=== PATIENT | female | born 1940 | race Caucasian/White ===

== ENCOUNTER 2018-12-01 10:12 | Inpatient (IN) | payer OTHER ==
[2018-12-01 11:04] LABS: Absolute Lymphocytes (CBC) 0.7 K/uL (0.7-4.9); Absolute Neutrophil 8.6 K/uL (1.8-8.0); Basophils % 0.4 % (0-1.3); Eosinophils % 0.4 % (0-4.4); Monocytes % 9.2 % (3.3-12.3); RBC Red Blood Cell Count 4.01 M/uL (3.86-4.86)
[2018-12-01] MEDS ORDERED: IPRATROPIUM BROM 0.5MG/2.5ML ONE (11:04)
[2018-12-01] MEDS ORDERED: ALBUTEROL 2.5 MG/3 ML NEB SOL ONE (11:04)
--- NOTE | 2018-12-01 11:04 | RAD REPORT ---
EXAM DESCRIPTION: RAD - Chest Single View - 12/01/2018 10:52 am CLINICAL HISTORY: SOB Chest pain. COMPARISON: Chest Single View dated 10/03/2017; Chest Pa And Lat (2 Views) dated 10/19/2016; Chest P a And Lat (2 Views) dated 03/04/2016; CHEST PA AND LAT 2 VIEW dated 01/16/2016 FINDINGS: Portable technique limits examination quality. Mild interstitial pulmonary edema seen. The heart is mildly moderately enlarged. No displaced fractur es.Aortic atherosclerosis. IMPRESSION: Mild CHF versus volume overload.
[2018-12-01] MEDS ORDERED: predniSONE 20 MG TAB ONE (11:05)
[2018-12-01 11:11] LABS: Protime INR 1.11
[2018-12-01 11:25] LABS: Potassium 3.8 mmol/L (3.5-5.1); Sodium Level 140 mmol/L (136-145)
[2018-12-01 11:26] LABS: ALT/SGPT 14 U/L (12-78); AST/SGOT 9 U/L (15-37); Albumin 3.2 g/dL (3.4-5.0); Alkaline Phosphatase 65 U/L (45-117); BUN Blood Urea Nitrogen 10 mg/dL (7-18); Bicarbonate 30 mmol/L (21-32); Bilirubin Direct 0.5 mg/dL (0-0.2); Bilirubin Total 1.5 mg/dL (0.2-1.0); Glucose Level 172 mg/dL (74-106); Magnesium 2.2 mg/dL (1.8-2.4); NT PRO-BNP 1544 pg/mL (<450); Protein, Total 7.3 g/dL (6.4-8.2); Troponin (Emerg Dept Use Only) < 0.02 ng/mL (0.0-0.045)
[2018-12-01] MEDS ORDERED: FUROSEMIDE 40 MG/4 ML VIAL ONE (11:30)
--- NOTE | 2018-12-01 13:16 | EDPHYS ---
Physician Documentation [facility] Name: Michelle Beverly Age: 78 yrs Sex: Female : 1940 Arrival Date: 12/01/2018 Time: 10:13 Bed 14 Private MD: Avery Gil ED Physician Giorgio Jones HPI: 12/01 13:16 This 78 yrs old Female presents to ER via Wheelchair with complaints of gs Shortness Of Breath. 13:16 The patient has shortness of breath at rest. Onset: The symptoms/episode began/occurred gs gradually, 3 day(s) ago, and became worse and became persistent. Duration: The symptoms are continuous. The patient's shortness of breath is aggravated by coughing. Associated signs and symptoms: Pertinent negatives: fever. Severity of symptoms: At their worst the symptoms were severe in the emergency department the symptoms are unchanged. The patient has experienced similar episodes in the past, a few times. The patient has not recently seen a physician. 13:16 says pcp called in some abx 2-3 days ago. gs Historical: - Allergies: 10:25 Phenobarbital; ph - Home Meds: 12:15 Ambien 5 mg Oral tab 1 tab once daily [Active]; aspirin 81 mg Oral TbEC 1 tab once tw2 daily [Active]; 14:25 atorvastatin 40 mg Oral tab 1 tab once daily [Active]; Bystolic 5 mg Oral tab 1 tab tw2 once daily [Active]; citalopram 20 mg tab 1 tab once daily [Active]; hydrocodone-acetaminophen 10-325 mg Oral tab [Active]; Janumet Oral [Active]; Levemir 100 unit/mL subcutaneous soln [Active]; levothyroxine 125 mcg tab 1 tab once daily [Active]; lisinopril 10 mg Oral tab once daily [Active]; Spiriva with HandiHaler 18 mcg inhalation CpDv 1 cap once daily [Active]; Plavix 75 mg Oral tab 1 tab once daily [Active]; - PMHx: 10:25 Depression; Diabetes - IDDM; Hyperlipidemia; Hypertension; Hypothyroidism; Myocardial ph infarction; PE; - PSHx: 10:25 Cholecystectomy; LAMINECTOMY; Hysterectomy; ANKLE SURGERY; POLYP REMOVAL/ COLON ph RESECTION; Heart stents; Hemorroidectomy; Knee arthroscopy; cataract; - Immunization history:: Pneumococcal vaccine is up to date, Flu vaccine is up to date. - Social history:: Smoking status: Patient/guardian denies using tobacco. - Ebola Screening: : No symptoms or risks identified at this time. ROS: 13:16 All other systems are negative. gs Exam: 13:16 Head/Face: Normocephalic, atraumatic. Eyes: Pupils equal round and reactive to light, gs extra-ocular motions intact. Lids and lashes normal. Conjunctiva and sclera are non-icteric and not injected. Cornea within normal limits. Periorbital areas with no swelling, redness, or edema. ENT: Nares patent. No nasal discharge, no septal abnormalities noted. Tympanic membranes are normal and external auditory canals are clear. Oropharynx with no redness, swelling, or masses, exudates, or evidence of obstruction, uvula midline. Mucous membranes moist. Neck: Trachea midline, no thyromegaly or masses palpated, and no cervical lymphadenopathy. Supple, full range of motion without nuchal rigidity, or vertebral point tenderness. No Meningismus. Chest/axilla: Normal chest wall appearance and motion. Nontender with no deformity. No lesions are appreciated. 13:16 Abdomen/GI: Soft, non-tender, with normal bowel sounds. No distension or tympany. No guarding or rebound. No evidence of tenderness throughout. Back: No spinal tenderness. No costovertebral tenderness. Full range of motion. Skin: Warm, dry with normal turgor. Normal color with no rashes, no lesions, and no evidence of cellulitis. MS/ Extremity: Pulses equal, no cyanosis. Neurovascular intact. Full, normal range of motion. Neuro: Awake and alert, GCS 15, oriented to person, place, time, and situation. Cranial nerves II-XII grossly intact. Motor strength 5/5 in all extremities. Sensory grossly intact. Cerebellar exam normal. Normal gait. 13:16 Constitutional: The patient appears alert, awake. 13:16 Cardiovascular: Rate: normal, Rhythm: regular, Edema: is not appreciated. 13:16 ECG was reviewed by the Attending Physician. 13:16 Respiratory: moderate respiratory distress is noted, Respirations: tachypnea, Breath sounds: rales, that are mild, are located in both bases. Vital Signs: 10:23 BP 169 / 71; Pulse 76; Resp 24; Temp 98.3(TE); Pulse Ox 84% on R/A; Weight 131.54 kg; ph Height 5 ft. 7 in. (170.18 cm); Pain 0/10; 10:25 Pulse Ox 91% on 2 lpm NC; tw2 11:03 BP 154 / 52; Pulse 68; Resp 14; Pulse Ox 99% on Nebulizer Mask; tw2 12:13 BP 150 / 67; Pulse 70; Resp 22; Pulse Ox 95% on 2 lpm NC; tw2 13:00 BP 142 / 51; Pulse 69; Resp 17; Pulse Ox 96% on 2 lpm NC; tw2 13:45 BP 141 / 66; Pulse 68; Resp 17; Pulse Ox 96% on 2 lpm NC; tw2 14:26 BP 122 / 52; Pulse 59; Resp 17; Pulse Ox 95% on 2 lpm NC; tw2 10:23 Body Mass Index 45.42 (131.54 kg, 170.18 cm) ph 10:25 will continue to monitor, Dr. Jones notified of ra o2 tw2 MDM: 10:28 Patient medically screened. 13:16 Differential diagnosis: CHF exacerbation, Chronic Obstructive Pulmonary Disease gs Myocardial Infarction pneumonia. Data reviewed: vital signs, nurses notes. Counseling: I had a detailed discussion with the patient and/or guardian regarding: the historical points, exam findings, and any diagnostic results supporting the discharge/admit diagnosis, the need for further work-up and treatment in the hospital. 12/01 10:30 Order name: Basic Metabolic Panel; Complete Time: 11:45 12/01 10:30 Order name: CBC with Diff; Complete Time: 11:45 12/01 10:30 Order name: LFT's; Complete Time: 11:45 12/01 10:30 Order name: Magnesium; Complete Time: 11:45 12/01 10:30 Order name: NT PRO-BNP; Complete Time: 11:45 12/01 10:30 Order name: PT-INR; Complete Time: :45 12/01 10:30 Order name: Troponin (emerg Dept Use Only); Complete Time: 11:45 12/01 10:30 Order name: XRAY Chest (1 view); Complete Time: 11:18 12/01 10:30 Order name: Blood Culture* 12/01 14:17 Order name: Urine Dipstick--Ancillary (enter results) 12/01 15:01 Order name: Urine Dipstick-Ancillary [facility] 12/01 10:30 Order name: EKG; Complete Time: 10:31 12/01 10:30 Order name: Cardiac monitoring; Complete Time: 10:41 12/01 10:30 Order name: EKG - Nurse/Tech; Complete Time: 10:46 12/01 10:30 Order name: IV Saline Lock; Complete Time: 10:58 12/01 10:30 Order name: Labs collected and sent; Complete Time: 10:58 12/01 10:30 Order name: O2 Per Protocol; Complete Time: 10:42 12/01 10:30 Order name: O2 Sat Monitoring; Complete Time: 10:42 12/01 14:22 Order name: Diet Ada 2000 Larry; Complete Time: 14:23 tw2 EC:16 Rate is 71 beats/min. Rhythm is regular. LA interval is normal. QRS interval is gs prolonged. T waves are Normal. Clinical impression: Abnormal EKG without significant change and lbbb. Interpreted by me. Administered Medications: 11:00 Drug: predniSONE 40 mg Route: PO; tw2 11:19 Follow up: Response: No adverse reaction tw2 11:01 Drug: Albuterol 2.5 mg Route: Inhalation; tw2 11:01 Drug: AtroVENT Aerosol 0.5 mg Route: Inhalation; tw2 11:28 Drug: Lasix 40 mg Route: IVP; Site: right antecubital; tw2 14:23 Follow up: Response: No adverse reaction tw2 Disposition: 13:16 Critical Care:. gs Disposition: 12/01/18 13:14 Hospitalization ordered by Sukhwinder Vazquez for Observation. Preliminary diagnosis is Systolic (congestive) heart failure. - Bed requested for Telemetry/MedSurg (observation). - Status is Observation. tw2 - Condition is Stable. - Problem is an acute exacerbation. - Symptoms have improved. UTI on Admission? No Critical care time excluding procedures: 13:16 Critical care time: Bedside Care: 10 minutes, Consultation: 10 minutes, Family Intervention: 10 minutes. Total time: 30 minutes Signatures: Dispatcher [employer] [facility] Juliana Ramirez Lisbeth Fan RN RN Kerrie Ashton RN RN tw2 Giorgio Jones MD MD Corrections: (The following items were deleted from the chart) 14:47 13:14 Hospitalization Ordered by Sukhwinder Vazquez DO for Observation. Preliminary bd diagnosis is Systolic (congestive) heart failure. Bed requested for Telemetry/MedSurg (observation). Status is Observation. Condition is Stable. Problem is an acute exacerbation. Symptoms have improved. UTI on Admission? No. gs 15:09 14:47 12/01/2018 13:14 Hospitalization Ordered by Sukhwinder Vazquez DO for Observation. tw2 Preliminary diagnosis is Systolic (congestive) heart failure. Bed requested for Telemetry/MedSurg (observation). Status is Observation. Condition is Stable. Problem is an acute exacerbation. Symptoms have improved. UTI on Admission? No. bd
--- NOTE | 2018-12-01 13:16 | ER ---
Nurse's Notes [facility] Name: Michelle Beverly Age: 78 yrs Sex: Female : 1940 Arrival Date: 12/01/2018 Time: 10:13 Bed 14 Private MD: Avery Gil Diagnosis: Systolic (congestive) heart failure Presentation: 12/01 10:21 Presenting complaint: Patient states: SOB and persistent cough that is not productive ph since Tue, denies fever N/V/D, reports hx of COPD. Transition of care: patient was not received from another setting of care. Onset of symptoms was December 01, 2018. Risk Assessment: Do you want to hurt yourself or someone else? Patient reports no desire to harm self or others. Initial Sepsis Screen: Does the patient meet any 2 criteria? No. Patient's initial sepsis screen is negative. Does the patient have a suspected source of infection? No. Patient's initial sepsis screen is negative. Care prior to arrival: None. 10:21 Method Of Arrival: Wheelchair ph 10:21 Acuity: PAM 3 ph Triage Assessment: 11:03 General: Appears in no apparent distress. Respiratory: Onset: The symptoms/episode tw2 began/occurred couple of days , the patient has mild shortness of breath. Historical: - Allergies: 10:25 Phenobarbital; ph - Home Meds: 12:15 Ambien 5 mg Oral tab 1 tab once daily [Active]; aspirin 81 mg Oral TbEC 1 tab once tw2 daily [Active]; 14:25 atorvastatin 40 mg Oral tab 1 tab once daily [Active]; Bystolic 5 mg Oral tab 1 tab tw2 once daily [Active]; citalopram 20 mg tab 1 tab once daily [Active]; hydrocodone-acetaminophen 10-325 mg Oral tab [Active]; Janumet Oral [Active]; Levemir 100 unit/mL subcutaneous soln [Active]; levothyroxine 125 mcg tab 1 tab once daily [Active]; lisinopril 10 mg Oral tab once daily [Active]; Spiriva with HandiHaler 18 mcg inhalation CpDv 1 cap once daily [Active]; Plavix 75 mg Oral tab 1 tab once daily [Active]; - PMHx: 10:25 Depression; Diabetes - IDDM; Hyperlipidemia; Hypertension; Hypothyroidism; Myocardial ph infarction; PE; - PSHx: 10:25 Cholecystectomy; LAMINECTOMY; Hysterectomy; ANKLE SURGERY; POLYP REMOVAL/ COLON ph RESECTION; Heart stents; Hemorroidectomy; Knee arthroscopy; cataract; - Immunization history:: Pneumococcal vaccine is up to date, Flu vaccine is up to date. - Social history:: Smoking status: Patient/guardian denies using tobacco. - Ebola Screening: : No symptoms or risks identified at this time. Screenin:14 Abuse screen: Denies threats or abuse. Nutritional screening: No deficits noted. tw2 Tuberculosis screening: No symptoms or risk factors identified. Fall Risk Secondary diagnosis (15 points). Assessment: 11:02 General: Appears in no apparent distress. obese, Behavior is calm, cooperative, tw2 appropriate for age. Pain: Denies pain. Neuro: Level of Consciousness is awake, alert, obeys commands, Oriented to person, place, time, situation. Cardiovascular: Rhythm is sinus rhythm. Respiratory: Reports shortness of breath at rest on exertion cough that is non-productive, Airway is patent Respiratory effort is even, unlabored, Respiratory pattern is regular, symmetrical, Breath sounds are diminished bilaterally. GI: No signs and/or symptoms were reported involving the gastrointestinal system. Abdomen is flat, round non-distended, obese, Bowel sounds present X 4 quads. : No signs and/or symptoms were reported regarding the genitourinary system. EENT: No signs and/or symptoms were reported regarding the EENT system. Derm: No signs and/or symptoms reported regarding the dermatologic system. Musculoskeletal: Range of motion: intact in all extremities. 12:13 Reassessment: Patient appears in no apparent distress at this time. No changes from tw2 previously documented assessment. Patient and/or family updated on plan of care and expected duration. Pain level reassessed. Patient is alert, oriented x 3, equal unlabored respirations, skin warm/dry/pink. 13:00 Reassessment: Patient appears in no apparent distress at this time. No changes from tw2 previously documented assessment. Patient and/or family updated on plan of care and expected duration. Pain level reassessed. Patient is alert, oriented x 3, equal unlabored respirations, skin warm/dry/pink. 13:46 Reassessment: Patient appears in no apparent distress at this time. No changes from tw2 previously documented assessment. Patient and/or family updated on plan of care and expected duration. Pain level reassessed. Patient is alert, oriented x 3, equal unlabored respirations, skin warm/dry/pink. 13:54 Reassessment: pt request to be pushed over to her husbands room in the ER at this time, tw2 nad, provider notified. 14:28 Reassessment: Patient appears in no apparent distress at this time. No changes from tw2 previously documented assessment. Patient and/or family updated on plan of care and expected duration. Pain level reassessed. Patient is alert, oriented x 3, equal unlabored respirations, skin warm/dry/pink. Vital Signs: 10:23 BP 169 / 71; Pulse 76; Resp 24; Temp 98.3(TE); Pulse Ox 84% on R/A; Weight 131.54 kg; ph Height 5 ft. 7 in. (170.18 cm); Pain 0/10; 10:25 Pulse Ox 91% on 2 lpm NC; tw2 11:03 BP 154 / 52; Pulse 68; Resp 14; Pulse Ox 99% on Nebulizer Mask; tw2 12:13 BP 150 / 67; Pulse 70; Resp 22; Pulse Ox 95% on 2 lpm NC; tw2 13:00 BP 142 / 51; Pulse 69; Resp 17; Pulse Ox 96% on 2 lpm NC; tw2 13:45 BP 141 / 66; Pulse 68; Resp 17; Pulse Ox 96% on 2 lpm NC; tw2 14:26 BP 122 / 52; Pulse 59; Resp 17; Pulse Ox 95% on 2 lpm NC; tw2 10:23 Body Mass Index 45.42 (131.54 kg, 170.18 cm) ph 10:25 will continue to monitor, Dr. Jones notified of ra o2 tw2 ED Course: 10:13 Patient arrived in ED. as 10:14 Avery Gil MD is Private Physician. as 10:14 Kerrie Ashton RN is Primary Nurse. tw2 10:15 Arm band placed on. tw2 10:15 Call light in reach. Side rails up X 1. personnel monitor on. Pulse ox on. NIBP on. tw2 10:19 Giorgio Jones MD is Attending Physician. gs 10:23 Triage completed. ph 10:50 X-ray completed. Portable x-ray completed in exam room. Patient tolerated procedure ls3 well. 10:52 XRAY Chest (1 view) In Process Unspecified. EDMS 10:57 Blood Culture* Sent. ag 10:57 Basic Metabolic Panel Sent. ag 10:57 CBC with Diff Sent. ag 10:57 LFT's Sent. ag 10:57 Magnesium Sent. ag 10:57 NT PRO-BNP Sent. ag 10:57 PT-INR Sent. ag 10:57 Troponin (emerg Dept Use Only) Sent. ag 10:57 Inserted saline lock: 20 gauge in right antecubital area, using aseptic technique. ag Blood collected. 11:12 EKG done, by diesel truck technician. reviewed by Giorgio Jones MD. at1 13:14 Sukhwinder Vazquez DO is Hospitalizing Provider. 14:49 No provider procedures requiring assistance completed. Patient admitted, IV remains in tw2 place. Administered Medications: 11:00 Drug: predniSONE 40 mg Route: PO; tw2 11:19 Follow up: Response: No adverse reaction tw2 11:01 Drug: Albuterol 2.5 mg Route: Inhalation; tw2 11:01 Drug: AtroVENT Aerosol 0.5 mg Route: Inhalation; tw2 11:28 Drug: Lasix 40 mg Route: IVP; Site: right antecubital; tw2 14:23 Follow up: Response: No adverse reaction tw2 Outcome: 13:14 Decision to Hospitalize by Provider. gs 14:52 Admitted to Med/surg accompanied by tech, room 206, with chart, Report called to tw2 WILLIAM Hightower 14:52 Condition: stable 14:52 Instructed on the need for admit. 15:09 Patient left the ED. tw2 Signatures: Dispatcher [employer] EDMS Camille Alvares Amanda, mid level practitioner EKG Tat1 Janey Jones Patricia, WILLIAM RN Kerrie Ashton RN RN tw2 Giorgio Jones MD MD Serafin Boggs ls3
--- NOTE | 2018-12-01 13:42 | P.HP ---
Certification for Inpatient Patient admitted to: Observation With expected LOS: <2 Midnights Patient will require the following post-hospital care: Other (Home oxygen) Practitioner: I am a practitioner with admitting privileges, knowledge of patient current condition, hospital course, and medical plan of care. Services: Services provided to patient in accordance with Admission requirements found in Title 42 Section 412.3 of the Code of Federal Regulations Patient History Date of Service: 12/01/18 Primary Care Provider: Dr. Gil( I am covering for him) Reason for admission: Shortness of breath, lower extremity edema History of Present Illness: 78-year-old female presented to the emergency room with increasing shortness of breath and edema to the lower extremities. Shortness of breath has occurred over the past month. It got worse today. She also reports edema to the lower extremities and a mild cough. No significant chest pain or palpitations noted. No fever, chills, or nausea. Patient with history of CHF, COPD, diabetes, hypertension, hypothyroidism. She does not use Lasix at home. She is not on a fluid restriction. In the ER patient evaluated. O2 saturations were 84% on room air. Patient was given IV Lasix with improvement. White count 10.4, hemoglobin 13. Sodium 140, potassium 3.8. GFR 71. BNP elevated at 1544. Troponin less than 0.02. Chest x -ray showed CHF pattern. Patient was admitted for observation. When I saw the patient the ER, she appeared improved. Allergies phenobarbital Allergy (Intermediate, Verified 10/03/17 17:33) Itching Home medications list reviewed: Yes Home Medications: Pantoprazole Sodium [Protonix] 40 mg PO DAILY 03/14/13 Tiotropium Farley [Spiriva] 1 spray IH DAILY 03/14/13 Atorvastatin Calcium [Lipitor] 1 tab PO DAILY 11/26/13 Levothyroxine Sodium [Unithroid] 125 mcg PO DAILY 12/02/14 Lisinopril [Prinivil*] 10 mg PO DAILY 12/02/14 Aspirin Chewable [Aspirin Chewable*] 81 mg PO DAILY 10/03/17 Citalopram [Celexa*] 20 mg PO DAILY 10/03/17 Clopidogrel Bisulfate [Plavix*] 1 tab PO DAILY 10/03/17 Hydrocodone Bit/Acetaminophen [Hydrocodon-Acetaminophn 10-325] 1 each PO BID Insulin Detemir [Levemir*] 60 unit SQ DAILY 10/03/17 Nebivolol HCl [Bystolic*] 1 tab PO DAILY 10/03/17 Sitagliptin Phos/Metformin HCl [Janumet 50-500 mg Tablet] 1 tab PO DAILY Zolpidem Tartrate 1 tab PO BEDTIME 10/03/17 - Past Medical/Surgical History Diabetic: Yes -: Diabetes mellitus type 2, insulin dependent -: HTN -: CHF -: COPD -: Hypothyroidism -: History of pulmonary -: Hyperlipidemia -: CAD with prior stents -: GOUT -: Depression -: Chronic back and knee pain -: HEART STENTS X 3 -: JERRI -: COLON SX- POLYP REMOVED -: LEFT ANKLE SX -: HYSTER -: APPY -: DISK REMOVAL -: HEMORROIDECTOMY Psychosocial/ Personal History: Patient is - Family History Mother -: Diabetes Notes: with OK Father -: Cancer Notes: Prostatic CA - Social History Smoking Status: Former smoker Alcohol use: No CD- Drugs: No Caffeine use: Yes Place of Residence: Home Review of Systems General: As per HPI Eyes: Unremarkable ENT: Unremarkable Respiratory: Shortness of Breath, As per HPI Cardiovascular: Edema, As per HPI Gastrointestinal: Unremarkable Genitourinary: Unremarkable Musculoskeletal: Pedal edema, As per HPI Integumentary: Unremarkable Neurological: Unremarkable Lymphatics: Unremarkable Physical Examination - Physical Exam General: Alert, In no apparent distress, Oriented x3, Cooperative HEENT: Atraumatic, Normocephalic, Mucous membr. moist/pink Neck: Supple, No Thyromegaly Respiratory: Diminished (To the bases bilateral) Cardiovascular: Normal pulses, Regular rate/rhythm Gastrointestinal: Normal bowel sounds, Soft and benign, Non-distended, No tenderness, No masses, No rebound, No guarding Musculoskeletal: No erythema, No tenderness, No warmth Integumentary: No erythema, No warmth, No cyanosis, Tenderness/swelling (Less than 1+ pitting edema to the lower extremities below the knees) Neurological: Normal speech, Normal strength at 5/5 x4 extr, Normal tone, Normal affect Lymphatics: No axilla or inguinal lymphadenopathy - Studies Laboratory Data (last 24 hrs) 12/01/18 10:50: PT 13.1 H, INR 1.11 12/01/18 10:50: WBC 10.3, Hgb 13.0, Hct 38.0, Plt Count 259 12/01/18 10:50: Sodium 140, Potassium 3.8, BUN 10, Creatinine 0.78, Glucose 172 H, Magnesium 2.2, Total Bilirubin 1.5 H, AST 9 L, ALT 14, Alkaline Phosphatase 65 Assessment and Plan - Plan Impression: Shortness of breath with lower extremity edema secondary to acute on chronic CHF likely systolic in nature Chronic COPD DM Type 2, insulin dependent Hyperlipidemia Hypothyroidism Obesity Chronic pain Depression with anxiety Plan: Shortness of breath with lower extremity edema secondary to acute on chronic CHF likely systolic in nature: Patient will be admitted further evaluate. Patient will continue with IV Lasix. Will place on a 1500 cc per day fluid restriction. Will check echocardiogram to evaluate for systolic verses diastolic dysfunction. Will consult cardiology to further assess. Will recheck chest x-ray tomorrow. Will wean off oxygen. Patient may require home oxygen at discharge. Anticipate discharge within the next 24 hr. Patient will likely require diuretic therapy at discharge. Chronic COPD: Continue with COPD medication. DM Type 2, insulin dependent: Will provide basal insulin and insulin sliding scale. Will check A1c. Hyperlipidemia: Will continue with her medication Hypothyroidism: Will continue with her medication Obesity: Will calculate BMI. Will address lifestyle modification education. Chronic pain: Patient is seen by pain management. Will continue with her pain medication. Depression with anxiety: Will continue with her medication. Discharge Plan: Home Plan to discharge in: 24 Hours - Advance Directives Does patient have a Living Will: No Does patient have a Durable POA for Healthcare: No - Code Status/Comfort Care Code Status Assessed: Yes (Patient is full code) Time Spent Managing Pts Care (In Minutes): 55
--- NOTE | 2018-12-01 14:14 | EKG ---
Test Date: 2018-12-01 Test Time: 10:47:20 Chief Of Service: ELSI MEASUREMENT RESULTS: Intervals: Rate: 71 TX: 184 QRSD: 128 QT: 436 QTc: 473 [place]: P: 14 TX: 184 QRS: -54 T: 87 INTERPRETIVE STATEMENTS: Sinus rhythm with occasional premature ventricular complexes Left bundle branch block Abnormal ECG Compared to ECG 10/03/2017 07:50:18 First degree AV block no longer present Electronically Signed On 12-01-18 14:13:23 VISITOR SERVICES INFORMATION ASSISTANT by Rohan Rajan
[2018-12-01 15:00] LABS: Urine Blood NEGATIVE (NEG); Urine Glucose NEGATIVE (NEG); Urine Protein NEGATIVE (NEG)
[2018-12-01] MEDS ORDERED: ONDANSETRON 4 MG/2 ML VIAL IV PRN (15:26)
[2018-12-01] MEDS ORDERED: ACETAMINOPHEN 500 MG TAB PO PRN (15:26)
[2018-12-01] MEDS ORDERED: ALBUTEROL 2.5 MG/3 ML NEB SOL NEB PRN (15:26)
[2018-12-01] MEDS ORDERED: GLUCAGON 1 MG/VIAL IM PRN (15:26)
[2018-12-01] MEDS ORDERED: D50W 25 GM/50 ML SYRINGE IV PRN (15:26)
[2018-12-01 15:50] VITALS: BMI 45.4
[2018-12-01] MEDS: INSULIN -REGULAR HUMAN 50 UNIT/0.5 ML ML SQ SCH ×2 (16:30→21:12)
[2018-12-01] MEDS: ENOXAPARIN 40 MG/0.4 ML SQ SCH (17:19)
[2018-12-01] MEDS: FUROSEMIDE 20 MG/ 2ML VIAL IV SCH (17:19)
[2018-12-01 17:45] LABS: CKMB Creatine Kinase MB < 1.0 ng/mL (0.3-3.6); Creatine Phosphokinase 59 U/L (26-192); Troponin I < 0.02 ng/mL (0.0-0.045)
[2018-12-01 17:48] LABS: Thyroid Stimulating Hormone 0.073 uIU/mL (0.360-3.740)
[2018-12-01] MEDS ORDERED: INFLUENZA VACCINE (for 3y+) 0.5 ML DOSE IMVAC ONE (18:00)
[2018-12-01 19:01] LABS: Urine Appearance CLEAR; Urine Bilirubin NEGATIVE (NEG); Urine Blood NEGATIVE (NEG); Urine Color YELLOW; Urine Glucose NEGATIVE (NEG); Urine Protein NEGATIVE (NEG); Urine Urobilinogen 0.2 mg/dL (0.2-1.0)
[2018-12-01 19:11] LABS: Urine Microscopic Reflex NO UMIC
[2018-12-01] MEDS: IPRATROPIUM BROM 0.5MG/2.5ML NEB PRN (20:15)
[2018-12-01] MEDS: ARFORMOTEROL TARTRATE 15 MCG/2 ML VIAL.NEB NEB SCH (20:15)
[2018-12-01] MEDS: ATORVASTATIN 40 MG TAB PO SCH (21:11)
[2018-12-01] MEDS: HYDROCODONE/APAP 7.5/325 MG TAB PO PRN (21:11)
[2018-12-01] MEDS: INSULIN GLARGINE 100 UNITS/ML SQ SCH (21:12)
--- NOTE | 2018-12-01 21:28 | CON ---
History Of Present Illness: Mrs. Beverly is 78. She came to the hospital and told the ER physician she has been more short of breath than usual and having more shortness of breath when she lies flat. Isaias santiago also notes that she is short of breath with exertion and has gained some weight. A chest x-ray ind icates that that there is mild volume overload. Interstitial pulmonary edema is present. The patien adonay has a history of heart disease. She has heart failure with normal ejection fraction. She has mary ellen nary heart disease with stents in the right coronary. She has had a catheterization showing patent s tents; and more recently, she has had a nuclear stress test showing no ischemia. Medications: Her home medications have been tiotropium, Protonix, atorvastatin, lisinopril, levothyr oxine, insulin, sitagliptin, metformin, hydrocodone, Plavix, citalopram, nebivolol, and zolpidem. Isaias santiago does not have any Lasix to use even on a p.r.n. basis apparently. Allergies: SHE IS ALLERGIC TO PHENOBARBITAL. NO OTHER ALLERGIES. Social History: Uses no alcohol, tobacco, or illegal drugs. Physical Examination: Vital Signs: Height 5 feet 7 inches, weight 290 pounds, body mass index 45. HEENT: Normal. Lungs: Crackles more on the left than the right, basilar. Extremities: Trace edema. Distal pulses palpable. Impression And Recommendations: I believe Mrs. Beverly is volume overloaded. She should probably be on Lasix everyday, but we will give her a few doses intravenously now; and probably, she will be in goo d enough shape to be discharged by tomorrow. An echocardiogram has been ordered. I do not really lamas spect it is that necessary for us to do that. Her laboratory examination indicates normal hemoglobin , hematocrit, BUN, creatinine. Blood sugar is 172. Troponins are normal. N-terminal ProBNP is 1544 . So, my impression is she has mild pulmonary edema from heart failure with normal ejection fraction. We should add diuretics. SH/MODL Voice ID: [id number] Report ID: [id number]
[2018-12-02] MEDS: guaiFENesin 100 MG/5 ML UCUP PO PRN ×3 (01:38→17:50)
[2018-12-02 01:41] LABS: CKMB Creatine Kinase MB 1.1 ng/mL (0.3-3.6); Creatine Phosphokinase 68 U/L (26-192); Troponin I < 0.02 ng/mL (0.0-0.045)
[2018-12-02] MEDS: HYDROCODONE/APAP 7.5/325 MG TAB PO PRN ×3 (05:29→17:50)
[2018-12-02 05:34] LABS: Absolute Lymphocytes (CBC) 1.3 K/uL (0.7-4.9); Absolute Monocytes 1.3 K/uL (0.1-1.3); Basophils % 0.4 % (0-1.3); Eosinophils % 0.3 % (0-4.4); Hematocrit 37.3 % (36.0-45.0); Lymphocytes % 13.7 % (15.3-44.8); Monocytes % 13.6 % (3.3-12.3)
[2018-12-02 05:44] LABS: Magnesium 2.1 mg/dL (1.8-2.4); Potassium 3.4 mmol/L (3.5-5.1)
[2018-12-02] MEDS ORDERED: LEVOTHYROXINE SOD 0.125 MG TAB PO SCH (06:00)
[2018-12-02] MEDS: ARFORMOTEROL TARTRATE 15 MCG/2 ML VIAL.NEB NEB SCH ×2 (07:28→19:15)
[2018-12-02] MEDS: INSULIN -REGULAR HUMAN 50 UNIT/0.5 ML ML SQ SCH ×4 (07:30→21:00)
--- NOTE | 2018-12-02 07:55 | RAD REPORT ---
EXAM DESCRIPTION: CT - Chest For Pe Angio - 12/01/2018 11:17 pm CLINICAL HISTORY: Chest pain, shortness of breath A preliminary report was provided at the time of the study and reviewed prior to final report. COMPARISON: Chest films same date, PE study August 2014 TECHNIQUE: Dynamically enhanced 3 mm thick images of the chest were obtained during administration o f approximately 150mL Isovue 370 IV contrast. Coronal and oblique MIP reconstruction images were gene rated and reviewed. Exam utilizes a protocol to evaluate the pulmonary arterial tree. All CT scans are performed using dose optimization technique as appropriate and may include automated exposure control or mA/KV adjustment according to patient size. FINDINGS: Exam has motion degradation. Far peripheral branch assessment is limited though no emboli suspected. No central pulmonary embolic disease. The aorta as imaged shows no acute or suspicious finding. No pericardial thickening or effusion. A new 3.6 x 1.5 centimeter soft tissue mass (image 35/99) has developed in the medial left upper lobe between the vasculature and mediastinal pleura. No calcification. There are patchy interstitial and alveolar opacities present in the right upper lobe. No pleural effusion or pleural thickening. No mediastinal or hilar suspicious masses. No chest wall masses or abnormal axillary lymphadenopathy. IMPRESSION: Motion degraded study not suspected to contain any pulmonary embolic disease. Patchy right upper lobe pneumonia changes are present. New 3.6 x 1.5 cm soft tissue mass perihilar left upper lobe. This may be atelectasis, pneumonia or ev en possibly a developing malignancy. Short arm three-month contrast-enhanced CT follow-up is recommen ded. PET-CT may not be helpful at this time as both pneumonia and malignancy would be PET positive.
--- NOTE | 2018-12-02 08:30 | RAD REPORT ---
EXAM DESCRIPTION: RAD - Chest Pa And Lat (2 Views) - 12/02/2018 6:06 am CLINICAL HISTORY: CHF COMPARISON: December 01 TECHNIQUE: PA and lateral views of the chest were obtained. FINDINGS: The lungs are fibrotic as a baseline. Patchy opacification in the lateral right midlung fi eld is present probably not different from the prior study. Heart size remains upper normal to slig htly enlarged. Vasculature is prominent but stable. No pneumothorax or measurable pleural effusion. N o acute bony finding noted. No aortic abnormality. IMPRESSION: Mild failure findings remain. Chest is not clearly different from December 01.
[2018-12-02] MEDS: ENOXAPARIN 40 MG/0.4 ML SQ SCH (08:31)
[2018-12-02] MEDS: NEBIVOLOL HCL 5 MG TAB PO SCH (08:32)
[2018-12-02] MEDS: ASPIRIN EC 81 MG TAB PO SCH (08:32)
[2018-12-02] MEDS: CITALOPRAM 10 MG TABLET PO SCH (08:32)
[2018-12-02] MEDS: CLOPIDOGREL 75 MG TABLET PO SCH (08:32)
[2018-12-02] MEDS: PANTOPRAZOLE 40MG TABLET PO SCH (08:33)
[2018-12-02] MEDS: FUROSEMIDE 20 MG/ 2ML VIAL IV SCH (08:43)
[2018-12-02] MEDS ORDERED: TIOTROPIUM 5 SPRAYS/INHALER IH SCH (09:00)
[2018-12-02] MEDS ORDERED: LISINOPRIL 10 MG TAB PO SCH (09:00)
--- NOTE | 2018-12-02 09:41 | PN ---
Ms. Beverly complains of dyspnea and a cough still. I think we should probably discontinue her lisinopr il and increase the dose of her Lasix. She does not have crackles, but I suspect that she still has some heart failure. Her blood pressure is elevated. We will try to get that down without using an A CE inhibitor. I think she has cough induced by the MIGNON inhibitor. With more diuresis, her blood pre ssure most likely will come down as well. DIANE/ELIDIA Voice ID: [id number] Report ID: [id number]
[2018-12-02] MEDS: BENZONATATE 100 MG CAP PO PRN (12:13)
--- NOTE | 2018-12-02 13:37 | P.PN ---
Subjective Date of Service: 12/02/18 Primary Care Provider: Dr. Gil( I am covering for him) Chief Complaint: Shortness of breath, lower extremity edema Subjective: Other (Patient with cough today. Oxygen saturation still low on room air.) Physical Examination - Vital Signs Temperature: 97.7 F Blood Pressure: 168/71 Pulse: 66 Respirations: 20 Pulse Ox (%): 94 - Physical Exam General: Alert, In no apparent distress, Oriented x3, Cooperative HEENT: Atraumatic Neck: Supple Respiratory: Crackles/rales (Bilateral) Cardiovascular: Normal pulses, Regular rate/rhythm Gastrointestinal: Normal bowel sounds, Soft and benign, Non-distended, No tenderness, No masses, No rebound, No guarding Musculoskeletal: No erythema, No tenderness, No warmth Integumentary: No tenderness/swelling, No erythema, No warmth, No cyanosis Neurological: Normal speech, Normal strength at 5/5 x4 extr, Normal tone, Normal affect - Studies Medications List Reviewed: Yes Assessment & Plan Discharge Plan: Home Plan to discharge in: 24 Hours Physician Review Additional Text: Impression: Shortness of breath with lower extremity edema secondary to acute on chronic diastolic CHF with possible right lower lobe pneumonia versus atelectasis with CT showing 3.6 x 1.5 cm soft tissue mass in the perihilar left upper lobe DM Type 2, insulin dependent Hyperlipidemia Hypothyroidism Obesity, BMI 44 Chronic pain Depression with anxiety Plan: Shortness of breath with lower extremity edema secondary to acute on chronic diastolic CHF with possible right lower lobe pneumonia versus atelectasis with CT showing 3.6 x 1.5 cm soft tissue mass in the perihilar left upper lobe: Patient with noted cough today. CT scan reviewed. Will start IV Levaquin. Will check pro calcitonin. Will recheck chest x-ray in the morning. Will consult pulmonology to further evaluate for possible pneumonia versus atelectasis and soft tissue mass. Patient may require workup. Cardiology has evaluated patient. Cardiology increased IV Lasix. Continue with 1500 cc per day fluid restriction. Continue to wean off oxygen. Anticipate discharge in the next 24-48 hrs. Preliminary workup for home oxygen has been arranged. I will turn the service over to Dr. Whiteside tomorrow. I will go over the plan of care with her. Chronic COPD: Continue with COPD medication. Continue as above. Will start low-dose prednisone. Await pulmonary recommendation Victor Hugo DM Type 2, insulin dependent: Will continue with basal insulin and insulin sliding scale. Will check A1c. Hyperlipidemia: Will continue with her medication Hypothyroidism: Tsh slightly elevated. Will decrease dose. This will need to be recheck in 4-6 weeks to monitor and address. Obesity, BMI 44: Continue to address lifestyle modification education. Chronic pain: Patient is seen by pain management. Will continue with her pain medication. Depression with anxiety: Will continue with her medication. Time Spent Managing Pts Care (In Minutes): 55
[2018-12-02] MEDS: HYDRALAZINE HCL 25 MG TABLET PO SCH ×2 (13:39→21:39)
[2018-12-02] MEDS: Levofloxacin500mg IV 500 MG/100 ML BAG IV SCH (13:39)
[2018-12-02] MEDS: IPRATROPIUM BROM 0.5MG/2.5ML NEB PRN ×2 (14:23→19:15)
[2018-12-02] MEDS ORDERED: POTASSIUM CL SA 10 MEQ TAB PO ONE (16:38)
[2018-12-02] MEDS: FUROSEMIDE 40 MG/4 ML VIAL IV SCH (17:12)
[2018-12-02] MEDS: INSULIN GLARGINE 100 UNITS/ML SQ SCH (21:39)
[2018-12-02] MEDS: predniSONE 10 MG TAB PO SCH (21:39)
[2018-12-02] MEDS: ATORVASTATIN 40 MG TAB PO SCH (21:39)
[2018-12-03] MEDS: LEVOTHYROXINE SOD 0.1 MG TAB PO SCH (06:02)
[2018-12-03] MEDS: guaiFENesin 100 MG/5 ML UCUP PO PRN ×2 (06:02→22:43)
[2018-12-03] MEDS: HYDROCODONE/APAP 7.5/325 MG TAB PO PRN ×3 (06:02→21:52)
[2018-12-03 06:46] LABS: Absolute Lymphocytes (CBC) 1.1 K/uL (0.7-4.9); Absolute Monocytes 0.5 K/uL (0.1-1.3); Basophils % 0.1 % (0-1.3); Eosinophils % 0.1 % (0-4.4); Hematocrit 37.2 % (36.0-45.0); Lymphocytes % 14.5 % (15.3-44.8); MPV 9.1 fL (7.6-11.3); Monocytes % 6.5 % (3.3-12.3); RBC Red Blood Cell Count 3.92 M/uL (3.86-4.86)
[2018-12-03 07:06] LABS: Magnesium 2.4 mg/dL (1.8-2.4); Potassium 4.3 mmol/L (3.5-5.1)
[2018-12-03] MEDS: INSULIN -REGULAR HUMAN 50 UNIT/0.5 ML ML SQ SCH ×4 (07:30→21:48)
[2018-12-03] MEDS: ARFORMOTEROL TARTRATE 15 MCG/2 ML VIAL.NEB NEB SCH ×2 (07:32→20:15)
[2018-12-03] MEDS: PANTOPRAZOLE 40MG TABLET PO SCH (09:44)
[2018-12-03] MEDS: HYDRALAZINE HCL 25 MG TABLET PO SCH ×3 (09:44→21:46)
[2018-12-03] MEDS: CITALOPRAM 10 MG TABLET PO SCH (09:45)
[2018-12-03] MEDS: LOSARTAN POTASSIUM 50 MG TABLET PO SCH (09:45)
[2018-12-03] MEDS: ASPIRIN EC 81 MG TAB PO SCH (09:45)
[2018-12-03] MEDS: NEBIVOLOL HCL 5 MG TAB PO SCH (09:45)
[2018-12-03] MEDS: FUROSEMIDE 40 MG/4 ML VIAL IV SCH ×2 (09:46→16:43)
[2018-12-03] MEDS: predniSONE 10 MG TAB PO SCH ×2 (09:46→21:46)
[2018-12-03] MEDS: ENOXAPARIN 40 MG/0.4 ML SQ SCH (09:46)
[2018-12-03] MEDS: CLOPIDOGREL 75 MG TABLET PO SCH (09:46)
--- NOTE | 2018-12-03 11:23 | RAD REPORT ---
EXAM DESCRIPTION: RAD - Chest Pa And Lat (2 Views) - 12/03/2018 6:33 am CLINICAL HISTORY: Follow up pneumonia, atelectasis,CHF/COPD Chest pain. COMPARISON: Chest Pa And Lat (2 Views) dated 12/02/2018; Chest Single View dated 12/01/2018; Chest Sin gle View dated 10/03/2017; Chest Pa And Lat (2 Views) dated 10/19/2016 FINDINGS: Emphysematous changes are present throughout the lungs. Mild interstitial prominence is pr esent, unchanged. Heart is moderately enlarged in size. No displaced fractures. Aortic atherosclerosi s. IMPRESSION: Mild CHF versus volume overload, without significant change since comparative study
--- NOTE | 2018-12-03 13:37 | P.PN ---
Subjective Date of Service: 12/03/18 Primary Care Provider: Dr. Gil( I am covering for him) Chief Complaint: Shortness of breath, lower extremity edema Patient seen and examined at bedside with RN. Chart reviewed. Case discussed with this cardiology. Pulmonology recommendations await at this time. Continues to use oxygen at this time. No complaints to offer overnight states that shortness of breath has gotten progressively better. Review of Systems 10-point ROS is otherwise unremarkable Physical Examination - Vital Signs Temperature: 98.5 F Blood Pressure: 155/64 Pulse: 59 Respirations: 20 Pulse Ox (%): 94 - Physical Exam General: Alert, Oriented x3, Mild distress HEENT: Atraumatic, PERRLA, EOMI Neck: Supple, JVD not distended Respiratory: Normal air movement, Crackles/rales, Expiratory wheezes, Inspiratory wheezes Cardiovascular: Regular rate/rhythm, Normal S1 S2 Gastrointestinal: Normal bowel sounds, Soft and benign, Non-distended, No tenderness Musculoskeletal: No tenderness Integumentary: No rashes Neurological: Normal speech, Normal tone, Normal affect Lymphatics: No axilla or inguinal lymphadenopathy - Studies Medications List Reviewed: Yes Assessment And Plan - Plan Plan: Acute on chronic diastolic CHF: -cardiology consulted. Apprecated Reccs at this time -IV Lasix b.i.d. at this time -fluid restriction to 1500 cc per day -currently using oxygen. Will try to wean off. -echocardiogram reviewed at this time Abnormal CT scan of the chest: -Possible right lower lobe pneumonia versus atelectasis versus malignancy -pro calcitonin negative at this time, white count is within normal limits -most likely atelectasis versus malignancy -however started on IV Levaquin at this time. -pulmonology is consulted. Awaiting recommendations at this time. -repeat CT in 3 months recommended by radiology Chronic COPD: -Continue with COPD medication. DM Type 2, insulin dependent: -Will continue with basal insulin and insulin sliding scale. Hyperlipidemia: -Will continue with her medication Hypothyroidism: -stable at this time. Initially Tsh slightly elevated. Dose adjusted. This will need to be recheck in 4-6 weeks to monitor and address. Obesity, BMI 44: -Continue to address lifestyle modification education. Chronic pain: -Patient is seen by pain management. -Will continue with her pain medication. Depression with anxiety: -Will continue with her medication. Disposition: Awaiting clinical improvement at this time. Awaiting pulmonology recommendations well. Will continue with IV antibiotics along with IV Lasix. Discharge Plan: Home Plan to discharge in: 48 Hours - Code Status/Comfort Care Code Status Assessed: Yes Critical Care: No
[2018-12-03] MEDS: Levofloxacin500mg IV 500 MG/100 ML BAG IV SCH (14:20)
--- NOTE | 2018-12-03 18:00 | PN ---
Mrs. Beverly feels better. She has had a significant diuresis. She gets hypoxic when she sits down. I suspect she has a lot of atelectasis from her body habitus, mostly in inactivity, especially here in the hospital. She should probably do some kind of cardiac or pulmonary rehab as an outpatient. I t hink her previous outpatient dose of being on no diuretic should probably be changed so that she is o n probably 80 mg of Lasix a day. DIANE/ELIDIA Voice ID: [id number] Report ID: [id number]
[2018-12-03] MEDS: IPRATROPIUM BROM 0.5MG/2.5ML NEB PRN (20:15)
[2018-12-03] MEDS: BENZONATATE 100 MG CAP PO PRN (21:46)
[2018-12-03] MEDS: ATORVASTATIN 40 MG TAB PO SCH (21:46)
[2018-12-03] MEDS: INSULIN GLARGINE 100 UNITS/ML SQ SCH (21:47)
[2018-12-04 06:02] LABS: Absolute Lymphocytes (CBC) 0.8 K/uL (0.7-4.9); Absolute Monocytes 0.6 K/uL (0.1-1.3); Absolute Neutrophil 6.1 K/uL (1.8-8.0); Basophils % 0.2 % (0-1.3); Eosinophils % 0.1 % (0-4.4); Hematocrit 34.5 % (36.0-45.0); MPV 9.1 fL (7.6-11.3); Monocytes % 8.3 % (3.3-12.3); RBC Red Blood Cell Count 3.65 M/uL (3.86-4.86)
[2018-12-04] MEDS: LEVOTHYROXINE SOD 0.1 MG TAB PO SCH (06:19)
[2018-12-04 06:21] LABS: Magnesium 2.2 mg/dL (1.8-2.4); Potassium 3.9 mmol/L (3.5-5.1)
[2018-12-04] MEDS: HYDROCODONE/APAP 7.5/325 MG TAB PO PRN ×3 (06:21→20:41)
[2018-12-04] MEDS: INSULIN -REGULAR HUMAN 50 UNIT/0.5 ML ML SQ SCH ×4 (07:30→20:43)
--- NOTE | 2018-12-04 08:12 | P.CNS ---
Date of Consult: 12/04/18 Primary Care Provider: Dr. Gil( I am covering for him) Chief Complaint: Pneumonia History of Present Illness: Patient is 78 years of age been complaining of shortness of breath cough since last Tuesday patient was prescribed a round of antibiotics with no relief came here to the emergency room still has some coughing the former smoker quit in 1981 no prior history of COPD she has had bilateral pulmonary emboli and coronary artery disease as feeling slightly better room-air saturation is satisfactory Allergies phenobarbital Allergy (Intermediate, Verified 12/01/18 15:42) Itching Home Medications: Pantoprazole Sodium [Protonix] 40 mg PO DAILY 03/14/13 Tiotropium [place] [Spiriva] 1 spray IH DAILY 03/14/13 Atorvastatin Calcium [Lipitor] 1 tab PO DAILY 11/26/13 Levothyroxine Sodium [Unithroid] 125 mcg PO DAILY 12/02/14 Lisinopril [Prinivil*] 10 mg PO DAILY 12/02/14 Citalopram [Celexa*] 20 mg PO DAILY 10/03/17 Clopidogrel Bisulfate [Plavix*] 1 tab PO DAILY 10/03/17 Hydrocodone Bit/Acetaminophen [Hydrocodon-Acetaminophn 10-325] 1 each PO BID Insulin Detemir [Levemir*] 60 unit SQ DAILY 10/03/17 Nebivolol HCl [Bystolic*] 1 tab PO DAILY 10/03/17 Sitagliptin Phos/Metformin HCl [Janumet 50-500 mg Tablet] 1 tab PO DAILY Zolpidem Tartrate 1 tab PO BEDTIME 10/03/17 - Past Medical/Surgical History Diabetic: Yes -: Diabetes mellitus type 2, insulin dependent -: HTN -: CHF -: COPD -: Hypothyroidism -: History of pulmonary ebolism -: Hyperlipidemia -: CAD with prior stents -: GOUT -: Depression -: Chronic back and knee pain -: HEART STENTS X 3 -: CHOLECYSTECTOMY -: COLON SX- POLYP REMOVED -: LEFT ANKLE SX -: HYSTERECTOMY -: APPY -: DISK REMOVAL -: HEMORROIDECTOMY Psychosocial/ Personal History: Patient is - Family History Mother Medical History: Diabetes Notes: with [place] Father Medical History: Cancer Notes: Prostatic CA - Social History Smoking Status: Former smoker Alcohol use: No CD- Drugs: No Caffeine use: Yes Place of Residence: Home Review of Systems 10-point ROS is otherwise unremarkable Respiratory: Cough, Shortness of Breath Physical Examination Temp Pulse Resp BP Pulse Ox 97.7 F 63 20 167/68 H 91 12/04/18 04:00 12/04/18 04:00 12/04/18 04:00 12/04/18 04:00 12/04/18 04:00 General: Alert, In no apparent distress, Oriented x3 HEENT: Atraumatic, Other Respiratory: Clear to auscultation bilaterally Cardiovascular: No edema, Regular rate/rhythm Gastrointestinal: Normal bowel sounds, Soft and benign - Problems (1) Pneumonia Current Visit: Yes Status: Acute Plan: Patient is 78 years of age admitted with pneumonia she has left upper lobe perihilar infiltrate chemistries reviewed white count is normal patient can be discharged home on levofloxacin 500 mg daily for 7 days follow up with me in 2 weeks and follow up with x-rays and CT scan former school smoker quit in 1981 cultures are so far negative Qualifiers: Pneumonia type: due to unspecified organism Laterality: left
[2018-12-04] MEDS: ARFORMOTEROL TARTRATE 15 MCG/2 ML VIAL.NEB NEB SCH ×2 (08:40→20:14)
[2018-12-04] MEDS: ASPIRIN EC 81 MG TAB PO SCH (09:50)
[2018-12-04] MEDS: HYDRALAZINE HCL 25 MG TABLET PO SCH ×3 (09:50→20:42)
[2018-12-04] MEDS: NEBIVOLOL HCL 5 MG TAB PO SCH (09:50)
[2018-12-04] MEDS: PANTOPRAZOLE 40MG TABLET PO SCH (09:50)
[2018-12-04] MEDS: CITALOPRAM 10 MG TABLET PO SCH (09:50)
[2018-12-04] MEDS: LOSARTAN POTASSIUM 50 MG TABLET PO SCH (09:50)
[2018-12-04] MEDS: FUROSEMIDE 40 MG/4 ML VIAL IV SCH ×2 (09:51→17:30)
[2018-12-04] MEDS: predniSONE 10 MG TAB PO SCH ×2 (09:51→20:42)
[2018-12-04] MEDS: CLOPIDOGREL 75 MG TABLET PO SCH (09:51)
[2018-12-04] MEDS: ENOXAPARIN 40 MG/0.4 ML SQ SCH (09:51)
[2018-12-04] MEDS: levoFLOXacin 500 MG TAB PO SCH (09:51)
--- NOTE | 2018-12-04 12:02 | ECHO ---
HEIGHT: 5 ft 7 in WEIGHT: 282 lb 14.4 oz DATE OF STUDY: 12/04/[address]: 2-DIMENSIONAL: YES M.MODE: YES DOPPLER: YES COLOR FLOW: YES TDS: NO PORTABLE: NO DEFINITY: NO BUBBLE STUDY: NO DIAGNOSIS: EVALUATE FOR CONGESTIVE HEART FAILURE CARDIAC HISTORY: CATHERIZATION: YES SURGERY: NO PROSTHETIC VALVE: NO PACEMAKER: NO MEASUREMENTS (cm) DIASTOLIC (NORMALS) SYSTOLIC (NORMALS) IVSd 1.3 (0.6-1.2) LA Diam 4.7 (1.9-4.0) LVEF 54% LVIDd 5.5 (3.5-5.7) LVIDs 3.9 (2.0-3.5) %FS 28% LVPWd 1.3 (0.6-1.2) Ao Diam 3.1 (2.0-3.7) 2 DIMENSIONAL ASSESSMENT: RIGHT ATRIUM: NORMAL LEFT ATRIUM: DILATED RIGHT VENTRICLE: NORMAL LEFT VENTRICLE: LEFT VENTRICULAR HYPERTROPHY TRICUSPID VALVE: NORMAL MITRAL VALVE: NORMAL PULMONIC VALVE: NORMAL AORTIC VALVE: NORMAL PERICARDIAL EFFUSION: NONE AORTIC ROOT: NORMAL LEFT VENTRICULAR WALL MOTION: NORMAL. DOPPLER/COLOR FLOW: MILD MITRAL REGURGITATION AND TRICUSPID REGURGITATION. ESTIMATED RIGHT VENTRICULAR SYSTOLIC PRESSURE 42 mmHg ( MILD PULMONARY HYPERTENSION). COMMENTS: NORMAL LEFT VENTRICULAR EJECTION FRACTION. LEFT VENTRICULAR HYPERTROPHY. MILD MITRAL REGURGITATION AND TRICUSPID REGURGITATION. TECHNOLOGIST: BENEDICT AZEVEDO RDCS
[2018-12-04] MEDS: INSULIN GLARGINE 100 UNITS/ML SQ SCH (20:42)
[2018-12-04] MEDS: ATORVASTATIN 40 MG TAB PO SCH (20:42)
[2018-12-05] MEDS: LEVOTHYROXINE SOD 0.1 MG TAB PO SCH (06:17)
[2018-12-05] MEDS: guaiFENesin 100 MG/5 ML UCUP PO PRN (06:17)
[2018-12-05] MEDS: HYDROCODONE/APAP 7.5/325 MG TAB PO PRN (06:17)
[2018-12-05] MEDS: ARFORMOTEROL TARTRATE 15 MCG/2 ML VIAL.NEB NEB SCH (07:38)
--- NOTE | 2018-12-05 08:08 | P.PN ---
Subjective Date of Service: 12/05/18 Primary Care Provider: Dr. Gil( I am covering for him) Chief Complaint: Pneumonia Subjective: Improving (Still complaining of a cough no new change) Review of Systems General: Weakness ENT: Nose Discharge Respiratory: Shortness of Breath Physical Examination - Vital Signs Temperature: 98.0 F Blood Pressure: 179/77 Pulse: 64 Respirations: 18 Pulse Ox (%): 96 - Physical Exam General: Alert, Oriented x3 Neck: Supple Respiratory: Clear to auscultation bilaterally Cardiovascular: No edema - Studies Medications List Reviewed: Yes Assessment & Plan - Problems (Diagnosis) (1) Pneumonia Onset Date: 12/04/18 Current Visit: Yes Status: Acute Plan: Patient appears to have a pneumonia on the CT scan official report is pending cultures negative vital signs all stable blood pressure elevated patient can be discharged home resume her home medications continue with levofloxacin and had 40 mg of Lasix probably has some diastolic dysfunction patient does not qualify for home O2 Qualifiers: Pneumonia type: due to unspecified organism Laterality: left Physician Review Additional Text: Impression: Shortness of breath with lower extremity edema secondary to acute on chronic diastolic CHF with possible right lower lobe pneumonia versus atelectasis with CT showing 3.6 x 1.5 cm soft tissue mass in the perihilar left upper lobe DM Type 2, insulin dependent Hyperlipidemia Hypothyroidism Obesity, BMI 44 Chronic pain Depression with anxiety Plan: Shortness of breath with lower extremity edema secondary to acute on chronic diastolic CHF with possible right lower lobe pneumonia versus atelectasis with CT showing 3.6 x 1.5 cm soft tissue mass in the perihilar left upper lobe: Patient with noted cough today. CT scan reviewed. Will start IV Levaquin. Will check pro calcitonin. Will recheck chest x-ray in the morning. Will consult pulmonology to further evaluate for possible pneumonia versus atelectasis and soft tissue mass. Patient may require workup. Cardiology has evaluated patient. Cardiology increased IV Lasix. Continue with 1500 cc per day fluid restriction. Continue to wean off oxygen. Anticipate discharge in the next 24-48 hrs. Preliminary workup for home oxygen has been arranged. I will turn the service over to Dr. Whiteside tomorrow. I will go over the plan of care with her. Chronic COPD: Continue with COPD medication. Continue as above. Will start low-dose prednisone. Await pulmonary recommendation Victor Hugo DM Type 2, insulin dependent: Will continue with basal insulin and insulin sliding scale. Will check A1c. Hyperlipidemia: Will continue with her medication Hypothyroidism: Tsh slightly elevated. Will decrease dose. This will need to be recheck in 4-6 weeks to monitor and address. Obesity, BMI 44: Continue to address lifestyle modification education. Chronic pain: Patient is seen by pain management. Will continue with her pain medication. Depression with anxiety: Will continue with her medication.
[2018-12-05] MEDS ORDERED: LORATADINE 10 MG TAB PO PRN (09:00)
--- NOTE | 2018-12-05 09:07 | RAD REPORT ---
EXAM DESCRIPTION: CT - Thorax W/ Con CLINICAL HISTORY: Chest pain f/u COMPARISON: Chest For Pe Angio dated 12/01/2018; Chest Pa And Lat (2 Views) dated 12/03/2018; CTANGIO CHEST FOR PE dated 09/02/2014; CTANGIO CHEST FOR PE dated 11/26/2013 FINDINGS: Mild COPD is present. Subtle tree-in-bud opacity is present in the posterior right upper l obe, likely representing aspiration. No pleural thickening or pleural effusion. No pneumothorax. Soft tissue density is seen along the left hilum anteriorly and superiorly, unchanged since recent co mparative study, however, new since more remote examinations. Mild soft tissue in the right hilum reg ion is likely mild lymphadenopathy. No concerning bony finding. No gross upper abdominal finding. All CT scans are performed using dose optimization technique as appropriate and may include automated exposure control or mA/KV adjustment according to patient size. IMPRESSION: COPD with a small area of aspiration likely present right upper lobe posteriorly. Soft tissue density again noted in the medial aspect anteriorly of the left hilar structures, unchang ed. Diagnostic possibilities and follow-up recommendations remain unchanged from the recent 9 study.
[2018-12-05] MEDS: LOSARTAN POTASSIUM 50 MG TABLET PO SCH (09:09)
[2018-12-05] MEDS: NEBIVOLOL HCL 5 MG TAB PO SCH (09:10)
[2018-12-05] MEDS: ASPIRIN EC 81 MG TAB PO SCH (09:10)
[2018-12-05] MEDS: levoFLOXacin 500 MG TAB PO SCH (09:11)
[2018-12-05] MEDS: CITALOPRAM 10 MG TABLET PO SCH (09:11)
[2018-12-05] MEDS: HYDRALAZINE HCL 25 MG TABLET PO SCH ×2 (09:11→13:23)
[2018-12-05] MEDS: INSULIN -REGULAR HUMAN 50 UNIT/0.5 ML ML SQ SCH ×2 (09:11→11:30)
[2018-12-05] MEDS: PANTOPRAZOLE 40MG TABLET PO SCH (09:11)
[2018-12-05] MEDS: CLOPIDOGREL 75 MG TABLET PO SCH (09:11)
[2018-12-05] MEDS: FUROSEMIDE 40 MG/4 ML VIAL IV SCH (09:12)
[2018-12-05] MEDS: ENOXAPARIN 40 MG/0.4 ML SQ SCH (09:13)
[2018-12-05 12:14] VITALS: O2SAT 92
--- NOTE | 2018-12-05 12:59 | PN ---
Date of Progress Note: 12/04/2018 The patient seems somewhat better, although she still has significant exertional dyspnea. She had di uresed considerably. She has 3 problems, the left upper lobe pneumonia evident on CT scan, the right questionable mass evident on CT scan which needs to be worked up further, and CHF. She does qualify for home O2. We will discuss case further with Pulmonology and Cardiology for making a disposition. HR/MODL Voice ID: [id number] Report ID: [id number]
--- NOTE | 2018-12-05 13:05 | PN ---
Date of Progress Note: 12/05/2018 The patient seems much better today. Her oxygen requirements have been met without O2. She can be d ischarged on Levaquin for the pneumonia, 750 with Lasix 40 to 80 for the CHF, and I will add a slidin g scale for her insulin, as she has had some problem regulating that with the Levemir, to be followed up in 1 week with me and 2 weeks with Cardiology. At that time, determination of the PET scan will be made in regard to the possible lesion on the left. HR/MODL Voice ID: [id number] Report ID: [id number]
--- NOTE | 2018-12-05 13:23 | PN ---
Date of Progress Note: 12/05/2018 Ms. Beverly is being seen today, 12/05/2018. She was admitted on 12/04/2018. Dr. Rajan saw her for co ngestive heart failure that seems to be mostly diastolic. She is improving as far as breathing is co ncerned. She has no rales on physical examination. She still gets slightly hypoxic when she moves a round. Her echocardiogram yesterday showed a normal ejection fraction, mild pulmonary hypertension w ith left ventricular hypertrophy consistent with diastolic dysfunction. I think she can do well as a n outpatient with physical therapy and possibly pulmonary rehab. She may have some atelectasis. She can go home whenever it is okay with Dr. Gil. We will be happy to see her as an outpatient. Ms Lala Beverly has a history of coronary artery disease status post stent in the past. I will check in my of fice to see what her last stress test was. If it has been more than 2 years, I will make arrangement s for another 1 in the near future. AMIRA/ELIDIA Voice ID: [id number] Report ID: [id number]
[2018-12-05 14:35] VITALS: BP 150/65; TEMP 98.2
== END 2018-12-05 14:33 | disposition home or self-care (01) | DRG 291 ==
LOC: ER 10:12 → ERHOLD 13:22 → 2ND 14:53 → 3RD-ICU 12-03 10:44 → 2ND 12-03 10:48 → OBSVTOIN 12-04 18:30
PROVIDERS: ADMIT Family Medicine; ATTEND Family Medicine
DX: I11.0 Hypertensive heart disease with heart failure (principal); J18.9 Pneumonia, unspecified organism; Z68.41 Body mass index [BMI] 40.0-44.9, adult; I50.33 Acute on chronic diastolic (congestive) heart failure; J44.9 Chronic obstructive pulmonary disease, unspecified; Z87.891 Personal history of nicotine dependence; E11.9 Type 2 diabetes mellitus without complications; Z79.4 Long term (current) use of insulin; E78.5 Hyperlipidemia, unspecified; E03.9 Hypothyroidism, unspecified; G89.29 Other chronic pain; F32.9 Major depressive disorder, single episode, unspecified; F41.9 Anxiety disorder, unspecified; I25.10 Atherosclerotic heart disease of native coronary artery without angina pectoris; Z95.5 Presence of coronary angioplasty implant and graft; E66.9 Obesity, unspecified; Z86.711 Personal history of pulmonary embolism; R09.02 Hypoxemia; R91.8 Other nonspecific abnormal finding of lung field
CPT/HCPCS: 36415; 71045; 71046; 71260; 71275; 80048; 80076; 81003; 82550; 82553; 82962; 83735; 83880; 84145; 84439; 84443; 84484; 85025; 85379; 85610; 87040; 93005; 93306; 94640; 96374; 99285; G0378; J1650; J1940; J7512; J7605; Q9967

== ENCOUNTER 2018-12-10 12:44 | Emergency (ER) | payer OTHER ==
[2018-12-10] MEDS ORDERED: MORPHINE 4 MG/ML SYR ONE (14:18)
[2018-12-10] MEDS ORDERED: KETOROLAC 30 MG/ML INJ ONE (14:19)
[2018-12-10] MEDS ORDERED: ONDANSETRON 4 MG (ODT) TAB ONE (14:19)
--- NOTE | 2018-12-10 14:42 | EDPHYS ---
Physician Documentation [facility] Name: Michelle Beverly Age: 78 yrs Sex: Female : 1940 Arrival Date: 12/10/2018 Time: 12:46 Bed 13 Private MD: Avery Gil ED Physician Fredy Vincent HPI: 12/10 14:20 This 78 yrs old Female presents to ER via Ambulatory with complaints of Left pm1 Hip Pain. 14:20 The patient or guardian reports pain. that occurred at home, sustained from unknown pm1 reason, possible bursitis as in the past 2 years ago. The complaints affect the left hip. 14:20 Onset: The symptoms/episode began/occurred 4 day(s) ago. Modifying factors: The pm1 symptoms are alleviated by nothing, the symptoms are aggravated by any movement. Associated signs and symptoms: Pertinent negatives: abdominal pain, chest pain, dysuria, fever, headache, nausea, shortness of breath, vomiting. Severity of symptoms: in the emergency department the symptoms are unchanged. The patient has experienced a previous episode, approximately 2 years ago. The patient has not recently seen a physician. Patient presents with left hip pain for 4 days. Patient states that her right shoulder started hurting due to pulling herself with right arm, since it is hard for her to get up with left hip pain. Patient denies fall injury or trauma. Historical: - Allergies: 13:02 Phenobarbital; aj - Home Meds: 13:02 Ambien 5 mg Oral tab 1 tab once daily [Active]; aspirin 81 mg Oral TbEC 1 tab once aj daily [Active]; atorvastatin 40 mg Oral tab 1 tab once daily [Active]; citalopram 20 mg tab 1 tab once daily [Active]; Bystolic 5 mg Oral tab 1 tab once daily [Active]; hydrocodone-acetaminophen 10-325 mg Oral tab [Active]; Janumet Oral [Active]; Levemir 100 unit/mL subcutaneous soln [Active]; levothyroxine 125 mcg tab 1 tab once daily [Active]; lisinopril 10 mg Oral tab once daily [Active]; Plavix 75 mg Oral tab 1 tab once daily [Active]; Spiriva with HandiHaler 18 mcg inhalation CpDv 1 cap once daily [Active]; - PMHx: 13:02 Depression; Diabetes - IDDM; Hyperlipidemia; Hypertension; Hypothyroidism; Myocardial aj infarction; PE; - PSHx: 13:02 Cholecystectomy; LAMINECTOMY; Hysterectomy; ANKLE SURGERY; POLYP REMOVAL/ COLON aj RESECTION; Heart stents; Hemorroidectomy; Knee arthroscopy; cataract; - Immunization history:: Adult Immunizations up to date. - Social history:: Smoking status: Patient/guardian denies using tobacco. - Ebola Screening: : Patient negative for fever greater than or equal to 101.5 degrees Fahrenheit, and additional compatible Ebola Virus Disease symptoms Patient denies exposure to infectious person Patient denies travel to an Ebola-affected area in the 21 days before illness onset No symptoms or risks identified at this time. ROS: 14:20 Constitutional: Negative for fever, chills, and weight loss, Eyes: Negative for injury, pm1 pain, redness, and discharge, ENT: Negative for injury, pain, and discharge, Neck: Negative for injury, pain, and swelling, Cardiovascular: Negative for chest pain, palpitations, and edema, Respiratory: Negative for shortness of breath, cough, wheezing, and pleuritic chest pain, Abdomen/GI: Negative for abdominal pain, nausea, vomiting, diarrhea, and constipation, Back: Negative for injury and pain, : Negative for injury, bleeding, discharge, and swelling. 14:20 Skin: Negative for injury, rash, and discoloration, Neuro: Negative for headache, weakness, numbness, tingling, and seizure. 14:20 MS/extremity: Positive for pain, of the left hip and right shoulder, Negative for decreased range of motion, deformity. Exam: 14:20 Constitutional: This is a well developed, well nourished patient who is awake, alert, pm1 and in no acute distress. Head/Face: Normocephalic, atraumatic. Eyes: Pupils equal round and reactive to light, extra-ocular motions intact. Lids and lashes normal. Conjunctiva and sclera are non-icteric and not injected. Cornea within normal limits. Periorbital areas with no swelling, redness, or edema. ENT: Nares patent. No nasal discharge, no septal abnormalities noted. Tympanic membranes are normal and external auditory canals are clear. Oropharynx with no redness, swelling, or masses, exudates, or evidence of obstruction, uvula midline. Mucous membranes moist. Neck: Trachea midline, no thyromegaly or masses palpated, and no cervical lymphadenopathy. Supple, full range of motion without nuchal rigidity, or vertebral point tenderness. No Meningismus. Chest/axilla: Normal chest wall appearance and motion. Nontender with no deformity. No lesions are appreciated. Cardiovascular: Regular rate and rhythm with a normal S1 and S2. No gallops, murmurs, or rubs. Normal PMI, no JVD. No pulse deficits. Respiratory: Lungs have equal breath sounds bilaterally, clear to auscultation and percussion. No rales, rhonchi or wheezes noted. No increased work of breathing, no retractions or nasal flaring. Abdomen/GI: Soft, non-tender, with normal bowel sounds. No distension or tympany. No guarding or rebound. No evidence of tenderness throughout. Back: No spinal tenderness. No costovertebral tenderness. Full range of motion. Skin: Warm, dry with normal turgor. Normal color with no rashes, no lesions, and no evidence of cellulitis. 14:20 Musculoskeletal/extremity: Extremities: grossly normal except: noted in the left hip: tenderness, There is no evidence of decreased ROM, deformity, noted in the right shoulder: no evidence of decreased ROM, deformity, swelling, tenderness, Circulation is intact in all extremities. 14:20 Neuro: Orientation: is normal, Motor: is normal, moves all fours, Sensation: is normal, no obvious gross deficits. Vital Signs: 13:02 BP 142 / 58; Pulse 84; Resp 24; Temp 97.8; Pulse Ox 95% on R/A; Weight 131.54 kg; aj Height 5 ft. 8 in. (172.72 cm); 14:18 BP 124 / 75; Pulse 72; Resp 16; Temp 97.9; Pulse Ox 99% on R/A; Pain 9/10; ch 14:46 BP 158 / 86; Pulse 76; Resp 14; Temp 97.8; Pulse Ox 96% on R/A; Pain 7/10; ch 13:02 Body Mass Index 44.09 (131.54 kg, 172.72 cm) aj MDM: 13:54 Patient medically screened. pm1 14:40 Data reviewed: vital signs. Data interpreted: Pulse oximetry: on room air is 99 %. pm1 Interpretation: normal. Counseling: I had a detailed discussion with the patient and/or guardian regarding: the historical points, exam findings, and any diagnostic results supporting the discharge/admit diagnosis, the need for outpatient follow up, to return to the emergency department if symptoms worsen or persist or if there are any questions or concerns that arise at home. Administered Medications: 14:17 Drug: morphine 4 mg Route: IM; Site: left vastus lateralis; ch 14:40 Follow up: Response: No adverse reaction; Pain is decreased ch 14:17 Drug: Zofran 4 mg Route: PO; ch 14:40 Follow up: Response: No adverse reaction; Pain is decreased ch 14:18 Drug: TORadol 30 mg Route: IM; Site: left ventrogluteal; ch 14:40 Follow up: Response: No adverse reaction; Pain is decreased Disposition: 12/10/18 14:41 Discharged to Home. Impression: Pain in right shoulder, Pain in left hip. - Condition is Stable. - Discharge Instructions: Joint Pain, Musculoskeletal Pain, Shoulder Pain, Hip Pain. - Prescriptions for Mobic 7.5 mg Oral Tablet - take 1 tablet by ORAL route once daily take with food; 20 tablet. - Medication Reconciliation Form, Thank You Letter, Antibiotic Education, Prescription Opioid Use form. - Follow up: Emergency Department; When: As needed; Reason: Worsening of condition. Follow up: Private Physician; When: 2 - 3 days; Reason: Recheck today's complaints, Continuance of care, Re-evaluation by your physician. - Problem is new. - Symptoms have improved. Addendum: 12/12/2018 03:35 Co-signature as Attending Physician, Fredy Vincent MD I agree with the assessment and t w4 plan of care. Signatures: Phoebe Mariscal RN RN ch Myers, Amanda, RN RN aj Calderon, Audri, RN RN aa5 Eric Whitman, DIRECTOR REHABILITATION PROGRAM DIRECTOR REHABILITATION PROGRAM pm1 Fredy Vincent MD MD tw4 Corrections: (The following items were deleted from the chart) 12/10 14:51 14:41 12/10/2018 14:41 Discharged to Home. Impression: Pain in right shoulder; Pain in aa5 left hip. Condition is Stable. Forms are Medication Reconciliation Form, Thank You Letter, Antibiotic Education, Prescription Opioid Use. Follow up: Emergency Department; When: As needed; Reason: Worsening of condition. Follow up: Private Physician; When: 2 - 3 days; Reason: Recheck today's complaints, Continuance of care, Re-evaluation by your physician. Problem is new. Symptoms have improved. pm1
--- NOTE | 2018-12-10 14:42 | ER ---
Nurse's Notes [facility] Name: Michelle Beverly Age: 78 yrs Sex: Female : 1940 Arrival Date: 12/10/2018 Time: 12:46 Bed 13 Private MD: Avery Gil Diagnosis: Pain in right shoulder;Pain in left hip Presentation: 12/10 13:00 Presenting complaint: Patient states: Reports left hip and right shoulder pain for 4 aj days. Patient reports this pain is different from her chronic pain. Transition of care: patient was not received from another setting of care. Onset of symptoms was December 06, 2018. Risk Assessment: Do you want to hurt yourself or someone else? Patient reports no desire to harm self or others. Initial Sepsis Screen: Does the patient meet any 2 criteria? No. Patient's initial sepsis screen is negative. Does the patient have a suspected source of infection? No. Patient's initial sepsis screen is negative. Care prior to arrival: None. 13:00 Method Of Arrival: Ambulatory aj 13:00 Acuity: PAM 4 aj Triage Assessment: 13:02 General: Appears in no apparent distress. comfortable, Behavior is calm, cooperative, aj appropriate for age. Pain: Complains of pain in left hip and anterior aspect of right shoulder. Neuro: Level of Consciousness is awake, alert, obeys commands, Oriented to person, place, time, situation, Appropriate for age. Respiratory: Airway is patent Respiratory effort is even, unlabored, Respiratory pattern is regular, symmetrical. Derm: Skin is intact, is healthy with good turgor, Skin is pink, warm \T\ dry. normal. Musculoskeletal: Reports pain in left hip and anterior aspect of right shoulder. Historical: - Allergies: 13:02 Phenobarbital; aj - Home Meds: 13:02 Ambien 5 mg Oral tab 1 tab once daily [Active]; aspirin 81 mg Oral TbEC 1 tab once aj daily [Active]; atorvastatin 40 mg Oral tab 1 tab once daily [Active]; citalopram 20 mg tab 1 tab once daily [Active]; Bystolic 5 mg Oral tab 1 tab once daily [Active]; hydrocodone-acetaminophen 10-325 mg Oral tab [Active]; Janumet Oral [Active]; Levemir 100 unit/mL subcutaneous soln [Active]; levothyroxine 125 mcg tab 1 tab once daily [Active]; lisinopril 10 mg Oral tab once daily [Active]; Plavix 75 mg Oral tab 1 tab once daily [Active]; Spiriva with HandiHaler 18 mcg inhalation CpDv 1 cap once daily [Active]; - PMHx: 13:02 Depression; Diabetes - IDDM; Hyperlipidemia; Hypertension; Hypothyroidism; Myocardial aj infarction; PE; - PSHx: 13:02 Cholecystectomy; LAMINECTOMY; Hysterectomy; ANKLE SURGERY; POLYP REMOVAL/ COLON aj RESECTION; Heart stents; Hemorroidectomy; Knee arthroscopy; cataract; - Immunization history:: Adult Immunizations up to date. - Social history:: Smoking status: Patient/guardian denies using tobacco. - Ebola Screening: : Patient negative for fever greater than or equal to 101.5 degrees Fahrenheit, and additional compatible Ebola Virus Disease symptoms Patient denies exposure to infectious person Patient denies travel to an Ebola-affected area in the 21 days before illness onset No symptoms or risks identified at this time. Screenin:18 Abuse screen: Denies threats or abuse. Denies injuries from another. Nutritional ch screening: No deficits noted. Tuberculosis screening: No symptoms or risk factors identified. Fall Risk None identified. Assessment: 14:18 General: Appears in no apparent distress. uncomfortable, Behavior is appropriate for ch age, anxious, crying, pt states her and she is just under a lot of stress. . Pain: Complains of pain in pelvis and left hip Pain currently is 9 out of 10 on a pain scale. Pain began gradually. Neuro: No deficits noted. Respiratory: No deficits noted. GI: No deficits noted. Derm: Skin is intact, Skin is dry, Skin is pink, warm \T\ dry. Musculoskeletal: Capillary refill < 3 seconds, in bilateral fingers. toes. pt c/o pain to L hip, states it is getting worse. states she can lay it flat down but when she takes her leg to straight it is very painful. 14:46 Reassessment: Patient appears in no apparent distress at this time. Patient and/or ch family updated on plan of care and expected duration. Pain level reassessed. Patient is alert, oriented x 3, equal unlabored respirations, skin warm/dry/pink. Patient states feeling better. Patient states symptoms have improved. pt states her pain is a little better, and she wants to go home. pt to be discharged. . Vital Signs: 13:02 BP 142 / 58; Pulse 84; Resp 24; Temp 97.8; Pulse Ox 95% on R/A; Weight 131.54 kg; aj Height 5 ft. 8 in. (172.72 cm); 14:18 BP 124 / 75; Pulse 72; Resp 16; Temp 97.9; Pulse Ox 99% on R/A; Pain 9/10; ch 14:46 BP 158 / 86; Pulse 76; Resp 14; Temp 97.8; Pulse Ox 96% on R/A; Pain 7/10; ch 13:02 Body Mass Index 44.09 (131.54 kg, 172.72 cm) aj ED Course: 12:46 Patient arrived in ED. mr 12:46 Avery Gil MD is Private Physician. mr 13:01 Triage completed. aj 13:02 Arm band placed on left wrist. Patient placed in an exam room. aj 13:46 Eric Whitman NP is PHCP. pm1 13:47 Fredy Vincent MD is Attending Physician. pm1 13:56 Phoebe Mariscal RN is Primary Nurse. ch 14:18 No apparent distress. Resting quietly. ch 14:18 Patient has correct armband on for positive identification. Placed in gown. Bed in low ch position. Call light in reach. Side rails up X2. Pulse ox on. NIBP on. 14:18 Door closed. Noise minimized. Warm blanket given. Verbal reassurance given. ch 14:18 No provider procedures requiring assistance completed. Patient did not have IV access ch during this emergency room visit. Administered Medications: 14:17 Drug: morphine 4 mg Route: IM; Site: left vastus lateralis; ch 14:40 Follow up: Response: No adverse reaction; Pain is decreased ch 14:17 Drug: Zofran 4 mg Route: PO; ch 14:40 Follow up: Response: No adverse reaction; Pain is decreased ch 14:18 Drug: TORadol 30 mg Route: IM; Site: left ventrogluteal; ch 14:40 Follow up: Response: No adverse reaction; Pain is decreased ch Outcome: 14:41 Discharge ordered by MD. pm1 14:46 Discharged to home ambulatory, with family. ch 14:46 Condition: improved 14:46 Discharge instructions given to patient, family, Instructed on discharge instructions, follow up and referral plans. medication usage, Demonstrated understanding of instructions, follow-up care, medications, Prescriptions given X 1. 14:51 Patient left the ED. aa5 Signatures: Phoebe Mariscal RN RN ch Myers, Amanda, RN RN aj Rivera, Mary mr Russo, WILLIAM Gonsales RN aa5 Eric Whitman, SET UP AND CHARGER SET UP AND CHARGER pm1
[2018-12-11 02:11] VITALS: BP 124/75; TEMP 97.9; O2SAT 99
== END 2018-12-10 14:51 | disposition home or self-care (01) ==
LOC: ER 12:44
DX: M25.511 Pain in right shoulder (principal); I10 Essential (primary) hypertension; E78.5 Hyperlipidemia, unspecified; E11.9 Type 2 diabetes mellitus without complications; F32.9 Major depressive disorder, single episode, unspecified; E03.9 Hypothyroidism, unspecified; Z79.01 Long term (current) use of anticoagulants; Z79.82 Long term (current) use of aspirin; Z79.4 Long term (current) use of insulin; Z88.5 Allergy status to narcotic agent

== ENCOUNTER 2019-09-23 18:08 | Inpatient (IN) | payer OTHER ==
[2019-09-23] MEDS ORDERED: IBUPROFEN 400 MG TAB ONE (18:46)
[2019-09-23] MEDS ORDERED: IPRATROPIUM BROM 0.5MG/2.5ML ONE (19:17)
[2019-09-23] MEDS ORDERED: ALBUTEROL 2.5 MG/3 ML NEB SOL ONE (19:17)
[2019-09-23 20:00] LABS: Basophils % 0.4 % (0-1.3); Hematocrit 39.2 % (36.0-45.0); Lymphocytes % 6.9 % (15.3-44.8); MPV 8.8 fL (7.6-11.3); RBC Red Blood Cell Count 4.22 M/uL (3.86-4.86)
[2019-09-23 20:04] LABS: Protime INR 0.98
[2019-09-23 20:07] LABS: ALT/SGPT 17 U/L (12-78); AST/SGOT 14 U/L (15-37); Albumin 3.3 g/dL (3.4-5.0); Alkaline Phosphatase 87 U/L (45-117); BUN Blood Urea Nitrogen 23 mg/dL (7-18); Bicarbonate 28 mmol/L (21-32); Bilirubin Direct 0.2 mg/dL (0-0.2); Bilirubin Total 0.6 mg/dL (0.2-1.0); Glucose Level 110 mg/dL (74-106); NT PRO-BNP 908 pg/mL (<450); Potassium 3.8 mmol/L (3.5-5.1); Protein, Total 7.1 g/dL (6.4-8.2); Sodium Level 138 mmol/L (136-145); Troponin (Emerg Dept Use Only) < 0.02 ng/mL (0.0-0.045)
[2019-09-23] MEDS ORDERED: HYDROCODONE/CHLORPHEN 5 ML/OSYR ONE (20:15)
--- NOTE | 2019-09-23 20:16 | RAD REPORT ---
EXAM DESCRIPTION: RAD - Chest Pa And Lat (2 Views) - 09/23/2019 8:08 pm CLINICAL HISTORY: Cough;Fever Chest pain. COMPARISON: Chest Pa And Lat (2 Views) dated 12/03/2018; Chest Pa And Lat (2 Views) dated 12/02/2018; Chest Single View dated 12/01/2018; Chest Single View dated 10/03/2017; Thorax W/ Con dated 12/05/2018 FINDINGS: Moderate airspace opacity seen in the right upper lobe peripherally likely representing pn eumonia. Lungs are diffusely emphysematous. The heart is moderately enlarged in size. No displaced fr actures. Aortic atherosclerosis. IMPRESSION: Moderate right upper lobe pneumonia.
[2019-09-23] MEDS ORDERED: Levofloxacin 750mg IV 750 MG/150 ML BAG IV ONE (20:20)
--- NOTE | 2019-09-23 20:24 | ER ---
Nurse's Notes [facility] Name: Michelle Beverly Age: 78 yrs Sex: Female : 1940 Arrival Date: 09/23/2019 Time: 18:11 Bed 27 Private MD: Avery Gil Diagnosis: Pneumonia due to other specified bacteria-right upper lobe Presentation: 09/23 18:17 Presenting complaint: Patient states: cough since Tuesday, now pain with breathing la1 and cough. Feeling malaise, chills. Transition of care: patient was not received from another setting of care. Onset of symptoms was September 23, 2019. Risk Assessment: Do you want to hurt yourself or someone else? Patient reports no desire to harm self or others. Initial Sepsis Screen: Does the patient meet any 2 criteria? No. Patient's initial sepsis screen is negative. Does the patient have a suspected source of infection? Yes: Productive cough/pneumonia. Care prior to arrival: None. 18:17 Method Of Arrival: Wheelchair la1 18:17 Acuity: PAM 3 la1 Historical: - Allergies: 18:17 Phenobarbital; la1 - Home Meds: 20:31 Ambien 5 mg Oral tab 1 tab once daily [Active]; aspirin 81 mg Oral TbEC 1 tab once mg2 daily [Active]; atorvastatin 40 mg Oral tab 1 tab once daily [Active]; Bystolic 5 mg Oral tab 1 tab once daily [Active]; citalopram 20 mg tab 1 tab once daily [Active]; hydrocodone-acetaminophen 10-325 mg Oral tab [Active]; Janumet Oral [Active]; Levemir 100 unit/mL subcutaneous soln [Active]; levothyroxine 125 mcg tab 1 tab once daily [Active]; lisinopril 10 mg Oral tab once daily [Active]; Plavix 75 mg Oral tab 1 tab once daily [Active]; Spiriva with HandiHaler 18 mcg inhalation CpDv 1 cap once daily [Active]; - PMHx: 18:17 Depression; Diabetes - IDDM; Hyperlipidemia; Hypertension; Hypothyroidism; Myocardial la1 infarction; PE; - Immunization history:: Adult Immunizations up to date. - Social history:: Smoking status: Patient/guardian denies using tobacco, Smoking status: Patient/guardian denies using tobacco, the patient reports quitting approximately 20 years ago. - Ebola Screening: : No symptoms or risks identified at this time. Screenin:20 Abuse screen: Denies threats or abuse. Nutritional screening: No deficits noted. tr5 Tuberculosis screening: No symptoms or risk factors identified. Fall Risk None identified. Assessment: 19:20 General: Appears uncomfortable, Behavior is calm, cooperative, appropriate for age. tr5 Pain: Complains of pain in chest. Neuro: Level of Consciousness is awake, alert, obeys commands, Oriented to person, place, time, Lamination Inspector are equal bilaterally Moves all extremities. Cardiovascular: Heart tones present Capillary refill < 3 seconds. Respiratory: Airway is patent Respiratory effort is even, unlabored, Respiratory pattern is regular, symmetrical. Respiratory: Reports cough that is. GI: No signs and/or symptoms were reported involving the gastrointestinal system. : No signs and/or symptoms were reported regarding the genitourinary system. EENT: No signs and/or symptoms were reported regarding the EENT system. Derm: No signs and/or symptoms reported regarding the dermatologic system. Musculoskeletal: Reports weakness in Generalized. Vital Signs: 18:17 BP 112 / 62; Pulse 85; Resp 22; Temp 100.4; Pulse Ox 90% on R/A; Weight 129.27 kg; la1 Height 5 ft. 8 in. (172.72 cm); 19:30 BP 141 / 50; Pulse 77; Resp 19; Pulse Ox 86% on R/A; tr5 19:45 BP 142 / 61; Pulse 87; Resp 18; Pulse Ox 95% on 2 lpm NC; tr5 19:45 BP 142 / 54; Pulse 88; Resp 19; Pulse Ox 96% on 2 lpm NC; tr5 21:00 BP 130 / 75; Pulse 74; Resp 16; Temp 99.2(O); Pulse Ox 95% on R/A; tr5 18:17 Body Mass Index 43.33 (129.27 kg, 172.72 cm) la1 ED Course: 18:11 Patient arrived in ED. ag5 18:12 Avery Gil MD is Private Physician. ag5 18:17 Arm band placed on left wrist. la1 18:18 Triage completed. la1 18:26 [facility]. cp 18:26 Sin Gonzalez MD is Attending Physician. cp 18:26 Pancho Gordon, RN is Primary Nurse. mg2 19:05 Flu Sent. tr5 19:20 Bed in low position. Call light in reach. Side rails up X 1. tr5 19:30 Inserted saline lock: 20 gauge in right forearm, using aseptic technique. mg2 19:33 Flu Sent. tr5 20:08 XRAY Chest Pa And Lat (2 Views) In Process Unspecified. EDMS 20:21 Angelica Sánchez MD is Hospitalizing Provider. cp 20:30 No provider procedures requiring assistance completed. mg2 22:20 Patient admitted, IV remains in place. mg2 Administered Medications: 19:05 Drug: Motrin 800 mg Route: PO; tr5 20:00 Follow up: Response: Marked relief of symptoms tr5 19:43 Drug: Albuterol - atroVENT (3:1) (2.5 mg - 0.5 mg) 3 ml Route: Nebulizer; tr5 21:20 Follow up: Response: Marked relief of symptoms tr5 20:16 Drug: Tussionex Pennkinetic ER 5 ml Route: PO; mg2 21:00 Follow up: Response: Marked relief of symptoms tr5 20:25 Drug: LevaQUIN 750 mg Volume: 150 ml; Route: IVPB; Infused Over: 90 mins; Site: right tr5 antecubital; 21:45 Follow up: IV Status: Completed infusion; IV Intake: 150ml tr5 Intake: 21:45 IV: 150ml; Total: 150ml. tr5 Outcome: 20:22 Decision to Hospitalize by Provider. cp 22:07 Admitted to Tele accompanied by tech, via wheelchair, room 407, with oxygen, with chart.mg2 22:07 Condition: stable 22:07 Instructed on the need for admit, Demonstrated understanding of instructions. mg2 22:25 Patient left the ED. mg2 Signatures: Dispatcher [employer] EDMS Carlos Taylor RN RN la1 Nathan Cavazos PA PA cp Pancho Gordon, RN RN mg2 Serenity Newton ag5 Nicola Valencia RN RN tr5
--- NOTE | 2019-09-23 20:24 | EDPHYS ---
Physician Documentation [facility] Name: Michelle Beverly Age: 78 yrs Sex: Female : 1940 Arrival Date: 09/23/2019 Time: 18:11 Bed 27 Private MD: Avery Gil ED Physician Sin Gonzalez HPI: 09/23 18:45 This 78 yrs old Female presents to ER via Wheelchair with complaints of Cough.cp 18:45 The patient or guardian reports cough, with productive sputum. Onset: The cp symptoms/episode began/occurred 4 day(s) ago. Severity of symptoms: in the emergency department the symptoms are unchanged, despite home interventions. Associated signs and symptoms: Pertinent positives: chest pain, with cough, right lateral chest, sore throat, Pertinent negatives: diarrhea, vomiting. Historical: - Allergies: 18:17 Phenobarbital; la1 - Home Meds: 20:31 Ambien 5 mg Oral tab 1 tab once daily [Active]; aspirin 81 mg Oral TbEC 1 tab once mg2 daily [Active]; atorvastatin 40 mg Oral tab 1 tab once daily [Active]; Bystolic 5 mg Oral tab 1 tab once daily [Active]; citalopram 20 mg tab 1 tab once daily [Active]; hydrocodone-acetaminophen 10-325 mg Oral tab [Active]; Janumet Oral [Active]; Levemir 100 unit/mL subcutaneous soln [Active]; levothyroxine 125 mcg tab 1 tab once daily [Active]; lisinopril 10 mg Oral tab once daily [Active]; Plavix 75 mg Oral tab 1 tab once daily [Active]; Spiriva with HandiHaler 18 mcg inhalation CpDv 1 cap once daily [Active]; - PMHx: 18:17 Depression; Diabetes - IDDM; Hyperlipidemia; Hypertension; Hypothyroidism; Myocardial la1 infarction; PE; - Immunization history:: Adult Immunizations up to date. - Social history:: Smoking status: Patient/guardian denies using tobacco, Smoking status: Patient/guardian denies using tobacco, the patient reports quitting approximately 20 years ago. - Ebola Screening: : No symptoms or risks identified at this time. ROS: 18:50 Constitutional: Positive for fever, Negative for body aches, poor PO intake. cp 18:50 Eyes: Negative for injury, pain, redness, and discharge. cp 18:50 ENT: Positive for sore throat, Negative for drainage from ear(s), ear pain, sinus congestion, sinus pain, difficulty swallowing, difficulty handling secretions. 18:50 Neck: Negative for pain with movement, pain at rest, stiffness. 18:50 Cardiovascular: Positive for chest pain, with cough, of the right lateral chest, Negative for edema, palpitations. 18:50 Respiratory: Positive for cough, wheezing. 18:50 Abdomen/GI: Negative for abdominal pain, vomiting, diarrhea, constipation. 18:50 : Negative for urinary symptoms. 18:50 Skin: Negative for rash. 18:50 Neuro: Negative for altered mental status, headache, weakness. 18:50 All other systems are negative. Exam: 18:55 Constitutional: The patient appears in no acute distress, alert, awake, cp non-diaphoretic, non-toxic, well developed, well nourished, obese. 18:55 Head/Face: Normocephalic, atraumatic. cp 18:55 Eyes: Periorbital structures: appear normal, Conjunctiva: normal, no exudate, no injection, Sclera: no appreciated abnormality, Lids and lashes: appear normal, bilaterally. 18:55 ENT: External ear(s): are unremarkable, Ear canal(s): are normal, clear, TM's: bulging, is not appreciated, bilaterally, dullness, bilaterally, erythema, is not appreciated, bilaterally, Nose: is normal, Mouth: Lips: moist, Oral mucosa: moist, Posterior pharynx: Airway: no evidence of obstruction, patent, Tonsils: are normal in appearance, swelling, is not appreciated, erythema, is not appreciated, exudate, is not appreciated. 18:55 Neck: ROM/movement: is normal, is supple, without pain, no range of motions limitations, no meningismus, no nuchal rigidity. 18:55 Chest/axilla: Inspection: normal, Palpation: is normal, no crepitus, no tenderness. 18:55 Cardiovascular: Rate: normal, Rhythm: regular, Edema: is not appreciated, JVD: is not appreciated. 18:55 Respiratory: the patient does not display signs of respiratory distress, Respirations: normal, no use of accessory muscles, no retractions, no splinting, no tachypnea, Breath sounds: rhonchi, that are mild, are heard in the right posterior middle lobe, stridor, is not appreciated, wheezing: that is mild, is heard diffusely. 18:55 Abdomen/GI: Inspection: abdomen appears normal, Bowel sounds: active, all quadrants, Palpation: abdomen is soft and non-tender, in all quadrants, voluntary guarding, is not appreciated. 19:30 ECG was reviewed by the Attending Physician. cp Vital Signs: 18:17 BP 112 / 62; Pulse 85; Resp 22; Temp 100.4; Pulse Ox 90% on R/A; Weight 129.27 kg; la1 Height 5 ft. 8 in. (172.72 cm); 19:30 BP 141 / 50; Pulse 77; Resp 19; Pulse Ox 86% on R/A; tr5 19:45 BP 142 / 61; Pulse 87; Resp 18; Pulse Ox 95% on 2 lpm NC; tr5 19:45 BP 142 / 54; Pulse 88; Resp 19; Pulse Ox 96% on 2 lpm NC; tr5 21:00 BP 130 / 75; Pulse 74; Resp 16; Temp 99.2(O); Pulse Ox 95% on R/A; tr5 18:17 Body Mass Index 43.33 (129.27 kg, 172.72 cm) la1 MDM: 18:26 Patient medically screened. cp 19:45 Differential Diagnosis: Bronchitis Influenza Upper Respiratory Infection Viral Syndrome cp Pneumonia. 20:16 Physician consultation: Angelica áSnchez MD was called at 20:20, was contacted at 20:21, cp regarding admission, to the telemetry unit. patient's condition. 20:20 Data reviewed: vital signs, nurses notes, lab test result(s), EKG, radiologic studies, cp plain films, and as a result, I will admit patient. 20:20 Test interpretation: by ED physician or midlevel provider: ECG, plain radiologic cp studies, chest xray shows right lung pneumonia. Counseling: I had a detailed discussion with the patient and/or guardian regarding: the historical points, exam findings, and any diagnostic results supporting the discharge/admit diagnosis, lab results, radiology results, the need for further work-up and treatment in the hospital. Response to treatment: the patient's symptoms have mildly improved after treatment. 09/23 18:43 Order name: Flu; Complete Time: 20:10 mg2 09/23 19:13 Order name: Basic Metabolic Panel; Complete Time: 20:10 cp 09/23 20:10 Interpretation: Normal except: GLUC 110; BUN 23; GFR 50; CA 8.4. cp 09/23 19:13 Order name: CBC with Diff; Complete Time: 00:44 cp 09/23 20:10 Interpretation: Normal except: WBC 15.2; GRACE% 85.9; LYM% 6.9; NEUT A 13.0. cp 09/23 19:13 Order name: LFT's; Complete Time: 20:10 cp 09/23 19:13 Order name: Magnesium; Complete Time: 20:10 cp 09/23 19:13 Order name: NT PRO-BNP; Complete Time: 20:10 cp 09/23 19:13 Order name: PT-INR; Complete Time: 20:10 cp 09/23 19:13 Order name: Troponin (emerg Dept Use Only); Complete Time: 20:10 cp 09/23 19:13 Order name: Procalcitonin; Complete Time: 00:44 cp 09/23 19:13 Order name: Lactate; Complete Time: 20:10 cp 09/23 19:13 Order name: Blood Culture Adult (2) 09/23 21:33 Order name: Manual Differential EDND 09/23 21:38 Order name: CBC with Automated Diff EDND 09/23 21:38 Order name: CBC with Automated Diff; Complete Time: 00:44 EDND 09/23 19:13 Order name: EKG; Complete Time: 19:14 cp 09/23 19:13 Order name: Cardiac monitoring; Complete Time: 19:33 cp 09/23 19:13 Order name: EKG - Nurse/Tech; Complete Time: 19:34 cp 09/23 19:13 Order name: XRAY Chest Pa And Lat (2 Views); Complete Time: 00:44 cp 09/23 21:38 Order name: CONS Physician Consult EDND 09/23 21:38 Order name: Heart Healthy EDND 09/23 21:38 Order name: Comprehensive Metabolic Panel EDND 09/23 21:38 Order name: Comprehensive Metabolic Panel; Complete Time: 00:44 EDMS 09/23 21:38 Order name: Lipid Profile EDND 09/23 21:38 Order name: Lipid Profile; Complete Time: 00:44 EDND 09/23 21:38 Order name: Magnesium EDND 09/23 21:38 Order name: Magnesium; Complete Time: 00:44 EDND 09/23 19:13 Order name: IV Saline Lock; Complete Time: 19:33 cp 09/23 19:13 Order name: Labs collected and sent; Complete Time: 19:33 cp 09/23 19:13 Order name: O2 Per Protocol; Complete Time: 19:33 cp 09/23 19:13 Order name: O2 Sat Monitoring; Complete Time: 19:33 cp EC:30 Rate is 76 beats/min. MS interval is prolonged at 208 msec. QRS interval is prolonged cp at 120 msec. QT interval is normal. Interpreted by me. Reviewed by me. Administered Medications: 19:05 Drug: Motrin 800 mg Route: PO; tr5 20:00 Follow up: Response: Marked relief of symptoms tr5 19:43 Drug: Albuterol - atroVENT (3:1) (2.5 mg - 0.5 mg) 3 ml Route: Nebulizer; tr5 21:20 Follow up: Response: Marked relief of symptoms tr5 20:16 Drug: Tussionex Pennkinetic ER 5 ml Route: PO; mg2 21:00 Follow up: Response: Marked relief of symptoms tr5 20:25 Drug: LevaQUIN 750 mg Volume: 150 ml; Route: IVPB; Infused Over: 90 mins; Site: right tr5 antecubital; 21:45 Follow up: IV Status: Completed infusion; IV Intake: 150ml tr5 Disposition: 09/23/19 20:22 Hospitalization ordered by Angelica Sánchez for Inpatient Admission. Preliminary diagnosis is Pneumonia due to other specified bacteria - right upper lobe. - Bed requested for Telemetry/MedSurg (Inpatient). - Status is Inpatient Admission. mg2 - Condition is Stable. - Problem is new. - Symptoms have improved. UTI on Admission? No Addendum: 09/26/2019 00:44 Co-signature as Attending Physician, Sin Gonzalez MD. r n Signatures: Dispatcher [employer] [facility] Sin Gonzalez MD MD rn Attema, Lee RN RN la1 Nathan Cavazos PA PA cp Garcia, Cindy, RN RN cg Pancho Gordon RN RN mg2 Nicola Valencia RN RN tr5 Corrections: (The following items were deleted from the chart) 09/23 20:10 20:10 Normal except: GLUC 110; BUN 23; GFR 50. cp cp 21:54 20:22 Hospitalization Ordered by Angelica Sánchez MD for Inpatient Admission. Preliminary cg diagnosis is Pneumonia due to other specified bacteria - right upper lobe. Bed requested for Telemetry/MedSurg (Inpatient). Status is Inpatient Admission. Condition is Stable. Problem is new. Symptoms have improved. UTI on Admission? No. cp 22:25 21:54 09/23/2019 20:22 Hospitalization Ordered by Angelica Sánchez MD for Inpatient mg2 Admission. Preliminary diagnosis is Pneumonia due to other specified bacteria - right upper lobe. Bed requested for Telemetry/MedSurg (Inpatient). Status is Inpatient Admission. Condition is Stable. Problem is new. Symptoms have improved. UTI on Admission? No. cg
[2019-09-23] MEDS ORDERED: ACETAMINOPHEN 500 MG TAB PO PRN (21:31)
[2019-09-23] MEDS ORDERED: ONDANSETRON 4 MG/2 ML VIAL IV PRN (21:31)
[2019-09-23 21:35] LABS: Platelet Estimate ADEQ
[2019-09-23 21:36] LABS: Blood Morphology Comment NOT SEEN (NOT SEEN)
[2019-09-23] MEDS: Levofloxacin 750mg IV 750 MG/150 ML BAG IV SCH (22:00)
[2019-09-23] MEDS: NA CHLORIDE 0.9% 1,000 ML IV SCH (22:39)
[2019-09-23 22:42] VITALS: BMI 43.3
[2019-09-23 23:01] LABS: Urine Appearance CLOUDY; Urine Blood NEGATIVE (NEG); Urine Color YELLOW; Urine Glucose NEGATIVE (NEG); Urine Protein NEGATIVE (NEG); Urine Specific Gravity 1.025 (1.005-1.030)
[2019-09-23 23:33] LABS: Urine Bilirubin NEGATIVE (NEG); Urine Microscopic Reflex ORDER UMIC
[2019-09-23 23:59] LABS: Urine Bacteria >50 /HPF (<20); Urine Culture Reflex Order REFLEXED; Urine RBC NONE SEEN /HPF (NONE SEEN)
[2019-09-24] MEDS ORDERED: GUAIFENESIN/CODEINE 5ML UCUP PO PRN
[2019-09-24] MEDS: IPRATROPIUM BROM 0.5MG/2.5ML NEB SCH ×4 (02:00→20:05)
[2019-09-24] MEDS: ALBUTEROL 2.5 MG/3 ML NEB SOL NEB SCH ×4 (02:00→20:05)
[2019-09-24] MEDS ORDERED: HYDROCODONE/CHLORPHEN 5 ML/OSYR PO ONE (03:11)
--- NOTE | 2019-09-24 05:20 | EKG ---
Test Date: 2019-09-23 Test Time: 20:21:50 Pharmacology Associate: MG MEASUREMENT RESULTS: Intervals: Rate: 76 WA: 208 QRSD: 120 QT: 434 QTc: 488 [place]: P: 68 WA: 208 QRS: -60 T: 59 INTERPRETIVE STATEMENTS: Sinus rhythm with occasional premature ventricular complexes Left anterior fascicular block Left bundle branch block Abnormal ECG Compared to ECG 12/01/2018 10:47:20 no significant change from previous ECG Electronically Signed On 09-24-19 05:20:21 INCOME TAX CONSULTANT by Rohan Rajan
[2019-09-24 05:52] LABS: Absolute Lymphocytes (CBC) 1.8 K/uL (0.7-4.9); Basophils % 0.2 % (0-1.3); Hematocrit 31.4 % (36.0-45.0); Lymphocytes % 8.7 % (15.3-44.8); MPV 8.8 fL (7.6-11.3); RBC Red Blood Cell Count 3.38 M/uL (3.86-4.86)
[2019-09-24 06:05] LABS: Albumin 2.7 g/dL (3.4-5.0); Bilirubin Total 0.9 mg/dL (0.2-1.0); Magnesium 1.8 mg/dL (1.8-2.4); Potassium 4.1 mmol/L (3.5-5.1)
[2019-09-24 07:02] LABS: Blood Morphology Comment NOT SEEN (NOT SEEN); Platelet Estimate ADEQ
[2019-09-24] MEDS ORDERED: MORPHINE 4 MG/ML SYR IV ONE (07:25)
[2019-09-24] MEDS: ENOXAPARIN 40 MG/0.4 ML SQ SCH (08:26)
[2019-09-24] MEDS ORDERED: MAGNESIUM SULFATE 1 gm IVPB 1 GM/100 ML BAG IV ONE (09:00)
[2019-09-24] MEDS ORDERED: FUROSEMIDE 20 MG TABLET PO SCH (09:00)
[2019-09-24] MEDS ORDERED: HOME MED 1 EA UNK (Budesonide/Formoterol Fumarate [Symbicort 160-4.5 Mcg Inhaler] 2 PUFF) IN SCH (09:00)
[2019-09-24] MEDS ORDERED: METHYLPREDNISOLONE 125 MG INJ IV ONE (09:32)
--- NOTE | 2019-09-24 09:37 | P.HP ---
Certification for Inpatient Patient admitted to: Inpatient With expected LOS: >2 Midnights Patient will require the following post-hospital care: None Practitioner: I am a practitioner with admitting privileges, knowledge of patient current condition, hospital course, and medical plan of care. Services: Services provided to patient in accordance with Admission requirements found in Title 42 Section 412.3 of the Code of Federal Regulations Patient History Date of Service: 09/23/19 Reason for admission: shortness of breath History of Present Illness: Patient is a 78-year-old female who came to the hospital with difficulty breathing. She has been coughing persistently for the last few days. It has been getting progressively worse. She came into the hospital for further evaluation. In the emergency room a chest x-ray revealed right upper lobe pneumonia. She was started on IV antibiotics. She was given neb treatments along with IV steroids. She has been coughing and has been given some cough medication as well. At this time with all her medical issues we will admit her to the hospital for further evaluation. If her symptoms do not improve will get CT to further evaluate. She has numerous medical issues and will see if we can get pulmonary consultation as well. Allergies phenobarbital Allergy (Intermediate, Verified 09/23/19 22:42) Itching Home Medications: Aspirin 1 tab PO DAILY 09/23/19 Atorvastatin Calcium 1 tab PO BEDTIME 09/23/19 Budesonide/Formoterol Fumarate [Symbicort 160-4.5 Mcg Inhaler] 2 puff IN DAILY 09/23/19 Citalopram [Celexa*] 20 mg PO DAILY 09/23/19 Clopidogrel Bisulfate [Plavix*] 1 tab PO DAILY 09/23/19 Furosemide [Lasix] 1 tab PO DAILY 09/23/19 Hydrocodone Bit/Acetaminophen [[place] 10-325 Tablet] 1 tab PO TID PRN 09/23/19 Levothyroxine Sodium 1 tab PO 0630 09/23/19 Lisinopril 10 mg PO DAILY 09/23/19 Nebivolol HCl [Bystolic*] 1 tab PO DAILY 09/23/19 Pantoprazole [Protonix Tab*] 1 tab PO 0630 09/23/19 Sitagliptin Phos/Metformin HCl [Janumet 50-500 mg Tablet] 1 tab PO DAILY Umeclidinium [place] [Incruse Ellipta] 1 puff IN DAILY 09/23/19 - Past Medical/Surgical History Has patient received pneumonia vaccine in the past: Yes Diabetic: Yes -: Diabetes mellitus type 2, insulin dependent -: HTN -: CHF -: COPD -: Hypothyroidism -: History of pulmonary ebolism -: Hyperlipidemia -: CAD with prior stents -: GOUT -: Depression -: Chronic back and knee pain -: HEART STENTS X 3 -: CHOLECYSTECTOMY -: COLON SX- POLYP REMOVED -: LEFT ANKLE SX -: HYSTERECTOMY -: APPY -: DISK REMOVAL -: HEMORROIDECTOMY Psychosocial/ Personal History: Patient is - Family History Mother Medical History: Diabetes Notes: with IN Father Medical History: Cancer Notes: Prostatic CA - Social History Smoking Status: Never smoker Alcohol use: No CD- Drugs: No Caffeine use: Yes Place of Residence: Home Review of Systems 10-point ROS is otherwise unremarkable Physical Examination - Vital Signs Temperature: 97.4 F Blood Pressure: 150/63 Pulse: 63 Respirations: 17 Pulse Ox (%): 95 - Physical Exam General: Alert, In no apparent distress, Oriented x3 HEENT: Atraumatic, PERRLA, Mucous membr. moist/pink, EOMI, Sclerae nonicteric Neck: Supple, 2+ carotid pulse no bruit, No LAD, Without JVD or thyroid abnormality Respiratory: Diminished, Inspiratory wheezes Cardiovascular: Regular rate/rhythm, Normal S1 S2, No murmurs Gastrointestinal: Normal bowel sounds, Soft and benign, Non-distended, No tenderness Musculoskeletal: No clubbing, No swelling, Tenderness ( Around the right latissimus dorsi) Integumentary: No rashes Neurological: Normal gait, Normal speech, Normal strength at 5/5 x4 extr, Normal tone, Sensation intact, Cranial nerves 3-12 intact, Normal affect Lymphatics: No axilla or inguinal lymphadenopathy - Studies Laboratory Data (last 24 hrs) 09/23/19 19:30: PT 11.6, INR 0.98 09/23/19 19:30: WBC 15.2 H, Hgb 13.1, Hct 39.2, Plt Count 226 09/23/19 19:30: Sodium 138, Potassium 3.8, BUN 23 H, Creatinine 1.06, Glucose 110 H, Magnesium 2.0, Total Bilirubin 0.6, AST 14 L, ALT 17, Alkaline Phosphatase 87 Microbiology Data (last 24 hrs): 11/03/19 19:05 Nasopharnyx Influenza Type A Antigen Screen - Final 09/23/19 19:05 Nasopharnyx Influenza Type B Antigen Screen - Final Assessment & Plan - Problems (Diagnosis) (1) Right upper lobe pneumonia Current Visit: Yes Status: Acute (2) COPD exacerbation Current Visit: Yes Status: Acute (3) Pleurisy Current Visit: Yes Status: Acute (4) History of pulmonary embolism Current Visit: Yes Status: Acute (5) History of coronary artery disease Current Visit: Yes Status: Acute (6) History of hypertension Current Visit: Yes Status: Acute - Plan Plan: 1. Continue with IV antibiotics 2. Awaiting sputum and blood culture; procalcitonin level 3. Repeat chest x-ray in AM 4. Will order CT scan of the chest if pneumonia is not improving 5. may need echo to assess cardiac functioning 6. Continue with nebs as needed 7. O2 per protocol 8. Continue with gentle hydration 9. Repeat labs including CBC and renal function in a.m. 10. Outpt follow-up with Pulmonary; we did consult Pulmonary but she did not want to be evaluated by Pulmonary at this time 11. GI and DVT prophylaxis - Advance Directives Does patient have a Living Will: Yes Does patient have a Durable POA for Healthcare: Yes - Code Status/Comfort Care Code Status Assessed: Yes Code Status: Full Code Critical Care: No Time Spent Managing PTS Care (In Minutes): 45
[2019-09-24] MEDS: CITALOPRAM 10 MG TABLET PO SCH (10:13)
[2019-09-24] MEDS: CLOPIDOGREL 75 MG TABLET PO SCH (10:13)
[2019-09-24] MEDS: BENZONATATE 100 MG CAP PO PRN ×2 (10:14→23:31)
[2019-09-24] MEDS: ASPIRIN 81 MG CHEWABLE TABLET PO SCH (10:14)
[2019-09-24] MEDS: HYDROCODONE/APAP 10/325 TAB PO PRN ×3 (10:18→23:31)
--- NOTE | 2019-09-24 10:19 | RAD REPORT ---
EXAM DESCRIPTION: CT - Chest Abdomen Pelvis W Cont - 09/24/2019 9:54 am CLINICAL HISTORY: Chest and abdomen pain. pneumonia/pleurisy COMPARISON: CT CHEST ABD PELVIS W CONTRAST dated 03/08/2014; CT CHEST ABD PELVIS W CONTRAST dated 02/19; Thorax W/ Con dated 12/05/2018; Chest Pa And Lat (2 Views) dated 09/23/2019 TECHNIQUE: Approximately 100 mL nonionic IV contrast was administered to the patient. All CT scans are performed using dose optimization technique as appropriate and may include automated exposure control or mA/KV adjustment according to patient size. FINDINGS: Diffuse COPD is present with barium airspace consolidation in the lung the lateral aspect of right upper lobe most compatible with pneumonia.Mild linear subsegmental atelectasis is present in the left lung base.No pleural or pericardial effusion.21 mm soft tissue in the right hilar region co mpatible with small right hilar lymph node. Mild fatty liver. No focal liver lesion or biliary dilatation. The spleen, pancreas, left adrenal gla nd normal. Small nodule is seen in the right adrenal gland measuring 10 mm. Cholecystectomy. No bowel obstruction, free air, free fluid or abscess. Sigmoid diverticulosis coli is present without diverticulitis. Appendectomy. Small focal ventral hernia is seen containing a portion of the small i ntestine. No pathologic lymphadenopathy in the abdomen or pelvis. No lytic or blastic bone lesion seen. IMPRESSION: Right upper lobe lateral airspace pneumonia. Mild fatty liver. Sigmoid diverticulosis without diverticulitis.
[2019-09-24] MEDS: NA CHLORIDE 0.9% 1,000 ML IV SCH ×3 (11:20→23:32)
[2019-09-24] MEDS ORDERED: D50W 25 GM/50 ML SYRINGE/VIAL IV PRN (12:36)
[2019-09-24] MEDS ORDERED: GLUCAGON 1 MG/VIAL IM PRN (12:36)
[2019-09-24] MEDS: METHYLPREDNISOLONE 125 MG INJ IV SCH ×3 (12:45→23:32)
--- NOTE | 2019-09-24 15:49 | ECHO ---
HEIGHT: 5 ft 8 in WEIGHT: 285 lb 0 oz DATE OF STUDY: 09/24/[address]: Angelica Sánchez MD 2-DIMENSIONAL: YES M.MODE: YES DOPPLER: YES COLOR FLOW: YES TDS: NO PORTABLE: NO DEFINITY: NO BUBBLE STUDY: NO DIAGNOSIS: CONGESTIVE HEART FAILURE CARDIAC HISTORY: CATHERIZATION: NO SURGERY: NO PROSTHETIC VALVE: NO PACEMAKER: NO MEASUREMENTS (cm) DIASTOLIC (NORMALS) SYSTOLIC (NORMALS) IVSd 0.9 (0.6-1.2) LA Diam 3.9 (1.9-4.0) LVEF 68% LVIDd 5.0 (3.5-5.7) LVIDs 3.1 (2.0-3.5) %FS 38% LVPWd 1.1 (0.6-1.2) Ao Diam 2.7 (2.0-3.7) 2 DIMENSIONAL ASSESSMENT: RIGHT ATRIUM: NORMAL LEFT ATRIUM: NORMAL RIGHT VENTRICLE: NORMAL LEFT VENTRICLE: NORMAL TRICUSPID VALVE: NORMAL MITRAL VALVE: NORMAL PULMONIC VALVE: NORMAL AORTIC VALVE: NORMAL PERICARDIAL EFFUSION: NONE AORTIC ROOT: NORMAL LEFT VENTRICULAR WALL MOTION: NORMAL. DOPPLER/COLOR FLOW: MILD MITRAL AND TRICUSPID REGURGITATION. ESTIMATED RIGHT VENTRICULAR SYSTOLIC PRESSURE 40mmHg (MILD PULMONARY HYPERTENSION). COMMENTS: NORMAL 2D ECHO. MILD MITRAL AND TRICUSPID REGURGITATION. MILD PULMONARY HYPERTENSION. TECHNOLOGIST: TONNY ALFRED
[2019-09-24] MEDS: INSULIN -REGULAR HUMAN 50 UNIT/0.5 ML ML SQ SCH ×2 (17:10→21:08)
--- NOTE | 2019-09-24 18:24 | PN ---
Date of Progress Note: 09/24/2019 The patient states the cough is still nonproductive. Her pain may have subsided somewhat in the righ t mid portion of her ribs and this is what brought her to the ER. Patient's last episode of pneumoni a was many years ago. She has not required oxygen at home other than followup and she has been using a nebulizer. She still feels short of breath with O2 saturation is quite suff icient. We will follow up the chest x-ray in the morning and continue with the present regimen with the addition of Bactrim DS. CT describes it as a moderate right upper quadrant pneumonitis. Zackery santamaria bacteriological evaluation. Sputum has been sent out. HR/MODL Voice ID: [id number] Report ID: [id number]
[2019-09-24] MEDS: SMZ./TMP. 800/160 MG TABLET PO SCH (21:07)
[2019-09-24] MEDS: ATORVASTATIN 40 MG TAB PO SCH (21:07)
[2019-09-24] MEDS: Levofloxacin 750mg IV 750 MG/150 ML BAG IV SCH (21:11)
[2019-09-25] MEDS: TEMAZEPAM 15 MG CAP PO PRN ×2 (00:04→22:28)
[2019-09-25] MEDS: ALBUTEROL 2.5 MG/3 ML NEB SOL NEB SCH ×4 (01:30→20:00)
[2019-09-25] MEDS: IPRATROPIUM BROM 0.5MG/2.5ML NEB SCH ×4 (01:30→20:00)
[2019-09-25] MEDS: LEVOTHYROXINE SOD 0.125 MG TAB PO SCH (05:36)
[2019-09-25] MEDS: PANTOPRAZOLE 40MG TABLET PO SCH (05:36)
[2019-09-25] MEDS: METHYLPREDNISOLONE 125 MG INJ IV SCH (05:36)
[2019-09-25 05:56] LABS: Magnesium 2.9 mg/dL (1.8-2.4); Potassium 4.3 mmol/L (3.5-5.1)
[2019-09-25] MEDS: CITALOPRAM 10 MG TABLET PO SCH (08:05)
[2019-09-25] MEDS: BENZONATATE 100 MG CAP PO PRN ×2 (08:05→20:27)
[2019-09-25] MEDS: INSULIN -REGULAR HUMAN 50 UNIT/0.5 ML ML SQ SCH ×4 (08:06→22:48)
[2019-09-25] MEDS: CLOPIDOGREL 75 MG TABLET PO SCH (08:06)
[2019-09-25] MEDS: ASPIRIN 81 MG CHEWABLE TABLET PO SCH (08:06)
[2019-09-25] MEDS: SMZ./TMP. 800/160 MG TABLET PO SCH ×2 (08:06→20:23)
[2019-09-25] MEDS: HYDROCODONE/APAP 10/325 TAB PO PRN ×3 (08:06→20:57)
[2019-09-25] MEDS: ENOXAPARIN 40 MG/0.4 ML SQ SCH (08:06)
[2019-09-25] MEDS: DULERA 100/5 (MOMETASONE/FORMOTEROL) INHALER IH SCH (08:07)
--- NOTE | 2019-09-25 08:20 | RAD REPORT ---
EXAM DESCRIPTION: Alvino Claudio And Chuck (2 Views)09/25/2019 7:18 am CLINICAL HISTORY: Cough COMPARISON: September 23 FINDINGS: Minimal improvement in the right lung opacities No other change IMPRESSION: Minimal improvement in the right lung pneumonia
[2019-09-25] MEDS ORDERED: METHYLPREDNISOLONE 125 MG INJ IV SCH (10:00)
[2019-09-25 10:05] LABS: Absolute Lymphocytes (CBC) 0.7 K/uL (0.7-4.9); Basophils % 0.2 % (0-1.3); Hematocrit 32.9 % (36.0-45.0); Lymphocytes % 4.4 % (15.3-44.8); MPV 9.1 fL (7.6-11.3); RBC Red Blood Cell Count 3.51 M/uL (3.86-4.86)
[2019-09-25 10:33] LABS: Potassium 4.1 mmol/L (3.5-5.1)
[2019-09-25] MEDS: NEBIVOLOL HCL 5 MG TAB PO SCH (12:41)
--- NOTE | 2019-09-25 15:16 | PN ---
Date of Progress Note: 09/25/2019 Patient says she does feel somewhat better today. Cough is still nonproductive. Some exertional dys pnea, although she has been up more. The chest x-ray showed minimal improvement. We will start decr easing her steroid dose and hopefully her sugars will improve at that time as well. Patient has not required insulin and/or oxygen at home in the past. We will see in the consideration. At the time o f discharge, we will anticipate in the next few days. HR/MODL Voice ID: [id number] Report ID: [id number]
[2019-09-25] MEDS ORDERED: INSULIN -REGULAR HUMAN 50 UNIT/0.5 ML ML SQ ONE (16:00)
[2019-09-25] MEDS ORDERED: predniSONE 20 MG TAB PO ONE (19:00)
[2019-09-25] MEDS: ATORVASTATIN 40 MG TAB PO SCH (20:23)
[2019-09-26] MEDS: ALBUTEROL 2.5 MG/3 ML NEB SOL NEB SCH ×4 (02:00→20:30)
[2019-09-26] MEDS: IPRATROPIUM BROM 0.5MG/2.5ML NEB SCH ×4 (02:00→20:30)
[2019-09-26] MEDS: LEVOTHYROXINE SOD 0.125 MG TAB PO SCH (05:31)
[2019-09-26] MEDS: PANTOPRAZOLE 40MG TABLET PO SCH (05:31)
[2019-09-26] MEDS: HYDROCODONE/APAP 10/325 TAB PO PRN ×3 (05:38→21:20)
[2019-09-26] MEDS: BENZONATATE 100 MG CAP PO PRN ×3 (05:42→21:20)
[2019-09-26 05:55] LABS: Absolute Lymphocytes (CBC) 0.7 K/uL (0.7-4.9); Hematocrit 31.2 % (36.0-45.0); Lymphocytes % 4.1 % (15.3-44.8); MPV 9.2 fL (7.6-11.3); RBC Red Blood Cell Count 3.33 M/uL (3.86-4.86)
[2019-09-26 06:13] LABS: Albumin 2.8 g/dL (3.4-5.0); Bilirubin Total 0.4 mg/dL (0.2-1.0); Phosphorus 2.6 mg/dL (2.5-4.9); Potassium 4.3 mmol/L (3.5-5.1); Protein, Total 6.5 g/dL (6.4-8.2)
[2019-09-26] MEDS: CLOPIDOGREL 75 MG TABLET PO SCH (08:00)
[2019-09-26] MEDS: SMZ./TMP. 800/160 MG TABLET PO SCH ×2 (08:00→21:20)
[2019-09-26] MEDS: NEBIVOLOL HCL 5 MG TAB PO SCH (08:00)
[2019-09-26] MEDS: CITALOPRAM 10 MG TABLET PO SCH (08:00)
[2019-09-26] MEDS: DULERA 100/5 (MOMETASONE/FORMOTEROL) INHALER IH SCH (08:01)
[2019-09-26] MEDS: ASPIRIN 81 MG CHEWABLE TABLET PO SCH (08:01)
[2019-09-26] MEDS: ENOXAPARIN 40 MG/0.4 ML SQ SCH (08:02)
[2019-09-26] MEDS: INSULIN -REGULAR HUMAN 50 UNIT/0.5 ML ML SQ SCH ×4 (08:05→21:00)
[2019-09-26] MEDS ORDERED: predniSONE 20 MG TAB PO SCH (09:00)
[2019-09-26] MEDS ORDERED: levoFLOXacin 500 MG TAB PO SCH ×2 (09:00→21:00)
[2019-09-26] MEDS: AZITHROMYCIN IV 500 MG in NA CHLORIDE 0.9% 250 ML IVPB SCH (14:30)
[2019-09-26] MEDS: LISINOPRIL 20 MG TAB PO SCH (15:02)
[2019-09-26] MEDS ORDERED: levoFLOXacin 750 MG TAB PO SCH (21:00)
[2019-09-26] MEDS: TEMAZEPAM 15 MG CAP PO PRN (21:20)
[2019-09-26] MEDS: ATORVASTATIN 40 MG TAB PO SCH (21:20)
[2019-09-27] MEDS: IPRATROPIUM BROM 0.5MG/2.5ML NEB SCH ×4 (02:15→20:00)
[2019-09-27] MEDS: ALBUTEROL 2.5 MG/3 ML NEB SOL NEB SCH ×4 (02:15→20:00)
[2019-09-27] MEDS: PANTOPRAZOLE 40MG TABLET PO SCH (05:48)
[2019-09-27] MEDS: LEVOTHYROXINE SOD 0.125 MG TAB PO SCH (05:48)
[2019-09-27] MEDS: SMZ./TMP. 800/160 MG TABLET PO SCH ×2 (07:39→20:31)
[2019-09-27] MEDS: LISINOPRIL 20 MG TAB PO SCH (07:40)
[2019-09-27] MEDS: NEBIVOLOL HCL 5 MG TAB PO SCH (07:40)
[2019-09-27] MEDS: CLOPIDOGREL 75 MG TABLET PO SCH (07:40)
[2019-09-27] MEDS: BENZONATATE 100 MG CAP PO PRN ×3 (07:40→23:58)
[2019-09-27] MEDS: HYDROCODONE/APAP 10/325 TAB PO PRN ×3 (07:41→23:58)
[2019-09-27] MEDS: DULERA 100/5 (MOMETASONE/FORMOTEROL) INHALER IH SCH (07:41)
[2019-09-27] MEDS: ASPIRIN 81 MG CHEWABLE TABLET PO SCH (07:41)
[2019-09-27] MEDS: CITALOPRAM 10 MG TABLET PO SCH (07:41)
[2019-09-27] MEDS: ENOXAPARIN 40 MG/0.4 ML SQ SCH (07:42)
[2019-09-27] MEDS: INSULIN -REGULAR HUMAN 50 UNIT/0.5 ML ML SQ SCH ×4 (08:00→20:31)
[2019-09-27] MEDS: AZITHROMYCIN IV 500 MG in NA CHLORIDE 0.9% 250 ML IVPB SCH (08:30)
--- NOTE | 2019-09-27 08:53 | RAD REPORT ---
EXAM DESCRIPTION: RAD - Chest Pa And Lat (2 Views) - 09/27/2019 8:42 am CLINICAL HISTORY: pneumonia Chest pain. COMPARISON: Chest Pa And Lat (2 Views) dated 09/25/2019; Chest Pa And Lat (2 Views) dated 09/23/2019; Chest Pa And Lat (2 Views) dated 12/03/2018; Chest Pa And Lat (2 Views) dated 12/02/2018 FINDINGS: Mild improvement is seen in the lateral right upper lobe pneumonia since the prior study. The heart is moderately enlarged with aortic atherosclerosis. No displaced fractures. IMPRESSION: Mild improvement in the lateral right upper lobe pneumonia.
[2019-09-27] MEDS: predniSONE 20 MG TAB PO SCH (16:12)
[2019-09-27] MEDS: TEMAZEPAM 15 MG CAP PO PRN (20:31)
[2019-09-27] MEDS: ATORVASTATIN 40 MG TAB PO SCH (20:31)
--- NOTE | 2019-09-27 21:03 | PN ---
Date of Progress Note: 09/27/2019 Patient states her cough is somewhat lucid today; however, exertional dyspnea is still significant wi th O2 saturations in the mid 80s. Therefore, oxygen will be ordered for home usage. Her blood sugar s have dropped now to her baseline. However, I think we will try low-dose prednisone as it seem to m silas some difference in her symptomatology. Continue with Zithromax IV and probably discharge in the a.m. HR/MODL Voice ID: [id number] Report ID: [id number]
[2019-09-28] MEDS: IPRATROPIUM BROM 0.5MG/2.5ML NEB SCH ×3 (02:00→14:16)
[2019-09-28] MEDS: ALBUTEROL 2.5 MG/3 ML NEB SOL NEB SCH ×3 (02:00→14:16)
[2019-09-28] MEDS: LEVOTHYROXINE SOD 0.125 MG TAB PO SCH (06:38)
[2019-09-28] MEDS: PANTOPRAZOLE 40MG TABLET PO SCH (06:38)
[2019-09-28] MEDS: INSULIN -REGULAR HUMAN 50 UNIT/0.5 ML ML SQ SCH ×2 (07:30→11:30)
[2019-09-28] MEDS: CLOPIDOGREL 75 MG TABLET PO SCH (08:22)
[2019-09-28] MEDS: CITALOPRAM 10 MG TABLET PO SCH (08:22)
[2019-09-28] MEDS: SMZ./TMP. 800/160 MG TABLET PO SCH (08:22)
[2019-09-28] MEDS: NEBIVOLOL HCL 5 MG TAB PO SCH (08:22)
[2019-09-28] MEDS: ENOXAPARIN 40 MG/0.4 ML SQ SCH (08:22)
[2019-09-28] MEDS: predniSONE 20 MG TAB PO SCH (08:23)
[2019-09-28] MEDS: TEMAZEPAM 15 MG CAP PO PRN (08:23)
[2019-09-28] MEDS: ASPIRIN 81 MG CHEWABLE TABLET PO SCH (08:23)
[2019-09-28] MEDS: LISINOPRIL 20 MG TAB PO SCH (08:23)
[2019-09-28] MEDS: HYDROCODONE/APAP 10/325 TAB PO PRN (08:23)
[2019-09-28] MEDS: AZITHROMYCIN IV 500 MG in NA CHLORIDE 0.9% 250 ML IVPB SCH (09:05)
[2019-09-28] MEDS: DULERA 100/5 (MOMETASONE/FORMOTEROL) INHALER IH SCH (09:05)
[2019-09-28 09:19] VITALS: BP 196/82; TEMP 97.2
[2019-09-28 09:24] VITALS: O2SAT 97
== END 2019-09-28 15:34 | disposition home or self-care (01) | DRG 190 ==
LOC: ER 18:08 → ERHOLD 21:47 → 4TH 22:09
PROVIDERS: ADMIT Family Medicine; ATTEND Hospitalist
DX: J44.0 Chronic obstructive pulmonary disease with (acute) lower respiratory infection (principal); J18.9 Pneumonia, unspecified organism; J44.1 Chronic obstructive pulmonary disease with (acute) exacerbation; E03.9 Hypothyroidism, unspecified; I25.10 Atherosclerotic heart disease of native coronary artery without angina pectoris; Z95.5 Presence of coronary angioplasty implant and graft; I11.0 Hypertensive heart disease with heart failure; I50.9 Heart failure, unspecified; E11.9 Type 2 diabetes mellitus without complications; Z86.711 Personal history of pulmonary embolism; M10.9 Gout, unspecified
CPT/HCPCS: 36415; 71046; 71260; 74177; 80048; 80053; 80061; 80076; 81003; 81015; 82947; 83605; 83735; 83880; 84100; 84145; 84484; 85025; 85610; 87040; 87070; 87086; 87088; 87205; 87804; 93005; 93306; 94640; 94760; 96365; 97112; 97116; 97161; 99285; J0456; J1650; J2405; J2930; J3475; J7030; J7512; J7606; Q9967

== ENCOUNTER 2021-06-22 14:45 | Emergency (ER) | payer OTHER ==
--- OUTSIDE RECORDS SUMMARY | 2021-06-22 14:48 | XMS REPORT | Continuity of Care Document ---
:1940 Author Organization [facility] t Address [address] [id number] Care Team Providers Name Role Phone Unavailable Unavailable Unavailable Problems This patient has no known problems. Allergies, Adverse Reactions, Alerts This patient has no known allergies or adverse reactions. Medications This patient has no known medications. Procedures This patient has no known procedures. Encounters Start End Encounter Admission Attending Care Care Encounter Source Date/Time Date/Time Type Type Clinicians Facility Department ID 2020-10-14 2020-10-14 Outpatient [facility] [id number] [facility] 2020-10-06 2020-10-06 Outpatient [facility] [id number] [facility] 2020-09-23 2020-09-23 Outpatient [facility] [id number] [facility] 2020-08-29 2020-08-29 Outpatient [facility] [id number] [facility] 2020-08-26 2020-08-26 Outpatient [facility] [id number] [facility] Results This patient has no known results.
--- NOTE | 2021-06-22 15:56 | RAD REPORT ---
EXAM DESCRIPTION: CT - CTHCSPWOC - 06/22/2021 3:48 pm CLINICAL HISTORY: Trauma, head and neck injury. PAIN COMPARISON: No comparisons TECHNIQUE: Axial 5 mm thick images of the head were obtained. Axial 2 mm thick images of the cervical spine were obtained with sagittal and coronal reconstruction images generated and reviewed. All CT scans are performed using dose optimization technique as appropriate and may include automated exposure control or mA/KV adjustment according to patient size. FINDINGS: CT HEAD WITHOUT CONTRAST: No acute hemorrhage, hydrocephalus or extra-axial collection is identified.Moderate generalized brain atrophy is present with moderate periventricular and deep white matter chronic microvascular ischemi c changes.No areas of brain edema or midline shift. The paranasal sinuses and mastoids are clear.The calvarium is intact. Small frontal scalp hematoma. CT CERVICAL SPINE WITHOUT CONTRAST: No fracture or subluxation.2 mm degenerative anterolisthesis of C4 on 5 is present. Moderate lower ce rvical degenerative changes.No prevertebral soft tissues swelling is identified. Right carotid athero sclerosis. IMPRESSION: No acute intracranial or cervical spine findings. Moderate lower cervical degenerative changes.
[2021-06-22] MEDS ORDERED: HYDROCODONE/APAP 5/325 MG TAB ONE (17:39)
--- NOTE | 2021-06-22 18:24 | RAD REPORT ---
EXAM DESCRIPTION: RAD - Wrist Left 3 View - 06/22/2021 6:05 pm CLINICAL HISTORY: Swelling;Deformity Pain COMPARISON: No comparisons FINDINGS: Diffuse osteopenia is seen. Mildly impacted fractures of the distal radius and ulna are p resent with moderate surrounding soft tissue swelling.
--- NOTE | 2021-06-22 18:24 | RAD REPORT ---
EXAM DESCRIPTION: RAD - Foot Left 3 View - 06/22/2021 6:05 pm CLINICAL HISTORY: PAIN COMPARISON: FOOT W OBLIQUES dated 11/03/2008 FINDINGS: Mildly impacted fractures involving the second, third and fourth metatarsal necks. The bon es are quite demineralized.
--- NOTE | 2021-06-22 18:25 | RAD REPORT ---
EXAM DESCRIPTION: RAD - Hip Left 2 View - 06/22/2021 6:05 pm CLINICAL HISTORY: PAIN COMPARISON: Hip Left 2 View dated 07/22/2017 FINDINGS: Diffuse demineralization of the bones is present. 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 No fracture or dislocation is present.
[2021-06-22] MEDS ORDERED: ONDANSETRON 4 MG (ODT) TAB ONE (20:38)
[2021-06-22] MEDS ORDERED: MORPHINE 4 MG/ML SYR ONE (20:38)
--- NOTE | 2021-06-22 21:28 | EDPHYS ---
Physician Documentation [facility] Name: Michelle Beverly Age: 80 yrs Sex: Female : 1940 Arrival Date: 06/22/2021 Time: 15:22 Bed 12 Private MD: ED Physician Nathan Franco HPI: 06/22 19:42 This 80 yrs old Female presents to ER via EMS with complaints of Fall Injury. pm1 19:42 Details of fall: The patient fell from an upright position, while walking, and struck a pm1 concrete surface. Onset: The symptoms/episode began/occurred today. Associated injuries: The patient sustained injury to the head, contusion, left wrist, painful injury, left foot, painful injury. Severity of symptoms: in the emergency department the symptoms are unchanged. The patient has not experienced similar symptoms in the past. The patient has not recently seen a physician. Patient was waling up a ramp and she tripped and landed on her left outstretched arm and hit her forehead on the ground. No LOC or neck pain present. Historical: - Allergies: 17:08 Phenobarbital; iw - Immunization history:: Adult Immunizations up to date. - Social history:: Smoking status: Patient denies any tobacco usage or history of. ROS: 19:42 Constitutional: Negative for fever, chills, and weight loss, Cardiovascular: Negative pm1 for chest pain, palpitations, and edema, Respiratory: Negative for shortness of breath, cough, wheezing, and pleuritic chest pain. 19:42 Skin: Negative for injury, rash, and discoloration. 19:42 MS/extremity: Positive for pain, swelling, tenderness, of the dorsum of left foot and left wrist. 19:42 Neuro: Positive for headache, Negative for loss of consciousness. 19:42 All other systems are negative. pm1 Exam: 19:42 Constitutional: This is a well developed, well nourished patient who is awake, alert, pm1 and in no acute distress. 19:42 Back: No spinal tenderness. No costovertebral tenderness. Full range of motion. Skin: Warm, dry with normal turgor. Normal color with no rashes, no lesions, and no evidence of cellulitis. 19:42 Head/face: Noted is no obvious of injury or deformity except contusion, that is superficial, of the forehead. 19:42 Eyes: Exam is negative for acute changes, Extraocular movements: no acute changes, Conjunctiva: no acute changes, no injection, Lids and lashes: appear normal, no evidence of trauma. 19:42 ENT: Exam is negative for acute changes, Mouth: no acute changes, Lips: normal, Oral mucosa: normal, pink and intact, moist. 19:42 Neck: Exam negative for acute changes, C-spine: vertebral tenderness, is not appreciated, ROM/movement: is normal. 19:42 Cardiovascular: Exam negative for acute changes, Rate: normal, Rhythm: regular, Pulses: no pulse deficits are appreciated. 19:42 Respiratory: Exam negative for acute changes, respiratory distress, shortness of breath. 19:42 Abdomen/GI: Exam negative for acute changes, Inspection: abdomen appears normal, Palpation: abdomen is soft and non-tender, in all quadrants. 19:42 Musculoskeletal/extremity: Exam is negative for acute changes, Extremities: grossly normal except: noted in the dorsum of left foot: tenderness, noted in the left wrist: swelling, tenderness. 19:42 Neuro: Exam negative for acute changes, Orientation: is normal, Mentation: is normal, Motor: is normal, moves all fours. Vital Signs: 20:28 BP 127 / 52; Pulse 66; Resp 18; Temp 98.7(O); Pulse Ox 91% on R/A; Weight 126.55 kg; ld1 Height 5 ft. 8 in. (172.72 cm); Pain 8/10; 21:13 BP 122 / 63; Pulse 66; Resp 15; Pulse Ox 91% on R/A; ld1 20:28 Body Mass Index 42.42 (126.55 kg, 172.72 cm) ld1 MDM: 19:42 Patient medically screened. pm1 21:20 Data reviewed: vital signs. Counseling: I had a detailed discussion with the patient pm1 and/or guardian regarding: the historical points, exam findings, and any diagnostic results supporting the discharge/admit diagnosis, radiology results, the need for outpatient follow up, a orthopedic surgeon, a processor inspector, to return to the emergency department if symptoms worsen or persist or if there are any questions or concerns that arise at home. 21:54 ED course: Patient placed in walking boot versus splint so that patient will be able to pm1 get around at home. Patient has left wrist fracture so walker and crutches would not be an option and would actually create a fall risk. 06/22 15:23 Order name: CT Head C Spine; Complete Time: 16:13 iw 06/22 17:08 Order name: Wrist Left (3 View) XRAY; Complete Time: 19:42 iw 06/22 17:08 Order name: Foot Left 3 View XRAY; Complete Time: 19:42 iw 06/22 17:08 Order name: Hip Left 2 View XRAY; Complete Time: 19:42 iw 06/22 19:48 Order name: Sugar Tong Forearm Splint; Complete Time: 20:54 pm1 06/22 19:58 Order name: Splint Leg: Short Leg; Complete Time: 20:54 pm1 06/22 21:05 Order name: Walking boot; Complete Time: 21:12 pm1 Administered Medications: 17:23 Drug: HYDROcodone-acetaminophen 5 mg-325 mg 1 tabs Route: PO; iw 20:25 Drug: morphine 4 mg Route: IM; Site: right deltoid; ld1 20:25 Drug: Zofran (Ondansetron) 4 mg Route: PO; ld1 Disposition: 06/23 07:32 Co-signature as Attending Physician, Nathan Franco MD I agree with the assessment and lorena plan of care. Disposition Summary: 06/22/21 21:27 Discharge Ordered Location: Home pm1 Problem: new pm1 Symptoms: have improved pm1 Condition: Stable pm1 Diagnosis - Closed mildly impacted distal left radius and left ulna fracture pm1 - Closed mildly impacted fractures of second, third and fourth left metatarsal necks pm1 - Unspecified superficial injury of other part of head, initial encounter - forehead pm1 contusion - Fall on same level from slipping, tripping and stumbling without subsequent pm1 striking against object, initial encounter Followup: pm1 - With: Emergency Department - When: As needed - Reason: Worsening of condition Followup: pm1 - With: Private Physician - When: 2 - 3 days - Reason: Recheck today's complaints, Continuance of care, Re-evaluation by your physician Discharge Instructions: - Discharge Summary Sheet pm1 - Cast or Splint Care, Adult pm1 - Fall Prevention in the Home, Adult pm1 - How to Use a Sling pm1 - Walking Boot, Adult pm1 Forms: - Medication Reconciliation Form pm1 - Thank You Letter pm1 - Antibiotic Education pm1 - Prescription Opioid Use pm1 Prescriptions: - ketorolac 10 mg Oral tablet - take 1 tablet by ORAL route every 8 hours As needed not to exceed 40 mg in pm1 24hrs; 12 tablet; Refills: 0, Product Selection Permitted Signatures: Dispatcher [employer] EDAK Nathan Franco MD MD cha Williams, Irene, RN RN iw Eric Whitman NP [employer] pm1 Janell Guajardo RN RN ld1 Corrections: (The following items were deleted from the chart) 06/22 21:54 21:54 PMHx: Diabetes - IDDM; ld1 ld1 21:54 21:54 PMHx: Hypertension; ld1 ld1 21:54 21:54 PMHx: Myocardial infarction; ld1 ld1 21:54 21:54 PMHx: PE; ld1 ld1 21:54 21:54 PMHx: Depression; ld1 ld1 21:54 21:54 PMHx: Hypothyroidism; ld1 ld1 21:54 21:54 PMHx: Hyperlipidemia; ld1 ld1
--- NOTE | 2021-06-22 21:28 | ER ---
Nurse's Notes [facility] Name: Michelle Beverly Age: 80 yrs Sex: Female : 1940 Arrival Date: 06/22/2021 Time: 15:22 Bed 12 Private MD: Diagnosis: Closed mildly impacted distal left radius and left ulna fracture;Closed mildly impacted fractures of second, third and fourth left metatarsal necks;Unspecified superficial injury of other part of head, initial encounter-forehead contusion;Fall on same level from slipping, tripping and stumbling without subsequent striking against object, initial encounter Presentation: 06/22 15:59 Chief complaint: Patient states: tripped anf fell going up a ramp, hit head, no LOC, iw also c/o wrist and ankle pain. Coronavirus screen: At this time, the client does not indicate any symptoms associated with coronavirus-19. Risk Assessment: Do you want to hurt yourself or someone else? Patient reports no desire to harm self or others. 15:59 Method Of Arrival: EMS: [facility] iw 15:59 Acuity: PAM 4 iw 17:14 Initial Sepsis Screen: Does the patient have a suspected source of infection? No. iw Patient's initial sepsis screen is negative. Onset of symptoms was June 22, 2021. 17:14 Acuity: PAM 3 iw 21:54 Ebola Screen: No symptoms or risks identified at this time. Initial Sepsis Screen: Does ld1 the patient meet any 2 criteria? No. Patient's initial sepsis screen is negative. Historical: - Allergies: 17:08 Phenobarbital; iw - Immunization history:: Adult Immunizations up to date. - Social history:: Smoking status: Patient denies any tobacco usage or history of. Screenin:28 Abuse screen: Denies threats or abuse. Denies injuries from another. Nutritional ld1 screening: No deficits noted. Tuberculosis screening: No symptoms or risk factors identified. Fall Risk Fall in past 12 months (25 points). Assessment: 20:25 General: Appears in no apparent distress. uncomfortable, Behavior is calm, cooperative, ld1 appropriate for age. Pain: Complains of pain in left arm and left leg Pain does not radiate. Pain currently is 8 out of 10 on a pain scale. Quality of pain is described as throbbing, Pain began suddenly, Is continuous. Neuro: Level of Consciousness is awake, alert, obeys commands, Oriented to person, place, time, situation. Cardiovascular: Capillary refill < 3 seconds Patient's skin is warm and dry. Rhythm is regular. Respiratory: Airway is patent Respiratory effort is even, unlabored, Respiratory pattern is regular, symmetrical. GI: Abdomen is round non-distended. : No signs and/or symptoms were reported regarding the genitourinary system. EENT: No signs and/or symptoms were reported regarding the EENT system. Derm: No signs and/or symptoms reported regarding the dermatologic system. Musculoskeletal: No signs and/or symptoms reported regarding the musculoskeletal system. 21:13 Reassessment: Patient appears in no apparent distress at this time. Patient is alert, ld1 oriented x 3, equal unlabored respirations, skin warm/dry/pink. Vital Signs: 20:28 BP 127 / 52; Pulse 66; Resp 18; Temp 98.7(O); Pulse Ox 91% on R/A; Weight 126.55 kg; ld1 Height 5 ft. 8 in. (172.72 cm); Pain 8/10; 21:13 BP 122 / 63; Pulse 66; Resp 15; Pulse Ox 91% on R/A; ld1 20:28 Body Mass Index 42.42 (126.55 kg, 172.72 cm) ld1 ED Course: 15:22 Patient arrived in ED. iw 15:47 CT Head C Spine In Process Unspecified. EDMS 15:59 Triage completed. iw 18:05 Wrist Left (3 View) XRAY In Process Unspecified. EDMS 18:05 Foot Left 3 View XRAY In Process Unspecified. EDMS 18:05 Hip Left 2 View XRAY In Process Unspecified. EDMS 19:40 Janell Guajardo, WILLIAM is Primary Nurse. ld1 19:42 Eric Whitman NP is PHCP. pm1 19:42 Nathan Franco MD is Attending Physician. pm1 20:28 Patient has correct armband on for positive identification. Bed in low position. Call ld1 light in reach. Side rails up X2. Pulse ox on. NIBP on. Door closed. Noise minimized. Warm blanket given. 20:28 No provider procedures requiring assistance completed. ld1 21:40 Orthoglass splint: Sugar tong splint applied on left arm. Sling applied to left arm. oe 21:41 Ortho shoe applied to left foot. oe 21:54 Arm band placed on right wrist. ld1 21:54 Patient did not have IV access during this emergency room visit. ld1 Administered Medications: 17:23 Drug: HYDROcodone-acetaminophen 5 mg-325 mg 1 tabs Route: PO; iw 20:25 Drug: morphine 4 mg Route: IM; Site: right deltoid; ld1 20:25 Drug: Zofran (Ondansetron) 4 mg Route: PO; ld1 Outcome: 21:27 Discharge ordered by MD. pm1 21:53 Discharged to home via wheelchair, with family. ld1 21:53 Condition: stable 21:53 Discharge instructions given to patient, family, Instructed on discharge instructions, follow up and referral plans. medication usage, Demonstrated understanding of instructions, follow-up care, medications, Prescriptions given X 1. 21:55 Patient left the ED. ld1 Signatures: Dispatcher [employer] EDMS Leanne Geronimo RN RN iw Eric Whitman, SONYA PATROLLER pm1 Gab Zarate oe Janell Guajardo RN RN ld1 Corrections: (The following items were deleted from the chart) 2154 21:54 PMHx: Diabetes - IDDM; ld1 ld1 21:54 PMHx: Hypertension; ld1 ld1 21:54 PMHx: Myocardial infarction; ld1 ld1 21:54 PMHx: PE; ld1 ld1 21:54 PMHx: Depression; ld1 ld1 21:54 PMHx: Hypothyroidism; ld1 ld1 : 21:54 PMHx: Hyperlipidemia; ld1 ld1
[2021-06-22] MEDS ORDERED: KETOROLAC 30 MG/ML INJ ONE (22:06)
[2021-06-22 22:19] VITALS: TEMP 98.7; O2SAT 91
[2021-06-22 22:22] VITALS: BP 122/63
== END 2021-06-22 21:55 | disposition home or self-care (01) ==
LOC: ER 14:45
PROC: 2W3DX1Z Immobilization of Left Lower Arm using Splint (ICD-10-PCS; principal; 2021-06-22)
DX: S52.92XA Unspecified fracture of left forearm, initial encounter for closed fracture (principal); S52.202A Unspecified fracture of shaft of left ulna, initial encounter for closed fracture; S92.322A Displaced fracture of second metatarsal bone, left foot, initial encounter for closed fracture; S92.332A Displaced fracture of third metatarsal bone, left foot, initial encounter for closed fracture; S92.342A Displaced fracture of fourth metatarsal bone, left foot, initial encounter for closed fracture; W19.XXXA Unspecified fall, initial encounter; Y93.01 Activity, walking, marching and hiking; Z88.5 Allergy status to narcotic agent
CPT/HCPCS: 70450; 72125

== ENCOUNTER 2021-11-04 12:01 | Observation (INO) | payer OTHER ==
--- OUTSIDE RECORDS SUMMARY | 2021-11-04 12:04 | XMS REPORT | Continuity of Care Document ---
:[address] [facility] t Address [address] [place] [address] Care Team Providers Name Role Phone Louise Primary Care Physician MANSI Attending Clinician Unavailable MANSI Attending Clinician Unavailable Mansi MENDIETA Attending Clinician Payers Payer Name Policy Type Policy Number Effective Date Expiration Date S ource Problems Condition Condition Condition Status Onset Resolution Last Treating Co mments Source Name Details Category Date Date Treatment Clinician Date No known No known Disease Unive rs active active ity of problems problems [facility] Allergies, Adverse Reactions, Alerts Allergy Allergy Status Severity Reaction(s) Onset Inactive Treating Comm ents Source Name Type Date Date Clinician NO KNOWN Drug Active Univers ALLERGIE Class ity of S [facility] Social History Social Habit Start Date Stop Date Quantity Comments Source Exposure to Not sure [facility] SARS-CoV-2 (event) Medica l Branch Tobacco use and 2021-09-10 2021-09-10 Never used [facility] exposure 00:00:00 00:00:00 [facility] Sex Ass[birth year] [facility] 00:00:00 00:00:00 [facility] Smoking Status Start Date Stop Date Source Former smoker 2021-09-10 00:00:00 2021-09-10 00:00:00 [facility] Medications Ordered Filled Start Stop Current Ordering Indication Dosage Frequency Signature Comments Components Source Medication Medication Date Date Medication? Clinician (SIG) Name Name nebivoloL 2020-11 Yes 5mg Take 5 mg Uni vers (BYSTOLIC) 0-21 by mouth ity o f 5 mg [place] 15:16[place] [facility] umeclidiniu 2020-11 Yes Inhale Univ ers m (INCRUSE 0-21 daily. ity of ELLIPTA) 15:11: [place] 62.5 17 Medical mcg/actuati Branch on DsDv albuterol-i 2020-11 Yes 1{puff} Inhale 1 Univers pratropium 0-21 Puff 4 ity of (COMBIVENT 15:11: (four) [place] RESPIMAT) 17 times Medical 20-100 daily. Branch mcg/actuati on inhaler albuterol 2020-11 Yes [id number] 2{puff} Inhale 2 Univers 90 0-21 Puffs ity of mcg/actuati 00:00: every 6 Demetrius as on inhaler 00 (six) Medical hours as Branch needed for Wheezing or Shortness of Breath. citalopram 2020-11 Yes Univers 20 mg 0-12 ity of tablet 00:00: [place] [facility] ketorolac 2020-11 Yes Univers 10 mg 0-10 ity of tablet 00:00: [place] [facility] orphenadrin 2020-11 Yes Univer s e 100 mg SR 0-10 ity of tablet 00:00: [place] [facility] Diclofenac 2020-11 Yes Univers Sodium 1 % 0-07 ity of gel 00:00: [place] [facility] HYDROcodone 2020-11 Yes Univer s -acetaminop 0-06 ity of hen 7.5-325 00:00: [place] mg per 00 Medical tablet Branch atorvastati 2020-11 Yes Univer s n 40 mg 0-04 ity of tablet 00:00: [place] [facility] lisinopriL 2020-11 Yes Univers 10 mg 0-04 ity of tablet 00:00: [place] [facility] levothyroxi Yes Univer s ne 125 mcg 9-23 ity of tablet 00:00: [place] [facility] LEVEMIR Yes Univers U-100 9-14 ity of INSULIN 100 00:00: [place] unit/mL 00 Medical solution Branch gabapentin Yes Univers 100 mg 9-07 ity of capsule 00:00: [place] 00 [facility] Branch NOVOLIN R 2020-0 Yes Univers REGULAR 8-17 ity of U-100 00:00: [place] INSULN 100 00 Medical unit/mL Branch solution pantoprazol Yes Univer s e 40 mg EC 8-09 ity of tablet 00:00: [place] 00 [facility] Branch clopidogreL 2020-0 Yes Univer s 75 mg 8-05 ity of tablet 00:00: [place] 00 Medical [facility] furosemide 2020-0 Yes Univers 40 mg 8-05 ity of tablet 00:00: [place] 00 [facility] Branch SYMBICORT Yes Univers 160-4.5 7-30 ity of mcg/actuati 00:00: [place] on inhaler [facility] Vital Signs Vital Name Observation Time Observation Value Comments Source Systolic blood 2021-09-10 20:14:00 120 mm[Hg] Univer sity of pressure [facility] Diastolic blood 2021-09-10 20:14:00 71 mm[Hg] Unive rsity of pressure [facility] Heart rate 2021-09-10 20:14:00 74 /min [facility] Respiratory rate 2021-09-10 20:14:00 22 /min [facility] Body height 2021-09-10 20:14:00 171.5 cm [facility] Body weight 2021-09-10 20:14:00 115.985 kg [facility] BMI 2021-09-10 20:14:00 39.46 kg/m2 [facility] Oxygen saturation in 2021-09-10 20:14:00 92 /min [facility] Arterial blood by [facility] Pulse oximetry Branch Procedures This patient has no known procedures. Encounters Start End Encounter Admission Attending Care Care Encounter Source Date/Time Date/Time Type Type Clinicians Facility Department ID 2021-12-11 2021-12-11 Outpatient R AILEEN NAZARIO [facility] [id number] Univers 13:30:00 13:30:00 AILEEN NAZARIO [id number] i [facility] 2021-09-24 2021-09-24 ambulatory [facility] [id number] [facility] 2021-09-10 2021-09-10 Office Mansi [facility] [id number] Univers 14:46:05 15:27:44 Visit Aileen Her [id number] i ty [facility] [id number] Santo Ballio [id number] [address] 2021-09-10 2021-09-10 Outpatient R AILEEN NAZARIO [facility] [id number] Univers 15:00:00 15:00:00 AILEEN NAZARIO i ty of [facility] 2021-08-26 2021-08-26 Outpatient [facility] [id number] [facility] 2021-07-14 2021-07-14 Outpatient [facility] [id number] [facility] 2021-06-29 2021-06-29 Outpatient [facility] [id number] [facility] 2020-10-14 2020-10-14 Outpatient [facility] [id number] [facility] 2020-10-06 2020-10-06 Outpatient [facility] [id number] [facility] 2020-09-23 2020-09-23 Outpatient [facility] [id number] [facility] 2020-08-29 2020-08-29 Outpatient [facility] [id number] [facility] 2020-08-26 2020-08-26 Outpatient [facility] [id number] [facility] Results This patient has no known results.
--- NOTE | 2021-11-04 13:09 | RAD REPORT ---
EXAM DESCRIPTION: [place] Single View11/04/2021 1:01 pm CLINICAL HISTORY: sob COMPARISON: January 2021 FINDINGS: Lungs are hyperaerated. The lungs appear clear of acute infiltrate. The heart is mildly to moderately enlarged Upper lobe vessels are prominent indicative of pulmonary venous hypertension
[2021-11-04 13:11] LABS: Absolute Lymphocytes (CBC) 1.3 K/uL (0.7-4.9); Basophils % 0.7 % (0-1.3); Hematocrit 34.6 % (36.0-45.0); Lymphocytes % 15.5 % (15.3-44.8); RBC Red Blood Cell Count 3.69 M/uL (3.86-4.86)
[2021-11-04] MEDS ORDERED: LEVALBUTEROL 1.25 MG/3 ML NEB ONE (13:12)
[2021-11-04] MEDS ORDERED: FUROSEMIDE 40 MG/4 ML VIAL ONE (13:12)
[2021-11-04 13:14] LABS: Protime INR 1.03
[2021-11-04 13:28] LABS: ALT/SGPT 18 U/L (12-78); AST/SGOT 13 U/L (15-37); Alkaline Phosphatase 84 U/L (45-117); BUN Blood Urea Nitrogen 11 mg/dL (7-18); Bicarbonate 29 mmol/L (21-32); Bilirubin Direct 0.2 mg/dL (0-0.2); Bilirubin Total 0.6 mg/dL (0.2-1.0); Glucose Level 128 mg/dL (74-106); Magnesium 2.3 mg/dL (1.8-2.4); NT PRO-BNP 1707 pg/mL (<450); Potassium 4.1 mmol/L (3.5-5.1); Protein, Total 7.3 g/dL (6.4-8.2); Sodium Level 140 mmol/L (136-145); Troponin (Emerg Dept Use Only) < 0.02 ng/mL (0.0-0.045)
[2021-11-04 14:41] LABS: SARS-COV-2 RT PCR NEGATIVE (NEGATIVE)
--- NOTE | 2021-11-04 15:04 | EDPHYS ---
Physician Documentation [facility] Name: Michelle Beverly Age: 81 yrs Sex: Female : 1940 Arrival Date: 11/04/2021 Time: 12:03 Bed 20 Private MD: Avery Gil ED Physician Sin Gonzalez HPI: 11/04 12:32 This 81 yrs old Female presents to ER via Wheelchair with complaints of Shortness Of jmm Breath. 12:32 The patient has shortness of breath at rest. Onset: The symptoms/episode began/occurred jmm gradually, 4 day(s) ago. Duration: The symptoms are continuous, and are steadily getting worse. The patient's shortness of breath is aggravated by nothing, is alleviated by nothing. Associated signs and symptoms: Pertinent positives: fever. The patient has not experienced similar symptoms in the past. Historical: - Allergies: 12:31 Phenobarbital; ll1 - PMHx: 12:31 Hypertensive disorder; Diabetes mellitus; Hypothyroidism; ll1 - PSHx: 12:31 bowel resection; 3 cardiac stents; Cholecystectomy; laminectomy; cataract repair; ll1 - Immunization history:: Client reports receiving the 2nd dose of the Covid vaccine. - Social history:: Smoking status: Patient/guardian denies using tobacco, the patient reports quitting approximately 35 years ago. ROS: 12:32 Cardiovascular: Negative for chest pain, palpitations, and edema. jmm 12:32 Constitutional: Positive for body aches. 12:32 Respiratory: Positive for shortness of breath. 12:32 All other systems are negative. Exam: 12:32 Constitutional: This is a well developed, well nourished patient who is awake, alert, jmm and in no acute distress. Head/Face: atraumatic. Eyes: EOMI, no conjunctival erythema appreciated ENT: Moist Mucus Membranes Neck: Trachea midline, Supple Chest/axilla: Normal chest wall appearance and motion. 12:32 Abdomen/GI: Non distended, soft Back: Normal ROM Skin: General appearance color normal MS/ Extremity: Moves all extremities, no obvious deformities appreciated, no edema noted to the lower extremities Neuro: Awake and alert, normal gait Psych: Behavior is normal, Mood is normal, Patient is cooperative and pleasant 12:32 Cardiovascular: Rate: normal, Rhythm: regular, Pulses: no pulse deficits are appreciated. 12:32 Respiratory: the patient does not display signs of respiratory distress, Respirations: normal, Breath sounds: rales, that are mild, are scattered. Vital Signs: 12:28 BP 199 / 64; Pulse 64; Resp 20; Temp 98.2; Pulse Ox 89% on 2 lpm NC; Weight 120.66 kg; ll1 Height 5 ft. 7 in. (170.18 cm); Pain 5/10; 13:02 BP 186 / 64; Pulse 62; Resp 19; Pulse Ox 95% ; bp 14:00 BP 167 / 51; Pulse 56; Resp 14; Pulse Ox 100% ; bp 15:00 BP 175 / 48; Pulse 66; Resp 22; Pulse Ox 96% ; bp 16:00 BP 165 / 55; Pulse 60; Resp 21; Pulse Ox 95% ; bp 17:00 BP 182 / 59; Pulse 59; Resp 21; Pulse Ox 98% ; bp 18:00 BP 179 / 66; Pulse 59; Resp 20; Pulse Ox 98% ; bp 12:28 Body Mass Index 41.66 (120.66 kg, 170.18 cm) ll1 MDM: 12:44 Patient medically screened. [facility] 15:02 Data reviewed: vital signs, nurses notes. Counseling: I had a detailed discussion with [facility] the patient and/or guardian regarding: the historical points, exam findings, and any diagnostic results supporting the discharge/admit diagnosis, lab results, radiology results, the need for further work-up and treatment in the hospital. ED course: The patient with Dr. Larry guido who accepted the patient to his service. 11/04 12:32 Order name: Basic Metabolic Panel; Complete Time: 14:39 [facility] 11/04 12:32 Order name: CBC with Diff; Complete Time: 14:39 [facility] 11/04 12:32 Order name: LFT's; Complete Time: 14:39 [facility] 11/04 12:32 Order name: Magnesium; Complete Time: 14:39 [facility] 11/04 12:32 Order name: NT PRO-BNP; Complete Time: 14:39 [facility] 11/04 12:32 Order name: PT-INR; Complete Time: 14:39 [facility] 11/04 12:32 Order name: Troponin (emerg Dept Use Only); Complete Time: 14:39 [facility] 11/04 12:32 Order name: Lactate; Complete Time: 14:39 [facility] 11/04 12:32 Order name: Procalcitonin [facility] 11/04 12:32 Order name: Blood Culture Adult (2) [facility] 11/04 13:55 Order name: COVID-19/FLU A+B; Complete Time: 14:50 [facility] 11/04 15:13 Order name: Urine Dipstick-Ancillary; Complete Time: 15:16 [facility] 11/04 12:32 Order name: XRAY Chest (1 view); Complete Time: 13:11 [facility] 11/04 12:32 Order name: EKG; Complete Time: 12:33 [facility] 11/04 12:32 Order name: Cardiac monitoring; Complete Time: 12:57 [facility] 11/04 12:32 Order name: EKG - Nurse/Tech; Complete Time: 12:57 [facility] 11/04 12:32 Order name: IV Saline Lock; Complete Time: 12:57 [facility] 11/04 12:32 Order name: Labs collected and sent; Complete Time: 12:57 [facility] 11/04 12:32 Order name: O2 Per Protocol; Complete Time: 12:57 [facility] 11/04 12:32 Order name: O2 Sat Monitoring; Complete Time: 12:57 [facility] 11/04 12:33 Order name: Urine Dipstick-Ancillary (obtain specimen); Complete Time: 15:10 [facility] Administered Medications: 13:10 Drug: Lasix (furosemide) 40 mg Route: IVP; Site: right forearm; bp 15:09 Follow up: Response: No adverse reaction bp 13:10 Drug: Xopenex (levalbuterol) (3) 1.25 mg Route: Inhalation; bp Disposition Summary: 11/04/21 15:03 Hospitalization Ordered Hospitalization Status: Observation [facility] Provider: Jayme Juarez Location: Telemetry/MedSurg (observation) [facility] Condition: Stable [facility] Problem: new [facility] Symptoms: are unchanged [facility] Bed/Room Type: Standard [facility] Room Assignment: 225(11/04/21 16:50) dw Diagnosis - Combined systolic (congestive) and diastolic (congestive) heart failure [facility] Forms: - Medication Reconciliation Form [facility] - SBAR form [facility] Addendum: 11/07/2021 07:18 Co-signature as Attending Physician, Sin Gonzalez MD I agree with the assessment and r n plan of care. Attestation: The patient's history, exam findings, diagnostics, and a summary of any interventions or procedures was reviewed in detail with Rinku CRISOSTOMO. Signatures: Dispatcher [employer] EDMS Sarah Norton, RN RN Rinku Cabello PA PA jmm Nieto, Roman, MD MD rn Peltier, Alex RN Toney Palmer RN RN ll1 Corrections: (The following items were deleted from the chart) 11/04 13:55 12:33 SARS-COV-2 RT PCR+MOL.LAB.BRZ ordered. EDMS EDMS 13:56 12:33 Influenza Screen (A \T\ B)+BA.LAB.BRZ ordered. EDMS EDMS 16:50 15:03 stephan mcmillan
--- NOTE | 2021-11-04 15:04 | ER ---
Nurse's Notes [facility] Name: Michelle Beverly Age: 81 yrs Sex: Female : 1940 Arrival Date: 11/04/2021 Time: 12:03 Bed 20 Private MD: Avery Gil Diagnosis: Combined systolic (congestive) and diastolic (congestive) heart failure Presentation: 11/04 12:28 Chief complaint: Patient states: SOB way worse than usual since Tuesday. Dr. Gil 1 sent her in for eval. Low grade fever at home 99-100 with body aches and "sweats". Coronavirus screen: Vaccine status: Patient reports receiving the 2nd dose of the covid vaccine. Client denies travel out of the [place] in the last 14 days. congestion, cough unrelated to allergies, difficulty breathing, fatigue, fever, shaking with chills, shortness of breath. Ebola Screen: Patient denies travel to an Ebola-affected area in the 21 days before illness onset. Initial Sepsis Screen: Does the patient meet any 2 criteria? No. Patient's initial sepsis screen is negative. Does the patient have a suspected source of infection? Yes: Productive cough/pneumonia. Risk Assessment: Do you want to hurt yourself or someone else? Patient reports no desire to harm self or others. Onset of symptoms was October 31, 2021. 12:28 Method Of Arrival: Wheelchair [facility] 12:28 Acuity: PAM 2 ll1 Triage Assessment: 12:45 General: Appears distressed, comfortable, obese, Behavior is cooperative, appropriate bp for age, anxious. Pain: Denies pain. EENT: Nares bilaterally CONGESTED. Neuro: No deficits noted. Cardiovascular: No deficits noted. Respiratory: Reports shortness of breath Breath sounds with wheezes bilaterally. Onset: The symptoms/episode began/occurred today, the patient has moderate shortness of breath. GI: No signs and/or symptoms were reported involving the gastrointestinal system. : No signs and/or symptoms were reported regarding the genitourinary system. Derm: No deficits noted. Musculoskeletal: No deficits noted. Historical: - Allergies: 12:31 Phenobarbital; ll1 - PMHx: 12:31 Hypertensive disorder; Diabetes mellitus; Hypothyroidism; ll1 - PSHx: 12:31 bowel resection; 3 cardiac stents; Cholecystectomy; laminectomy; cataract repair; ll1 - Immunization history:: Client reports receiving the 2nd dose of the Covid vaccine. - Social history:: Smoking status: Patient/guardian denies using tobacco, the patient reports quitting approximately 35 years ago. Screenin:00 Abuse screen: Denies threats or abuse. Denies injuries from another. Nutritional bp screening: No deficits noted. Tuberculosis screening: No symptoms or risk factors identified. Fall Risk None identified. Assessment: 13:00 General: SEE TRIAGE NOTE. bp 14:00 Reassessment: No changes from previously documented assessment. Patient and/or family bp updated on plan of care and expected duration. Pain level reassessed. Cardiovascular: Rhythm is sinus rhythm. 15:00 Reassessment: No changes from previously documented assessment. Respiratory: Airway is bp patent Respiratory effort is even, labored, Breath sounds with wheezes bilaterally. 16:09 Reassessment: No changes from previously documented assessment. Patient and/or family bp updated on plan of care and expected duration. Pain level reassessed. HOSPITALIST AT B/S. 18:13 Reassessment: ADMIT COMPLETE. REPORT TO HEIDI THOMAS FOR RM 225. bp Vital Signs: 12:28 BP 199 / 64; Pulse 64; Resp 20; Temp 98.2; Pulse Ox 89% on 2 lpm NC; Weight 120.66 kg; ll1 Height 5 ft. 7 in. (170.18 cm); Pain 5/10; 13:02 BP 186 / 64; Pulse 62; Resp 19; Pulse Ox 95% ; bp 14:00 BP 167 / 51; Pulse 56; Resp 14; Pulse Ox 100% ; bp 15:00 BP 175 / 48; Pulse 66; Resp 22; Pulse Ox 96% ; bp 16:00 BP 165 / 55; Pulse 60; Resp 21; Pulse Ox 95% ; bp 17:00 BP 182 / 59; Pulse 59; Resp 21; Pulse Ox 98% ; bp 18:00 BP 179 / 66; Pulse 59; Resp 20; Pulse Ox 98% ; bp 12:28 Body Mass Index 41.66 (120.66 kg, 170.18 cm) ll1 ED Course: 12:03 Patient arrived in ED. as 12:03 Aveyr Gil MD is Private Physician. as 12:12 [facility]adas [facility] stephan 12:12 Sin Gonzalez MD is Attending Physician. stephan 12:31 Triage completed. ll1 12:33 Arm band placed on Patient placed in an exam room, on a stretcher. ll1 12:39 Alex Watson, RN is Primary Nurse. bp 13:00 Patient has correct armband on for positive identification. Bed in low position. Call bp light in reach. Side rails up X2. 13:00 Inserted saline lock: 20 gauge in right forearm, using aseptic technique. bp 13:01 XRAY Chest (1 view) In Process Unspecified. EDMS 15:03 Jayme Juarez is Hospitalizing Provider. [facility] 15:14 Urine collected: clean catch specimen, clear. mb7 17:07 No provider procedures requiring assistance completed. Patient admitted, IV remains in bp place. Administered Medications: 13:10 Drug: Lasix (furosemide) 40 mg Route: IVP; Site: right forearm; bp 15:09 Follow up: Response: No adverse reaction bp 13:10 Drug: Xopenex (levalbuterol) (3) 1.25 mg Route: Inhalation; bp Outcome: 15:03 Decision to Hospitalize by Provider. reginaldom 18:14 Admitted to Med/surg accompanied by tech, via wheelchair, room 225, with oxygen, with bp chart, Report called to HEIDI THOMAS 18:14 Condition: stable 18:14 Instructed on the need for admit. 18:38 Patient left the ED. bp Signatures: Dispatcher [employer] EDMS Rinku Posadas PA PA jmm Martinez, Amelia as Alex Watson, RN RN Toney Vincent RN RN [facility] Lenka Griggs mb7
[2021-11-04 15:13] LABS: Urine Blood Negative (Negative); Urine Glucose Negative (Negative); Urine Protein Negative (Negative); Urine Specific Gravity 1.015 (1.005-1.030)
--- NOTE | 2021-11-04 15:23 | P.HP ---
Certification for Inpatient Patient admitted to: Observation With expected LOS: <2 Midnights Practitioner: I am a practitioner with admitting privileges, knowledge of patient current condition, hospital course, and medical plan of care. Services: Services provided to patient in accordance with Admission requirements found in Title 42 Section 412.3 of the Code of Federal Regulations Patient History Date of Service: 11/04/21 Reason for admission: Shortness of breath History of Present Illness: 81-year-old woman with a history of hypertension, COPD, heart failure was referred from her PCP office to the emergency department for further evaluation for shortness of breath. Patient is on Lasix 40 mg daily. She reports shortness of breath of about 4 days duration. Symptoms progressed from shortness of breath with exertion to start of breath at rest. She denies any orthopnea or palpitation. Chest x-ray done in the emergency department demonstrate pulmonary vascular congestion. Patient reports fever at home but no fever recorded here in the ED. EKG demonstrated nonspecific rhythm, atrial bradycardia and nonspecific ST-T changes. Covid test is negative. At baseline, she is on 2 L of oxygen by nasal cannula at night. Per report patient oxygen saturation was 89% on the 2 L oxygen. She was given a dose of Lasix after which her oxygen saturation improved. Patient is hospitalized for further management. Allergies phenobarbital Allergy (Intermediate, Verified 09/23/19 22:42) Itching Home Medications: Aspirin 1 tab PO DAILY 09/23/19 Atorvastatin Calcium 1 tab PO BEDTIME 09/23/19 Budesonide/Formoterol Fumarate [Symbicort 160-4.5 Mcg Inhaler] 2 puff IN DAILY 09/23/19 Citalopram [Celexa*] 20 mg PO DAILY 09/23/19 Clopidogrel Bisulfate [Plavix*] 1 tab PO DAILY 09/23/19 Furosemide [Lasix] 1 tab PO DAILY 09/23/19 Hydrocodone Bit/Acetaminophen [[place] 10-325 Tablet] 1 tab PO TID PRN 09/23/19 Levothyroxine Sodium 1 tab PO 0630 09/23/19 Nebivolol HCl [Bystolic*] 1 tab PO DAILY 09/23/19 Pantoprazole [Protonix Tab*] 1 tab PO 0630 09/23/19 Sitagliptin Phos/Metformin HCl [Janumet 50-500 mg Tablet] 1 tab PO DAILY 09/23/19 Umeclidinium [place] [Incruse Ellipta] 1 puff IN DAILY 09/23/19 lisinopriL [Lisinopril] 10 mg PO DAILY 09/23/19 Azithromycin [Zithromax] 500 mg PO DAILY #7 tablet 09/28/19 Guaifen W/Codeine Syrup [ROBITUSSIN A-C Syrup] 120 ml PO BEDTIME PRN #4 oz 09/28/19 Insulin -Regular Human [Novolin -R*] See Protocol SQ ACHS #2 vial 09/28/19 Insulin Detemir [Levemir] 30 units SQ DAILY 30 Days #1 celia 09/28/19 Ipratropium/Albuterol Sulfate [Combivent Respimat Inhal Umbarger] 4 gm IH Q4H PRN #1 mist.inhal 09/28/19 predniSONE [Prednisone*] 20 mg PO DAILY 30 Days #30 tab 09/28/19 - Past Medical/Surgical History Diabetic: Yes -: Diabetes mellitus type 2, insulin dependent -: HTN -: CHF -: COPD -: Hypothyroidism -: History of pulmonary ebolism -: Hyperlipidemia -: CAD with prior stents -: GOUT -: Depression -: Chronic back and knee pain -: HEART STENTS X 3 -: CHOLECYSTECTOMY -: COLON SX- POLYP REMOVED -: LEFT ANKLE SX -: HYSTERECTOMY -: APPY -: DISK REMOVAL -: HEMORROIDECTOMY Psychosocial/ Personal History: Patient is - Family History Mother -: Diabetes Notes: with MS Father -: Cancer Notes: Prostatic CA - Social History Alcohol use: No CD- Drugs: No Caffeine use: Yes Review of Systems Other: Patient denies any nausea, vomiting or diarrhea. She denies any dizziness. Except as documented, all other systems reviewed and negative. Physical Examination - Physical Exam General: Alert, In no apparent distress, Oriented x3 HEENT: Normocephalic, Mucous membr. moist/pink, Other (Oxygen by nasal cannula), Sclerae nonicteric Neck: Supple, JVD not distended Respiratory: Normal air movement, Crackles/rales (Mild bibasilar Rales) Cardiovascular: No edema, Normal S1 S2, No murmurs, Edema (1+ bilateral lower extremity pitting edema), Irregular heart rate/rhythm Capillary refill: <2 Seconds Gastrointestinal: Normal bowel sounds, Soft and benign, Non-distended, No tenderness Musculoskeletal: No swelling, No tenderness Integumentary: No rashes, No erythema Neurological: Normal speech, Normal strength at 5/5 x4 extr, Cranial nerves 3-12 intact Lymphatics: No axilla or inguinal lymphadenopathy - Studies Laboratory Data (last 24 hrs) 11/04/21 12:50: PT 11.8, INR 1.03 11/04/21 12:50: WBC 8.00, Hgb 11.2 L, Hct 34.6 L, Plt Count 306 11/04/21 12:50: Sodium 140, Potassium 4.1, BUN 11, Creatinine 0.74, Glucose 128 H, Magnesium 2.3, Total Bilirubin 0.6, AST 13 L, ALT 18, Alkaline Phosphatase 84 Assessment and Plan - Problems (Diagnosis) (1) Acute on chronic diastolic heart failure Current Visit: Yes Status: Acute (2) Pulmonary hypertension Current Visit: Yes Status: Acute (3) Diabetes mellitus type 2 in obese Current Visit: Yes Status: Acute (4) History of coronary artery disease Current Visit: No Status: Acute (5) History of hypertension Current Visit: No Status: Acute (6) History of pulmonary embolism Current Visit: No Status: Acute (7) Acute on chronic respiratory failure with hypoxemia Current Visit: Yes Status: Acute - Plan Placed under observation on the medical floor. We will treat for CHF exacerbation with IV Lasix. Other bronchodilators for COPD Obtain echocardiogram Trend troponin. Insulin sliding scale and Lantus insulin for glucose management. Monitor renal panel and CBC. Wean oxygen as tolerated.. Reconcile and resume other home medications. - Advance Directives Does patient have a Living Will: No Does patient have a Durable POA for Healthcare: Yes
[2021-11-04] MEDS ORDERED: ALBUTEROL 2.5 MG/3 ML NEB SOL NEB PRN (19:26)
[2021-11-04] MEDS: IPRATROPIUM BROM 0.5MG/2.5ML NEB SCH ×3 (19:26→23:43)
[2021-11-04] MEDS ORDERED: D50W 25 GM/50 ML SYRINGE IV PRN (19:26)
[2021-11-04] MEDS ORDERED: GLUCAGON 1 MG/VIAL IM PRN (19:26)
[2021-11-04] MEDS ORDERED: ACETAMINOPHEN 500 MG TAB PO PRN (19:26)
[2021-11-04] MEDS ORDERED: ONDANSETRON 4 MG/2 ML VIAL IV PRN (19:26)
[2021-11-04] MEDS: INSULIN -REGULAR HUMAN 50 UNIT/0.5 ML ML SQ SCH (20:19)
[2021-11-04] MEDS: FUROSEMIDE 40 MG/4 ML VIAL IV SCH (20:21)
[2021-11-04 22:04] VITALS: BMI 41.6
[2021-11-04] MEDS: GABAPENTIN 100 MG CAP PO SCH (23:03)
[2021-11-04] MEDS: HYDROCODONE/APAP 7.5/325 MG TAB PO SCH (23:03)
[2021-11-05] MEDS ORDERED: HYDRALAZINE HCL 20 MG/ML VIAL IV PRN (00:43)
[2021-11-05] MEDS: IPRATROPIUM BROM 0.5MG/2.5ML NEB SCH ×3 (04:00→12:16)
[2021-11-05 06:17] LABS: Absolute Lymphocytes (CBC) 1.2 K/uL (0.7-4.9); Hematocrit 31.3 % (36.0-45.0); Lymphocytes % 18.6 % (15.3-44.8); MPV 7.6 fL (7.6-11.3); RBC Red Blood Cell Count 3.38 M/uL (3.86-4.86)
[2021-11-05 07:22] LABS: Albumin 2.8 g/dL (3.4-5.0); Phosphorus 4.2 mg/dL (2.5-4.9); Potassium 3.4 mmol/L (3.5-5.1); Protein, Total 6.5 g/dL (6.4-8.2)
[2021-11-05] MEDS: INSULIN -REGULAR HUMAN 50 UNIT/0.5 ML ML SQ SCH ×2 (07:30→11:45)
[2021-11-05] MEDS ORDERED: ENOXAPARIN 40 MG/0.4 ML SQ SCH (09:00)
[2021-11-05] MEDS ORDERED: POTASSIUM CL SA 10 MEQ TAB PO ONE (09:00)
[2021-11-05 09:08] LABS: Bilirubin Total 0.8 mg/dL (0.2-1.0)
[2021-11-05] MEDS: GABAPENTIN 100 MG CAP PO SCH ×2 (10:00→14:58)
[2021-11-05] MEDS: FUROSEMIDE 40 MG/4 ML VIAL IV SCH (10:29)
[2021-11-05] MEDS: HYDROCODONE/APAP 7.5/325 MG TAB PO SCH ×2 (10:30→14:58)
--- NOTE | 2021-11-05 10:44 | P.DS ---
Admission Date: 11/04/21 Discharge Date: 11/05/21 Disposition: ROUTINE DISCHARGE Discharge Condition: FAIR Reason for Admission: Shortness of breath - Problems (1) Acute on chronic diastolic heart failure Status: Acute (2) Pulmonary hypertension Status: Acute (3) Diabetes mellitus type 2 in obese Status: Acute (4) History of coronary artery disease Status: Acute (5) History of hypertension Status: Acute (6) History of pulmonary embolism Status: Acute (7) Acute on chronic respiratory failure with hypoxemia Status: Acute Brief History of Present Illness: 81-year-old woman with a history of hypertension, COPD, heart failure was referred from her PCP office to the emergency department for further evaluation for shortness of breath. Patient is on Lasix 40 mg daily. She reports shortness of breath of about 4 days duration. Symptoms progressed from shortness of breath with exertion to start of breath at rest. She denies any orthopnea or palpitation. Chest x-ray done in the emergency department demonstrate pulmonary vascular congestion. Patient reports fever at home but no fever recorded here in the ED. EKG demonstrated nonspecific rhythm, atrial bradycardia and nonspecific ST-T changes. Covid test is negative. At baseline, she is on 2 L of oxygen by nasal cannula at night. Per report patient oxygen saturation was 89% on the 2 L oxygen. She was given a dose of Lasix after which her oxygen saturation improved. Patient hospitalized for further management. Hospital Course: Patient placed under observation on the medical floor and treated with IV Lasix for CHF exacerbation. Symptoms improved but she was hypoxic on room air at rest and with ambulation. Signs of pulmonary hypertension noted on the chest x-ray. Her troponin trended negative. EKG with no ischemic changes. Patient has clinically improved. Noted she uses 2.5 L of oxygen by nasal cannula at night during sleep. Patient is informed to use oxygen all the time. Patient is discharged and informed to also double her dose of Lasix for the next 1 week and revert back to 20 mg daily. Vital Signs/Physical Exam: Temp Pulse Resp BP Pulse Ox 98.1 F 62 18 155/48 H 95 11/05/21 08:00 11/05/21 08:00 11/05/21 10:30 11/05/21 10:29 11/05/21 08:00 General: Alert, In no apparent distress, Oriented x3 HEENT: Mucous membr. moist/pink Neck: JVD not distended Respiratory: Clear to auscultation bilaterally, Normal air movement Cardiovascular: No edema, Regular rate/rhythm, Normal S1 S2 Gastrointestinal: Soft and benign, Non-distended Musculoskeletal: No swelling Integumentary: No rashes Neurological: Normal strength at 5/5 x4 extr Laboratory Data at Discharge: WBC 6.60 K/uL (4.3-10.9) D 11/05/21 06:01 Hgb 10.5 g/dL (12.0-15.0) L 11/05/21 06:01 Hct 31.3 % (36.0-45.0) L 11/05/21 06:01 Plt Count 284 K/uL (152-406) 11/05/21 06:01 PT 11.8 SECONDS (9.5-12.5) 11/04/21 12:50 INR 1.03 11/04/21 12:50 Sodium 143 mmol/L (136-145) 11/05/21 06:01 Potassium 3.4 mmol/L (3.5-5.1) L 11/05/21 06:01 BUN 11 mg/dL (7-18) 11/05/21 06:01 Creatinine 0.76 mg/dL (0.55-1.3) 11/05/21 06:01 Glucose 117 mg/dL (74-106) H 11/05/21 06:01 Phosphorus 4.2 mg/dL (2.5-4.9) 11/05/21 06:01 Magnesium 2.0 mg/dL (1.8-2.4) 11/05/21 06:01 Total Bilirubin 0.8 mg/dL (0.2-1.0) 11/05/21 06:01 AST 14 U/L (15-37) L 11/05/21 06:01 ALT 12 U/L (12-78) 11/05/21 06:01 Alkaline Phosphatase 74 U/L (45-117) 11/05/21 06:01 Troponin I < 0.02 ng/mL (0.0-0.045) 11/04/21 23:22 Home Medications: Aspirin 1 tab PO BEDTIME 09/23/19 Atorvastatin Calcium 1 tab PO BEDTIME 09/23/19 Budesonide/Formoterol Fumarate [Symbicort 160-4.5 Mcg Inhaler] 2 puff IN DAILY 09/23/19 Clopidogrel Bisulfate [Plavix*] 1 tab PO DAILY 09/23/19 Furosemide [Lasix] 1 tab PO DAILY 09/23/19 Levothyroxine Sodium 1 tab PO 0630 09/23/19 Nebivolol HCl [Bystolic*] 1 tab PO DAILY 09/23/19 Pantoprazole [Protonix Tab*] 1 tab PO 0630 09/23/19 Umeclidinium [place] [Incruse Ellipta] 1 puff IN DAILY 09/23/19 lisinopriL [Lisinopril] 10 mg PO DAILY 09/23/19 Insulin -Regular Human [Novolin -R*] See Protocol SQ ACHS #2 vial 09/28/19 Albuterol Inhaler [Ventolin Inhaler*] 2 puff PO Q6HR PRN 11/04/21 Citalopram [Celexa*] 40 mg PO DAILY 11/04/21 Gabapentin 100 mg PO TID 11/04/21 Hydrocodone 7.5/APAP 325 [Alpha 7.5/325 mg*] 1 tab PO TID 11/04/21 Insulin Detemir [Levemir] 70 units SQ DAILY 11/04/21 Orphenadrine Citrate 1 tab PO DAILY PRN 11/04/21 Diet: ADA Activity: Ad brian Followup: Avery Gil MD [Primary Care Provider] - 1-2 Weeks
[2021-11-05] MEDS ORDERED: CLOPIDOGREL 75 MG TABLET PO SCH (11:02)
[2021-11-05] MEDS ORDERED: LEVOTHYROXINE SOD 0.125 MG TAB PO SCH (11:04)
[2021-11-05 12:38] VITALS: O2SAT 97
[2021-11-05] MEDS ORDERED: INSULIN GLARGINE 100 UNIT/ML SQ SCH (15:00)
[2021-11-05 15:43] LABS: Potassium 4.1 mmol/L (3.5-5.1)
[2021-11-05 17:10] VITALS: BP 154/76; TEMP 97
--- NOTE | 2021-11-06 07:46 | ECHO ---
HEIGHT: 5 ft 7 in WEIGHT: 266 lb 0 oz DATE OF STUDY: 11/05/[address]: marielos dawkins 2-DIMENSIONAL: YES M.MODE: YES DOPPLER: YES COLOR FLOW: YES TDS: NO PORTABLE: NO DEFINITY: NO BUBBLE STUDY: NO DIAGNOSIS: CONGESTIVE HEART FAILURE CARDIAC HISTORY: CATHERIZATION: SURGERY: PROSTHETIC VALVE: PACEMAKER: MEASUREMENTS (cm) DIASTOLIC (NORMALS) SYSTOLIC (NORMALS) IVSd 1.3 (0.6-1.2) LA Diam 5.2 (1.9-4.0) LVEF 68% LVIDd 5.2 (3.5-5.7) LVIDs 3.2 (2.0-3.5) %FS 38% LVPWd 1.1 (0.6-1.2) Ao Diam 2.5 (2.0-3.7) 2 DIMENSIONAL ASSESSMENT: RIGHT ATRIUM: NORMAL LEFT ATRIUM: ENLARGED RIGHT VENTRICLE: NORMAL LEFT VENTRICLE: NORMAL TRICUSPID VALVE: MITRAL VALVE: PULMONIC VALVE: NORMAL AORTIC VALVE: NORMAL PERICARDIAL EFFUSION: NONE AORTIC ROOT: NORMAL LEFT VENTRICULAR WALL MOTION: NORMAL DOPPLER/COLOR FLOW: SEE BELOW COMMENTS: NORMAL LEFT VENTRICULAR EJECTION FRACTION 60-65% WITH NORMAL WALL MOTION. LEFT ATRIAL ENLARGEMENT. MODERATE DIASTOLIC DYSFUNCTION. SEVERE PULMONARY HYPERTENSION WITH RIGHT VENTRICULAR SYSTOLIC PRESSURE > 60mmHg. TECHNOLOGIST: Jovani NEFF
[2021-11-06] MEDS ORDERED: INSULIN GLARGINE 100 UNIT/ML SQ SCH (09:00)
[2021-11-06] MEDS ORDERED: NEBIVOLOL HCL 5 MG TAB PO SCH (09:00)
[2021-11-06] MEDS ORDERED: Budesonide/Formoterol Fumarate [Symbicort 160-4.5 Mcg Inhaler] 10.2 GM IH SCH (09:00)
== END 2021-11-05 17:37 | disposition home or self-care (01) ==
LOC: ER 12:01 → ERHOLD 15:46 → 2ND 18:13
PROVIDERS: ADMIT Internal Medicine; ATTEND Internal Medicine
DX: I11.0 Hypertensive heart disease with heart failure (principal); I50.33 Acute on chronic diastolic (congestive) heart failure; J96.21 Acute and chronic respiratory failure with hypoxia; I27.20 Pulmonary hypertension, unspecified; E11.9 Type 2 diabetes mellitus without complications; J44.9 Chronic obstructive pulmonary disease, unspecified; I25.10 Atherosclerotic heart disease of native coronary artery without angina pectoris; E78.5 Hyperlipidemia, unspecified; M10.9 Gout, unspecified; F32.A Depression, unspecified; M54.9 Dorsalgia, unspecified; M25.569 Pain in unspecified knee; G89.29 Other chronic pain; E03.9 Hypothyroidism, unspecified; E66.9 Obesity, unspecified; Z68.41 Body mass index [BMI] 40.0-44.9, adult; Z20.822 Contact with and (suspected) exposure to COVID-19; Z86.711 Personal history of pulmonary embolism; Z99.81 Dependence on supplemental oxygen; Z79.4 Long term (current) use of insulin; Z79.82 Long term (current) use of aspirin; Z79.02 Long term (current) use of antithrombotics/antiplatelets; Z88.8 Allergy status to other drugs, medicaments and biological substances; Z95.5 Presence of coronary angioplasty implant and graft; Z90.49 Acquired absence of other specified parts of digestive tract; Z86.010 Personal history of colon polyps; Z87.891 Personal history of nicotine dependence; Z90.710 Acquired absence of both cervix and uterus; Z83.3 Family history of diabetes mellitus; Z82.49 Family history of ischemic heart disease and other diseases of the circulatory system; Z80.42 Family history of malignant neoplasm of prostate
CPT/HCPCS: 93005; 93306; 87040 ×2; 85025 ×2; 80048 ×2; 36415; 83735 ×2; 84100; 85610; 82947 ×3; 80076; 83605; 81003; 84484 ×3; 80053; 84145; 83880; 0240U; 71045; 97161; 94640; 96374; 99285; J0360; J1940 ×3; J1650; G0378 ×3

== ENCOUNTER 2021-11-23 17:04 | Emergency (ER) | payer OTHER ==
--- OUTSIDE RECORDS SUMMARY | 2021-11-23 17:08 | XMS REPORT | Continuity of Care Document ---
:1940 Author Organization [facility] t Address [address] [place] [address] Care Team Providers Name Role Phone NICK Primary Care Physician Unavailable MANSI Attending Clinician Unavailable MANSI Attending Clinician Unavailable Therapist, Respiratory Attending Clinician Unavailable Deborah BALDERRAMA, P Attending Clinician Doctor Unassigned, Name Attending Clinician Unavailable Mansi MENDIETA Attending Clinician Payers Payer Name Policy Type Policy Number Effective Date Expiration Date Andrey RESENDIZ MANAGED [id number] 2020 MEDICARE [id number] 00:00:00 Problems Condition Condition Condition Status Onset Resolution Last Treating Co mments Source Name Details Category Date Date Treatment Clinician Date No known No known Disease Unive rs active active ity of problems problems [facility] Allergies, Adverse Reactions, Alerts Allergy Allergy Status Severity Reaction(s) Onset Inactive Treating Comm ents Source Name Type Date Date Clinician NO KNOWN Drug Active Univers ALLERGIE Class ity of S [facility] Social History Social Habit Start Date Stop Date Quantity Comments Source Exposure to Not sure [facility] SARS-CoV-2 (event) Medica l Branch Tobacco use and 2021-09-10 2021-09-10 Never used [facility] exposure 00:00:00 00:00:00 [facility] Sex Ass[birth year] At [birth year] [facility] 00:00:00 00:00:00 [facility] Smoking Status Start Date Stop Date Source Former smoker 2021-09-10 00:00:00 2021-09-10 00:00:00 [facility] Medications Ordered Filled Start Stop Current Ordering Indication Dosage Frequency Signature Comments Components Source Medication Medication Date Date Medication? Clinician (SIG) Name Name nebivoloL 2020-11 Yes 5mg Take 5 mg Uni vers (BYSTOLIC) 0-21 by mouth ity o f 5 mg tablet 15:16: daily. [address] nebivoloL 2020-11 Yes 5mg Take 5 mg Uni vers (BYSTOLIC) 0-21 by mouth ity o f 5 mg tablet 15:16: daily. [address] nebivoloL 2020-11 Yes 5mg Take 5 mg Uni vers (BYSTOLIC) 0-21 by mouth ity o f 5 mg tablet 15:16: daily. [address] umeclidiniu 2020-11 Yes Inhale Univ ers m (INCRUSE 0-21 daily. ity of ELLIPTA) 15:11: [place] 62.5 17 Medical mcg/actuati Branch on DsDv albuterol-i 2020-11 Yes 1{puff} Inhale 1 Univers pratropium 0-21 Puff 4 ity of (COMBIVENT 15:11: (four) [place] RESPIMAT) 17 times Medical 20-100 daily. Branch mcg/actuati on inhaler umeclidiniu 2020-11 Yes Inhale Univ ers m (INCRUSE 0-21 daily. ity of ELLIPTA) 15:11: [place] 62.5 17 Medical mcg/actuati Branch on DsDv albuterol-i 2020-11 Yes 1{puff} Inhale 1 Univers pratropium 0-21 Puff 4 ity of (COMBIVENT 15:11: (four) [place] RESPIMAT) 17 times Medical 20-100 daily. Branch mcg/actuati on inhaler umeclidiniu 2020-11 Yes Inhale Univ ers m (INCRUSE 0-21 daily. ity of ELLIPTA) 15:11: [place] 62.5 17 Medical mcg/actuati Branch on DsDv albuterol-i 2020-11 Yes 1{puff} Inhale 1 Univers pratropium 0-21 Puff 4 ity of (COMBIVENT 15:11: (four) [place] RESPIMAT) 17 times Medical 20-100 daily. Branch mcg/actuati on inhaler albuterol 2020-11 Yes [id number] 2{puff} Inhale 2 Univers 90 0-21 Puffs ity of mcg/actuati 00:00: every 6 Demetri[place] as on inhaler 00 (six) Medical hours as Branch needed for Wheezing or Shortness of Breath. albuterol 2020-11 Yes [id number] 2{puff} Inhale 2 Univers 90 0-21 Puffs ity of mcg/actuati 00:00: every 6 Dem[place]ri[place] as on inhaler 00 (six) Medical hours as Branch needed for Wheezing or Shortness of Breath. albuterol 2020-11 Yes [id number] 2{puff} Inhale 2 Univers 90 0-21 Puffs ity of mcg/actuati 00:00: every 6 Dem[place]ri[place] as on inhaler 00 (six) Medical hours as Branch needed for Wheezing or Shortness of Breath. citalopram 2020-11 Yes Univers 20 mg 0-12 ity of tablet 00:00: [place] [facility] citalopram 2020-11 Yes Univers 20 mg 0-12 ity of tablet 00:00: [place] [facility] citalopram 2020-11 Yes Univers 20 mg 0-12 ity of tablet 00:00: [place] [facility] ketorolac 2020-11 Yes Univers 10 mg 0-10 ity of tablet 00:00: [place] [facility] Branch orphenadrin 2020-11 Yes Univer s e 100 mg SR 0-10 ity of tablet 00:00: [place] [facility] Branch ketorolac 2020-11 Yes Univers 10 mg 0-10 ity of tablet 00:00: [place] [facility] orphenadrin 2020-11 Yes Univer s e 100 mg SR 0-10 ity of tablet 00:00: [place] [facility] Branch ketorolac 2020-11 Yes Univers 10 mg 0-10 ity of tablet 00:00: [place] [facility] Branch orphenadrin 2020-11 Yes Univer s e 100 mg SR 0-10 ity of tablet 00:00: [place] [facility] Diclofenac 2020-11 Yes Univers Sodium 1 % 0-07 ity of gel 00:00: [place] [facility] Diclofenac 2020-11 Yes Univers Sodium 1 % 0-07 ity of gel 00:00: [place] 00 Medical Branch Diclofenac 2020-11 Yes Univers Sodium 1 % 0-07 ity of gel 00:00: 00 Medical Branch HYDROcodone 1 Yes Univer s -acetaminop 0-06 ity of hen 7.5-325 00:00: [place] mg per 00 Medical tablet Branch HYDROcodone 1 Yes Univer s -acetaminop 0-06 ity of hen 7.5-325 00:00: [place] mg per 00 Medical tablet Branch HYDROcodone 2020-11 Yes Univer s -acetaminop 0-06 ity of hen 7.5-325 00:00: [place] mg per 00 Medical tablet Branch lisinopriL 2020-11 Yes Univers 10 mg 0-04 ity of tablet 00:00: Medical Branch atorvastati 2020-11 Yes Univer s n 40 mg 0-04 ity of tablet 00:00: [place] [facility] lisinopriL 1 Yes Univers 10 mg 0-04 ity of tablet 00:00: [place] [facility] atorvastati 2020-11 Yes Univer s n 40 mg 0-04 ity of tablet 00:00: [place] [facility] lisinopriL 1 Yes Univers 10 mg 0-04 ity of tablet 00:00: [place] [facility] atorvastati 1 Yes Univer s n 40 mg 0-04 ity of tablet 00:00: [place] [facility] levothyroxi 2020-0 Yes Univer s ne 125 mcg 9-23 ity of tablet 00:00: [place] [facility] levothyroxi 2020-0 Yes Univer s ne 125 mcg 9-23 ity of tablet 00:00: [place] [facility] levothyroxi 2020-0 Yes Univer s ne 125 mcg 9-23 ity of tablet 00:00: [place] 00 Medical Branch LEVEMIR 2020-0 Yes Univers U-100 9-14 ity of INSULIN 100 00:00: [place] unit/mL 00 Medical solution Branch LEVEMIR 2020-0 Yes Univers U-100 9-14 ity of INSULIN 100 00:00: [place] unit/mL 00 Medical solution Branch LEVEMIR 2020-0 Yes Univers U-100 9-14 ity of INSULIN 100 00:00: [place] unit/mL 00 Medical solution Branch gabapentin 2020-0 Yes Univers 100 mg 9-07 ity of capsule 00:00: [place] Medical Branch gabapentin 2020-0 Yes Univers 100 mg 9-07 ity of capsule 00:00: [place] [address] Medical Branch gabapentin 2020-0 Yes Univers 100 mg 9-07 ity of capsule 00:00: [place] [address] Medical Branch NOVOLIN R 202-0 Yes Univers REGULAR 8-17 ity of U-100 00:00: [place] INSULN 100 00 Medical unit/mL Branch solution NOVOLIN R 2020-0 Yes Univers REGULAR 8-17 ity of U-100 00:00: [place] INSULN 100 00 Medical unit/mL Branch solution NOVOLIN R 2020-0 Yes Univers REGULAR 8-17 ity of U-100 00:00: [place] INSULN 100 00 Medical unit/mL Branch solution pantoprazol 2020-0 Yes Univer s e 40 mg EC 8-09 ity of tablet 00:00: [place] [address] Medical Branch pantoprazol 2020-0 Yes Univer s e 40 mg EC 8-09 ity of tablet 00:00: [place] [address] Medical Branch pantoprazol 2020-0 Yes Univer s e 40 mg EC 8-09 ity of tablet 00:00: [place] [address] Medical Branch clopidogreL 1-0 Yes Univer s 75 mg 8-05 ity of tablet 00:00: [place] [address] Medical Branch furosemide 1-0 Yes Univers 40 mg 8-05 ity of tablet 00:00: [place] [address] Medical Branch clopidogreL 1-0 Yes Univer s 75 mg 8-05 ity of tablet 00:00: [place] [address] Medical Branch furosemide 2021-0 Yes Univers 40 mg 8-05 ity of tablet 00:00: [place] [address] Medical Branch clopidogreL 2021-0 Yes Univer s 75 mg 8-05 ity of tablet 00:00: [place] [address] Medical Branch furosemide 2021-0 Yes Univers 40 mg 8-05 ity of tablet 00:00: [place] [address] Medical Branch SYMBICORT 2020-0 Yes Univers 160-4.5 7-30 ity of mcg/actuati 00:00: [place] on inhaler Medical Branch SYMBICORT 2020-0 Yes Univers 160-4.5 7-30 ity of mcg/actuati 00:00: [place] on inhaler Medical Branch SYMBICORT 2020-0 Yes Univers 160-4.5 7-30 ity of mcg/actuati 00:00: [place] on inhaler [address] [place] [address] Vital Signs Vital Name Observation Time Observation Value Comments Source BMI 2021-09-10 20:14:00 39.46 kg/m2 [facility] Oxygen saturation in 2021-09-10 20:14:00 92 /min [facility] Arterial blood by [facility] Pulse oximetry Branch Systolic blood 2021-09-10 20:14:00 120 mm[Hg] Univer sity of pressure [facility] Diastolic blood 2021-09-10 20:14:00 71 mm[Hg] Unive rsity of [facility] Heart rate 2021-09-10 20:14:00 74 /min [facility] Respiratory rate 2021-09-10 20:14:00 22 /min Univ ersity [facility] Body height 2021-09-10 20:14:00 171.5 cm [facility] Body weight 2021-09-10 20:14:00 115.985 kg [facility] Procedures Procedure Date / Time Performed Performing Clinician [facility] e ASSIGNMENT OF BENEFITS 2021-11-20 19:02:23 Doctor Unassigned, No [facility] Encounters Start End Encounter Admission Attending Care Care Encounter Source Date/Time Date/Time Type Type Clinicians Facility Department ID 2021-12-11 2021-12-11 Outpatient R AILEEN NAZARIO [facility] [id number] Univers 13:30:00 13:30:00 AILEEN NAZARIO [id number] i ty of [facility] 2021-11-20 2021-11-20 Outpatient R AILEEN NAZARIO [facility] [id number] Univers 13:05:07 23:59:00 AILEEN NAZARIO i ty of [facility] 2021-11-20 2021-11-20 Project Architect Therapist, Mandy Respiratory [facility] [id number] Univers 14:00:00 15:30:00 Visit Curt Cabrera [id number] ity of [place] [id number] [facility] [id number] [facility] 083 Branch 2021-11-20 2021-11-20 Outpatient R AILEEN NAZARIO [facility] [id number] Univers 00:00:00 00:00:00 MANSI AILEEN [id number] i ty [facility] 2021-11-20 2021-11-20 Orders Doctor KALE [id number] Univers 00:00:00 00:00:00 Only Unassigned, RACHEL [id number] [facility] [id number] [place] as [id number] [address] 2021-09-24 2021-09-24 ambulatory [facility] [id number] [facility] 2021-09-10 2021-09-10 Office Nazario [facility] [id number] Univers 14:46:05 15:27:44 Visit Aileen Her [id number] i ty [facility] [id number] [facility] [id number] Pr dical [address] 2021-09-10 2021-09-10 Outpatient R NAZARIO AILEEN [facility] [id number] Univers 15:00:00 15:00:00 AILEEN NAZARIO i ty of [facility] 2021-08-26 2021-08-26 Outpatient [facility] [id number] [facility] 2021-07-14 2021-07-14 Outpatient [facility] [id number] [facility] 2021-06-29 2021-06-29 Outpatient [facility] [id number] [facility] 2020-10-14 2020-10-14 Outpatient [facility] [id number] [facility] 2020-10-06 2020-10-06 Outpatient [facility] [id number] [facility] 2020-09-23 2020-09-23 Outpatient [facility] [id number] [facility]00 [facility] ent Clinics 2020-08-29 2020-08-29 [facility] [id number]00 [facility] ent Clinics 2020-08-26 2020-08-26 Outpatient [facility] [id number] [facility]00 [facility] ent Clinics Results This patient has no known results.
[2021-11-23] MEDS ORDERED: MORPHINE 4 MG/ML SYR ONE ×3 (17:33→19:04)
[2021-11-23] MEDS ORDERED: ONDANSETRON 4 MG/2 ML VIAL ONE ×2 (17:33→18:19)
[2021-11-23] MEDS ORDERED: NA CHLORIDE 0.9% 500 ML ONE (17:33)
[2021-11-23 18:01] LABS: Absolute Lymphocytes (CBC) 1.7 K/uL (0.7-4.9); Hematocrit 37.8 % (36.0-45.0); Lymphocytes % 10.1 % (15.3-44.8); MPV 8.5 fL (7.6-11.3); RBC Red Blood Cell Count 4.08 M/uL (3.86-4.86)
--- NOTE | 2021-11-23 18:15 | RAD REPORT ---
EXAM DESCRIPTION: RAD - Shoulder Right 2 View - 11/23/2021 6:00 pm CLINICAL HISTORY: PAIN COMPARISON: No comparisons FINDINGS: Diffuse osteopenia is seen. Multipart fracture of the proximal right humerus is noted with moderate displacement of the fracture fragments.
[2021-11-23 18:16] LABS: Albumin 3.5 g/dL (3.4-5.0); Bilirubin Total 0.7 mg/dL (0.2-1.0); Potassium 3.7 mmol/L (3.5-5.1); Protein, Total 7.6 g/dL (6.4-8.2)
--- NOTE | 2021-11-23 18:16 | RAD REPORT ---
EXAM DESCRIPTION: RAD - Knee Right 3 View - 11/23/2021 6:00 pm CLINICAL HISTORY: PAIN COMPARISON: No comparisons FINDINGS: Oiry-lc-[id number] diffuse osteopenia is seen. Severe medial compartment space osteoarthriti s is present. A small suprapatellar joint effusion is seen. Moderate atherosclerosis. No acute fractu re or dislocation evident.
--- NOTE | 2021-11-23 19:17 | RAD REPORT ---
EXAM DESCRIPTION: CT - C Spine Wo Con - 11/23/2021 6:32 pm CLINICAL HISTORY: PAIN Fall, trauma, neck injury COMPARISON: Head C Spine Mpr Wo Con dated 06/22/2021 FINDINGS: Mild cervical degenerative changes are seen. No evidence of acute cervical spine fracture or subluxation. Prevertebral soft tissues are normal in thickness. Bilateral carotid atherosclerosis. IMPRESSION: Negative for acute cervical spine abnormality. Mild cervical spondylosis. All CT scans are performed using dose optimization technique as appropriate and may include automated exposure control or mA/KV adjustment according to patient size.
--- NOTE | 2021-11-23 19:21 | ER ---
Nurse's Notes [facility] Steve Name: Michelle Beverly Age: 81 yrs Sex: Female : 1940 Arrival Date: 11/23/2021 Time: 17:26 Bed 17 Private MD: Diagnosis: Fall on same level, unspecified;3-part fracture of surgical neck of right humerus, initial encounter for closed fracture-displaced;Contusion of right knee, initial encounter;Elevated white blood cell count;Obesity, unspecified Presentation: 11/23 17:26 Chief complaint: EMS states: MECHANICAL FALL AT HOME ONTO RUE, NOW R SHOULDER PAIN. bp Coronavirus screen: At this time, the client does not indicate any symptoms associated with coronavirus-19. Ebola Screen: No symptoms or risks identified at this time. Initial Sepsis Screen: Does the patient meet any 2 criteria? No. Patient's initial sepsis screen is negative. Does the patient have a suspected source of infection? No. Patient's initial sepsis screen is negative. Risk Assessment: Do you want to hurt yourself or someone else? Patient reports no desire to harm self or others. Onset of symptoms was November 23, 2021 at 13:00. Care prior to arrival: Medication(s) given: TORADOL 30MG IM. 17:26 Method Of Arrival: EMS: [facility] bp 17:26 Acuity: PAM 3 bp Historical: - Allergies: 17:28 Phenobarbital; bp - Home Meds: 17:28 Lisinopril Oral [Active]; Insulin: Novolin R Sub-Q [Active]; Bystolic oral [Active]; bp - PMHx: 17:28 diabetes mellitus; Hypertensive disorder; Hypothyroidism; Hypertensive disorder; bp Congestive heart failure; Chronic obstructive lung disease; - PSHx: 17:28 3 cardiac stents; bowel resection; cataract repair; Cholecystectomy; laminectomy; bp - Immunization history:: Adult Immunizations up to date. - Social history:: Smoking status: Patient denies any tobacco usage or history of. Vital Signs: 17:26 BP 130 / 88; Pulse 78; Resp 20; Temp 98; Pulse Ox 98% ; bp ED Course: 17:26 Patient arrived in ED. bp 17:27 pt ring given to son by EMS. bd 17:28 Triage completed. bp 17:28 Nathan Franco MD is Attending Physician. lorena 17:28 Arm band placed on. bp 17:44 Alex Watson, RN is Primary Nurse. bp 17:44 Inserted saline lock: 22 gauge in left wrist, using aseptic technique. Blood collected. bp 17:51 Comprehensive Metabolic Panel Sent. ww 17:51 CBC with Diff Sent. ww 18:01 Shoulder Right (2 View) XRAY In Process Unspecified. EDMS 18:01 Knee Right 3 View XRAY In Process Unspecified. EDMS 18:33 CT C Spine In Process Unspecified. EDMS 19:15 Primary Nurse role handed off by Alex Watson, RN mw2 19:20 Tucker Solano MD is Referral Physician. [facility] 20:00 Halima Quinn, RN is Primary Nurse. ww Administered Medications: 17:45 Drug: NS 0.9% 500 ml Route: IV; Rate: bolus; Site: left wrist; bp 17:45 Drug: morphine 4 mg Route: IVP; Site: left wrist; bp 18:26 Follow up: Response: Pain is decreased bp 17:45 Drug: Zofran (Ondansetron) 4 mg Route: IVP; Site: left wrist; bp 18:26 Follow up: Response: No adverse reaction bp 19:05 Drug: morphine 4 mg Route: IVP; Site: left hand; ww 20:09 Drug: [place] (HYDROcodone-acetaminophen) 10 mg-325 mg 1 tabs Route: PO; Outcome: 19:20 Discharge ordered by . lorena 21:01 Patient left the ED. [id number] Signatures: Dispatcher [employer] EDMS Juliana Ramirez Corey, MD MD cha Roszak, Josh, PA PA jr8 Alex Watson, RN RN Bertha Maki mw2 Halima Quinn RN RN
--- NOTE | 2021-11-23 19:21 | EDPHYS ---
Physician Documentation [facility] Name: Michelle Beverly Age: 81 yrs Sex: Female : 1940 Arrival Date: 11/23/2021 Time: 17:26 Bed 17 Private MD: ED Physician Nathan Franco HPI: 11/23 17:37 This 81 yrs old Female presents to ER via EMS with complaints of Fall Injury. lorena 17:37 Details of fall: The patient fell from an upright position, while walking. Onset: The lorena symptoms/episode began/occurred just prior to arrival. Associated injuries: The patient sustained anterior aspect of right shoulder and posterior aspect of right shoulder, decreased range of motion, painful injury. Severity of symptoms: At their worst the symptoms were moderate, in the emergency department the symptoms are unchanged. The patient has not experienced similar symptoms in the past. Historical: - Allergies: 17:28 Phenobarbital; bp - Home Meds: 17:28 Lisinopril Oral [Active]; Insulin: Novolin R Sub-Q [Active]; Bystolic oral [Active]; bp - PMHx: 17:28 diabetes mellitus; Hypertensive disorder; Hypothyroidism; Hypertensive disorder; bp Congestive heart failure; Chronic obstructive lung disease; - PSHx: 17:28 3 cardiac stents; bowel resection; cataract repair; Cholecystectomy; laminectomy; bp - Immunization history:: Adult Immunizations up to date. - Social history:: Smoking status: Patient denies any tobacco usage or history of. ROS: 17:38 Constitutional: Negative for fever, chills, and weight loss, Eyes: Negative for injury, lorena pain, redness, and discharge, ENT: Negative for injury, pain, and discharge, Cardiovascular: Negative for chest pain, palpitations, and edema, Respiratory: Negative for shortness of breath, cough, wheezing, and pleuritic chest pain, Abdomen/GI: Negative for abdominal pain, nausea, vomiting, diarrhea, and constipation, Back: Negative for injury and pain, : Negative for injury, bleeding, discharge, and swelling, Neuro: Negative for headache, weakness, numbness, tingling, and seizure, Psych: Negative for depression, anxiety, suicide ideation, homicidal ideation, and hallucinations, Allergy/Immunology: Negative for hives, rash, and allergies, Endocrine: Negative for neck swelling, polydipsia, polyuria, polyphagia, and marked weight changes, Hematologic/Lymphatic: Negative for swollen nodes, abnormal bleeding, and unusual bruising. 17:38 Neck: Positive for pain at rest. 17:38 MS/extremity: Positive for decreased range of motion, pain, of the anterior aspect of right shoulder and posterior aspect of right shoulder. Exam: 17:38 Constitutional: This is a well developed, well nourished patient who is awake, alert, lorena and in no acute distress. Head/Face: Normocephalic, atraumatic. Eyes: Pupils equal round and reactive to light, extra-ocular motions intact. Lids and lashes normal. Conjunctiva and sclera are non-icteric and not injected. Cornea within normal limits. Periorbital areas with no swelling, redness, or edema. ENT: Nares patent. No nasal discharge, no septal abnormalities noted. Tympanic membranes are normal and external auditory canals are clear. Oropharynx with no redness, swelling, or masses, exudates, or evidence of obstruction, uvula midline. Mucous membranes moist. Chest/axilla: Normal chest wall appearance and motion. Nontender with no deformity. No lesions are appreciated. Cardiovascular: Regular rate and rhythm with a normal S1 and S2. No gallops, murmurs, or rubs. Normal PMI, no JVD. No pulse deficits. Respiratory: Lungs have equal breath sounds bilaterally, clear to auscultation and percussion. No rales, rhonchi or wheezes noted. No increased work of breathing, no retractions or nasal flaring. Abdomen/GI: Soft, non-tender, with normal bowel sounds. No distension or tympany. No guarding or rebound. No evidence of tenderness throughout. Back: No spinal tenderness. No costovertebral tenderness. Full range of motion. Female : Normal external genitalia. Neuro: Awake and alert, GCS 15, oriented to person, place, time, and situation. Cranial nerves II-XII grossly intact. Motor strength 5/5 in all extremities. Sensory grossly intact. Cerebellar exam normal. Normal gait. Psych: Awake, alert, with orientation to person, place and time. Behavior, mood, and affect are within normal limits. 17:38 Neck: ROM/movement: pain, that is mild, with extension, with flexion, limited range of motion, that is mild, when rotating to the right, when rotating to the left, with flexion, with extension, Meningeal signs: are not present, Kernig's sign is negative, Brudzinski's sign is negative, nuchal rigidity, is not appreciated. 17:38 Cardiovascular: Rate: normal, Rhythm: regular, Heart sounds: normal, normal S1and S2, no S3 or S4, no murmur, no rub, no gallop. 17:38 Musculoskeletal/extremity: ROM: limited active range of motion due to pain, limited passive range of motion due to pain, Circulation is intact in all extremities. Sensation intact. Compartment Syndrome exam of affected extremity: is normal. Joints: All joints are normal except the right shoulder displays deformity, dislocation, painful range of motion. Vital Signs: 17:26 BP 130 / 88; Pulse 78; Resp 20; Temp 98; Pulse Ox 98% ; bp MDM: 17:28 Patient medically screened. lorena 17:41 Differential diagnosis: Posterior dislocation with fracture, humeral head fracture, lorena glenoid fracture. Differential diagnosis: contusion, fracture, multiple trauma, sprain, strain. Data reviewed: vital signs, nurses notes, lab test result(s), radiologic studies, plain films. Data interpreted: Pulse oximetry: on room air is 98 %. Test interpretation: by ED physician or midlevel provider: plain radiologic studies. Counseling: I had a detailed discussion with the patient and/or guardian regarding: the historical points, exam findings, and any diagnostic results supporting the discharge/admit diagnosis, lab results, the need for outpatient follow up, for definitive care, a orthopedic surgeon. 19:58 ED course: Charge nurse requested that I talk to patient and family member about jr8 discharge. Patient has a stable right proximal humeral fracture. Dr. Franco had consulted with Dr. Solano and patient is safe to go home. Patient already has narcotic pain medicine at home which she is aware of and is finally taking that. The son is concerned because she lives by herself. I asked the son if she could go home with him and he said that he lives in a 3 bedroom house and is single and is not suitable for a "woman". I also asked if he could just stay with her for the night as well which he did not want to as well. Patient is hemodynamically stable and there is no admittable process at this point. I have even reached out to Dr. Gil but he is unavailable at this time. Patient can walk and is stable on her own to legs. Again has ample medication at home for pain management as well. Explained to them that there is nothing more that we can do at this point and that she needs to follow-up with orthopedics. We cannot transfer her as this is a lateral nonemergent transfer as well. If they would like to have a second opinion they can always go to another facility of their choice.. 20:21 ED course: Was able to get a hold of Dr. Gil. He understands that patient is stable jr8 and able to go home as well. We will see her first thing in the morning at his office which I notified the patient about and she is okay with this. Patient knows to come back if she would have worsening point time.. 11/23 17:36 Order name: CBC with Diff [facility] 11/23 17:36 Order name: Comprehensive Metabolic Panel [facility] 11/23 17:31 Order name: Shoulder Right (2 View) XRAY; Complete Time: 18:42 [facility] 11/23 17:36 Order name: Knee Right 3 View XRAY; Complete Time: 18:42 [facility] 11/23 17:38 Order name: CBC with Automated Diff; Complete Time: 18:12 [facility] 11/23 17:38 Order name: Comprehensive Metabolic Panel; Complete Time: 18:42 [facility] 11/23 17:31 Order name: Ice pack; Complete Time: 17:45 [facility] 11/23 17:45 Order name: CT C Spine; Complete Time: 19:20 [facility] 11/23 18:14 Order name: Shoulder Immobilizer; Complete Time: 20:00 [facility] Administered Medications: 17:45 Drug: NS 0.9% 500 ml Route: IV; Rate: bolus; Site: left wrist; bp 17:45 Drug: morphine 4 mg Route: IVP; Site: left wrist; bp 18:26 Follow up: Response: Pain is decreased bp 17:45 Drug: Zofran (Ondansetron) 4 mg Route: IVP; Site: left wrist; bp 18:26 Follow up: Response: No adverse reaction bp 19:05 Drug: morphine 4 mg Route: IVP; Site: left hand; ww 20:09 Drug: Clay (HYDROcodone-acetaminophen) 10 mg-325 mg 1 tabs Route: PO; ww Disposition: 11/24 08:44 Co-signature as Attending Physician, Nathan Franco MD I agree with the assessment and lorena plan of care. Disposition Summary: 11/23/21 19:20 Discharge Ordered Location: Home lorena Problem: new lorena Symptoms: have improved lorena Condition: Stable lorena Diagnosis - Fall on same level, unspecified lorena - 3-part fracture of surgical neck of right humerus, initial encounter for closed lorena fracture - displaced - Contusion of right knee, initial encounter lorena - Elevated white blood cell count lorena - Obesity, unspecified lorena Followup: lorena - With: Private Physician - When: 2 - 3 days - Reason: Recheck today's complaints, Continuance of care, Re-evaluation by your physician Followup: lorena - With: - When: 2 - 3 days - Reason: Recheck today's complaints, Continuance of care, Re-evaluation by your physician Discharge Instructions: - Discharge Summary Sheet lorena - Contusion lorena - Fall Prevention in the Home, Adult lorena - Humerus Fracture Treated With Immobilization lorena - Humerus Fracture Treated With Immobilization, [id number] lorena - Contusion, [id number] lorena - Fall Prevention in the Home, Adult, [id number] lorena Forms: - Medication Reconciliation Form lorena - Thank You Letter lorena - Antibiotic Education lorena - Prescription Opioid Use lorena Prescriptions: - Zofran 4 mg Oral Tablet - take 1 tablet by ORAL route every 12 hours As needed; 20 tablet; Refills: 0, lorena Product Selection Permitted - Motrin IB 200 mg Oral Tablet - take 2 tablet by ORAL route every 6 hours As needed as needed with food; 30 lorena tablet; Refills: 0, Product Selection Permitted - Tylenol-Codeine #3 300 mg-30 mg Oral - take 2 tablet by ORAL route every 4-6 hours; 20 tablet; Refills: 0, Product lorena Selection Permitted Signatures: Dispatcher [employer] Nathan Warren MD MD cha Roszak, Josh, PA PA jr8 Alex Watson RN RN Halima Benedict RN RN ww
[2021-11-23] MEDS ORDERED: HYDROCODONE/APAP 10/325 TAB ONE ×2 (20:05→20:09)
[2021-11-23 21:10] VITALS: BP 130/88; TEMP 98; O2SAT 98
== END 2021-11-23 21:01 | disposition home or self-care (01) ==
LOC: ER 17:04
DX: S42.231A 3-part fracture of surgical neck of right humerus, initial encounter for closed fracture (principal); S80.01XA Contusion of right knee, initial encounter; D72.829 Elevated white blood cell count, unspecified; W18.30XA Fall on same level, unspecified, initial encounter; E66.9 Obesity, unspecified; I50.9 Heart failure, unspecified; I10 Essential (primary) hypertension; E11.9 Type 2 diabetes mellitus without complications; Z79.4 Long term (current) use of insulin; Z95.818 Presence of other cardiac implants and grafts; Z88.5 Allergy status to narcotic agent
CPT/HCPCS: 85025; 36415; 80053; 72125; 73030; 73562; 99284; J7040; J2405

== ENCOUNTER 2023-08-31 15:34 | Inpatient (IN) | payer OTHER ==
--- OUTSIDE RECORDS SUMMARY | 2023-08-31 15:41 | XMS REPORT | Continuity of Care Document ---
:1940 Author Organization [facility] t Address [address] [place] [address]. [address] [place] [address] Care Team Providers Name Role Phone HERBERT GIL Primary Care Physician Unavailable Herbert Gil Attending Clinician Unavailable [id number] Attending Clinician Unavailable SATISH KRAMER Attending Clinician Unavailable 2, [facility] Attending Clinician Unavailable Satish Kramer MD Attending Clinician Doctor Unassigned, [place] Attending Clinician Unavailable Aileen Nazario DO Attending Clinician Therapist, [facility] Respiratory Attending Clinician Unavailable Tracy Olmos MD Attending Clinician TRACY OLMOS Attending Clinician Unavailable TRACY OLMOS Attending Clinician Unavailable AILEEN NAZARIO Attending Clinician Unavailable AILEEN NAZARIO Attending Clinician Unavailable [id number] Admitting Clinician Unavailable Payers Payer Name Policy Type Policy Number Effective Date Expiration Date Andrey moustapha AELAUREN MANAGED [id number] 2020 MEDICARE 00:00:00 PPO-RIVKA AETNA MEDICARE C1 [id number] [facility] P[facility] - [facility] AETNA MEDICARE C1 [id number] [facility] PPO - [facility] AETNA MEDICARE C1 [id number] [facility] PPO - [facility] AETNA MEDICARE C1 [id number] [facility] PPO - [facility] Problems Condition Condition Condition Status Onset Resolution Last Treating Co mments Source Name Details Category Date Date Treatment Clinician Date No known No known Disease Unive rs active active ity of problems problems [facility] [id number] Pain, Problem Active Commo n [id number] joint, Spirit hand, left - [facility] [id number] Arthritis Problem Active Co mmon [id number] of right Spirit knee [facility] [id number] Pain, Problem Active Commo n [id number] joint, [facility] shoulder, - [facility] right [facility] [id number] 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 [facility] [id number] Other Problem Active Common closed Spirit displaced - [facility] fracture [facility] proximal Medical end of [place] right humerus, initial encounter [id number] Arthritis Problem Active Co mmon [id number] of left [facility] knee [facility] [id number] Primary Problem Active Comm on osteoarthr Spirit itis of [facility] right [facility] [id number] Primary Problem Active Comm on osteoarthr Spirit itis of [facility] left knee [facility] [id number] Sciatica Problem Active Commo n of left [facility] side [facility] [id number] Piriformis Problem Active C ommon syndrome Spirit of left - [facility] side [facility] Allergies, Adverse Reactions, Alerts Allergy Allergy Status Severity Reaction(s) Onset Inactive Treating Comm ents Source Name Type Date Date Clinician NO KNOWN Drug Active Univers ALLERGIE Class ity of S [facility] Social History Social Habit Start Date Stop Date Quantity Comments Source Gender identity Universit y [facility] [place] Sexual [facility] Exposure to Not sure University of SARS-CoV-2 (event) [facility] History of Tobacco [facility] - Use [facility] Sex Assigned At Common [facility] hollie - [facility] Tobacco use and 2021-09-10 2021-09-10 Smokeless Universit y of exposure 00:00:00 00:00:00 tobacco non-user [facility] History of Social 2021-09-10 2021-09-10 Univers ity of function 00:00:00 00:00:00 [facility] Smoking Status Start Date Stop Date Source Never Smoker [facility] - [facility] Ex-smoker 2021-09-10 00:00:2021-09-10 00:00:00 [facility] Medications Ordered Filled Start Stop Current Ordering Indication Dosage Frequency Signature Comments Components Source Medication Medication Date Date Medication? Clinician (SIG) Name Name predniSONE predniSONE 2021- No 1{table QD predniSONE 10 MG 10 MG 01-18 t} 10 MG 00:00: 00:00 00 :00 nebivoloL 2020-11 Yes 5mg Take 5 mg Uni vers (BYSTOLIC) 0-21 by mouth ity o f 5 mg tablet 15:16: daily. [address] nebivoloL 2020-11 Yes 5mg Take 5 mg Uni vers (BYSTOLIC) 0-21 by mouth ity o f 5 mg tablet 15:16: daily. [address] nebivoloL 2020-11 Yes 5mg Take 5 mg Uni vers (BYSTOLIC) 0-21 by mouth ity o f 5 mg tablet 15:16: daily. [address] nebivoloL 2020-11 Yes 5mg Take 5 mg Uni vers (BYSTOLIC) 0-21 by mouth ity o f 5 mg tablet 15:16: daily. [address] umeclidiniu 2020-11 Yes Inhale Univ ers m (INCRUSE 0-21 daily. ity of ELLIPTA) 15:11: [place] 62.5 17 Medical mcg/actuati Branch on DsDv [...] (INCRUSE 0-21 daily. ity of ELLIPTA) 15:11: [place] 62.5 17 Medical mcg/actuati Branch on DsDv albuterol-i 2020-11 Yes 1{puff} Inhale 1 Univers pratropium 0-21 Puff 4 ity of (COMBIVENT 15:11: (four) [place] RESPIMAT) 17 times Medical 20-100 daily. Branch mcg/actuati on inhaler umeclidiniu 2020-11 Yes Inhale Univ ers m (INCRUSE 0-21 daily. ity of ELLIPTA) 15:11: [place] 62.5 17 Medical mcg/actuati Branch on DsDv albuterol-i 2020-11 Yes 1{puff} Inhale 1 Univers pratropium 0-21 Puff 4 ity of (COMBIVENT 15:11: ([facility]) [place] RESPIMAT) 17 times Medical 20-100 daily. Branch mcg/actuati on inhaler albuterol 2020-11 Yes [id number] 2{puff} Inhale 2 Univers 90 0-21 Puffs ity of mcg/actuati 00:00: every 6 Demetrius as on inhaler 00 (six) Medical hours as Branch needed for Wheezing or Shortness of Breath. albuterol 2020-11 Yes [id number] 2{puff} Inhale 2 Univers 90 0-21 Puffs ity of mcg/actuati 00:00: every 6 Demetrius as on inhaler 00 (six) Medical hours as Branch needed for Wheezing or Shortness of Breath. albuterol 2020-11 Yes [id number] 2{puff} Inhale 2 Univers 90 0-21 Puffs ity of mcg/actuati 00:00: every 6 Demetrius as on inhaler 00 (six) Medical hours as Branch needed for Wheezing or Shortness of Breath. albuterol 2020-11 Yes [id number] 2{puff} Inhale 2 Univers 90 0-21 Puffs ity of mcg/actuati 00:00: every 6 Demetrius as on inhaler 00 (six) Medical hours as Branch needed for Wheezing or Shortness of Breath. citalopram 2020-11 Yes Univers 20 mg 0-12 ity of tablet 00:00: Medical Branch citalopram 2020-11 Yes Univers 20 mg 0-12 ity of tablet 00:00: Medical Branch citalopram 2020-11 Yes Univers 20 mg 0-12 ity of tablet 00:00: Medical Branch citalopram 2020-11 Yes Univers 20 mg 0-12 ity of tablet 00:00: Medical Branch ketorolac 2020-11 Yes Univers 10 mg 0-10 ity of tablet 00:00: Medical Branch orphenadrin 2020-11 Yes Univer s e 100 mg SR 0-10 ity of tablet 00:00: [place] [facility] Branch ketorolac 2020-11 Yes Univers 10 mg 0-10 ity of tablet 00:00: Medical Branch orphenadrin 2020-11 Yes Univer s e 100 mg SR 0-10 ity of tablet 00:00: Medical Branch ketorolac 2020-11 Yes Univers 10 mg 0-10 ity of tablet 00:00: Medical Branch orphenadrin 2020-11 Yes Univer s e 100 mg SR 0-10 ity of tablet 00:00: Medical Branch ketorolac 2020-11 Yes Univers 10 mg 0-10 ity of tablet 00:00: Medical Branch orphenadrin 2020-11 Yes Univer s e 100 mg SR 0-10 ity of tablet 00:00: [place] [facility] Diclofenac 2020-11 Yes Univers Sodium 1 % 0-07 ity of gel 00:00: Medical Branch Diclofenac 2020- Yes Univers Sodium 1 % 0-07 ity of gel 00:00: Medical Branch Diclofenac 2020- Yes Univers Sodium 1 % 0-07 ity of gel 00:00: [place] [facility] Diclofenac 2020- Yes Univers Sodium 1 % 0-07 ity of gel 00:00: [place] Medical Branch HYDROcodone 2020-11 Yes Univer s -acetaminop 0-06 ity of hen 7.5-325 00:00: [place] mg per 00 Medical tablet Branch HYDROcodone 2020- Yes Univer s -acetaminop 0-06 ity of [...] 40 mg 0-04 ity of tablet 00:00: Medical Branch lisinopriL 2020-11 Yes Univers 10 mg 0-04 ity of tablet 00:00: Medical Branch atorvastati 2020-11 Yes Univer s n 40 mg 0-04 ity of tablet 00:00: [place] [facility] lisinopriL 2020-11 Yes Univers 10 mg 0-04 ity of tablet 00:00: Medical Branch atorvastati 2020-11 Yes Univer s n 40 mg 0-04 ity of tablet 00:00: Medical Branch lisinopriL 2020-11 Yes Univers 10 mg 0-04 ity of tablet 00:00: Medical Branch atorvastati 2020-11 Yes Univer s n 40 mg 0-04 ity of tablet 00:00: Medical Branch lisinopriL 2020-11 Yes Univers 10 mg 0-04 ity of tablet 00:00: [place] [facility] levothyroxi 0 Yes Univer s ne 125 mcg 9-23 ity of tablet 00:00: Medical Branch levothyroxi 0 Yes Univer s ne 125 mcg 9-23 ity of tablet 00:00: [place] [facility] levothyroxi 2020-0 Yes Univer s ne 125 mcg 9-23 ity of tablet 00:00: [place] [facility] levothyroxi 2020-0 Yes Univer s ne 125 mcg 9-23 ity of tablet 00:00: [place] [facility] LEVEMIR 2020-0 Yes Univers U-100 9-14 ity of INSULIN 100 00:00: [place] unit/mL 00 Medical solution Branch LEVEMIR 2020-0 Yes Univers U-100 9-14 ity of INSULIN 100 00:00: [place] unit/mL 00 Medical solution Branch LEVEMIR 2020-0 Yes Univers U-100 9-14 ity of INSULIN 100 00:00: [place] unit/mL 00 Medical solution Branch LEVEMIR 2021-0 Yes Univers U-100 9-14 ity of INSULIN 100 00:00: [place] unit/mL 00 Medical solution Branch gabapentin 2021-0 Yes Univers 100 mg 9-07 ity of capsule 00:00: [place] [facility] gabapentin 2021-0 Yes Univers 100 mg 9-07 ity of capsule 00:00: [place] [facility] gabapentin 2021-0 Yes Univers 100 mg 9-07 ity of capsule 00:00: [place] [facility] gabapentin 2021-0 Yes Univers 100 mg 9-07 ity of capsule 00:00: [place] [facility] NOVOLIN R 2021-0 Yes Univers REGULAR 8-17 ity of U-100 00:00: [place] INSULN 100 00 Medical unit/mL Branch solution NOVOLIN R 2021-0 Yes Univers REGULAR 8-17 ity of U-100 00:00: [place] INSULN 100 00 Medical unit/mL Branch solution NOVOLIN R 2021-0 Yes Univers REGULAR 8-17 ity of U-100 00:00: [place] INSULN 100 00 Medical unit/mL Branch solution NOVOLIN R 2021-0 Yes Univers REGULAR 8-17 ity of U-100 00:00: [place] INSULN 100 00 Medical unit/mL Branch solution pantoprazol 1-0 Yes Univer s e 40 mg EC 8-09 ity of tablet 00:00: [place] [facility] pantoprazol 2021-0 Yes Univer s e 40 mg EC 8-09 ity of tablet 00:00: [place] [facility] pantoprazol 2021-0 Yes Univer s e 40 mg EC 8-09 ity of tablet 00:00: [place] [facility] pantoprazol 2021-0 Yes Univer s e 40 mg EC 8-09 ity of tablet 00:00: [place] [facility] furosemide 2021-0 Yes Univers 40 mg 8-05 ity of tablet 00:00: [place] [facility] clopidogreL 2021-0 Yes Univer s 75 mg 8-05 ity of tablet 00:00: [place] [facility] furosemide 2021-0 Yes Univers 40 mg 8-05 ity of tablet 00:00: [place] [facility] clopidogreL 2021-0 Yes Univer s 75 mg 8-05 ity of tablet 00:00: [place] [address] Medical Branch furosemide 2021-0 Yes Univers 40 mg 8-05 ity of tablet 00:00: [place] [facility] clopidogreL 2020-0 Yes Univer s 75 mg 8-05 ity of tablet 00:00: [place] [facility] furosemide 2020-0 Yes Univers 40 mg 8-05 ity of tablet 00:00: [place] [facility] clopidogreL 2020-0 Yes Univer s 75 mg 8-05 ity of tablet 00:00: [place] [facility] SYMBICORT 2020-0 Yes Univers 160-4.5 7-30 ity of mcg/actuati 00:00: on inhaler Medical Branch SYMBICORT 2020-0 Yes Univers 160-4.5 7-30 ity of mcg/actuati 00:00: on inhaler Medical Branch SYMBICORT 2020-0 Yes Univers 160-4.5 7-30 ity of mcg/actuati 00:00: [place] on inhaler Medical Branch SYMBICORT 2020-0 Yes Univers 160-4.5 7-30 ity of mcg/actuati 00:00: on inhaler 00 Medical Branch Orthovisc Orthovisc 2020-1 No 15mg Com 12-14 Spirit 00:00: - [facility] Kenalog Kenalog 2020-1 No 40mg Common (Triamcinol (Triamcinol 1-24 S pirit one) one) 00:00: - [facility] Bupivicaine Bupivicaine 2020-1 No Common Benedict Benedict 12-14 Spirit 00:00: - [facility] Orthovisc Orthovisc 2020-1 No 15mg Com mon 12-14 Spirit 00:00: - [facility] Orthovisc Orthovisc 2020-1 No 15mg Com 12-14 Spirit 00:00: - [facility] Kenalog Kenalog 2020-1 No 40mg Common (Triamcinol (Triamcinol 1-24 S pirit one) one) 00:00: - [facility] Bupivicaine Bupivicaine 2020-1 No Common Benedict Benedict 12-14 Spirit 00:00: - [facility] Orthovisc Orthovisc 2020-1 No 15mg Com mon 12-14 Spirit 00:00: - [facility] Orthovisc Orthovisc 2020-1 No 15mg Com 12-14 Spirit 00:00: - [facility] Kenalog Kenalog 2020-1 No 40mg Common (Triamcinol (Triamcinol 1-24 S pirit one) one) 00:00: - [facility] Bupivicaine Bupivicaine 2020-1 No Common Benedict Benedict 12-14 Spirit 00:00: - [facility] Orthovisc Orthovisc 2020-1 No 15mg Com 12-14 Spirit 00:00: - [facility] Orthovisc Orthovisc 2020-1 No 15mg Com 12-14 Spirit 00:00: - [facility] Kenalog Kenalog 2020-1 No 40mg Common (Triamcinol (Triamcinol 1-24 S pirit one) one) 00:00: - [facility] Bupivicaine Bupivicaine 2020-1 No 2.5mg Common Benedict Benedict 12-14 Spirit 00:00: - [facility] Orthovisc Orthovisc 2020-1 No 15mg Com 12-14 Spirit 00:00: - [facility] Orthovisc Orthovisc 2020-1 No 15mg Com 12-06 Spirit 00:00: - [facility] Orthovisc Orthovisc 2020-1 No 15mg Com 12-06 Spirit 00:00: - [facility] Orthovisc Orthovisc 2020-1 No 15mg Com 12-06 Spirit 00:00: - [facility] Orthovisc Orthovisc 2020-1 No 15mg Com 12-06 Spirit 00:00: - [facility] Orthovisc Orthovisc 2020-1 No 15mg Com 12-06 Spirit 00:00: - [facility] Orthovisc Orthovisc 2020-1 No 15mg Com 12-06 Spirit 00:00: - [facility] Orthovisc Orthovisc 2020-1 No 15mg Com 12-06 Spirit 00:00: - [facility] Orthovisc Orthovisc 2020-1 No 15mg Com 12-06 Spirit 00:00: - [facility] Orthovisc Orthovisc 2020-1 No 15mg Com 11-23 Spirit 00:00: - [facility] Bupivicaine Bupivicaine 2020-1 No Common Benedict Benedict 11-23 Spirit 00:00: - [facility] Kenalog Kenalog 2020-1 No 40mg Common (Triamcinol (Triamcinol 1-03 S pirit one) one) 00:00: - [facility] Orthovisc Orthovisc 2020-1 No 15mg Com 11-23 Spirit 00:00: - [facility] Orthovisc Orthovisc 2020-1 No 15mg Com 11-23 Spirit 00:00: - [facility] Bupivicaine Bupivicaine 2020-1 No Common Benedict Benedict 11-23 Spirit 00:00: - [facility] Kenalog Kenalog 2020-1 No 40mg Common (Triamcinol (Triamcinol 1-03 S pirit one) one) 00:00: - [facility] Orthovisc Orthovisc 2020-1 No 15mg Com 11-23 Spirit 00:00: - [facility] Orthovisc Orthovisc 2020-1 No 15mg Com 11-23 Spirit 00:00: - [facility] Bupivicaine Bupivicaine 2020-1 No Common Benedict Benedict 11-23 Spirit 00:00: - [facility] Kenalog Kenalog 2020-1 No 40mg Common (Triamcinol (Triamcinol 1-03 S pirit one) one) 00:00: - [facility] Orthovisc Orthovisc 2020-1 No 15mg Com 11-23 Spirit 00:00: - [facility] Orthovisc Orthovisc 2020-1 No 15mg Com 11-23 Spirit 00:00: - [facility] Bupivicaine Bupivicaine 2020-1 No 2.5mg Common Benedict Benedict 11-23 Spirit 00:00: - [facility] Kenalog Kenalog 2020-1 No 40mg Common (Triamcinol (Triamcinol 1-03 S pirit one) one) 00:00: - [facility] Orthovisc Orthovisc 2020-1 No 15mg Com mon 11-23 Spirit 00:00: - [facility] Bupivicaine Bupivicaine 2020-0 No 4mL Common Benedict Benedict 12-18 Spirit 00:00: - [facility] Hyalgan 20 Hyalgan 20 2020-0 No 2mL C ommon mg mg 12-18 Spirit 00:00: - [facility] Hyalgan 20 Hyalgan 20 2020-0 No 2mL C ommon mg mg 12-18 Spirit 00:00: - [facility] Kenalog Kenalog 2020-0 No 1mL Common (Triamcinol (Triamcinol - S pirit one) one) 00:00: - [facility] Bupivicaine Bupivicaine 2020-0 No 4mL Common Benedict Benedict 12-18 Spirit 00:00: - [facility] Hyalgan 20 Hyalgan 20 2020-0 No 2mL C ommon mg mg 12-18 Spirit 00:00: - [facility] Hyalgan 20 Hyalgan 20 2020-0 No 2mL C ommon mg mg 12-18 Spirit 00:00: - [facility] Kenalog Kenalog 2020-0 No 1mL Common (Triamcinol (Triamcinol - S pirit one) one) 00:00: - [facility] Bupivicaine Bupivicaine 2020-0 No 4mL Common Benedict Benedict 12-18 Spirit 00:00: - [facility] Hyalgan 20 Hyalgan 20 2020-0 No 2mL C ommon mg mg 12-18 Spirit 00:00: - [facility] Hyalgan 20 Hyalgan 20 2020-0 No 2mL C ommon mg mg 12-18 Spirit 00:00: - [facility] Kenalog Kenalog 2020-0 No 1mL Common (Triamcinol (Triamcinol 1-28 S pirit one) one) 00:00: - [facility] Bupivicaine Bupivicaine 2020-0 No 4mL Common Benedict Benedict - Spirit 00:00: - [facility] Hyalgan 20 Hyalgan 20 2020-0 No 2mL C ommon mg mg 12-18 Spirit 00:00: - [facility] Hyalgan 20 Hyalgan 20 2020-0 No 2mL C ommon mg mg 12-18 Spirit 00:00: - [facility] Kenalog Kenalog 2020-0 No 1mL Common (Triamcinol (Triamcinol -28 S pirit one) one) 00:00: - [facility] Hyalgan 20 Hyalgan 20 2020-0 No 2mL C ommon mg mg 12-04 Spirit 00:00: - [facility] Hyalgan 20 Hyalgan 20 2020-0 No 2mL C ommon mg mg 12-04 Spirit 00:00: - [facility] Hyalgan 20 Hyalgan 20 2020-0 No 2mL C ommon mg mg 12-04 Spirit 00:00: - [facility] Hyalgan 20 Hyalgan 20 2020-0 No 2mL C ommon mg mg 12-04 Spirit 00:00: - [facility] Hyalgan 20 Hyalgan 20 2020-0 No 2mL C ommon mg mg 12-04 Spirit 00:00: - [facility] Hyalgan 20 Hyalgan 20 2020-0 No 2mL C ommon mg mg 12-04 Spirit 00:00: - [facility] Hyalgan 20 Hyalgan 20 2020-0 No 2mL C ommon mg mg 12-04 Spirit 00:00: - [facility] Hyalgan 20 Hyalgan 20 2020-0 No 2mL C ommon mg mg 12-04 Spirit 00:00: - [facility] Kenalog Kenalog 2020-0 No 1mL Common (Triamcinol (Triamcinol 1-07 S pirit one) one) 00:00: - [facility] Hyalgan 20 Hyalgan 20 2020-0 No 2mL C ommon mg mg 11-27 Spirit 00:00: - [facility] Hyalgan 20 Hyalgan 20 2020-0 No 2mL C ommon mg mg 11-27 Spirit 00:00: - [facility] LIDOCAINE LIDOCAINE 2020-0 No 4mL Com mon HCL 10MG/ML HCL 10MG/ML 1-07 S pirit 00:00: - [facility] Kenalog Kenalog 2020-0 No 1mL Common (Triamcinol (Triamcinol 1-07 S pirit one) one) 00:00: - [facility] Hyalgan 20 Hyalgan 20 2020-0 No 2mL C ommon mg mg 1-07 Spirit 00:00: - [facility] Hyalgan 20 Hyalgan 20 2020-0 No 2mL C ommon mg mg 11-27 Spirit 00:00: - [facility] LIDOCAINE LIDOCAINE 2020-0 No 4mL Com mon HCL 10MG/ML HCL 10MG/ML 1-07 S pirit 00:00: - [facility] Kenalog Kenalog 2020-0 No 1mL Common (Triamcinol (Triamcinol 1-07 S pirit one) one) 00:00: - [facility] Hyalgan 20 Hyalgan 20 2020-0 No 2mL C ommon mg mg 1 Spirit 00:00: - [facility] Hyalgan 20 Hyalgan 20 2020-0 No 2mL C ommon mg mg 11-27 Spirit 00:00: - [facility] LIDOCAINE LIDOCAINE 2020-0 No 4mL Com mon HCL 10MG/ML HCL 10MG/ML 1-07 S pirit 00:00: - [facility] Kenalog Kenalog 2020-0 No 1mL Common (Triamcinol (Triamcinol 1-07 S pirit one) one) 00:00: - [facility] Hyalgan 20 Hyalgan 20 2020-0 No 2mL C ommon mg mg - Spirit 00:00: - [facility] Hyalgan 20 Hyalgan 20 2020-0 No 2mL C ommon mg mg 11-27 Spirit 00:00: - [facility] LIDOCAINE LIDOCAINE 2020-0 No 4mL Com mon HCL 10MG/ML HCL 10MG/ML 1-07 S pirit 00:00: - [facility] Hyalgan 20 Hyalgan 20 2019-0 No 20mg C ommon mg mg 5 Spirit 00:00: - [facility] Hyalgan 20 Hyalgan 20 2019-0 No 20mg C ommon mg mg 03-21 Spirit 00:00: - [facility] Hyalgan 20 Hyalgan 20 2019-0 No 20mg C ommon mg mg 03-21 Spirit 00:00: - [facility] Hyalgan 20 Hyalgan 20 2019-0 No 20mg C ommon mg mg 03-21 Spirit 00:00: - [facility] Hyalgan 20 Hyalgan 20 2019-0 No 20mg C ommon mg mg 03-21 Spirit 00:00: - [facility] Hyalgan 20 Hyalgan 20 2019-0 No 20mg C ommon mg mg 03-21 Spirit 00:00: - [facility] Hyalgan 20 Hyalgan 20 2019-0 No 20mg C ommon mg mg 03-21 Spirit 00:00: - [facility] Hyalgan 20 Hyalgan 20 2019-0 No 20mg C ommon mg mg 03-21 Spirit 00:00: - [facility] Hyalgan 20 Hyalgan 20 2019-0 No 20mg C ommon mg mg 03-14 Spirit 00:00: - [facility] Hyalgan 20 Hyalgan 20 2019-0 No 20mg C ommon mg mg 03-14 Spirit 00:00: - [facility] Hyalgan 20 Hyalgan 20 2019-0 No 20mg C ommon mg mg 03-14 Spirit 00:00: - [facility] Hyalgan 20 Hyalgan 20 2019-0 No 20mg C ommon mg mg 03-14 Spirit 00:00: - [facility] Hyalgan 20 Hyalgan 20 2019-0 No 20mg C ommon mg mg 03-14 Spirit 00:00: - [facility] Hyalgan 20 Hyalgan 20 2019-0 No 20mg C ommon mg mg 03-14 Spirit 00:00: - [facility] Hyalgan 20 Hyalgan 20 2019-0 No 20mg C ommon mg mg 24 Spirit 00:00: - [facility] Hyalgan 20 Hyalgan 20 2019-0 No 20mg C ommon mg mg 4-24 Spirit 00:00: - [facility] LIDOCAINE LIDOCAINE 2019-0 No 10mg Com mon HCL 10MG/ML HCL 10MG/ML 4-18 S pirit 00:00: - [facility] Kenalog Kenalog 2019-0 No 40mg Common (Triamcinol (Triamcinol 4-18 S pirit one) one) 00:00: - [facility] Hyalgan 20 Hyalgan 20 2019-0 No 20mg C ommon mg mg 4-18 Spirit 00:00: - [facility] Kenalog Kenalog 2019-0 No 40mg Common (Triamcinol (Triamcinol 4-18 S pirit one) one) 00:00: - [facility] LIDOCAINE LIDOCAINE 2019-0 No 10mg Com mon HCL 10MG/ML HCL 10MG/ML 4-18 S pirit 00:00: - [facility] Hyalgan 20 Hyalgan 20 2019-0 No 20mg C ommon mg mg 4-18 Spirit 00:00: - [facility] LIDOCAINE LIDOCAINE 2019-0 No 10mg Com mon HCL 10MG/ML HCL 10MG/ML 4-18 S pirit 00:00: - [facility] Kenalog Kenalog 2019-0 No 40mg Common (Triamcinol (Triamcinol 4-18 S pirit one) one) 00:00: - [facility] Hyalgan 20 Hyalgan 20 2019-0 No 20mg C ommon mg mg 4-18 Spirit 00:00: - [facility] Kenalog Kenalog 2019-0 No 40mg Common (Triamcinol (Triamcinol 4-18 S pirit one) one) 00:00: - [facility] LIDOCAINE LIDOCAINE 2019-0 No 10mg Com mon HCL 10MG/ML HCL 10MG/ML 4-18 S pirit 00:00: - [facility] Hyalgan 20 Hyalgan 20 2019-0 No 20mg C ommon mg mg 4-18 Spirit 00:00: - [facility] LIDOCAINE LIDOCAINE 2019-0 No 10mg Com mon HCL 10MG/ML HCL 10MG/ML 4-18 S pirit 00:00: - [facility] Shannon Kenalog 2019-0 No 40mg Common (Triamcinol (Triamcinol 4-18 S pirit one) one) 00:00: - [facility] Hyalgan 20 Hyalgan 20 2019-0 No 20mg C ommon mg mg 4-18 Spirit 00:00: - [facility] Shannon Kenalog 2019-0 No 40mg Common (Triamcinol (Triamcinol 4-18 S pirit one) one) 00:00: - [facility] LIDOCAINE LIDOCAINE 2019-0 No 10mg Com mon HCL 10MG/ML HCL 10MG/ML 4-18 S pirit 00:00: - [facility] Hyalgan 20 Hyalgan 20 2019-0 No 20mg C ommon mg mg 4-18 Spirit 00:00: - [facility] LIDOCAINE LIDOCAINE 2019-0 No 10mg Com mon HCL 10MG/ML HCL 10MG/ML 4-18 S pirit 00:00: - [facility] Shannon Ortega 2019-0 No 40mg Common (Triamcinol (Triamcinol 4-18 S pirit one) one) 00:00: - [facility] Hyalgan 20 Hyalgan 20 2019-0 No 20mg C ommon mg mg 4-18 Spirit 00:00: - [facility] Shannon Ortega 2019-0 No 40mg Common (Triamcinol (Triamcinol 4-18 S pirit one) one) 00:00: - [facility] LIDOCAINE LIDOCAINE 2019-0 No 10mg Com mon HCL 10MG/ML HCL 10MG/ML 4-18 S pirit 00:00: - [facility] Hyalgan 20 Hyalgan 20 2019-0 No 20mg C ommon mg mg 4-18 Spirit 00:00: - [facility] Spiriva Spiriva No Spiriva HandiHaler HandiHaler HandiHaler 18 MCG 18 MCG 18 MCG Atorvastati Atorvastati No Atorvastat n Calcium n Calcium in Calcium 40 MG 40 MG 40 MG [place] No 1{table [place] 10-325 MG 10-325 MG t_as_ne 10-325 MG eded} Incruse Incruse No Incruse Ellipta Ellipta Ellipta Citalopram Citalopram No Citalopram Hydrobromid Hydrobromid Hydrobromi e 20 MG e 20 MG de 20 MG Lasix 40 MG Lasix 40 MG No 1{table QD Lasix 40 t} MG Lisinopril Lisinopril No Lisinopril 10 MG 10 MG 10 MG Atrovent 18 Atrovent 18 No Atrovent MCG/ACT MCG/ACT 18 MCG/ACT Levemir Levemir No Levemir FlexTouch FlexTouch FlexTouch 100 UNIT/ML 100 UNIT/ML 100 UNIT/ML Clopidogrel Clopidogrel No Clopidogre Bisulfate Bisulfate l 75 MG 75 MG Bisulfate 75 MG NovoLIN R NovoLIN R No NovoLIN R guaiFENesin guaiFENesin No guaiFENesi -Codeine -Codeine n-Codeine tiZANidine tiZANidine No tiZANidine HCl HCl HCl Aspirin 81 Aspirin 81 No Aspirin 81 Bystolic 5 Bystolic 5 No Bystolic 5 MG MG MG HYDROcodone HYDROcodone No HYDROcodon -Acetaminop -Acetaminop e-Acetamin hen 7.5-325 hen 7.5-325 ophen MG MG 7.5-325 MG predniSONE predniSONE No predniSONE Gabapentin Gabapentin No Gabapentin Symbicort Symbicort No Symbicort 160-4.5 160-4.5 160-4.5 MCG/ACT MCG/ACT MCG/ACT Pantoprazol Pantoprazol No Pantoprazo e Sodium 40 e Sodium 40 le Sodium MG MG 40 MG Levothyroxi Levothyroxi No Levothyrox ne Sodium ne Sodium ine Sodium 125 MCG 125 MCG 125 MCG Azithromyci Azithromyci No Azithromyc n n in Aspirin 81 Aspirin 81 No Aspirin 81 predniSONE predniSONE No predniSONE Levothyroxi Levothyroxi No Levothyrox ne Sodium ne Sodium ine Sodium 125 MCG 125 MCG 125 MCG Spiriva Spiriva No Spiriva HandiHaler HandiHaler HandiHaler 18 MCG 18 MCG 18 MCG Azithromyci Azithromyci No Azithromyc n n in Citalopram Citalopram No Citalopram Hydrobromid Hydrobromid Hydrobromi e 20 MG e 20 MG de 20 MG HYDROcodone HYDROcodone No HYDROcodon -Acetaminop -Acetaminop e-Acetamin hen 7.5-325 hen 7.5-325 ophen MG MG 7.5-325 MG Bystolic 5 Bystolic 5 No Bystolic 5 MG MG MG Symbicort Symbicort No Symbicort 160-4.5 160-4.5 160-4.5 MCG/ACT MCG/ACT MCG/ACT Gabapentin Gabapentin No Gabapentin tiZANidine tiZANidine No tiZANidine HCl HCl HCl Pantoprazol Pantoprazol No Pantoprazo e Sodium 40 e Sodium 40 le Sodium MG MG 40 MG Levemir Levemir No Levemir FlexTouch FlexTouch FlexTouch 100 UNIT/ML 100 UNIT/ML 100 UNIT/ML Atrovent 18 Atrovent 18 No Atrovent MCG/ACT MCG/ACT 18 MCG/ACT guaiFENesin guaiFENesin No guaiFENesi -Codeine -Codeine n-Codeine Atorvastati Atorvastati No Atorvastat n Calcium n Calcium in Calcium 40 MG 40 MG 40 MG Clopidogrel Clopidogrel No Clopidogre Bisulfate Bisulfate l 75 MG 75 MG Bisulfate 75 MG Incruse Incruse No Incruse Ellipta Ellipta Ellipta [place] No 1{table [place] 10-325 MG 10-325 MG t_as_ne 10-325 MG eded} Lisinopril Lisinopril No Lisinopril 10 MG 10 MG 10 MG Lasix 40 MG Lasix 40 MG No 1{table QD Lasix 40 t} MG NovoLIN R NovoLIN R No NovoLIN R tiZANidine tiZANidine No HCl HCl Pantoprazol Pantoprazol No e Sodium 40 e Sodium 40 MG MG Atrovent 18 Atrovent 18 No MCG/ACT MCG/ACT Lisinopril Lisinopril No 10 MG 10 MG Clopidogrel Clopidogrel No Bisulfate Bisulfate 75 MG 75 MG Atorvastati Atorvastati No n Calcium n Calcium 40 MG 40 MG Symbicort Symbicort No 160-4.5 160-4.5 MCG/ACT MCG/ACT Levemir Levemir No FlexTouch FlexTouch 100 UNIT/ML 100 UNIT/ML Lasix 40 MG Lasix 40 MG No 1{table QD t} Levothyroxi Levothyroxi No ne Sodium ne Sodium 125 MCG 125 MCG NovoLIN R NovoLIN R No Gabapentin Gabapentin No Spiriva Spiriva No HandiHaler HandiHaler 18 MCG 18 MCG Aspirin 81 Aspirin 81 No Incruse Incruse No Ellipta Ellipta [place] No 1{table 10-325 MG 10-325 MG t_as_ne eded} predniSONE predniSONE No HYDROcodone HYDROcodone No -Acetaminop -Acetaminop hen 7.5-325 hen 7.5-325 MG MG guaiFENesin guaiFENesin No -Codeine -Codeine Bystolic 5 Bystolic 5 No MG MG Citalopram Citalopram No Hydrobromid Hydrobromid e 20 MG e 20 MG Azithromyci Azithromyci No n n tiZANidine tiZANidine No tiZANidine HCl HCl HCl Pantoprazol Pantoprazol No Pantoprazo e Sodium 40 e Sodium 40 le Sodium MG MG 40 MG Atrovent 18 Atrovent 18 No Atrovent MCG/ACT MCG/ACT 18 MCG/ACT Lisinopril Lisinopril No Lisinopril 10 MG 10 MG 10 MG Clopidogrel Clopidogrel No Clopidogre Bisulfate Bisulfate l 75 MG 75 MG Bisulfate 75 MG Atorvastati Atorvastati No Atorvastat n Calcium n Calcium in Calcium 40 MG 40 MG 40 MG Symbicort Symbicort No Symbicort 160-4.5 160-4.5 160-4.5 MCG/ACT MCG/ACT MCG/ACT Levemir Levemir No Levemir FlexTouch FlexTouch FlexTouch 100 UNIT/ML 100 UNIT/ML 100 UNIT/ML Lasix 40 MG Lasix 40 MG No 1{table QD Lasix 40 t} MG Levothyroxi Levothyroxi No Levothyrox ne Sodium ne Sodium ine Sodium 125 MCG 125 MCG 125 MCG NovoLIN R NovoLIN R No NovoLIN R Gabapentin Gabapentin No Gabapentin Spiriva Spiriva No Spiriva HandiHaler HandiHaler HandiHaler 18 MCG 18 MCG 18 MCG Aspirin 81 Aspirin 81 No Aspirin 81 Incruse Incruse No Incruse Ellipta Ellipta Ellipta [place] No 1{table [place] 10-325 MG 10-325 MG t_as_ne 10-325 MG eded} predniSONE predniSONE No predniSONE HYDROcodone HYDROcodone No HYDROcodon -Acetaminop -Acetaminop e-Acetamin hen 7.5-325 hen 7.5-325 ophen MG MG 7.5-325 MG guaiFENesin guaiFENesin No guaiFENesi -Codeine -Codeine n-Codeine Bystolic 5 Bystolic 5 No Bystolic 5 MG MG MG Citalopram Citalopram No Citalopram Hydrobromid Hydrobromid Hydrobromi e 20 MG e 20 MG de 20 MG Azithromyci Azithromyci No Azithromyc n n in Clopidogrel Clopidogrel No Clopidogre Bisulfate Bisulfate l 75 MG 75 MG Bisulfate 75 MG Spiriva Spiriva No Spiriva HandiHaler HandiHaler HandiHaler 18 MCG 18 MCG 18 MCG Lasix 40 MG Lasix 40 MG No 1{table QD Lasix 40 t} MG HYDROcodone HYDROcodone No HYDROcodon -Acetaminop -Acetaminop e-Acetamin hen 7.5-325 hen 7.5-325 ophen MG MG 7.5-325 MG Atrovent 18 Atrovent 18 No Atrovent MCG/ACT MCG/ACT 18 MCG/ACT predniSONE predniSONE No predniSONE Aspirin 81 Aspirin 81 No Aspirin 81 guaiFENesin guaiFENesin No guaiFENesi -Codeine -Codeine n-Codeine NovoLIN R NovoLIN R No NovoLIN R Incruse Incruse No Incruse Ellipta Ellipta Ellipta [place] No 1{table [place] 10-325 MG 10-325 MG t_as_ne 10-325 MG eded} Atorvastati Atorvastati No Atorvastat n Calcium n Calcium in Calcium 40 MG 40 MG 40 MG Lisinopril Lisinopril No Lisinopril 10 MG 10 MG 10 MG Gabapentin Gabapentin No Gabapentin Pantoprazol Pantoprazol No Pantoprazo e Sodium 40 e Sodium 40 le Sodium MG MG 40 MG Bystolic 5 Bystolic 5 No Bystolic 5 MG MG MG Citalopram Citalopram No Citalopram Hydrobromid Hydrobromid Hydrobromi e 20 MG e 20 MG de 20 MG Azithromyci Azithromyci No Azithromyc n n in tiZANidine tiZANidine No tiZANidine HCl HCl HCl Levothyroxi Levothyroxi No Levothyrox ne Sodium ne Sodium ine Sodium 125 MCG 125 MCG 125 MCG Symbicort Symbicort No Symbicort 160-4.5 160-4.5 160-4.5 MCG/ACT MCG/ACT MCG/ACT Levemir Levemir No Levemir FlexTouch FlexTouch FlexTouch 100 UNIT/ML 100 UNIT/ML 100 UNIT/ML Clopidogrel Clopidogrel No Clopidogre Bisulfate Bisulfate l 75 MG 75 MG Bisulfate 75 MG Spiriva Spiriva No Spiriva HandiHaler HandiHaler HandiHaler 18 MCG 18 MCG 18 MCG Lasix 40 MG Lasix 40 MG No 1{table QD Lasix 40 t} MG HYDROcodone HYDROcodone No HYDROcodon -Acetaminop -Acetaminop e-Acetamin hen 7.5-325 hen 7.5-325 ophen MG MG 7.5-325 MG Atrovent 18 Atrovent 18 No Atrovent MCG/ACT MCG/ACT 18 MCG/ACT predniSONE predniSONE No predniSONE Aspirin 81 Aspirin 81 No Aspirin 81 guaiFENesin guaiFENesin No guaiFENesi -Codeine -Codeine n-Codeine NovoLIN R NovoLIN R No NovoLIN R Incruse Incruse No Incruse Ellipta Ellipta Ellipta [place] No 1{table [place] 10-325 MG 10-325 MG t_as_ne 10-325 MG eded} Atorvastati Atorvastati No Atorvastat n Calcium n Calcium in Calcium 40 MG 40 MG 40 MG Lisinopril Lisinopril No Lisinopril 10 MG 10 MG 10 MG Gabapentin Gabapentin No Gabapentin Pantoprazol Pantoprazol No Pantoprazo e Sodium 40 e Sodium 40 le Sodium MG MG 40 MG Bystolic 5 Bystolic 5 No Bystolic 5 MG MG MG Citalopram Citalopram No Citalopram Hydrobromid Hydrobromid Hydrobromi e 20 MG e 20 MG de 20 MG Azithromyci Azithromyci No Azithromyc n n in tiZANidine tiZANidine No tiZANidine HCl HCl HCl Levothyroxi Levothyroxi No Levothyrox ne Sodium ne Sodium ine Sodium 125 MCG 125 MCG 125 MCG Symbicort Symbicort No Symbicort 160-4.5 160-4.5 160-4.5 MCG/ACT MCG/ACT MCG/ACT Levemir Levemir No Levemir FlexTouch FlexTouch FlexTouch 100 UNIT/ML 100 UNIT/ML 100 UNIT/ML Clopidogrel Clopidogrel No Clopidogre Bisulfate Bisulfate l 75 MG 75 MG Bisulfate 75 MG Spiriva Spiriva No Spiriva HandiHaler HandiHaler HandiHaler 18 MCG 18 MCG 18 MCG Lasix 40 MG Lasix 40 MG No 1{table QD Lasix 40 t} MG HYDROcodone HYDROcodone No HYDROcodon -Acetaminop -Acetaminop e-Acetamin hen 7.5-325 hen 7.5-325 ophen MG MG 7.5-325 MG Atrovent 18 Atrovent 18 No Atrovent MCG/ACT MCG/ACT 18 MCG/ACT predniSONE predniSONE No predniSONE Aspirin 81 Aspirin 81 No Aspirin 81 guaiFENesin guaiFENesin No guaiFENesi -Codeine -Codeine n-Codeine NovoLIN R NovoLIN R No NovoLIN R Incruse Incruse No Incruse Ellipta Ellipta Ellipta [place] No 1{table [place] 10-325 MG 10-325 MG t_as_ne 10-325 MG eded} Atorvastati Atorvastati No Atorvastat n Calcium n Calcium in Calcium 40 MG 40 MG 40 MG Lisinopril Lisinopril No Lisinopril 10 MG 10 MG 10 MG Gabapentin Gabapentin No Gabapentin Pantoprazol Pantoprazol No Pantoprazo e Sodium 40 e Sodium 40 le Sodium MG MG 40 MG Bystolic 5 Bystolic 5 No Bystolic 5 MG MG MG Citalopram Citalopram No Citalopram Hydrobromid Hydrobromid Hydrobromi e 20 MG e 20 MG de 20 MG Azithromyci Azithromyci No Azithromyc n n in tiZANidine tiZANidine No tiZANidine HCl HCl HCl Levothyroxi Levothyroxi No Levothyrox ne Sodium ne Sodium ine Sodium 125 MCG 125 MCG 125 MCG Symbicort Symbicort No Symbicort 160-4.5 160-4.5 160-4.5 MCG/ACT MCG/ACT MCG/ACT Levemir Levemir No Levemir FlexTouch FlexTouch FlexTouch 100 UNIT/ML 100 UNIT/ML 100 UNIT/ML Atrovent 18 Atrovent 18 No Atrovent MCG/ACT MCG/ACT 18 MCG/ACT Clopidogrel Clopidogrel No Clopidogre Bisulfate Bisulfate l 75 MG 75 MG Bisulfate 75 MG Lasix 40 MG Lasix 40 MG No 1{table QD Lasix 40 t} MG Bystolic 5 Bystolic 5 No Bystolic 5 MG MG MG Levemir Levemir No Levemir FlexTouch FlexTouch FlexTouch 100 UNIT/ML 100 UNIT/ML 100 UNIT/ML Citalopram Citalopram No Citalopram Hydrobromid Hydrobromid Hydrobromi e 20 MG e 20 MG de 20 MG Levothyroxi Levothyroxi No Levothyrox ne Sodium ne Sodium ine Sodium 125 MCG 125 MCG 125 MCG Atorvastati Atorvastati No Atorvastat n Calcium n Calcium in Calcium 40 MG 40 MG 40 MG Spiriva Spiriva No Spiriva HandiHaler HandiHaler HandiHaler 18 MCG 18 MCG 18 MCG guaiFENesin guaiFENesin No guaiFENesi -Codeine -Codeine n-Codeine Aspirin 81 Aspirin 81 No Aspirin 81 Symbicort Symbicort No Symbicort 160-4.5 160-4.5 160-4.5 MCG/ACT MCG/ACT MCG/ACT [place] No 1{table [place] 10-325 MG 10-325 MG t_as_ne 10-325 MG eded} Pantoprazol Pantoprazol No Pantoprazo e Sodium 40 e Sodium 40 le Sodium MG MG 40 MG NovoLIN R NovoLIN R No NovoLIN R Gabapentin Gabapentin No Gabapentin Azithromyci Azithromyci No Azithromyc n n in Incruse Incruse No Incruse Ellipta Ellipta Ellipta predniSONE predniSONE No predniSONE HYDROcodone HYDROcodone No HYDROcodon -Acetaminop -Acetaminop e-Acetamin hen 7.5-325 hen 7.5-325 ophen MG MG 7.5-325 MG Lisinopril Lisinopril No Lisinopril 10 MG 10 MG 10 MG tiZANidine tiZANidine No tiZANidine HCl HCl HCl Lisinopril Lisinopril No Lisinopril 10 MG 10 MG 10 MG Aspirin 81 Aspirin 81 No Aspirin 81 Colchicine Colchicine No 1{table TID Colchicine 0.6 MG 0.6 MG t} 0.6 MG NovoLIN R NovoLIN R No NovoLIN R Bystolic 5 Bystolic 5 No Bystolic 5 MG MG MG Gabapentin Gabapentin No Gabapentin Pantoprazol Pantoprazol No Pantoprazo e Sodium 40 e Sodium 40 le Sodium MG MG 40 MG Symbicort Symbicort No Symbicort 160-4.5 160-4.5 160-4.5 MCG/ACT MCG/ACT MCG/ACT Spiriva Spiriva No Spiriva HandiHaler HandiHaler HandiHaler 18 MCG 18 MCG 18 MCG Azithromyci Azithromyci No Azithromyc n n in predniSONE predniSONE No 1{table QD predniSONE 10 MG 10 MG t} 10 MG HYDROcodone HYDROcodone No HYDROcodon -Acetaminop -Acetaminop e-Acetamin hen 7.5-325 hen 7.5-325 ophen MG MG 7.5-325 MG Atrovent 18 Atrovent 18 No Atrovent MCG/ACT MCG/ACT 18 MCG/ACT Atorvastati Atorvastati No Atorvastat n Calcium n Calcium in Calcium 40 MG 40 MG 40 MG Levothyroxi Levothyroxi No Levothyrox ne Sodium ne Sodium ine Sodium 125 MCG 125 MCG 125 MCG Incruse Incruse No Incruse Ellipta Ellipta Ellipta tiZANidine tiZANidine No tiZANidine HCl HCl HCl Citalopram Citalopram No Citalopram Hydrobromid Hydrobromid Hydrobromi e 20 MG e 20 MG de 20 MG Lasix 40 MG Lasix 40 MG No 1{table QD Lasix 40 t} MG predniSONE predniSONE No predniSONE [place] No 1{table [place] 10-325 MG 10-325 MG t_as_ne 10-325 MG eded} guaiFENesin guaiFENesin No guaiFENesi -Codeine -Codeine n-Codeine Levemir Levemir No Levemir FlexTouch FlexTouch FlexTouch 100 UNIT/ML 100 UNIT/ML 100 UNIT/ML Clopidogrel Clopidogrel No Clopidogre Bisulfate Bisulfate l 75 MG 75 MG Bisulfate 75 MG Aspirin 81 Aspirin 81 No Aspirin 81 Spiriva Spiriva No Spiriva HandiHaler HandiHaler HandiHaler 18 MCG 18 MCG 18 MCG Azithromyci Azithromyci No Azithromyc n n in guaiFENesin guaiFENesin No guaiFENesi -Codeine -Codeine n-Codeine Pantoprazol Pantoprazol No Pantoprazo e Sodium 40 e Sodium 40 le Sodium MG MG 40 MG NovoLIN R NovoLIN R No NovoLIN R Gabapentin Gabapentin No Gabapentin Lasix 40 MG Lasix 40 MG No 1{table QD Lasix 40 t} MG Bystolic 5 Bystolic 5 No Bystolic 5 MG MG MG Atrovent 18 Atrovent 18 No Atrovent MCG/ACT MCG/ACT 18 MCG/ACT Atorvastati Atorvastati No Atorvastat n Calcium n Calcium in Calcium 40 MG 40 MG 40 MG predniSONE predniSONE No 1{table QD predniSONE 10 MG 10 MG t} 10 MG Colchicine Colchicine No 1{table TID Colchicine 0.6 MG 0.6 MG t} 0.6 MG Incruse Incruse No Incruse Ellipta Ellipta Ellipta NovoLIN R NovoLIN R No NovoLIN R guaiFENesin guaiFENesin No guaiFENesi -Codeine -Codeine n-Codeine Symbicort Symbicort No Symbicort 160-4.5 160-4.5 160-4.5 MCG/ACT MCG/ACT MCG/ACT Levothyroxi Levothyroxi No Levothyrox ne Sodium ne Sodium ine Sodium 125 MCG 125 MCG 125 MCG Clopidogrel Clopidogrel No Clopidogre Bisulfate Bisulfate l 75 MG 75 MG Bisulfate 75 MG Lisinopril Lisinopril No Lisinopril 10 MG 10 MG 10 MG tiZANidine tiZANidine No tiZANidine HCl HCl HCl Levemir Levemir No Levemir FlexTouch FlexTouch FlexTouch 100 UNIT/ML 100 UNIT/ML 100 UNIT/ML [place] No 1{table [place] 10-325 MG 10-325 MG t_as_ne 10-325 MG eded} Citalopram Citalopram No Citalopram Hydrobromid Hydrobromid Hydrobromi e 20 MG e 20 MG de 20 MG predniSONE predniSONE No predniSONE Pantoprazol Pantoprazol No Pantoprazo e Sodium 40 e Sodium 40 le Sodium MG MG 40 MG HYDROcodone HYDROcodone No HYDROcodon -Acetaminop -Acetaminop e-Acetamin hen 7.5-325 hen 7.5-325 ophen MG MG 7.5-325 MG Clopidogrel Clopidogrel No Clopidogre Bisulfate Bisulfate l 75 MG 75 MG Bisulfate 75 MG Incruse Incruse No Incruse Ellipta Ellipta Ellipta [place] No 1{table [place] 10-325 MG 10-325 MG t_as_ne 10-325 MG eded} Azithromyci Azithromyci No Azithromyc n n in Aspirin 81 Aspirin 81 No Aspirin 81 Spiriva Spiriva No Spiriva HandiHaler HandiHaler HandiHaler 18 MCG 18 MCG 18 MCG Azithromyci Azithromyci No Azithromyc n n in Pantoprazol Pantoprazol No Pantoprazo e Sodium 40 e Sodium 40 le Sodium MG MG 40 MG NovoLIN R NovoLIN R No NovoLIN R Gabapentin Gabapentin No Gabapentin Lasix 40 MG Lasix 40 MG No 1{table QD Lasix 40 t} MG Bystolic 5 Bystolic 5 No Bystolic 5 MG MG MG Atrovent 18 Atrovent 18 No Atrovent MCG/ACT MCG/ACT 18 MCG/ACT Symbicort Symbicort No Symbicort 160-4.5 160-4.5 160-4.5 MCG/ACT MCG/ACT MCG/ACT Atorvastati Atorvastati No Atorvastat n Calcium n Calcium in Calcium 40 MG 40 MG 40 MG predniSONE predniSONE No 1{table QD predniSONE 10 MG 10 MG t} 10 MG Colchicine Colchicine No 1{table TID Colchicine 0.6 MG 0.6 MG t} 0.6 MG Incruse Incruse No Incruse Ellipta Ellipta Ellipta guaiFENesin guaiFENesin No guaiFENesi -Codeine -Codeine n-Codeine Symbicort Symbicort No Symbicort 160-4.5 160-4.5 160-4.5 MCG/ACT MCG/ACT MCG/ACT Levothyroxi Levothyroxi No Levothyrox ne Sodium ne Sodium ine Sodium 125 MCG 125 MCG 125 MCG Clopidogrel Clopidogrel No Clopidogre Bisulfate Bisulfate l 75 MG 75 MG Bisulfate 75 MG Lisinopril Lisinopril No Lisinopril 10 MG 10 MG 10 MG tiZANidine tiZANidine No tiZANidine HCl HCl HCl Levothyroxi Levothyroxi No Levothyrox ne Sodium ne Sodium ine Sodium 125 MCG 125 MCG 125 MCG Levemir Levemir No Levemir FlexTouch FlexTouch FlexTouch 100 UNIT/ML 100 UNIT/ML 100 UNIT/ML [place] No 1{table [place] 10-325 MG 10-325 MG t_as_ne 10-325 MG eded} Citalopram Citalopram No Citalopram Hydrobromid Hydrobromid Hydrobromi e 20 MG e 20 MG de 20 MG predniSONE predniSONE No predniSONE HYDROcodone HYDROcodone No HYDROcodon -Acetaminop -Acetaminop e-Acetamin hen 7.5-325 hen 7.5-325 ophen MG MG 7.5-325 MG Lisinopril Lisinopril No Lisinopril 10 MG 10 MG 10 MG Citalopram Citalopram No Citalopram Hydrobromid Hydrobromid Hydrobromi e 20 MG e 20 MG de 20 MG tiZANidine tiZANidine No tiZANidine HCl HCl HCl Bystolic 5 Bystolic 5 No Bystolic 5 MG MG MG NovoLIN R NovoLIN R No NovoLIN R Bystolic 5 Bystolic 5 No Bystolic 5 MG MG MG Spiriva Spiriva No Spiriva HandiHaler HandiHaler HandiHaler 18 MCG 18 MCG 18 MCG Azithromyci Azithromyci No Azithromyc n n in Aspirin 81 Aspirin 81 No Aspirin 81 Atorvastati Atorvastati No Atorvastat n Calcium n Calcium in Calcium 40 MG 40 MG 40 MG [place] No 1{table [place] 10-325 MG 10-325 MG t_as_ne 10-325 MG eded} tiZANidine tiZANidine No tiZANidine HCl HCl HCl Colchicine Colchicine No 1{table TID Colchicine 0.6 MG 0.6 MG t} 0.6 MG Atrovent 18 Atrovent 18 No Atrovent MCG/ACT MCG/ACT 18 MCG/ACT predniSONE predniSONE No predniSONE Citalopram Citalopram No Citalopram Hydrobromid Hydrobromid Hydrobromi e 20 MG e 20 MG de 20 MG guaiFENesin guaiFENesin No guaiFENesi -Codeine -Codeine n-Codeine predniSONE predniSONE No 1{table QD predniSONE 10 MG 10 MG t} 10 MG Atorvastati Atorvastati No Atorvastat n Calcium n Calcium in Calcium 40 MG 40 MG 40 MG Lisinopril Lisinopril No Lisinopril 10 MG 10 MG 10 MG predniSONE predniSONE No predniSONE Lasix 40 MG Lasix 40 MG No 1{table QD Lasix 40 t} MG HYDROcodone HYDROcodone No HYDROcodon -Acetaminop -Acetaminop e-Acetamin hen 7.5-325 hen 7.5-325 ophen MG MG 7.5-325 MG Levemir Levemir No Levemir FlexTouch FlexTouch FlexTouch 100 UNIT/ML 100 UNIT/ML 100 UNIT/ML Pantoprazol Pantoprazol No Pantoprazo e Sodium 40 e Sodium 40 le Sodium MG MG 40 MG Levothyroxi Levothyroxi No Levothyrox ne Sodium ne Sodium ine Sodium 125 MCG 125 MCG 125 MCG Incruse Incruse No Incruse Ellipta Ellipta Ellipta Symbicort Symbicort No Symbicort 160-4.5 160-4.5 160-4.5 MCG/ACT MCG/ACT MCG/ACT Gabapentin Gabapentin No Gabapentin Clopidogrel Clopidogrel No Clopidogre Bisulfate Bisulfate l 75 MG 75 MG Bisulfate 75 MG Atrovent 18 Atrovent 18 No Atrovent MCG/ACT MCG/ACT 18 MCG/ACT Spiriva Spiriva No Spiriva HandiHaler HandiHaler HandiHaler 18 MCG 18 MCG 18 MCG Aspirin 81 Aspirin 81 No Aspirin 81 HYDROcodone HYDROcodone No HYDROcodon -Acetaminop -Acetaminop e-Acetamin hen 7.5-325 hen 7.5-325 ophen MG MG 7.5-325 MG Levemir Levemir No Levemir FlexTouch FlexTouch FlexTouch 100 UNIT/ML 100 UNIT/ML 100 UNIT/ML Lasix 40 MG Lasix 40 MG No 1{table QD Lasix 40 t} MG Vital Signs Vital Name Observation Time Observation Value Comments Source height 2022-03-01 14:30:00 67.5 [in_i] [facility] weight 2022-03-01 14:30:00 260 [lb_av] [facility] temperature 2022-03-01 14:30:00 98.0 [degF] [facility] bmi 2022-03-01 14:30:00 40.12 kg/m2 [facility] blood pressure 2022-03-01 14:30:00 136 mm[Hg] [facility] systolic [facility] blood pressure 2022-03-01 14:30:00 84 mm[Hg] [facility] diastolic [facility] height 2022-01-25 13:00:00 67.5 [in_i] [facility] weight 2022-01-25 13:00:00 260 [lb_av] [facility] temperature 2022-01-25 13:00:00 97.9 [degF] [facility] bmi 2022-01-25 13:00:00 40.12 kg/m2 [facility] blood pressure 2022-01-25 13:00:00 154 mm[Hg] [facility] systolic [facility] blood pressure 2022-01-25 13:00:00 84 mm[Hg] [facility] diastolic [facility] height 2022-01-18 15:00:00 67.5 [in_i] [facility] weight 2022-01-18 15:00:00 260 [lb_av] [facility] temperature 2022-01-18 15:00:00 97.6 [degF] [facility] bmi 2022-01-18 15:00:00 40.12 kg/m2 [facility] blood pressure 2022-01-18 15:00:00 144 mm[Hg] [facility] systolic [facility] blood pressure 2022-01-18 15:00:00 92 mm[Hg] [facility] diastolic [facility] height 2022-01-11 14:30:00 67.5 [in_i] [facility] weight 2022-01-11 14:30:00 270 [lb_av] [facility] temperature 2022-01-11 14:30:00 97.6 [degF] [facility] bmi 2022-01-11 14:30:00 41.66 kg/m2 [facility] blood pressure 2022-01-11 14:30:00 146 mm[Hg] [facility] systolic [facility] blood pressure 2022-01-11 14:30:00 86 mm[Hg] [facility] diastolic [facility] height 2021-12-15 14:00:00 67.5 [in_i] [facility] weight 2021-12-15 14:00:00 274 [lb_av] [facility] temperature 2021-12-15 14:00:00 98.3 [degF] [facility] bmi 2021-12-15 14:00:00 42.28 kg/m2 [facility] blood pressure 2021-12-15 14:00:00 154 mm[Hg] [facility] systolic [facility] blood pressure 2021-12-15 14:00:00 94 mm[Hg] [facility] height 2021-11-25 13:00:00 67.5 [in_i] [facility] weight 2021-11-25 13:00:00 274 [lb_av] [facility] temperature 2021-11-25 13:00:00 97.4 [degF] [facility] 2021-11-25 13:00:00 42.28 kg/m2 [facility] blood pressure 2021-11-25 13:00:00 146 mm[Hg] [facility] systolic [facility] blood pressure 2021-11-25 13:00:00 86 mm[Hg] [facility] height 2021-09-24 13:30:00 67.5 [in_i] [facility] weight 2021-09-24 13:30:00 274 [lb_av] [facility] temperature 2021-09-24 13:30:00 97.1 [degF] [facility] bmi 2021-09-24 13:30:00 42.28 kg/m2 [facility] blood pressure 2021-09-24 13:30:00 154 mm[Hg] [facility] systolic [facility] blood pressure 2021-09-24 13:30:00 92 mm[Hg] [facility] height 2021-07-14 13:30:00 67.5 [in_i] [facility] weight 2021-07-14 13:30:00 276 [lb_av] [facility] bmi 2021-07-14 13:30:00 42.59 kg/m2 [facility] blood pressure 2021-07-14 13:30:00 179 mm[Hg] [facility] systolic [facility] blood pressure 2021-07-14 13:30:00 75 mm[Hg] [facility] Spirit - diastolic [facility] blood pressure 2021-06-29 13:30:00 160 mm[Hg] [facility] - systolic [facility] blood pressure 2021-06-29 13:30:00 69 mm[Hg] [facility] - diastolic [facility] height 2021-06-29 13:30:00 67.5 [in_i] [facility] weight 2021-06-29 13:30:00 276 [lb_av] Common S pirit [facility] bmi 2021-06-29 13:30:00 42.59 kg/m2 Common [facility] Procedures Procedure Date / Time Performed Performing Clinician [facility] ASSIGNMENT OF BENEFITS 2023-06-14 18:59:33 Doctor Unassigned, No [facility] Encounters Start End Encounter Admission Attending Care Care Encounter Source Date/Time Date/Time Type Type Clinicians Facility Department ID 2023-03-[address] [facility] [id number] Common 15:33:00 Herbert [id number] [facility] 2022-01-[address] [facility] [id number] 2 Common 13:28:01 Herbert [facility] 2021-12-17 Outpatient 3 [id number] [place] [id number] [facility] 13:47:04 [facility] [place] 2021-12-17 Outpatient 3 [id number] ENCPL REF [id number] [facility] 13:45:14 [facility] 2021-12-17 Outpatient 3 [id number] ENCPL REF [id number] [facility] 13:40:[address] [facility] 2021-12-16 Outpatient Louise, STLMLC STLMLC [id number] 2 Common 13:36:09 Herbert [id number] [facility] 2021-12-16 Outpatient Louise, STLMLC STLMLC [id number] 2 Common 11:59:04 Herbert [facility] 2021-12-16 Outpatient Louise, STLMLC STLMLC [id number] 2 Common 11:52:28 Herbert [id number] [facility] 2021-12-16 Outpatient Louise, STLMLC STLMLC [id number] 2 Common 11:48:13 Herbert [id number] [facility] 2023-06-14 2023-06-14 Outpatient R WILLIAMS [facility] [id number] Univers 14:00:00 14:39:06 SATISH ity of [facility] 2023-06-14 2023-06-14 Lead Ramp Agent 2, Adc Lab [facility] [id number] Univers 14:00:00 14:15:00 Visit Satish Kramer [id number] 0 [id number] [phone] Ia dical COUNTS INCLUDE 234 BEDS AT THE [facility] 353 [facility] 2023-06-14 2023-06-14 Orders Doctor KALE [id number] Univers 00:00:00 00:00:00 Only Unassigned, RACHEL [id number] ity of [place] [facility] [id number] Demetrius as [phone] [address] 2022-03-01 2022-03-01 OFFICE STLMLC STLMLC [id number] Co mmon 00:00:00 00:00:00 VISIT Spirit ESTAB PT - CHI LEVEL 4 [facility] 2022-01-25 2022-01-25 OFFICE STLMLC STLMLC [id number] Co mmon 00:00:00 00:00:00 VISIT Spirit ESTAB PT - CHI LEVEL 4 [facility] 2022-01-18 2022-01-18 OFFICE STLMLC STLMLC [id number] Co mmon 00:00:00 00:00:00 VISIT Spirit ESTAB PT - CHI LEVEL 4 [facility] 2022-01-11 2022-01-11 OFFICE STLMLC STLMLC [id number] Co mmon 00:00:00 00:00:00 VISIT Spirit ESTAB PT - CHI LEVEL 4 [facility] 2021-12-29 2021-12-29 Telephone [facility] [id number] Univers 00:00:00 00:00:00 Shiwan [place] [id number] i [id number] [phone] Ia dical NAL [address] [place] [address] 2021-12-15 2021-12-15 OFFICE STLMLC STLMLC [id number] Co mmon 00:00:00 00:00:00 VISIT Spirit ESTAB PT - CHI LEVEL 4 [facility] 2021-12-07 2021-12-07 (TEL) STLMLC STLMLC [id number] Co mmon 00:00:00 00:00:00 Spirit - CHI [facility] 2021-12-06 2021-12-06 Telephone [facility] [id number] Univers 00:00:00 00:00:00 Shiwan [place] [id number] i [id number] [phone] Ia dical NAL [address] [place] [address] 2021-11-25 2021-11-25 (TEL) STLMLC STLMLC [id number] Co mmon 00:00:00 00:00:00 Spirit - [facility] 2021-11-25 2021-11-25 OFFICE STLMLC STLMLC [id number] Co mmon 00:00:00 00:00:00 VISIT Spirit ESTAB PT - CHI LEVEL 4 [facility] 2021-11-24 2021-11-24 (TEL) STLMLC STLC [id number] Co mmon 00:00:00 00:00:00 Spirit - [facility]I [facility] 2021-11-20 2021-11-20 Lead Ramp Agent Therapist, Adc Respiratory [facility] [id number] Univers 14:00:00 15:30:00 Visit Tracy Olmos [id number] [id number] [phone] [facility] [address] [place] 2021-11-20 2021-11-20 Outpatient R TRACY OLMOS [facility] 10 [id number] Univers 14:00:00 14:00:00 TRACY OLMOS i ty of [facility] 2021-11-20 2021-11-20 Orders Doctor HENLEY [id number] Univers 00:00:00 00:00:00 Only Unassigned, RACHEL [id number] ity of [facility] [id number] Demetrius [phone] [facility] [address] [place] 2021-09-24 2021-09-24 OFFICE STLC STLC [id number] Co mmon 00:00:00 00:00:00 VISIT Spirit ESTAB PT - CHI LEVEL 4 [facility] 2021-09-10 2021-09-10 Office Paul AZNICK [id number] Univers 14:46:05 15:27:44 Visit Aileen Her [id number] i ty [facility] [id number] [facility] [phone] Ia dic[address] 2021-09-10 2021-09-10 Outpatient R AILEEN NAZARIO [facility] [id number] Univers 15:00:00 15:00:00 AILEEN NAZARIO i ty of [facility] 2021-09-10 2021-09-10 Orders Doctor HENLEY [id number] 00:00:00 00:00:00 Only Unassigned, RACHEL [id number] ity of [place] [facility] [id number] Demetrius as [phone] [place] [address] Branch 2021-08-26 2021-08-26 (TEL) STLMLC STLMLC [id number] Co mmon 00:00:00 00:00:00 [facility] 2021-07-14 2021-07-14 OFFICE STLMLC STLMLC [id number] Co mmon 00:00:00 00:00:00 VISIT [facility] PT - CHI LEVEL 4 [facility] 2021-06-29 2021-06-29 OFFICE STLMLC STLMLC [id number] Co mmon 00:00:00 00:00:00 VISIT [facility] PT - CHI LEVEL 4 [facility] 2020-10-14 2020-10-14 Outpatient STLMLC STLMLC [id number] Common 00:00:00 00:00:00 [facility] 2020-10-06 2020-10-06 Outpatient STLMLC STLMLC [id number] Common 00:00:00 00:00:00 [facility] 2020-09-23 2020-09-23 Outpatient STLMLC STLMLC [id number] Common 00:00:00 00:00:00 [facility] 2020-08-29 2020-08-29 Outpatient STLMLC STLMLC [id number] Common 00:00:00 00:00:00 [facility] 2020-08-26 2020-08-26 Outpatient STLMLC STLMLC [id number] Common 00:00:00 00:00:00 [facility] Results This patient has no known results.
[2023-08-31] MEDS ORDERED: ONDANSETRON 4 MG (ODT) TAB ONE (16:09)
[2023-08-31] MEDS ORDERED: MORPHINE 4 MG/ML SYR ONE (16:09)
--- NOTE | 2023-08-31 17:15 | RAD REPORT ---
EXAM DESCRIPTION: RAD - Knee Left 3 View - 08/31/2023 5:08 pm CLINICAL HISTORY: PAIN COMPARISON: No comparisons FINDINGS: Prominent diffuse osteopenia. Significant tricompartmental osteoarthritis, reaching bone-o n-bone severity medially. No acute fracture, dislocation or joint effusion seen. Moderate atheroscler osis.
--- NOTE | 2023-08-31 17:18 | RAD REPORT ---
EXAM DESCRIPTION: RAD - Ankle Right 3 View - 08/31/2023 5:08 pm CLINICAL HISTORY: PAIN COMPARISON: No comparisons FINDINGS: Diffuse osteopenia. Moderate soft tissue swelling about the ankle. Small calcaneal spurs a re present. No acute fracture. Mild atherosclerosis. IMPRESSION: No acute fracture is seen.
--- NOTE | 2023-08-31 17:18 | RAD REPORT ---
EXAM DESCRIPTION: RAD - Shoulder Left 2 View - 08/31/2023 5:08 pm CLINICAL HISTORY: PAIN COMPARISON: Shoulder Left 2 View dated 10/08/2011 FINDINGS: Mildly impacted fracture of the proximal left humerus is seen. No dislocation.
--- NOTE | 2023-08-31 17:19 | RAD REPORT ---
EXAM DESCRIPTION: RAD - Humerus Left - 08/31/2023 5:08 pm CLINICAL HISTORY: PAIN COMPARISON: No comparisons FINDINGS: Diffuse osteopenia. Moderately impacted fracture the proximal left humerus is seen. No dis location evident.
--- NOTE | 2023-08-31 17:20 | RAD REPORT ---
EXAM DESCRIPTION: RAD - Foot Right 3 View - 08/31/2023 5:08 pm CLINICAL HISTORY: PAIN COMPARISON: FOOT W OBLIQUES dated 11/03/2008 FINDINGS: Mildly displaced fracture involving the shaft of the fifth metatarsal anteriorly. Small ca lcaneal spurs. No dislocation grossly appreciated.
[2023-08-31] MEDS ORDERED: HYDROCODONE/APAP 5/325 MG TAB ONE (17:57)
--- NOTE | 2023-08-31 18:17 | EDPHYS ---
Physician Documentation [facility] Name: Michelle Beverly Age: 82 yrs Sex: Female : 1940 Arrival Date: 08/31/2023 Time: 15:34 Bed 7 Private MD: ED Physician Damir Zazueta HPI: 08/31 16:51 This 82 yrs old Female presents to ER via EMS with complaints of Fall Injury. sb4 16:53 Patient states she was walking in her house when she rolled her right ankle and fell sb4 down against the wall. She does not think she hit her head. She is on Plavix. She did not lose consciousness. She is complaining of pain to her left shoulder, left knee, right ankle. Historical: - Allergies: 15:48 Phenobarbital; me1 - PMHx: 15:48 Chronic obstructive lung disease; Congestive heart failure; diabetes mellitus; me1 Hypertensive disorder; Hypothyroidism; - PSHx: 15:48 3 cardiac stents; cataract repair; bowel resection; laminectomy; Cholecystectomy; me1 - Immunization history:: Adult Immunizations up to date. - Social history:: Smoking status: Patient/guardian denies using tobacco, but has a distant history of tobacco abuse. ROS: 16:53 Constitutional: Negative for fever, chills, and weight loss, sb4 16:53 MS/extremity: Positive for injury or acute deformity, pain, left shoulder, left knee, right ankle, 16:53 Skin: Positive for skin tear right arm, Exam: 16:53 Constitutional: This is a well developed, well nourished patient who is awake, alert, sb4 and in no acute distress. Head/Face: Normocephalic, atraumatic. Eyes: Extra-ocular motions intact. Periorbital areas with no swelling, redness, or edema. ENT: Mucous membranes moist. 16:53 Cardiovascular: Regular rate and rhythm with a normal S1 and S2. Respiratory: Lungs have equal breath sounds bilaterally, clear to auscultation and percussion. No rales, rhonchi or wheezes noted. No increased work of breathing, no retractions or nasal flaring. Abdomen/GI: Soft, non-tender, no distension. 16:53 Musculoskeletal/extremity: pain with palpation to left proximal humerus, sling in place. ecchymosis noted to left knee, painful to palpation and with ROM. swelling noted to right ankle. 16:53 Skin: injury, 3 cm superficial skin tear superior to right elbow, Vital Signs: 15:43 BP 203 / 70; Pulse 60; Resp 18; Temp 98.3(O); Pulse Ox 98% on 4 lpm NC; Weight 124.28 me1 kg; Height 5 ft. 7 in. ; 19:17 BP 169 / 61; Pulse 60; Resp 18; Pulse Ox 98% on R/A; jb4 15:43 Body Mass Index 42.91 (124.28 kg, 170.18 cm) me1 MDM: 15:44 Patient medically screened. sb4 16:53 Differential diagnosis: contusion, fracture, laceration, multiple trauma, sprain, sb4 strain. 18:17 Data reviewed: vital signs, nurses notes, radiologic studies, I have discussed the sb4 patient's presentation/case with the attending Emergency Department Physician; and as a result, I will admit patient. Consideration of Admission/Observation Patient was admitted/placed on observation. Management of patient was discussed with the following: Primary Care Provider: Dr. Gil, agrees to admit. Historians other than the Patient: Daughter/Son: son. Care significantly affected by the following chronic conditions: Diabetes, Hypertension, Congestive Heart Failure, Chronic Obstructive Pulmonary Disease, Obesity. Counseling: I had a detailed discussion with the patient and/or guardian regarding the historical points, exam findings, and any diagnostic results supporting the discharge/admit diagnosis, the presence of at least one elevated blood pressure reading (>120/80) during this emergency department visit, lab results, radiology results, the need for further work-up and treatment in the hospital. 08/31 18:18 Order name: CBC w/o diff sb4 08/31 18:18 Order name: CMP sb4 08/31 18:18 Order name: Magnesium sb4 08/31 18:18 Order name: PT-INR sb4 08/31 15:53 Order name: Shoulder Left (2 View) XRAY; Complete Time: 17:20 sb4 08/31 15:53 Order name: Humerus Left XRAY; Complete Time: 17:20 sb4 08/31 15:53 Order name: Knee Left 3 View XRAY; Complete Time: 17:20 sb4 08/31 15:53 Order name: Ankle Right 3 View XRAY; Complete Time: 17:20 sb4 08/31 16:56 Order name: XRAY Foot RIGHT 3 View; Complete Time: 17:21 ld1 08/31 15:53 Order name: Wound Care: right arm, clean and steri strip please; Complete Time: 16:28 sb4 08/31 17:20 Order name: Sling; Complete Time: 17:46 sb4 08/31 17:30 Order name: Walking boot; Complete Time: 17:46 sb4 08/31 17:30 Order name: Misc. Order: ambulate; Complete Time: 18:11 sb4 Administered Medications: 16:27 Drug: morphine IM 4 mg IM once Route: IM; Site: right deltoid; me1 18:13 Follow up: Response: No adverse reaction; Pain is decreased me1 16:27 Drug: Ondansetron PO 4 mg PO once Route: PO; me1 18:13 Follow up: Response: No adverse reaction; Nausea is decreased me1 17:46 Drug: HYDROcodone-acetaminophen PO 5 mg-325 mg 2 tabs PO once Route: PO; me1 18:13 Follow up: Response: No adverse reaction; Pain is decreased me1 Disposition: 16:55 I was immediately available on-site in the Emergency Department for consultation in the ms3 care of the patient. Disposition Summary: 08/31/23 18:16 Hospitalization Ordered Notes: Hospitalization Status: Inpatient Admission sb4 Provider: Avery Gil sbNara Location: Telemetry/[facility] (Inpatient) sb4 Condition: Fair sb4 Problem: new sb4 Symptoms: are unchanged sb4 Bed/Room Type: Standard sb4 Room Assignment: 201(08/31/23 19:29) cg Diagnosis - Fracture of upper end of humerus sb4 - Fracture of fifth metatarsal bone sb4 - Contusion of left knee sb4 - Fall on same level, unspecified sb4 Forms: - Medication Reconciliation Form sb4 - SBAR form sb4 - Leadership Thank You Letter sb4 Signatures: Dispatcher [employer] Shannan Johnson, RN RN cg Damir Zazueta DO DO ms3 Gabriella Garcia PA-C PAYu sb4 Sheridan Phillips RN RN me1 Corrections: (The following items were deleted from the chart) 19:29 18:16 sb4 cg
--- NOTE | 2023-08-31 18:17 | ER ---
Nurse's Notes [facility] Name: Michelle Beverly Age: 82 yrs Sex: Female : 1940 Arrival Date: 08/31/2023 Time: 15:34 Bed 7 Private MD: Diagnosis: Fracture of upper end of humerus;Fracture of fifth metatarsal bone;Contusion of left knee;Fall on same level, unspecified Presentation: 08/31 15:43 Chief complaint: EMS states: s/p fall. Turned right ankle while walking down the [facility] hallway which caused a fall. Skin tear to right elbow. c/o pain to left posterior shoulder/arm, left knee, right elbow and right ankle/foot. Denies LOC. Coronavirus screen: Vaccine status: Patient reports receiving the 2nd dose of the covid vaccine. Ebola Screen: No symptoms or risks identified at this time. Initial Sepsis Screen: Does the patient meet any 2 criteria? No. Patient's initial sepsis screen is negative. Does the patient have a suspected source of infection? No. Patient's initial sepsis screen is negative. Risk Assessment: Do you want to hurt yourself or someone else? Patient reports no desire to harm self or others. Onset of symptoms was August 31, 2023. 15:43 Method Of Arrival: EMS: [facility] 15:43 Acuity: PAM 3 me1 Triage Assessment: 15:49 General: Appears uncomfortable, obese, well groomed, well developed, Behavior is calm, me1 cooperative, appropriate for age, Reports turning right ankle while walking down the hallway, causing a fall. Skin tear to right elbow. c/o pain to right elbow, left shoulder/arm, left knee and right ankle/foot. Denies LOC. Pain: Complains of pain in left posterior shoulder/arm. Neuro: Level of Consciousness is awake, alert, obeys commands, Oriented to person, place, time, situation, Appropriate for age. Cardiovascular: Capillary refill < 3 seconds Patient's skin is warm and dry. Respiratory: Airway is patent Respiratory effort is even, unlabored, Respiratory pattern is regular, symmetrical. Derm: Wound noted right elbow Wound is skin tear. Musculoskeletal: Reports pain in posterior left shoulder/arm, left knee, right elbow, right ankle/foot. Historical: - Allergies: 15:48 Phenobarbital; me1 - PMHx: 15:48 Chronic obstructive lung disease; Congestive heart failure; diabetes mellitus; me1 Hypertensive disorder; Hypothyroidism; - PSHx: 15:48 3 cardiac stents; cataract repair; bowel resection; laminectomy; Cholecystectomy; me1 - Immunization history:: Adult Immunizations up to date. - Social history:: Smoking status: Patient/guardian denies using tobacco, but has a distant history of tobacco abuse. Screenin:53 [facility] ED Fall Risk Assessment (Adult) History of falling in the last 3 months, me1 including since admission Yes- single mechanical fall (1 pt) Confusion or Disorientation No (0 pts) Intoxicated or Sedated No (0 pts) Impaired Gait Yes (1 pt) Mobility Assist Device Used Yes (1 pt) Altered Elimination No (0 pt) Score/Fall Risk Level 3 or more points = High Risk Oriented to surroundings, Maintained a safe environment, Provided non-skid footwear, Hourly rounding (assess needs \T\ fall precautionary measures) done. Abuse screen: Denies threats or abuse. Nutritional screening: No deficits noted. Tuberculosis screening: No symptoms or risk factors identified. Assessment: 15:52 General: See triage assessment. . me1 18:12 General: Sling to LUE. Walking boot to right foot. Patient able to stand with assist of me1 2 but unable to ambulate at this time. ANDRESSA Peraza aware. . 19:15 Reassessment: ASSUMED CARE OF PT. PT SITTING IN BED. NO DISTRESS NOTED. FOOT BOOT NOTED jj7 TO RIGHT FOOT/ VS STABLE. NO DISTRESS NOTED. CALL FORREST IN REACH. Vital Signs: 15:43 BP 203 / 70; Pulse 60; Resp 18; Temp 98.3(O); Pulse Ox 98% on 4 lpm NC; Weight 124.28 me1 kg; Height 5 ft. 7 in. ; 19:17 BP 169 / 61; Pulse 60; Resp 18; Pulse Ox 98% on R/A; jb4 15:43 Body Mass Index 42.91 (124.28 kg, 170.18 cm) me1 ED Course: 15:43 Patient arrived in ED. me1 15:44 Gabriella [facility] sb4 15:44 Damir Zazueta DO is Attending Physician. sb4 15:48 Triage completed. me1 15:49 Arm band placed on Patient placed in an exam room. me1 15:53 Patient has correct armband on for positive identification. Bed in low position. Call me1 light in reach. Side rails up X2. Provided Education on: POC. Verbalized understanding. . 15:53 No provider procedures requiring assistance completed. me1 16:27 Sheridan Phillips, RN is Primary Nurse. me1 17:10 Shoulder Left (2 View) XRAY In Process Unspecified. EDMS 17:10 Humerus Left XRAY In Process Unspecified. EDMS 17:10 Knee Left 3 View XRAY In Process Unspecified. EDMS 17:10 Ankle Right 3 View XRAY In Process Unspecified. EDMS 17:10 XRAY Foot RIGHT 3 View In Process Unspecified. EDMS 18:14 Avery Gil MD is Hospitalizing Provider. sb4 Administered Medications: 16:27 Drug: morphine IM 4 mg IM once Route: IM; Site: right deltoid; me1 18:13 Follow up: Response: No adverse reaction; Pain is decreased me1 16:27 Drug: Ondansetron PO 4 mg PO once Route: PO; me1 18:13 Follow up: Response: No adverse reaction; Nausea is decreased me1 17:46 Drug: HYDROcodone-acetaminophen PO 5 mg-325 mg 2 tabs PO once Route: PO; me1 18:13 Follow up: Response: No adverse reaction; Pain is decreased me1 Outcome: 18:16 Decision to Hospitalize by Provider. sb4 19:58 Admitted to Med/surg accompanied by tech, via stretcher, room 201, Report called to elliott MCCLAIN RN 19:58 Condition: good 20:31 Patient left the ED. jb4 Signatures: Dispatcher [employer] Ten Fatima RN RN jb4 Evie Wiseman RN RN jj7 Brown, Sophia, PA-Shiv PA-C sb4 Sheridan Phillips, WILLIAM RN me1
[2023-08-31] MEDS ORDERED: ONDANSETRON 4 MG/2 ML VIAL IV PRN (20:12)
[2023-08-31] MEDS ORDERED: ALBUTEROL INHALER 60 PUFF/8 GM IH PRN (20:12)
[2023-08-31] MEDS ORDERED: ORPHENADRINE 100 MG PO PRN (20:12)
[2023-08-31 20:17] LABS: Hematocrit 31.9 % (36.0-45.0); MCV 95.5 fL (80-100); MPV 7.5 fL (7.6-11.3); Platelets 243 thou/uL (152-406); RBC Red Blood Cell Count 3.34 M/uL (3.86-4.86)
[2023-08-31 20:22] LABS: Protime INR 1.13
[2023-08-31 20:36] LABS: Potassium 4.2 mEq/L (3.5-5.1)
[2023-08-31 20:37] LABS: Albumin 3.3 g/dL (3.4-5.0); Bilirubin Total 0.7 mg/dL (0.2-1.0); Magnesium 2.1 mg/dL (1.6-2.4); Protein, Total 6.8 g/dL (6.4-8.2)
[2023-08-31] MEDS: ATORVASTATIN 40 MG TAB PO SCH (21:00)
[2023-08-31] MEDS: INSULIN REGULAR (HUMAN) 100 UNIT/ML SQ SCH (21:00)
[2023-08-31] MEDS: MORPHINE 4 MG/ML SYR IV PRN (21:46)
[2023-08-31] MEDS: GABAPENTIN 100 MG CAP PO SCH (23:41)
[2023-08-31] MEDS: HYDROCODONE/APAP 7.5/325 MG TAB PO SCH (23:41)
[2023-09-01] MEDS: MORPHINE 4 MG/ML SYR IV PRN ×4 (02:15→21:56)
[2023-09-01] MEDS: PANTOPRAZOLE 40MG TABLET PO SCH (05:44)
[2023-09-01] MEDS: LEVOTHYROXINE SOD 0.125 MG TAB PO SCH (05:44)
[2023-09-01 06:08] LABS: Urine Bacteria None Seen /HPF (<20); Urine Bilirubin NEGATIVE (Negative); Urine Blood Negative (Negative); Urine Clarity Clear (Clear); Urine Color Yellow (Yellow); Urine Glucose NEGATIVE (Negative); Urine Protein TRACE (Negative); Urine RBC <5 /HPF (None Seen); Urine Urobilinogen Normal (Normal); Urine pH 5.5 (5.0-7.0)
[2023-09-01] MEDS: INSULIN REGULAR (HUMAN) 100 UNIT/ML SQ SCH ×4 (07:30→20:22)
[2023-09-01] MEDS: CLOPIDOGREL 75 MG TABLET PO SCH (07:58)
[2023-09-01] MEDS: GABAPENTIN 100 MG CAP PO SCH ×3 (07:58→20:05)
[2023-09-01] MEDS: HYDROCODONE/APAP 7.5/325 MG TAB PO SCH (07:58)
[2023-09-01] MEDS: NEBIVOLOL HCL 5 MG TAB PO SCH (07:58)
[2023-09-01] MEDS: FUROSEMIDE 20 MG TABLET PO SCH (07:58)
[2023-09-01] MEDS: CITALOPRAM 10 MG TABLET PO SCH (07:59)
[2023-09-01] MEDS ORDERED: INFLUENZA VACCINE (for 6+ mo) 0.5 ML DOSE IMVAC ONE (08:00)
[2023-09-01] MEDS: INSULIN GLARGINE 100 UNIT/ML SQ SCH (08:00)
[2023-09-01] MEDS: lisinopriL 10 MG TAB PO SCH (08:00)
[2023-09-01] MEDS ORDERED: HOME MED 1 EA UNK (Insulin Detemir [Levemir] 100 UNIT/1 ML Ml) SQ SCH (09:00)
[2023-09-01] MEDS ORDERED: INSULIN DETEMIR 60 UNIT SQ SCH (09:00)
[2023-09-01] MEDS: ONDANSETRON 4 MG/2 ML VIAL IV SCH ×2 (14:31→21:49)
[2023-09-01] MEDS: HYDROCODONE/APAP 10/325 TAB PO SCH ×2 (14:31→20:03)
--- NOTE | 2023-09-01 17:13 | PN ---
Date of Progress Note: 09/01/2023 Patient states she is still having some problem with pain management. She has been on multiple medic ations for some time now. Obviously, is just playing a part, however, with acute injury, we will mod coretta her hydrocodone to 10 and intersperse the morphine, which she says does not help her much with 4 mg Zofran q.8 scheduled. She had been seen by Orthopedics and PT. Arrangements are tried to be made to transfer her to fifth floor and a shoe for her fractured metatarsal. HR/MODL Voice ID: [id number] Report ID: [id number]
[2023-09-01] MEDS: ATORVASTATIN 40 MG TAB PO SCH (20:05)
[2023-09-01] MEDS: ASPIRIN 81 MG CHEWABLE TABLET PO SCH (20:05)
[2023-09-01 22:13] VITALS: BMI 42.1
[2023-09-02 03:37] LABS: Absolute Lymphocytes (CBC) 1.4 K/uL (0.7-4.9); Hematocrit 29.1 % (36.0-45.0); Lymphocytes % 15.4 % (15.3-44.8); MCV 95.4 fL (80-100); MPV 7.8 fL (7.6-11.3); Platelets 194 thou/uL (152-406); RBC Red Blood Cell Count 3.05 M/uL (3.86-4.86)
[2023-09-02] MEDS: MORPHINE 4 MG/ML SYR IV PRN (04:00)
[2023-09-02] MEDS: PANTOPRAZOLE 40MG TABLET PO SCH (05:26)
[2023-09-02] MEDS: ONDANSETRON 4 MG/2 ML VIAL IV SCH ×3 (05:26→21:23)
[2023-09-02] MEDS: LEVOTHYROXINE SOD 0.125 MG TAB PO SCH (05:26)
[2023-09-02] MEDS: INSULIN REGULAR (HUMAN) 100 UNIT/ML SQ SCH ×4 (07:30→21:00)
[2023-09-02] MEDS: lisinopriL 10 MG TAB PO SCH (08:20)
[2023-09-02] MEDS: HYDROCODONE/APAP 10/325 TAB PO SCH ×3 (08:21→21:22)
[2023-09-02] MEDS: CITALOPRAM 10 MG TABLET PO SCH (08:21)
[2023-09-02] MEDS: GABAPENTIN 100 MG CAP PO SCH ×3 (08:21→21:22)
[2023-09-02] MEDS: CLOPIDOGREL 75 MG TABLET PO SCH (08:21)
[2023-09-02] MEDS: FUROSEMIDE 20 MG TABLET PO SCH (08:22)
[2023-09-02] MEDS: NEBIVOLOL HCL 5 MG TAB PO SCH (08:23)
[2023-09-02] MEDS: INSULIN GLARGINE 100 UNIT/ML SQ SCH (08:32)
[2023-09-02] MEDS: ENOXAPARIN 40 MG/0.4 ML SQ SCH (17:08)
[2023-09-02] MEDS: DIPHENHYDRAMINE 25 MG TAB/CAP PO PRN (17:08)
[2023-09-02] MEDS: ASPIRIN 81 MG CHEWABLE TABLET PO SCH (21:21)
[2023-09-02] MEDS: ATORVASTATIN 40 MG TAB PO SCH (21:22)
[2023-09-03] MEDS: PANTOPRAZOLE 40MG TABLET PO SCH (06:18)
[2023-09-03] MEDS: LEVOTHYROXINE SOD 0.125 MG TAB PO SCH (06:18)
[2023-09-03] MEDS: ONDANSETRON 4 MG/2 ML VIAL IV SCH ×3 (06:18→20:22)
[2023-09-03] MEDS: INSULIN REGULAR (HUMAN) 100 UNIT/ML SQ SCH ×4 (07:30→21:00)
[2023-09-03] MEDS: HYDROCODONE/APAP 10/325 TAB PO SCH ×3 (08:08→20:21)
[2023-09-03] MEDS: INSULIN GLARGINE 100 UNIT/ML SQ SCH (09:00)
[2023-09-03] MEDS: FUROSEMIDE 20 MG TABLET PO SCH (10:43)
[2023-09-03] MEDS: NEBIVOLOL HCL 5 MG TAB PO SCH (10:43)
[2023-09-03] MEDS: lisinopriL 10 MG TAB PO SCH (10:44)
[2023-09-03] MEDS: CLOPIDOGREL 75 MG TABLET PO SCH (10:44)
[2023-09-03] MEDS: GABAPENTIN 100 MG CAP PO SCH ×3 (10:44→20:21)
[2023-09-03] MEDS: CITALOPRAM 10 MG TABLET PO SCH (10:45)
[2023-09-03] MEDS: MORPHINE 4 MG/ML SYR IV PRN (10:52)
--- NOTE | 2023-09-03 18:08 | PN ---
Date of Progress Note: 09/03/2023 Patient is still quite uncomfortable. However, she has had a long history of pain management difficu lties. She does have some itching, unknown etiology, on likely meds. We will add Benadryl to the re gimen. Awaiting insurance clearance for placement. We will continue with present regimen. HR/MODL Voice ID: [id number] Report ID: [id number]
--- NOTE | 2023-09-03 18:20 | PN ---
Patient states she is awfully uncomfortable despite the various regimens of analgesics attempted. To day she focuses more on the right knee, although the left knee has the ecchymosis. The pruritus was helped by the Benadryl. I suspect that this irritation noted to allergy. Awaiting shoe placement fo r the fractured metatarsal, although she states she can bear a slight amount of weight. We will cont inue with the above regimen while awaiting insurance disposition. HR/MODL Voice ID: [id number] Report ID: [id number]
[2023-09-03] MEDS: ATORVASTATIN 40 MG TAB PO SCH (20:21)
[2023-09-03] MEDS: ASPIRIN 81 MG CHEWABLE TABLET PO SCH (20:21)
[2023-09-03] MEDS: ENOXAPARIN 40 MG/0.4 ML SQ SCH (20:22)
[2023-09-04] MEDS: LEVOTHYROXINE SOD 0.125 MG TAB PO SCH (06:26)
[2023-09-04] MEDS: ONDANSETRON 4 MG/2 ML VIAL IV SCH (06:26)
[2023-09-04] MEDS: PANTOPRAZOLE 40MG TABLET PO SCH (06:26)
[2023-09-04] MEDS: INSULIN REGULAR (HUMAN) 100 UNIT/ML SQ SCH ×4 (07:30→21:00)
[2023-09-04] MEDS: INSULIN GLARGINE 100 UNIT/ML SQ SCH (09:57)
[2023-09-04] MEDS: NEBIVOLOL HCL 5 MG TAB PO SCH (09:58)
[2023-09-04] MEDS: GABAPENTIN 100 MG CAP PO SCH ×3 (09:58→21:00)
[2023-09-04] MEDS: lisinopriL 10 MG TAB PO SCH (09:58)
[2023-09-04] MEDS: CITALOPRAM 10 MG TABLET PO SCH (09:58)
[2023-09-04] MEDS: FUROSEMIDE 20 MG TABLET PO SCH (09:58)
[2023-09-04] MEDS: HYDROCODONE/APAP 10/325 TAB PO SCH ×3 (09:59→21:01)
[2023-09-04] MEDS: CLOPIDOGREL 75 MG TABLET PO SCH (09:59)
[2023-09-04] MEDS: ENOXAPARIN 40 MG/0.4 ML SQ SCH (17:11)
--- NOTE | 2023-09-04 19:31 | PN ---
Date of Progress Note: 09/04/2023 Basically, patient stated that Zofran did not help in regard to her pain. It was therefore discontin ued. Otherwise, she is stable. Sugars are controlled. Awaiting insurance disposition. HR/MODL Voice ID: [id number] Report ID: [id number]
[2023-09-04] MEDS: ATORVASTATIN 40 MG TAB PO SCH (21:00)
[2023-09-04] MEDS: ASPIRIN 81 MG CHEWABLE TABLET PO SCH (21:01)
[2023-09-05] MEDS: BISACODYL E.C. 5 MG TAB PO PRN (01:26)
[2023-09-05] MEDS: MORPHINE 4 MG/ML SYR IV PRN (01:30)
[2023-09-05] MEDS: PANTOPRAZOLE 40MG TABLET PO SCH (06:40)
[2023-09-05] MEDS: LEVOTHYROXINE SOD 0.125 MG TAB PO SCH (06:40)
[2023-09-05] MEDS: INSULIN REGULAR (HUMAN) 100 UNIT/ML SQ SCH ×4 (07:30→21:00)
[2023-09-05] MEDS: CITALOPRAM 10 MG TABLET PO SCH (08:46)
[2023-09-05] MEDS: INSULIN GLARGINE 100 UNIT/ML SQ SCH (08:46)
[2023-09-05] MEDS: FUROSEMIDE 20 MG TABLET PO SCH (08:47)
[2023-09-05] MEDS: GABAPENTIN 100 MG CAP PO SCH ×3 (08:47→20:00)
[2023-09-05] MEDS: lisinopriL 10 MG TAB PO SCH (08:47)
[2023-09-05] MEDS: HYDROCODONE/APAP 10/325 TAB PO SCH ×3 (08:47→20:00)
[2023-09-05] MEDS: CLOPIDOGREL 75 MG TABLET PO SCH (08:47)
[2023-09-05] MEDS: NEBIVOLOL HCL 5 MG TAB PO SCH (08:47)
[2023-09-05] MEDS: ENOXAPARIN 40 MG/0.4 ML SQ SCH (16:59)
--- NOTE | 2023-09-05 17:58 | RAD REPORT ---
EXAM DESCRIPTION: RAD - Knee Right 2 View - 09/05/2023 5:51 pm CLINICAL HISTORY: Rule out Fracture from Fall Fall, pain COMPARISON: Knee Right 3 View dated 11/23/2021 FINDINGS: Diffuse osteopenia is seen. Significant tricompartmental osteoarthritis is present. No sig nificant joint effusion seen. Subtle lucency is noted in the patella mid aspect which is questionable for fracture. IMPRESSION: Subtle lucency is seen in the patella questionable for fracture. CT imaging would be hel pful for further evaluation.
--- NOTE | 2023-09-05 19:19 | PN ---
Date of Progress Note: 09/05/2023 Patient does seem a little more mobile today and has been increased her PT. Still awaiting placement . We will try Elavil 50 mg as far as her multiple pain issues with joints and muscles and obtain an x-ray of her right knee. She complains of banding across her lower legs and feet. However, dorsalis pulses are quite palpable. HR/MODL Voice ID: [id number] Report ID: [id number]
[2023-09-05] MEDS: ASPIRIN 81 MG CHEWABLE TABLET PO SCH (20:00)
[2023-09-05] MEDS: ATORVASTATIN 40 MG TAB PO SCH (20:00)
[2023-09-05] MEDS: AMITRIPTYLINE 50 MG TAB PO SCH (20:00)
[2023-09-06] MEDS: LEVOTHYROXINE SOD 0.125 MG TAB PO SCH (05:55)
[2023-09-06] MEDS: PANTOPRAZOLE 40MG TABLET PO SCH (05:55)
[2023-09-06] MEDS: INSULIN REGULAR (HUMAN) 100 UNIT/ML SQ SCH ×4 (07:30→21:19)
[2023-09-06] MEDS: INSULIN GLARGINE 100 UNIT/ML SQ SCH (08:57)
[2023-09-06] MEDS: NEBIVOLOL HCL 5 MG TAB PO SCH (08:57)
[2023-09-06] MEDS: FUROSEMIDE 20 MG TABLET PO SCH (08:58)
[2023-09-06] MEDS: GABAPENTIN 100 MG CAP PO SCH ×3 (08:58→21:20)
[2023-09-06] MEDS: CITALOPRAM 10 MG TABLET PO SCH (08:58)
[2023-09-06] MEDS: HYDROCODONE/APAP 10/325 TAB PO SCH ×3 (08:58→21:20)
[2023-09-06] MEDS: CLOPIDOGREL 75 MG TABLET PO SCH (08:58)
[2023-09-06] MEDS: lisinopriL 10 MG TAB PO SCH (08:58)
[2023-09-06] MEDS: BISACODYL E.C. 5 MG TAB PO PRN (13:21)
--- NOTE | 2023-09-06 15:19 | RAD REPORT ---
EXAM DESCRIPTION: CT - Knee Right Wo Cont - 09/06/2023 2:21 pm CLINICAL HISTORY: possible fx on xray COMPARISON: Knee Right 2 View dated 09/05/2023 TECHNIQUE: Thin cut axial CT imaging of the right knee was performed without IV contrast. Multiplana r reformats were generated and reviewed. All CT scans are performed using dose optimization technique as appropriate and may include automated exposure control or mA/KV adjustment according to patient size. FINDINGS: No acute fracture or dislocation. Advanced tricompartmental osteoarthritic changes with [id number] appearance along the medial weight -bearing compartment, pronounced marginal spurring, and scattered subchondral cystic changes along th e medial weight-bearing and patellofemoral compartments. Small joint effusion. Soft tissue thickening along with well corticated osteophytic fragments. Vascular calcifications. IMPRESSION: No acute fracture or dislocation. Small joint effusion. Osteoarthritic changes and other chronic findings as above.
[2023-09-06] MEDS: ENOXAPARIN 40 MG/0.4 ML SQ SCH (17:25)
[2023-09-06] MEDS: MORPHINE 4 MG/ML SYR IV PRN (17:39)
--- NOTE | 2023-09-06 18:56 | PN ---
Date of Progress Note: 09/06/2023 The patient is basically status quo. Still complains of significant pain on the right knee patella a jes. Therefore, this was x-rayed and showed a questionable fracture. Radiologist requested a CT sca n for further evaluation. She is still awaiting placement. Has been turned down for inpatient rehab in the hospital and awaiting SNF determination. Also awaiting shoe for the left lower metatarsal fr acture. Has participated in PT and has been able to weightbearing to some extent on the fractured si te. HR/MODL Voice ID: [id number] Report ID: [id number]
[2023-09-06] MEDS: DIPHENHYDRAMINE 25 MG TAB/CAP PO PRN (21:19)
[2023-09-06] MEDS: ATORVASTATIN 40 MG TAB PO SCH (21:20)
[2023-09-06] MEDS: ASPIRIN 81 MG CHEWABLE TABLET PO SCH (21:20)
[2023-09-06] MEDS: AMITRIPTYLINE 50 MG TAB PO SCH (21:20)
[2023-09-07] MEDS: LEVOTHYROXINE SOD 0.125 MG TAB PO SCH (06:07)
[2023-09-07] MEDS: PANTOPRAZOLE 40MG TABLET PO SCH (06:08)
[2023-09-07] MEDS: INSULIN REGULAR (HUMAN) 100 UNIT/ML SQ SCH ×3 (07:30→16:04)
[2023-09-07] MEDS: INSULIN GLARGINE 100 UNIT/ML SQ SCH (08:42)
[2023-09-07] MEDS: FUROSEMIDE 20 MG TABLET PO SCH (08:43)
[2023-09-07] MEDS: HYDROCODONE/APAP 10/325 TAB PO SCH ×2 (08:43→14:00)
[2023-09-07] MEDS: CITALOPRAM 10 MG TABLET PO SCH (08:44)
[2023-09-07] MEDS: GABAPENTIN 100 MG CAP PO SCH ×2 (08:44→14:56)
[2023-09-07] MEDS: CLOPIDOGREL 75 MG TABLET PO SCH (08:44)
[2023-09-07] MEDS: NEBIVOLOL HCL 5 MG TAB PO SCH (08:44)
[2023-09-07] MEDS: lisinopriL 10 MG TAB PO SCH (08:44)
[2023-09-07 08:53] VITALS: O2SAT 94
[2023-09-07] MEDS ORDERED: HYDROCODONE/APAP 10/325 TAB PO SCH (14:48)
[2023-09-07 16:12] VITALS: TEMP 98.4
[2023-09-07 17:00] VITALS: BP 150/70
--- NOTE | 2023-09-07 19:14 | PN ---
Date of Progress Note: 09/07/[address] scan was negative for fracture. She has continued to tolerate the weightbearing on her lef t foot. States in general she feels about the same. She has been accepted at an SNF locally and fazal l be discharged to continue on the same medication. To follow up with Dr. Sosa in 7-10 days and abhay burgess in 2-3 weeks. HR/MODL Voice ID: [id number] Report ID: [id number]
== END 2023-09-07 17:40 | DRG 563 ==
LOC: ER 15:34 → ERHOLD 18:19 → 2ND 19:42
PROVIDERS: ADMIT Family Medicine; ATTEND Family Medicine
DX: S92.351A Displaced fracture of fifth metatarsal bone, right foot, initial encounter for closed fracture (principal); S42.202A Unspecified fracture of upper end of left humerus, initial encounter for closed fracture; Z68.41 Body mass index [BMI] 40.0-44.9, adult; E66.9 Obesity, unspecified; I10 Essential (primary) hypertension; E03.9 Hypothyroidism, unspecified; E11.9 Type 2 diabetes mellitus without complications; J44.9 Chronic obstructive pulmonary disease, unspecified; M25.561 Pain in right knee; S80.02XA Contusion of left knee, initial encounter; Z95.5 Presence of coronary angioplasty implant and graft; Z88.8 Allergy status to other drugs, medicaments and biological substances; Z79.02 Long term (current) use of antithrombotics/antiplatelets; Z90.49 Acquired absence of other specified parts of digestive tract; W01.0XXA Fall on same level from slipping, tripping and stumbling without subsequent striking against object, initial encounter; Y99.9 Unspecified external cause status; Y93.01 Activity, walking, marching and hiking; Y92.019 Unspecified place in single-family (private) house as the place of occurrence of the external cause
CPT/HCPCS: 36415; 73700; 80048; 80053; 81001; 82947; 83735; 85025; 85027; 85610; 96372; 97110; 97116; 97161; 97530; 99285; J1650; J1815; J2405; Q0162

== ENCOUNTER 2024-08-12 00:52 | Inpatient (IN) | payer OTHER ==
--- OUTSIDE RECORDS SUMMARY | 2024-08-12 00:56 | XMS REPORT | Continuity of Care Document ---
Author Name Unknown Address [address] [facility] [place] [address] [facility] thconnect Address [address] [facility] [address] [place] [address] Care Team Providers Care Senior Benefits Specialist Name Role Phone HERBERT GIL Primary Care Physician Unavailab Herbert Prather Attending Clinician Unavailable [id number] Attending Clinician Unavailable SATISH KRAMER Attending Clinician Unavailab sumi English, [facility] Attending Clinician Unavailable Satish Kramer MD Attending Clinician Doctor Unassigned, [facility] Attending Clinician U Aileen Aguilar DO Attending Clinician Therapist, [facility] Attending Clinician U Tracy Perez MD Attending Clinician TRACY OLMOS Attending Clinician Unavailable TRACY OLMOS Attending Clinician Unavailable AILEEN NAZARIO Attending Clinician Unavailable AILEEN NAZARIO Attending Clinician Unavailable [id number] Admitting Clinician Unavailable Payers Payer Name Policy Type Policy Number Effective Date Expirati on Date Source AETNA MANAGED MEDICARE PPO-[id number] 2020 00:00:00 AETNA MEDICARE PPO C1 [id number] [facility] AETNA MEDICARE PPO C1 [id number] [facility] AETNA MEDICARE PPO C1 [id number] [facility] AENA MEDICARE PPO C1 [id number] [facility] Problems Condition Name Condition Details Condition Category Status Onset Date Resolution Date Last Treatment Date Treating Clinician Comments Source [id number] Pain, joint, hand, left Problem Active [facility] [id number] Arthritis of right knee Problem Active [facility] [id number] Pain, joint, shoulder, right Problem Active [facility] [id number] Mallet deformity of left ring finger Problem Active [facility] [id number] Other closed displaced fracture of proximal end of right humerus, initial encounter Problem Active [facility] [id number] Arthritis of left knee Problem Active [facility] [id number] Primary osteoarthr itis of right knee Problem Active [facility] [id number] Primary osteoarthr itis of left knee Problem Active [facility] [id number] Sciatica of left side Problem Active [facility] [id number] Piriformis syndrome of left side Problem Active [facility] No known active problems No known active problems Disease [facility] Allergies, Adverse Reactions, Alerts Allergy Name Allergy Type Status Severity Reaction(s) Onset Date Inactive Date Treating Clinician Comments Source NO KNOWN ALLERGIE S Drug Class Active [facility] Social History Social Habit Start Date Stop Date Quantity Comments Source History of Tobacco Use [facility] Sex Assigned At [facility] Gender identity [facility] to SARS-CoV-2 (event) Not sure [facility] Tobacco use and exposure 2021-09-10 00:00:00 2021-09-10 00:00:00 Smokeless tobacco non-user [facility] History of Social function 2021-09-10 00:00:00 2021-09-10 00:00:00 [facility] Smoking Status Start Date Stop Date Source Never Smoker [facility] Ex-smoker 2021-09-10 00:00:00 2021-09-10 00[facility]00[facility] Ordered Medication Name Filled Medication Name Start Date Stop Date Current Medication? Ordering Clinician Indication Dosage Frequency Signature (SIG) Comments Components Source predniSONE 10 MG predniSONE 10 MG - 00:00: 00 01-25 00:00 :00 No 1{table t} QD predniSONE 10 MG nebivoloL (BYSTOLIC) 5 mg tablet 2020-11 15:16: 18 Yes 5mg Take 5 mg by mouth daily. [facility] umeclidiniu m (INCRUSE ELLIPTA) 62.5 mcg/actuati on DsDv 2020-11 15:11: 17 Yes Inhale daily. [facility] albuterol-i pratropium (COMBIVENT RESPIMAT) 20-100 mcg/actuati on inhaler 2020-11 15:11: 17 Yes 1{puff} Inhale 1 Puff 4 (four) times daily. [facility] albuterol 90 mcg/actuati on inhaler 2020-11 00:00: 00 Yes [id number] 2{puff} Inhale 2 Puffs every 6 (six) hours as needed for Wheezing or Shortness of Breath. [facility] ketorolac 10 mg tablet 2020-11 00:00: 00 Yes [facility] orphenadrin e 100 mg SR tablet 2020-11 00:00: 00 Yes [facility] Diclofenac Sodium 1 % gel 2020-11 0 00:00: 00 Yes [facility] LEVEMIR U-100 INSULIN 100 unit/mL solution 08-04 00:00: 00 Yes [facility] gabapentin 100 mg capsule 07-28 00:00: 00 Yes [facility] NOVOLIN R REGULAR U-100 INSULN 100 unit/mL solution 07-07 00:00: 00 Yes [facility] furosemide 40 mg tablet 2020-0 8-05 00:00: 00 Yes [facility] Orthovisc Orthovisc 2019-11 00:00: 00 No 15mg Common [facility] Kenalog (Triamcinol one) Kenalog (Triamcinol one) 2019-11 00:00: 00 No 40mg Common [facility] Bupivicaine [place] Bupivicaine [place] 2019-11 00:00: 00 No [facility] Orthovisc Orthovisc 2019-11 00:00: 00 No 15mg [facility] Kenalog (Triamcinol one) Kenalog (Triamcinol one) 2019-11 00:00: 00 No 40mg [facility] [place] Bupivicaine [place] Bupivicaine [place] 2019-11 00:00: 00 No [facility] Orthovisc Orthovisc 2019-11 00:00: 00 No 15mg Common [facility] Kenalog (Triamcinol one) Kenalog (Triamcinol one) 2019-11 00:00: 00 No 40mg [facility] Bupivicaine [place] Bupivicaine [place] 2019-11 00:00: 00 No 2.5mg Common [facility] Orthovisc Orthovisc 2019-11 00:00: 00 No 15mg [facility] Orthovisc Orthovisc 2019-11 00:00: 00 No 15mg [facility] Orthovisc Orthovisc 2019-11 00:00: 00 No 15mg Common [facility] Orthovisc Orthovisc 2019-11 00:00: 00 No 15mg Common [facility] Bupivicaine [place] Bupivicaine [place] 2019-11 00:00: 00 No [facility] Kenalog (Triamcinol one) Kenalog (Triamcinol one) 2019-11 00:00: 00 No 40mg [facility] Orthovisc Orthovisc 2019-11 00:00: 00 No 15mg Common [facility] Bupivicaine [place] Bupivicaine [place] 2019-11 00:00: 00 No [facility] Kenalog (Triamcinol one) Kenalog (Triamcinol one) 2019-11 00:00: 00 No 40mg [facility] Orthovisc Orthovisc 2019-11 00:00: 00 No 15mg Common [facility] Bupivicaine [place] Bupivicaine [place] 2019-11 00:00: 00 No 2.5mg [facility] Kenalog (Triamcinol one) Kenalog (Triamcinol one) 2019-11 00:00: 00 No 40mg [facility] [place] Bupivicaine [place] Bupivicaine [place] 12-18 00:00: 00 No 4mL [facility] Hyalgan 20 mg Hyalgan 20 mg 12-18 00:00: 00 No 2mL [facility] Kenalog (Triamcinol one) Kenalog (Triamcinol one) 12-18 00:00: 00 No 1mL [facility] Bupivicaine [place] Bupivicaine [place] 12-18 00:00: 00 No 4mL [facility] Hyalgan 20 mg Hyalgan 20 mg 12-18 00:00: 00 No 2mL [facility] Kenalog (Triamcinol one) Kenalog (Triamcinol one) 12-18 00:00: 00 No 1mL [facility] Bupivicaine [place] Bupivicaine [place] 12-18 00:00: 00 No 4mL [facility] Hyalgan 20 mg Hyalgan 20 mg 12-18 00:00: 00 No 2mL [facility] Kenalog (Triamcinol one) Kenalog (Triamcinol one) 0 1-28 00:00: 00 No 1mL [facility] Hyalgan 20 mg Hyalgan 20 mg 1-14 00:00: 00 No 2mL [facility] Hyalgan 20 mg Hyalgan 20 mg 1-14 00:00: 00 No 2mL [facility] [place] Hyalgan 20 mg Hyalgan 20 mg 1-14 00:00: 00 No 2mL [facility] [place] Kenalog (Triamcinol one) Kenalog (Triamcinol one) 1- 00:00: 00 No 1mL [facility] [place] Hyalgan 20 mg Hyalgan 20 mg - 00:00: 00 No 2mL [facility] LIDOCAINE HCL 10MG/ML LIDOCAINE HCL 10MG/ML - 00:00: 00 No 4mL [facility] Kenalog (Triamcinol one) Kenalog (Triamcinol one) - 00:00: 00 No 1mL [facility] [place] Hyalgan 20 mg Hyalgan 20 mg 1- 00:00: 00 No 2mL [facility] [place] LIDOCAINE HCL 10MG/ML LIDOCAINE HCL 10MG/ML - 00:00: 00 No 4mL [facility] [place] Kenalog (Triamcinol one) Kenalog (Triamcinol one) - 00:00: 00 No 1mL [facility] [place] Hyalgan 20 mg Hyalgan 20 mg 1- 00:00: 00 No 2mL [facility] [place] LIDOCAINE HCL 10MG/ML LIDOCAINE HCL 10MG/ML 1- 00:00: 00 No 4mL [facility] [place] Hyalgan 20 mg Hyalgan 20 mg 0 5- 00:00: 00 No 20mg [facility] Hyalgan 20 mg Hyalgan 20 mg 03-21 00:00: 00 No 20mg [facility] [place] Hyalgan 20 mg Hyalgan 20 mg 03-21 00:00: 00 No 20mg [facility] [place] Hyalgan 20 mg Hyalgan 20 mg 03-14 00:00: 00 No 20mg [facility] [place] Hyalgan 20 mg Hyalgan 20 mg 03-14 00:00: 00 No 20mg [facility] [place] Hyalgan 20 mg Hyalgan 20 mg 03-14 00:00: 00 No 20mg [facility] [place] LIDOCAINE HCL 10MG/ML LIDOCAINE HCL 10MG/ML 03-08 00:00: 00 No 10mg [facility] Kenalog (Triamcinol one) Kenalog (Triamcinol one) 03-08 00:00: 00 No 40mg [facility] [place] Hyalgan 20 mg Hyalgan 20 mg 03-08 00:00: 00 No 20mg [facility] [place] LIDOCAINE HCL 10MG/ML LIDOCAINE HCL 10MG/ML 03-08 00:00: 00 No 10mg [facility] [place] Kenalog (Triamcinol one) Kenalog (Triamcinol one) 18 00:00: 00 No 40mg [facility] [place] Hyalgan 20 mg Hyalgan 20 mg 03-08 00:00: 00 No 20mg [facility] [place] LIDOCAINE HCL 10MG/ML LIDOCAINE HCL 10MG/ML 03-08 00:00: 00 No 10mg [facility] [place] Kenalog (Triamcinol one) Kenalog (Triamcinol one) 18 00:00: 00 No 40mg [facility] [place] Hyalgan 20 mg Hyalgan 20 mg 18 00:00: 00 No 20mg [facility] Spiriva HandiHaler 18 MCG Spiriva HandiHaler 18 MCG No Spiriva HandiHaler 18 MCG Atorvastati n Calcium 40 MG Atorvastati n Calcium 40 MG No Atorvastat in Calcium 40 MG [place] 10-325 MG [place] 10-325 MG No 1{table t_as_ne eded} [place] 10-325 MG Citalopram Hydrobromid e 20 MG Citalopram Hydrobromid e 20 MG No Citalopram Hydrobromi de 20 MG Lasix 40 MG Lasix 40 MG No 1{table t} QD Lasix 40 MG Lisinopril 10 MG Lisinopril 10 MG No Lisinopril 10 MG Levemir FlexTouch 100 UNIT/ML Levemir FlexTouch 100 UNIT/ML No Levemir FlexTouch 100 UNIT/ML Clopidogrel Bisulfate 75 MG Clopidogrel Bisulfate 75 MG No Clopidogre l Bisulfate 75 MG Bystolic 5 MG Bystolic 5 MG No Bystolic 5 MG HYDROcodone -Acetaminop hen 7.5-325 MG HYDROcodone -Acetaminop hen 7.5-325 MG No HYDROcodon e-Acetamin ophen 7.5-325 MG Symbicort 160-4.5 MCG/ACT Symbicort 160-4.5 MCG/ACT No Symbicort 160-4.5 MCG/ACT Pantoprazol e Sodium 40 MG Pantoprazol e Sodium 40 MG No Pantoprazo le Sodium 40 MG Levothyroxi ne Sodium 125 MCG Levothyroxi ne Sodium 125 MCG No Levothyrox ine Sodium 125 MCG Clopidogrel Bisulfate 75 MG Clopidogrel Bisulfate 75 MG No Clopidogre l Bisulfate 75 MG Spiriva HandiHaler 18 MCG Spiriva HandiHaler 18 MCG No Spiriva HandiHaler 18 MCG Lasix 40 MG Lasix 40 MG No 1{table t} QD Lasix 40 MG HYDROcodone -Acetaminop hen 7.5-325 MG HYDROcodone -Acetaminop hen 7.5-325 MG No HYDROcodon e-Acetamin ophen 7.5-325 MG Atrovent 18 MCG/ACT Atrovent 18 MCG/ACT No Atrovent 18 MCG/ACT Atorvastati n Calcium 40 MG Atorvastati n Calcium 40 MG No Atorvastat in Calcium 40 MG Lisinopril 10 MG Lisinopril 10 MG No Lisinopril 10 MG Pantoprazol e Sodium 40 MG Pantoprazol e Sodium 40 MG No Pantoprazo le Sodium 40 MG Bystolic 5 MG Bystolic 5 MG No Bystolic 5 MG Citalopram Hydrobromid e 20 MG Citalopram Hydrobromid e 20 MG No Citalopram Hydrobromi de 20 MG Levothyroxi ne Sodium 125 MCG Levothyroxi ne Sodium 125 MCG No Levothyrox ine Sodium 125 MCG Symbicort 160-4.5 MCG/ACT Symbicort 160-4.5 MCG/ACT No Symbicort 160-4.5 MCG/ACT Levemir FlexTouch 100 UNIT/ML Levemir FlexTouch 100 UNIT/ML No Levemir FlexTouch 100 UNIT/ML Colchicine 0.6 MG Colchicine 0.6 MG No 1{table t} TID Colchicine 0.6 MG Aspirin 81 Aspirin 81 No Aspirin 81 Spiriva HandiHaler 18 MCG Spiriva HandiHaler 18 MCG No Spiriva HandiHaler 18 MCG Pantoprazol e Sodium 40 MG Pantoprazol e Sodium 40 MG No Pantoprazo le Sodium 40 MG Lasix 40 MG Lasix 40 MG No 1{table t} QD Lasix 40 MG Bystolic 5 MG Bystolic 5 MG No Bystolic 5 MG Atorvastati n Calcium 40 MG Atorvastati n Calcium 40 MG No Atorvastat in Calcium 40 MG predniSONE 10 MG predniSONE 10 MG No 1{table t} QD predniSONE 10 MG Colchicine 0.6 MG Colchicine 0.6 MG No 1{table t} TID Colchicine 0.6 MG Symbicort 160-4.5 MCG/ACT Symbicort 160-4.5 MCG/ACT No Symbicort 160-4.5 MCG/ACT Levothyroxi ne Sodium 125 MCG Levothyroxi ne Sodium 125 MCG No Levothyrox ine Sodium 125 MCG Clopidogrel Bisulfate 75 MG Clopidogrel Bisulfate 75 MG No Clopidogre l Bisulfate 75 MG Lisinopril 10 MG Lisinopril 10 MG No Lisinopril 10 MG Levemir FlexTouch 100 UNIT/ML Levemir FlexTouch 100 UNIT/ML No Levemir FlexTouch 100 UNIT/ML Citalopram Hydrobromid e 20 MG Citalopram Hydrobromid e 20 MG No Citalopram Hydrobromi de 20 MG HYDROcodone -Acetaminop hen 7.5-325 MG HYDROcodone -Acetaminop hen 7.5-325 MG No HYDROcodon e-Acetamin ophen 7.5-325 MG NovoLIN R NovoLIN R No NovoLIN R Bystolic 5 MG Bystolic 5 MG No Bystolic 5 MG Spiriva HandiHaler 18 MCG Spiriva HandiHaler 18 MCG No Spiriva HandiHaler 18 MCG Colchicine 0.6 MG Colchicine 0.6 MG No 1{table t} TID Colchicine 0.6 MG Citalopram Hydrobromid e 20 MG Citalopram Hydrobromid e 20 MG No Citalopram Hydrobromi de 20 MG predniSONE 10 MG predniSONE 10 MG No 1{table t} QD predniSONE 10 MG Atorvastati n Calcium 40 MG Atorvastati n Calcium 40 MG No Atorvastat in Calcium 40 MG Lisinopril 10 MG Lisinopril 10 MG No Lisinopril 10 MG Lasix 40 MG Lasix 40 MG No 1{table t} QD Lasix 40 MG HYDROcodone -Acetaminop hen 7.5-325 MG HYDROcodone -Acetaminop hen 7.5-325 MG No HYDROcodon e-Acetamin ophen 7.5-325 MG Pantoprazol e Sodium 40 MG Pantoprazol e Sodium 40 MG No Pantoprazo le Sodium 40 MG Levothyroxi ne Sodium 125 MCG Levothyroxi ne Sodium 125 MCG No Levothyrox ine Sodium 125 MCG Symbicort 160-4.5 MCG/ACT Symbicort 160-4.5 MCG/ACT No Symbicort 160-4.5 MCG/ACT Clopidogrel Bisulfate 75 MG Clopidogrel Bisulfate 75 MG No Clopidogre l Bisulfate 75 MG Vital Signs Vital Name Observation Time Observation Value Comments S ource height 2022-03-01 14:30:00 67.5 [in_i] Comm on [facility] weight 2022-03-01 14:30:00 260 [lb_av] Comm on [facility] temperature 2022-03-01 14:30:00 98.0 [degF] Com mon [facility] bmi 2022-03-01 14:30:00 40.12 kg/m2 Comm on [facility] blood pressure systolic 2022-03-01 14:30:00 136 mm[Hg] Common [facility] blood pressure diastolic 2022-03-01 14:30:00 84 mm[Hg] [facility] height 2022-01-25 13:00:00 67.5 [in_i] Comm on [facility] weight 2022-01-25 13:00:00 260 [lb_av] Comm on [facility] temperature 2022-01-25 13:00:00 97.9 [degF] Com [facility] bmi 2022-01-25 13:00:00 40.12 kg/m2 Comm on [facility] blood pressure systolic 2022-01-25 13:00:00 154 mm[Hg] [facility] blood pressure diastolic 2022-01-25 13:00:00 84 mm[Hg] [facility] height 2022-01-18 15:00:00 67.5 [in_i] Comm on [facility] weight 2022-01-18 15:00:00 260 [lb_av] Comm on [facility] temperature 2022-01-18 15:00:00 97.6 [degF] Com [facility] bmi 2022-01-18 15:00:00 40.12 kg/m2 Comm on [facility] blood pressure systolic 2022-01-18 15:00:00 144 mm[Hg] [facility] blood pressure diastolic 2022-01-18 15:00:00 92 mm[Hg] [facility] height 2022-01-11 14:30:00 67.5 [in_i] Comm on [facility] weight 2022-01-11 14:30:00 270 [lb_av] Comm on [facility] temperature 2022-01-11 14:30:00 97.6 [degF] Com [facility] bmi 2022-01-11 14:30:00 41.66 kg/m2 Comm on [facility] blood pressure systolic 2022-01-11 14:30:00 146 mm[Hg] [facility] blood pressure diastolic 2022-01-11 14:30:00 86 mm[Hg] [facility] height 2021-12-15 14:00:00 67.5 [in_i] Comm on [facility] weight 2021-12-15 14:00:00 274 [lb_av] Comm on [facility] temperature 2021-12-15 14:00:00 98.3 [degF] Com [facility] bmi 2021-12-15 14:00:00 42.28 kg/m2 Comm on [facility] blood pressure systolic 2021-12-15 14:00:00 154 mm[Hg] [facility] blood pressure diastolic 2021-12-15 14:00:00 94 mm[Hg] Common [facility] height 2021-11-25 13:00:00 67.5 [in_i] Comm on [facility] weight 2021-11-25 13:00:00 274 [lb_av] Comm on [facility] temperature 2021-11-25 13:00:00 97.4 [degF] Com [facility] bmi 2021-11-25 13:00:00 42.28 kg/m2 Comm on [facility] blood pressure systolic 2021-11-25 13:00:00 146 mm[Hg] [facility] blood pressure diastolic 2021-11-25 13:00:00 86 mm[Hg] [facility] height 2021-09-24 13:30:00 67.5 [in_i] Comm on [facility] weight 2021-09-24 13:30:00 274 [lb_av] Comm on [facility] temperature 2021-09-24 13:30:00 97.1 [degF] Com [facility] bmi 2021-09-24 13:30:00 42.28 kg/m2 Comm on [facility] blood pressure systolic 2021-09-24 13:30:00 154 mm[Hg] [facility] blood pressure diastolic 2021-09-24 13:30:00 92 mm[Hg] [facility] height 2021-07-14 13:30:00 67.5 [in_i] Comm on [facility] weight 2021-07-14 13:30:00 276 [lb_av] Comm on [facility] bmi 2021-07-14 13:30:00 42.59 kg/m2 Comm on [facility] blood pressure systolic 2021-07-14 13:30:00 179 mm[Hg] Common [facility] blood pressure diastolic 2021-07-14 13:30:00 75 mm[Hg] [facility] blood pressure systolic 2021-06-29 13:30:00 160 mm[Hg] [facility] blood pressure diastolic 2021-06-29 13:30:00 69 mm[Hg] [facility] height 2021-06-29 13:30:00 67.5 [in_i] Comm on [facility] weight 2021-06-29 13:30:00 276 [lb_av] Comm on [facility] bmi 2021-06-29 13:30:00 42.59 kg/m2 Comm on [facility] Procedures Procedure Date / Time Performed Performing Clinicia n Source ASSIGNMENT OF BENEFITS 2023-06-14 18:59:33 Docto r Unassigned, [facility] Encounters Start Date/Time End Date/Time Encounter Type Admission Type Attending Clinicians Care Facility Care Department Encounter ID Source 2023-03-15 15:33[id number] [facility] [place] 2022-01-04 13:28:01 [facility] [id number] [facility] [place] 2021-12-17 13:47:04 Outpatient 3 [id number] [id number] [facility] 2021-12-17 13:45:14 Outpatient 3 [id number] [facility] [id number] [id number] [facility] 2021-12-17 13:40:13 Outpatient 3 [id number] [facility] REF [id number] [facility] 2021-12-16 13:36:09 [facility] [id number] [facility] 2021-12-16 11:59:04 [facility] [id number] [facility] 2021-12-16 11:52:28 [facility] [id number] [facility] 2021-12-16 11:48:13 [facility] [id number] [facility] 2023-09-07 00:00:00 2023-09-07 00:00:00 [facility]TEL[facility] [id number] [facility] [place] 2023-06-14 14:00:00 2023-06-14 14:39:06 Outpatient R SATISH KRAMER [facility] [id number] [facility] 2023-06-14 14:00:00 2023-06-14 14:15:00 [employer] Technical Officer Visit 2, Adc Lab Satish Kramer [facility] 1..114 [id number] [facility] 2023-06-14 00:00:00 2023-06-14 00:00:00 Orders Only Doctor Unassigned, [facility] [id number] [facility] 2022-03-01 00:00:00 2022-03-01 00:00:00 OFFICE VISIT ESTAB PT LEVEL 4 STLMLC STLMLC [id number] [facility] [place] 2022-01-25 00:00:00 2022-01-25 00:00:00 OFFICE VISIT ESTAB PT LEVEL 4 STLMLC STLMLC [id number] [facility] [place] 2022-01-18 00:00:00 2022-01-18 00:00:00 OFFICE VISIT ESTAB PT LEVEL 4 STLMLC STLMLC [id number] [facility] [place] 2022-01-11 00:00:00 2022-01-11 00:00:00 OFFICE VISIT ESTAB PT LEVEL 4 STLMLC STLMLC [id number] [facility] [place] 2021-12-29 00:00:00 2021-12-29 00:00:00 Telephone Aileen Nazario [place] [id number] [facility] 2021-12-15 00:00:00 2021-12-15 00:00:00 OFFICE VISIT ESTAB PT LEVEL 4 STLMLC STLMLC [id number] [facility] [place] 2021-12-07 00:00:00 2021-12-07 00:00:00 (TEL) STLMLC STLMLC [id number] [facility] [place] 2021-12-06 00:00:00 2021-12-06 00:00:00 Telephone Aileen Nazario [facility] [id number] [facility] 2021-11-25 00:00:00 2021-11-25 00:00:00 (TEL) STLMLC STLMLC [id number] [facility] [place] 2021-11-25 00:00:00 2021-11-25 00:00:00 OFFICE VISIT ESTAB PT LEVEL 4 STLMLC STLMLC [id number] [facility] [place] 2021-11-24 00:00:00 2021-11-24 00:00:00 (TEL) STLMLC STLMLC [id number] [facility] [place] 2021-11-20 14:00:00 2021-11-20 15:30:00 Life [employer] Technical Officer Visit Therapist, [facility] Tracy Olmos [facility] 1..840.114 [id number] [facility] 2021-11-20 14:00:00 2021-11-20 14:00:00 Outpatient TRACY TORRES [facility] [id number] [facility] 2021-11-20 00:00:00 2021-11-20 00:00:00 Orders Only Doctor Unassigned, [facility] 1..840.114 [id number] [facility] 2021-09-24 00:00:00 2021-09-24 00:00:00 OFFICE VISIT ESTAB PT LEVEL 4 STLMLC STLMLC [id number] [facility] [facility] [place] 2021-09-10 14:46:05 2021-09-10 15:27:44 Office [facility] [id number] [facility] 2021-09-10 15:00:00 2021-09-10 15:00:00 Outpatient [facility] [id number] [facility] 2021-09-10 00:00:00 2021-09-10 00:00:00 Orders Only Doctor Unassigned, [facility] [id number] [facility] 2021-08-26 00:00:00 2021-08-26 00:00:00 (TEL) STLMLC STLMLC [id number] [facility] [place] 2021-07-14 00:00:00 2021-07-14 00:00:00 OFFICE VISIT ESTAB PT LEVEL 4 STLMLC STLMLC [id number] [facility] [place] 2021-06-29 00:00:00 2021-06-29 00:00:00 OFFICE VISIT ESTAB PT LEVEL 4 STLMLC STLMLC [id number] [facility] [place] 2020-10-14 00:00:00 2020-10-14 00:00:00 Outpatient STLMLC STLMLC [id number] [facility] [place] 2020-10-06 00:00:00 2020-10-06 00:00:00 Outpatient STLMLC STLMLC [id number] [facility] [place] 2020-09-23 00:00:00 2020-09-23 00:00:00 Outpatient STLMLC STLMLC [id number] [facility] [place] 2020-08-29 00:00:00 2020-08-29 00:00:00 Outpatient STLMLC STLMLC [id number] [facility] [place] 2020-08-26 00:00:00 2020-08-26 00:00:00 Outpatient STLMLC STLMLC [id number] [facility] [place] Notes Date/Time Note Provider Source 2023-06-14 14:00:00 Formatting of this n ote is different from the original. Images from the original note were not included. Venipuncture collection performed by clean technique on the left anticubitus. Total of 1 attempts were made. Slight pressure and a bandage/dressing were applied to the site(s). The patient experienced no complications. The following specimens were processed according to instructions and sent to [facility] laboratories per lab order on 06/14/2023: LT BLUE SST RED LAV 1 PPT DK GREEN (LiHep) DK GREEN (SodH) JENKINS DK BLUE (K2) DK BLUE (S) ACD Blood Culture NIPT/NTD [facility]
[2024-08-12] MEDS ORDERED: LEVALBUTEROL 1.25 MG/3 ML NEB ONE (01:03)
[2024-08-12] MEDS ORDERED: METHYLPREDNISOLONE 125 MG INJ ONE (01:03)
[2024-08-12] MEDS ORDERED: IPRATROPIUM BROM 0.5MG/2.5ML ONE (01:03)
[2024-08-12] MEDS ORDERED: Levofloxacin500mg IV 500 MG/100 ML BAG IV ONE (01:04)
[2024-08-12] MEDS ORDERED: NA CHLORIDE 0.9% 1,000 ML ONE (01:04)
[2024-08-12] MEDS ORDERED: NA CHLORIDE 0.9% 500 ML ONE (01:04)
[2024-08-12 01:31] LABS: Arterial Blood Carboxyhemoglob 1.3 % (0-1.5); Blood Gas Oxyhemoglobin 94.1 % (94-97); Blood O2 Saturation 96.9 % (92-98.5)
[2024-08-12 01:32] LABS: Blood Gas THB 10.8 g/dl (12-18)
[2024-08-12 01:45] LABS: Absolute Eosinophils 0.2 K/uL (0-0.5); Absolute Monocytes 0.6 K/uL (0.1-1.3); Absolute Neutrophil 6.2 K/uL (1.8-8.0); Basophils % 0.6 % (0-1.3); Eosinophils % 1.9 % (0-4.4); Hematocrit 31.2 % (36.0-45.0); Hemoglobin 10.1 g/dL (12.0-15.0); Lymphocytes % 12.9 % (15.3-44.8); MCH 31.6 pg (27.0-35.0); MCHC 32.5 g/dL (32.0-36.0); MCV 97.1 fL (80-100); MPV 8.2 fL (7.6-11.3); Neutrophils % 77.6 % (41.7-73.7); PT Prothrombin Time 13.6 SECONDS (9.4-12.5); Platelets 227 thou/uL (152-406); Protime INR 1.22; RBC Red Blood Cell Count 3.21 M/uL (3.86-4.86); Red Cell Distribution Width 15.1 % (12.1-15.2)
[2024-08-12 01:58] LABS: SARS-CoV-2 Antigen CONTROL BLUE LINE VIS/BG OK; SARS-CoV-2 Antigen Rapid Res Negative (Negative)
[2024-08-12 02:00] LABS: Albumin 2.9 g/dL (3.4-5.0); Anion Gap 9.8 mEq/L (5.0-15.0); Bilirubin Direct 0.2 mg/dL (0-0.2); Bilirubin Indirect, Calculated 0.3 mg/dL (0.2-0.8); Bilirubin Total 0.5 mg/dL (0.2-1.0); Potassium 4.8 mEq/L (3.5-5.1); Protein, Total 6.9 g/dL (6.4-8.2)
[2024-08-12 02:01] LABS: Albumin/Globulin Ratio 0.7 (1.1-1.8); Magnesium 1.9 mg/dL (1.6-2.4)
[2024-08-12 02:02] LABS: Troponin High Sensitivity 107.5 pg/mL (<58.9)
--- NOTE | 2024-08-12 02:19 | ER ---
Nurse's Notes [facility] Name: Michelle Beverly Age: 83 yrs Sex: Female : 1940 Arrival Date: 08/12/2024 Time: 00:52 Bed 14 Private MD: Diagnosis: COPD/ Chronic obstructive pulmonary disease with (acute) exacerbation;Hypoxemia;Obesity, unspecified;Weakness;Fall on same level, unspecified;Abnormal levels of other serum enzymes-elevated troponin;Chronic kidney disease, unspecified Presentation: 08/12 00:56 Chief complaint: EMS states: "toned out for SOB that's gotten worse the past month.". mb9 Coronavirus screen: At this time, the client does not indicate any symptoms associated with coronavirus-19. Ebola Screen: No symptoms or risks identified at this time. Initial Sepsis Screen: Does the patient meet any 2 criteria? No. Patient's initial sepsis screen is negative. Does the patient have a suspected source of infection? No. Patient's initial sepsis screen is negative. Risk Assessment: Do you want to hurt yourself or someone else? Patient reports no desire to harm self or others. Onset of symptoms was August 12, 2024. 00:56 Acuity: PAM 2 mb9 00:56 Method Of Arrival: EMS: [facility] mb9 Triage Assessment: 00:58 General: Appears uncomfortable, Behavior is calm, cooperative. Pain: Denies pain. EENT: mb9 No signs and/or symptoms were reported regarding the EENT system. Neuro: Level of Consciousness is awake, alert, obeys commands, Oriented to person, place, time, situation, Appropriate for age. Cardiovascular: Patient's skin is warm and dry. Respiratory: Airway is patent Respiratory effort is even, unlabored, Respiratory pattern is regular, symmetrical, Breath sounds are coarse bilaterally. GI: Abdomen is round non-distended. Derm: Skin is pink, warm \\T\\ dry. Musculoskeletal: Range of motion: intact in all extremities. Historical: - Allergies: 00:56 Phenobarbital; mb9 - PMHx: 00:56 Chronic obstructive lung disease; Congestive heart failure; diabetes mellitus; mb9 Hypertensive disorder; Hypothyroidism; - PSHx: 00:56 3 cardiac stents; bowel resection; cataract repair; Cholecystectomy; laminectomy; mb9 - Immunization history:: Adult Immunizations up to date. - Infectious Disease History:: Denies. - Social history:: Smoking status: Patient/guardian denies using tobacco. Screenin:59 [facility] ED Fall Risk Assessment (Adult) History of falling in the last 3 months, mb9 including since admission Yes- single mechanical fall (1 pt) Confusion or Disorientation No (0 pts) Intoxicated or Sedated No (0 pts) Impaired Gait No (0 pts) Mobility Assist Device Used No (0 pt) Altered Elimination No (0 pt) Score/Fall Risk Level 3 or more points = High Risk Oriented to surroundings, Maintained a safe environment, Educated pt \\T\\ family on fall prevention, incl call for assistance when getting out of bed. Abuse screen: Denies threats or abuse. Nutritional screening: No deficits noted. Tuberculosis screening: No symptoms or risk factors identified. Assessment: 00:59 Reassessment: see triage assessment. mb9 01:34 Derm: Bruising that is dark purple, on left eye and rigth patella. mb9 02:43 Reassessment: No changes from previously documented assessment. Patient and/or family mb9 updated on plan of care and expected duration. Pain level reassessed. Patient is alert, oriented x 3, equal unlabored respirations, skin warm/dry/pink. Vital Signs: 00:56 BP 107 / 89; Pulse 85; Resp 18; Temp 98; Pulse Ox 96% on 4 lpm NC; mb9 01:34 BP 105 / 60; Pulse 80; Resp 18; Pulse Ox 97% on 3 lpm NC; Weight 113.4 kg; Height 5 ft. mb9 5 in. ; 02:43 BP 104 / 63; Pulse 82; Resp 18; Pulse Ox 97% on 3 lpm NC; mb9 01:34 Body Mass Index 41.60 (113.40 kg, 165.1 cm) mb9 NIH Stroke Scale Scores: 01:05 NIHSS Score: 0 lorena ED Course: 00:55 Patient arrived in ED. lorena 00:55 Nathan Franco MD is Attending Physician. lorena 00:55 Lenka Baron RN is Primary Nurse. mb9 00:57 Triage completed. mb9 00:58 Arm band placed on. 9 00:58 EKG done, by ED staff, reviewed by Nathan Franco MD. Maintain EMS IV. Dressing intact. mb9 Good blood return noted. Site clean \\T\\ dry. Gauge \\T\\ site: 20g left AC. Flushed with 10 mL NS. 00:59 Placed in gown. Bed in low position. Call light in reach. Side rails up X 1. Provided mb9 Education on: press call light if needing anything. Client placed on continuous cardiac and pulse oximetry monitoring. NIBP monitoring applied. administrative support technician on. 01:05 First set of blood cultures drawn by me. mb9 01:10 Second set of blood cultures drawn by me. mb9 01:34 Initial lab(s) drawn, by me, sent to lab. COVID swab sent to lab. Flu and/or RSV swab mb9 sent to lab. 01:35 Door closed. Noise minimized. Warm blanket given. Pillow given. Repositioned patient. mb9 Cleaned of incontinence. pt placed on pur wic. 01:35 No provider procedures requiring assistance completed. mb9 01:57 XRAY Chest (1 view) In Process Unspecified. EDMS 01:57 Knee Right 3 View XRAY In Process Unspecified. EDMS 02:06 CT Head C Spine In Process Unspecified. EDMS 02:06 CT Chest Abdomen Pelvis W/O Contrast In Process Unspecified. EDMS 02:16 Hieu Lorenzo MD is Hospitalizing Provider. lorena 03:20 Patient admitted, IV remains in place. mb9 Administered Medications: 01:20 Drug: NS 0.9% IV 1000 ml IV at 125 ml/hr continuous Route: IV; Rate: 125 ml/hr; Site: 9 left antecubital; 02:43 Follow up: Response: No adverse reaction; IV Status: Infusion continued upon admission mb9 01:20 Drug: MethylPrednisoLONE IVP 125 mg IVP once Route: IVP; Site: left antecubital; mb9 02:19 Follow up: Response: No adverse reaction mb9 01:25 Drug: NS 0.9% IV 500 ml IV at bolus once Route: IV; Rate: bolus; Site: left antecubital;mb9 02:19 Follow up: Response: No adverse reaction; IV Status: Completed infusion mb9 01:33 Drug: Levalbuterol Inhalation 3.75 mg Inhalation once Route: Inhalation; mb9 01:33 Drug: Ipratropium Inhalation Aerosol 0.5 mg Inhalation once Route: Inhalation; mb9 01:33 Drug: levofloxacin IVPB 500 mg 100 ml IVPB once over 60 mins Volume: 100 ml; Route: mb9 IVPB; Infused Over: 60 mins; Site: left antecubital; 02:42 Follow up: Response: No adverse reaction; IV Status: Completed infusion mb9 02:41 Drug: Enoxaparin Sub-Q 100 mg Sub-Q once Route: Sub-Q; Site: right lower abdomen; mb9 03:23 Follow up: Response: No adverse reaction mb9 02:42 Drug: Aspirin PO Chewable Tablet 81 mg PO once; give if ct head negative Route: PO; mb9 03:23 Follow up: Response: No adverse reaction mb9 02:42 Drug: Famotidine IVP 20 mg IVP once; dilute with 10 mL 0.9% NaCl; give over 2 minutes mb9 Route: IVP; Site: left antecubital; 03:23 Follow up: Response: No adverse reaction mb9 Medication: 01:00 VIS not applicable for this client. mb9 Outcome: 02:19 Decision to Hospitalize by Provider. lorena 03:20 Admitted to Tele mb9 03:20 Condition: stable 03:20 Instructed on the need for admit, 04:15 Patient left the ED. mb9 NIH Stroke Scale - NIH Stroke Score Date: 08/12/2024 Time: 01:05 Total Score = 0 10. Dysarthria (speech clarity - read or repeat words) - 0(Normal) 11. Extinction and Inattention (visual/tactile/auditory/spatial/personal) - 0(No abnormality) 1a. Level of Consciousness (LOC) - 0(Alert) 1b. Level of Consciousness (LOC) (Month \\T\\ Age) - 0(Both) 1c. LOC Commands (Open \\T\\ Closes Eyes/Lobster Man) - 0(Both) 2. Best Gaze (Lateral Gaze Paresis) - 0(Normal) 3. Visual Field Loss - 0(No visual loss) 4. Facial Palsy - 0(Normal) 5a. Left Arm: Motor (10-second hold) - 0(No drift) 5b. Right Arm: Motor (10-second hold) - 0(No drift) 6a. Left Leg: Motor (5-second hold - always test supine) - 0(No drift) 6b. Right Leg: Motor (5-second hold - always test supine) - 0(No drift) 7. Limb Ataxia (finger/nose \\T\\ heel/noel - test with eyes open) - 0(Absent) 8. Sensory Loss (pinprick arms/legs/face) - 0(Normal) 9. Best Language: Aphasia (description/naming/reading) - 0(No aphasia) Initials: lorena Signatures: Dispatcher [employer] Nathan Warren MD MD cha Wilkerson, Lenka Connor, RN RN mb9 Corrections: (The following items were deleted from the chart) 00:58 00:56 BP 107 / 89; Pulse 85bpm; Resp 18bpm; Pulse Ox 100% RA; Temp 98F; mb9 mb9
--- NOTE | 2024-08-12 02:19 | EDPHYS ---
Physician Documentation [facility] Name: Michelle Beverly Age: 83 yrs Sex: Female : 1940 Arrival Date: 08/12/2024 Time: 00:52 Bed 14 Private MD: FERNY Physician Nathan Franco HPI: 08/12 01:03 This 83 yrs old Female presents to ER via EMS with complaints of COPD lorena Exacerbation. 01:03 The patient has shortness of breath at rest, with light activity. Onset: The lorena symptoms/episode began/occurred last night. Duration: The symptoms are continuous, and are steadily getting worse. The patient's shortness of breath is aggravated by coughing, exertion, light activity, prone position, supine position, is alleviated by nebulizer treatment, rest, sitting up, application of supplemental oxygen. copd on 2 liters , long tubing. Historical: - Allergies: 00:56 Phenobarbital; mb9 - PMHx: 00:56 Chronic obstructive lung disease; Congestive heart failure; diabetes mellitus; mb9 Hypertensive disorder; Hypothyroidism; - PSHx: 00:56 3 cardiac stents; bowel resection; cataract repair; Cholecystectomy; laminectomy; mb9 - Immunization history:: Adult Immunizations up to date. - Infectious Disease History:: Denies. - Social history:: Smoking status: Patient/guardian denies using tobacco. ROS: 01:05 Constitutional: Negative for fever, chills, and weight loss, Eyes: Negative for injury, lorena pain, redness, and discharge, ENT: Negative for injury, pain, and discharge, Neck: Negative for injury, pain, and swelling, Cardiovascular: Negative for chest pain, palpitations, and edema, Abdomen/GI: Negative for abdominal pain, nausea, vomiting, diarrhea, and constipation, Back: Negative for injury and pain, : Negative for injury, bleeding, discharge, and swelling, MS/Extremity: Negative for injury and deformity, Skin: Negative for injury, rash, and discoloration, Neuro: Negative for headache, weakness, numbness, tingling, and seizure, Psych: Negative for depression, anxiety, suicide ideation, homicidal ideation, and hallucinations, Allergy/Immunology: Negative for hives, rash, and allergies, Endocrine: Negative for neck swelling, polydipsia, polyuria, polyphagia, and marked weight changes, Hematologic/Lymphatic: Negative for swollen nodes, abnormal bleeding, and unusual bruising, 01:05 Respiratory: Positive for cough, with no reported sputum, 01:05 MS/extremity: Positive for pain, tenderness, of the right leg, Exam: 01:05 Constitutional: This is a well developed, well nourished patient who is awake, alert, lorena and in no acute distress. Head/Face: Normocephalic, atraumatic. Eyes: Pupils equal round and reactive to light, extra-ocular motions intact. Lids and lashes normal. Conjunctiva and sclera are non-icteric and not injected. Cornea within normal limits. Periorbital areas with no swelling, redness, or edema. ENT: Nares patent. No nasal discharge, no septal abnormalities noted. Tympanic membranes are normal and external auditory canals are clear. Oropharynx with no redness, swelling, or masses, exudates, or evidence of obstruction, uvula midline. Mucous membranes moist. Neck: Trachea midline, no thyromegaly or masses palpated, and no cervical lymphadenopathy. Supple, full range of motion without nuchal rigidity, or vertebral point tenderness. No Meningismus. Chest/axilla: Normal chest wall appearance and motion. Nontender with no deformity. No lesions are appreciated. Cardiovascular: Regular rate and rhythm with a normal S1 and S2. No gallops, murmurs, or rubs. Normal PMI, no JVD. No pulse deficits. Abdomen/GI: Soft, non-tender, with normal bowel sounds. No distension or tympany. No guarding or rebound. No evidence of tenderness throughout. Back: No spinal tenderness. No costovertebral tenderness. Full range of motion. Female : Normal external genitalia. Skin: Warm, dry with normal turgor. Normal color with no rashes, no lesions, and no evidence of cellulitis. Neuro: Awake and alert, GCS 15, oriented to person, place, time, and situation. Cranial nerves II-XII grossly intact. Motor strength 5/5 in all extremities. Sensory grossly intact. Cerebellar exam normal. Normal gait. Psych: Awake, alert, with orientation to person, place and time. Behavior, mood, and affect are within normal limits. 01:05 Respiratory: the patient does not display signs of respiratory distress, Respirations: labored breathing, that is mild, Breath sounds: decreased breath sounds, that are mild, are scattered, rhonchi, that are mild, are scattered, stridor, is not appreciated, + upper airway congestion. wheezing: expiratory Respiratory rate: 22 01:15 ECG was reviewed by the Attending Physician. [facility] Vital Signs: 00:56 BP 107 / 89; Pulse 85; Resp 18; Temp 98; Pulse Ox 96% on 4 lpm NC; mb9 01:34 BP 105 / 60; Pulse 80; Resp 18; Pulse Ox 97% on 3 lpm NC; Weight 113.4 kg; Height 5 ft. mb9 5 in. ; 02:43 BP 104 / 63; Pulse 82; Resp 18; Pulse Ox 97% on 3 lpm NC; mb9 01:34 Body Mass Index 41.60 (113.40 kg, 165.1 cm) mb9 NIH Stroke Scale Scores: 01:05 NIHSS Score: 0 [facility] MDM: 00:55 Patient medically screened. [facility] 01:07 Differential diagnosis: Anemia Bronchitis CHF exacerbation, Chronic Obstructive lorena Pulmonary Disease Myocardial Infarction pneumonia, Pneumothorax pulmonary edema, Pulmonary Embolism reactive airway disease, Sepsis Unstable Angina. Antibiotic administration: Levaquin given. Differential Diagnosis altered mental status, sepsis, flu, Obstructed Airway Bronchitis Influenza Upper Respiratory Infection Sinusitis Pharyngitis Otitis Media Asthma Exacerbation Viral Syndrome Pneumonia. Differential diagnosis: closed head injury, contusion, fracture, laceration, multiple trauma, sprain, strain. Immunization status: Pneumococcal vaccine: within last 5 years. Influenza vaccine: within last 5 years. Data reviewed: vital signs, nurses notes, EMS record, lab test result(s), EKG, radiologic studies, CT scan, plain films. Consideration of Admission/Observation Escalation of care including admission/observation considered. I considered the following discharge prescriptions or medication management in the emergency department Medications were administered in the Emergency Department. See MAR. Independent interpretation of the following test(s) in the Emergency Department EKG: See my EKG interpretation above. Test considered but Not performed: Ultrasound no 2 d echo. Historians other than the Patient: EMS: ems well informed. Care significantly affected by the following chronic conditions: Diabetes, Hypertension, Congestive Heart Failure, Chronic Obstructive Pulmonary Disease, Obesity. 08/12 00:59 Order name: Basic Metabolic Panel; Complete Time: 02:13 [facility] 08/12 00:59 Order name: CBC with Diff; Complete Time: 02:13 [facility] 08/12 00:59 Order name: LFT's; Complete Time: 02:13 [facility] 08/12 00:59 Order name: Magnesium; Complete Time: 02:13 [facility] 08/12 00:59 Order name: NT PRO-BNP; Complete Time: 02:13 [facility] 08/12 00:59 Order name: PT-INR; Complete Time: 02:13 [facility] 08/12 00:59 Order name: Troponin HS; Complete Time: 02:13 [facility] 08/12 00:59 Order name: Blood Culture Adult (2) [facility] 08/12 00:59 Order name: ABG; Complete Time: 01:37 [facility] 08/12 01:05 Order name: SARS RAPID; Complete Time: 02:13 [facility] 08/12 01:05 Order name: Flu; Complete Time: 02:13 [facility] 08/12 02:58 Order name: Urinalysis w/ reflexes EDFL 08/12 02:58 Order name: CBC with Automated Diff [facility] 08/12 02:58 Order name: CBC with Automated Diff EDFL 08/12 02:58 Order name: Comprehensive Metabolic Panel EDFL 08/12 02:58 Order name: Comprehensive Metabolic Panel EDFL 08/12 02:58 Order name: Troponin High Sensitivity [facility] 08/12 02:58 Order name: Troponin High Sensitivity EDMS 08/12 02:58 Order name: Troponin High Sensitivity MS 08/12 02:58 Order name: Troponin High Sensitivity [facility] 08/12 00:59 Order name: XRAY Chest (1 view) [facility] 08/12 00:59 Order name: CT Head C Spine; Complete Time: 02:41 [facility] 08/12 00:59 Order name: CT Chest Abdomen Pelvis W/O Contrast; Complete Time: 03:57 [facility] 08/12 01:05 Order name: Knee Right 3 View XRAY [facility] 08/12 03:53 Order name: Echo with Doppler [facility] 08/12 00:59 Order name: EKG; Complete Time: 01:00 [facility] 08/12 00:59 Order name: Cardiac monitoring; Complete Time: 01:00 [facility] 08/12 00:59 Order name: EKG - Nurse/Tech; Complete Time: 01:00 [facility] 08/12 00:59 Order name: IV Saline Lock; Complete Time: 01:00 [facility] 08/12 00:59 Order name: Labs collected and sent; Complete Time: 01:01 [facility] 08/12 00:59 Order name: O2 Per Protocol; Complete Time: : lorena 08/12 00:59 Order name: O2 Sat Monitoring; Complete Time: : [facility] EC:15 Rate is 82 beats/min. Rhythm is regular. QRS [place] is Normal. LA interval is shortened [facility] at 80 msec. QRS interval is prolonged at 158 msec. QT interval is normal. No Q waves. T waves are Normal. No ST changes noted. Clinical impression: NSR w/ Non-specific ST/T Changes, Abnormal EKG without significant change, and No evidence of ischemia. Interpreted by me. Reviewed by me. Administered Medications: :20 Drug: NS 0.9% IV 1000 ml IV at 125 ml/hr continuous Route: IV; Rate: 125 ml/hr; Site: [facility] left antecubital; 02:43 Follow up: Response: No adverse reaction; IV Status: Infusion continued upon admission mb9 01:20 Drug: MethylPrednisoLONE IVP 125 mg IVP once Route: IVP; Site: left antecubital; mb9 02:19 Follow up: Response: No adverse reaction mb9 01:25 Drug: NS 0.9% IV 500 ml IV at bolus once Route: IV; Rate: bolus; Site: left antecubital;mb9 02:19 Follow up: Response: No adverse reaction; IV Status: Completed infusion mb9 01:33 Drug: Levalbuterol Inhalation 3.75 mg Inhalation once Route: Inhalation; mb9 01:33 Drug: Ipratropium Inhalation Aerosol 0.5 mg Inhalation once Route: Inhalation; mb9 01:33 Drug: levofloxacin IVPB 500 mg 100 ml IVPB once over 60 mins Volume: 100 ml; Route: [facility] IVPB; Infused Over: 60 mins; Site: left antecubital; 02:42 Follow up: Response: No adverse reaction; IV Status: Completed infusion mb9 02:41 Drug: Enoxaparin Sub-Q 100 mg Sub-Q once Route: Sub-Q; Site: right lower abdomen; mb9 03:23 Follow up: Response: No adverse reaction mb9 02:42 Drug: Aspirin PO Chewable Tablet 81 mg PO once; give if ct head negative Route: PO; mb9 03:23 Follow up: Response: No adverse reaction mb9 02:42 Drug: Famotidine IVP 20 mg IVP once; dilute with 10 mL 0.9% NaCl; give over 2 minutes mb9 Route: IVP; Site: left antecubital; 03:23 Follow up: Response: No adverse reaction mb9 Disposition Summary: 08/12/24 02:19 Hospitalization Ordered Notes: Hospitalization Status: Inpatient Admission lorena Provider: Hieu Lorenzo cha Location: Telemetry/MedSurg (Inpatient) lorena Condition: Fair lorena Problem: an acute exacerbation lorena Symptoms: have improved lorena Bed/Room Type: Standard [facility] Room Assignment: 406(08/12/24 03:15) ss Diagnosis - COPD/ Chronic obstructive pulmonary disease with (acute) exacerbation lorena - Hypoxemia lorena - Obesity, unspecified lorena - Weakness lorena - Fall on same level, unspecified lorena - Abnormal levels of other serum enzymes - elevated troponin lorena - Chronic kidney disease, unspecified lorena Forms: - Medication Reconciliation Form lorena - SBAR form lorena - Leadership Thank You Letter lorena NIH Stroke Scale - NIH Stroke Score Date: 08/12/2024 Time: 01:05 Total Score = 0 10. Dysarthria (speech clarity - read or repeat words) - 0(Normal) 11. Extinction and Inattention (visual/tactile/auditory/spatial/personal) - 0(No abnormality) 1a. Level of Consciousness (LOC) - 0(Alert) 1b. Level of Consciousness (LOC) (Month \T\ Age) - 0(Both) 1c. LOC Commands (Open \T\ Closes Eyes/Sales Systems Engineer) - 0(Both) 2. Best Gaze (Lateral Gaze Paresis) - 0(Normal) 3. Visual Field Loss - 0(No visual loss) 4. Facial Palsy - 0(Normal) 5a. Left Arm: Motor (10-second hold) - 0(No drift) 5b. Right Arm: Motor (10-second hold) - 0(No drift) 6a. Left Leg: Motor (5-second hold - always test supine) - 0(No drift) 6b. Right Leg: Motor (5-second hold - always test supine) - 0(No drift) 7. Limb Ataxia (finger/nose \T\ heel/noel - test with eyes open) - 0(Absent) 8. Sensory Loss (pinprick arms/legs/face) - 0(Normal) 9. Best Language: Aphasia (description/naming/reading) - 0(No aphasia) Initials: [facility] Signatures: Dispatcher [employer] Nathan Warren MD MD cha Blanchard, Fatoumata, RN RN ss Lenka Baron RN RN mb9 Corrections: (The following items were deleted from the chart) 01:00 01:00 BASIC METABOLIC PANEL+C.LAB.BRZ ordered. EDMS EDMS 01:00 01:00 CBC+H.LAB.BRZ ordered. EDMS EDMS : 01:00 HEPATIC FUNCTION+C.LAB.BRZ ordered. EDMS EDMS : 01:00 MAGNESIUM+C.LAB.BRZ ordered. EDMS EDMS : 01:00 PROBNP+C.LAB.BRZ ordered. EDMS EDMS : 01:00 PROTIME (+INR)+COAG.LAB.BRZ ordered. EDMS EDMS : 01:00 Troponin High Sensitivity+C.LAB.BRZ ordered. EDMS EDMS :00 01:00 BLOOD CULTURE*+BA.LAB.BRZ ordered. EDMS EDMS 01:00 01:00 Arterial Blood Gas+RC.LAB.BRZ ordered. EDMS EDMS 03:15 02:19 lorena ivey
[2024-08-12] MEDS ORDERED: FAMOTIDINE 20 MG/2 ML VIAL IV ONE (02:22)
[2024-08-12] MEDS ORDERED: ENOXAPARIN 100 MG/ML SYR SQ ONE (02:22)
[2024-08-12] MEDS ORDERED: ASPIRIN 81 MG CHEWABLE TABLET ONE (02:22)
--- NOTE | 2024-08-12 02:38 | RAD REPORT ---
EXAM: CT Head and Cervical Spine Without Intravenous Contrast CLINICAL HISTORY: The patient is 83 years old and is Female; TRAUMA TECHNIQUE: Axial computed tomography images of the head/brain and cervical spine without intravenous contrast. Sagittal and coronal reformatted images were created and reviewed. This CT exam was performed using one or more of the following dose reduction techniques: automated exposure control, adjustmen t of the mA and/or kV according to patient size, and/or use of iterative reconstruction technique. COMPARISON: CT June 22, 2021 the lung apices are clear. FINDINGS: BRAIN: There is diffuse cerebral atrophy present, consistent with this patient's age. There is patchy hypoattenuation of the deep white matter which is non-specific, but most likely owing to chronic small vessel ischemic change in a patient of this age group. No intracranial hemorrhage, ma ss effect, midline shift is seen. There are no extra-axial fluid collections. VENTRICLES: There is diffuse prominence of the ventricles, which is likely related to central atr ophy. SKULL: No acute fracture. SINUSES: Unremarkable as visualized. No acute sinusitis. MASTOID AIR CELLS: Unremarkable as visualized. No mastoid effusion. VERTEBRAE: Straightening of the normal cervical curvature is present. The vertebral body height s and alignment are maintained. There is no acute fracture. Minimal anterolisthesis of C4 on C5 is present secondary to degenerative facet arthropathy. The vertebral body heights and alignment are otherwise maintained. DISCS/SPINAL CANAL/NEURAL FORAMINA: Minimal degenerative change with intervertebral disc space na rrowing at C5-C6 and osteophyte formation. There is no significant canal stenosis or neural foraminal narrowing. SOFT TISSUES: The soft tissues are normal. VASCULATURE: Atherosclerosis of intracranial vasculature is present. LUNG APICES: Unremarkable as visualized. IMPRESSION: 1. No acute intracranial findings. 2. Straightening of the normal cervical curvature is present. Findings may be secondary to patien t position versus muscle spasm. 3. Mild spondylosis of the cervical spine without acute findings. Electronically signed by: Yesenia Gutierrez MD 08/12/2024 02:34 AM CDT RP Due to temporary technical issues with the PACS/[employer] reporting system, reports are being adam d by the in-house radiologist without review as a courtesy to ensure prompt reporting the interpreting radiologist is fully responsible for the content of the report. Transcribed Date/Time: 08/12/2024 2:38 AM
--- NOTE | 2024-08-12 02:50 | P.HP ---
Certification for Inpatient Patient admitted to: Inpatient With expected LOS: >2 Midnights Practitioner: I am a practitioner with admitting privileges, knowledge of patient current condition, hospital course, and medical plan of care. Services: Services provided to patient in accordance with Admission requirements found in Title 42 Section 412.3 of the Code of Federal Regulations Patient History Date of Service: 08/12/24 Reason for admission: SOB History of Present Illness: 83 yrs old Female with past medical history of Chronic obstructive lung disease; Congestive heart failure; diabetes mellitus; Hypertension , Hypothyroidism; CAD status post stents, history of bowel resection and laminectomy brought to ER with shortness of breath. Patient is chronic hypoxic respiratory failure on 2 L nasal cannula. Shortness of breath worsened in the last 2 days and has been progressively worsening. Denies any chest pain. Short of breath is with minimal activities associated with cough.. Patient was assessed in the ER and is admitted for further management of COPD exacerbation Allergies phenobarbital Allergy (Intermediate, Verified 08/31/23 21:19) Itching Home medications list reviewed: Yes Home Medications: Clopidogrel Bisulfate [Plavix*] 1 tab PO DAILY 09/23/19 Furosemide [Lasix] 1 tab PO DAILY 09/23/19 Levothyroxine Sodium 1 tab PO 0630 09/23/19 Nebivolol HCl [Bystolic*] 1 tab PO DAILY 09/23/19 Pantoprazole [Protonix Tab*] 1 tab PO 0630 09/23/19 lisinopriL [Lisinopril] 10 mg PO DAILY 09/23/19 Insulin -Regular Human [Novolin -R*] See Protocol SQ ACHS #2 vial 09/28/19 Albuterol Inhaler [Ventolin Inhaler*] 2 puff PO Q6HR PRN 11/04/21 Citalopram [Celexa*] 40 mg PO DAILY 11/04/21 Gabapentin 100 mg PO TID 11/04/21 Hydrocodone 7.5/APAP 325 [Orange 7.5/325 mg*] 1 tab PO TID 11/04/21 Insulin Detemir [Levemir] 60 units SQ DAILY 11/04/21 Orphenadrine Citrate 1 tab PO DAILY PRN 11/04/21 Fluticasone/Umeclidin/Vilanter [Trelegy Ellipta 100-62.5-25] 1 puff IH DAILY 08/31/23 - Past Medical/Surgical History Diabetic: Yes Past Medical History: Reviewed- Non-Contributory -: Diabetes mellitus type 2, insulin dependent -: HTN -: CHF -: COPD -: Hypothyroidism -: History of pulmonary ebolism -: Hyperlipidemia -: CAD with prior stents -: GOUT -: Depression -: Chronic back and knee pain Past Surgical History: Reviewed- Non-Contributory -: HEART STENTS X 3 -: CHOLECYSTECTOMY -: COLON SX- POLYP REMOVED -: LEFT ANKLE SX -: HYSTERECTOMY -: APPY -: DISK REMOVAL -: HEMORROIDECTOMY Psychosocial/ Personal History: Patient is - Family History Family History: Reviewed- Non-Contributory - Family History Mother -: Diabetes Notes: with CT Father -: Cancer Notes: Prostatic CA - Social History Smoking Status: Former smoker Alcohol use: No CD- Drugs: No Caffeine use: Yes Review of Systems 10-point ROS is otherwise unremarkable Physical Examination - Vital Signs Temperature: 98.2 F Blood Pressure: 136/72 Pulse: 78 Respirations: 18 Pulse Ox (%): 94 - Physical Exam General: Alert, Oriented x3, Mild distress, Obese HEENT: Atraumatic, Normocephalic Neck: Supple Respiratory: Diminished, Crackles/rales, Expiratory wheezes Cardiovascular: Regular rate/rhythm, Normal S1 S2, Edema Capillary refill: <2 Seconds Gastrointestinal: Soft and benign, W/out hepatosplenomegaly Musculoskeletal: No clubbing Integumentary: No rashes, No breakdown Neurological: Normal speech, Normal strength at 5/5 x4 extr, Cranial nerves 3-12 intact Lymphatics: No axilla or inguinal lymphadenopathy - Studies Laboratory Data (last 24 hrs) 08/12/24 08/12/24 08/12/24 01:16 01:16 01:16 WBC 8.00 Hgb 10.1 L Hct 31.2 L Plt Count 227 PT 13.6 H INR 1.22 Sodium 133 L Potassium 4.8 BUN 30 H Creatinine 1.46 H Glucose 209 H Magnesium 1.9 Total Bilirubin 0.5 AST 15 ALT 15 Alkaline Phosphatase 60 Microbiology Data (last 24 hrs): 08/12/24 01:15 Nasopharnyx Influenza Type A Antigen Screen - Final 08/12/24 01:15 Nasopharnyx Influenza Type B Antigen Screen - Final Assessment and Plan - Plan COPD exacerbation Monitor closely on telemetry Started on bronchodilators Oxygen supplementation Steroids added Chest x-ray findings noted Pulmonology consult if not better in the a.m. Acute on chronic CHF possibly systolic/diastolic Monitor closely on telemetry Started on aggressive diuresis Oxygen supplementation Will try to wean down oxygen requirement Continue home medications Titrate as needed Will obtain an echocardiogram Cardiology consult NSTEMI Will trend cardiac enzymes Will monitor telemetry Started on aspirin and statin Patient denies any chest pain Will get an echocardiogram Cardiology consult Hypertension Antihypertensives titrated Continue home medications and titrate as needed Hyperlipidemia Continue statin Diabetes Insulin sliding scale Accu-Chek before every meal and at bedtime GI/DVT prophylaxis Advanced directive full code Discharge Plan: Home Plan to discharge in: 48 Hours - Advance Directives Does patient have a Living Will: No Does patient have a Durable POA for Healthcare: No - Code Status/Comfort Care Code Status: Full Code Time Spent Managing Pts Care (In Minutes): 48
[2024-08-12] MEDS ORDERED: ACETAMINOPHEN 325 MG TABLET PO PRN (02:53)
[2024-08-12] MEDS ORDERED: ALBUTEROL 2.5 MG/3 ML NEB SOL NEB PRN (02:53)
[2024-08-12] MEDS ORDERED: ONDANSETRON 4 MG/2 ML VIAL IV PRN (02:53)
--- NOTE | 2024-08-12 02:56 | RAD REPORT ---
EXAM: CT Chest, Abdomen and Pelvis Without Intravenous Contrast CLINICAL HISTORY: COPD, Trauma TECHNIQUE: Axial computed tomography images of the chest, abdomen and pelvis without intravenous contrast. Sag ittal and coronal reformatted images were created and reviewed. This CT exam was performed using one or more of the following dose reduction techniques: automated exposure control, adjustment of t he mA and/or kV according to patient size, and/or use of iterative reconstruction technique. COMPARISON: XR Chest 08/12/2024. FINDINGS: CHEST: Lungs: Mild background paraseptal and centrilobular emphysema. Bibasilar subsegmental atelectasis/p leural parenchymal scar. Right lower lobe calcified granuloma. No mass. Pleural space: Trace right pleural effusion. No pneumothorax. Heart: The heart is mildly to moderately enlarged. Coronary artery calcification. Small pericardial effusion. ABDOMEN: Liver: Unremarkable. Gallbladder and bile ducts: There has been a cholecystectomy. No ductal dilation. Pancreas: Moderate pancreatic parenchymal atrophy. No ductal dilation. Spleen: Unremarkable. No splenomegaly. Adrenals: Unremarkable. No mass. Kidneys and ureters: Unremarkable. No obstructing stones. No hydronephrosis. Stomach and bowel: Prior right hemicolectomy. Moderate stool. No bowel obstruction. Colonic diver ticula without adjacent inflammatory change. PELVIS: Appendix: See above. Bladder: Unremarkable. No stones. Reproductive: There has been a hysterectomy. No adnexal cysts or masses are identified. CHEST, ABDOMEN and PELVIS: Intraperitoneal space: Unremarkable. No significant fluid collection. No free air. Bones/joints: Incompletely visualized, displaced and overlapping right humeral head/neck fracture. This is age-indeterminate. Multilevel spondylosis. Mild remote anterior superior T3 compression fracture. Remote superior L4 compression fracture. No dislocation. Soft tissues: Midline ventral abdominal wall incisional scarring. Small supraumbilical and periumbi lical hernias containing a knuckle of small bowel. Vasculature: Moderate to severe atherosclerotic disease. No thoracic or abdominal aortic aneurysm. Lymph nodes: Unremarkable. No enlarged lymph nodes. IMPRESSION: 1. Age-indeterminate right humeral head/neck fracture. 2. No focal infiltrate or acute injury identified within the chest. 3. Allowing for unenhanced technique, no evidence for hollow or solid organ injury. 4. Other findings as above. Electronically signed by: Monty Paz MD 08/12/2024 02:50 AM CDT Due to temporary technical issues with the PACS/[employer] reporting system, reports are being adam d by the in-house radiologist without review as a courtesy to ensure prompt reporting the interpreting radiologist is fully responsible for the content of the report. Transcribed Date/Time: 08/12/2024 2:56 AM
--- NOTE | 2024-08-12 05:01 | RAD REPORT ---
EXAM: XR Right Knee, 3 Views CLINICAL HISTORY: Pain, trauma. TECHNIQUE: Three views of the right knee. COMPARISON: No relevant prior studies available. FINDINGS: Bones/joints: Osseous structures are osteopenic. Moderate to severe tricompartmental degenerative c hanges. No acute fracture. Small joint effusion. No dislocation. Soft tissues: Unremarkable. Vasculature: Atherosclerotic disease. IMPRESSION: Small joint effusion. No acute fracture. Electronically signed by: Monty Paz MD 08/12/2024 02:21 AM CDT Due to temporary technical issues with the PACS/[employer] reporting system, reports are being adam d by the in-house radiologist without review as a courtesy to ensure prompt reporting the interpreting radiologist is fully responsible for the content of the report. Transcribed Date/Time: 08/12/2024 5:05 AM
[2024-08-12 05:03] VITALS: BMI 41.3
--- NOTE | 2024-08-12 05:03 | RAD REPORT ---
EXAM: XR Chest, 1 View CLINICAL HISTORY: Cough. TECHNIQUE: Frontal view of the chest. COMPARISON: No relevant prior studies available. FINDINGS: Lungs: Unremarkable. No consolidation. Pleural space: Unremarkable. No pneumothorax. Heart: The cardiac silhouette is moderately enlarged, in part accentuated by technique. Mediastinum: Unremarkable. Normal mediastinal contour. Bones/joints: Age-indeterminate displaced and and overlapping right humeral head/neck fracture. Vasculature: Thoracic aortic atherosclerosis. IMPRESSION: 1. No acute disease. 2. Age-indeterminate right humeral head/neck fracture. Electronically signed by: Monty Paz MD 08/12/2024 02:19 AM ExplorraT Due to temporary technical issues with the PACS/[employer] reporting system, reports are being adam d by the in-house radiologist without review as a courtesy to ensure prompt reporting the interpreting radiologist is fully responsible for the content of the report. Transcribed Date/Time: 08/12/2024 5:03 AM
[2024-08-12] MEDS: METHYLPREDNISOLONE 125 MG INJ IV SCH (05:08)
[2024-08-12] MEDS: INSULIN REGULAR (HUMAN) 100 UNIT/ML SQ SCH (08:19)
[2024-08-12] MEDS: CITALOPRAM 10 MG TABLET PO SCH (08:19)
[2024-08-12] MEDS: FUROSEMIDE 40 MG/4 ML VIAL IV SCH (08:19)
[2024-08-12] MEDS: GABAPENTIN 100 MG CAP PO SCH (08:19)
[2024-08-12] MEDS: ENOXAPARIN 40 MG/0.4 ML SQ SCH (08:19)
[2024-08-12] MEDS: NEBIVOLOL HCL 5 MG TAB PO SCH (08:20)
[2024-08-12] MEDS: HYDROCODONE/APAP 7.5/325 MG TAB PO SCH (08:20)
[2024-08-12] MEDS: ASPIRIN EC 81 MG TAB PO SCH (08:20)
[2024-08-12] MEDS: ALBUTEROL 2.5 MG/3 ML NEB SOL NEB SCH (08:54)
[2024-08-12] MEDS: IPRATROPIUM BROM 0.5MG/2.5ML NEB SCH (08:54)
[2024-08-12] MEDS: PNEUMOCOCCAL VACCINE 0.5 ML IMVAC ONE (09:33)
[2024-08-12] MEDS: CLOPIDOGREL 75 MG TABLET PO SCH (11:30)
[2024-08-12] MEDS: INSULIN GLARGINE 100 UNIT/ML SQ SCH (11:34)
[2024-08-12 12:16] LABS: Specific Gravity 1.015 (1.005-1.030); Sqamous Epithelial <5 /HPF (None Seen); Urine Bacteria <20 /HPF (<20); Urine Bilirubin NEGATIVE (Negative); Urine Blood Negative (Negative); Urine Clarity Extremely Turbid (Clear); Urine Color Light-Yellow (Yellow); Urine Culture Reflex Order NOT NEEDED; Urine Glucose 1+ (Negative); Urine Ketones NEGATIVE (Negative); Urine Microscopic Reflex YN ORDER UMIC; Urine Mucus Slight /HPF (None Seen); Urine Nitrite NEGATIVE (Negative); Urine Protein 1+ (Negative); Urine RBC <5 /HPF (None Seen); Urine Urobilinogen Normal (Normal); Urine WBC <5 /HPF (<5); Urine pH 5.5 (5.0-7.0)
[2024-08-12] MEDS: VANCOMYCIN 2 GM in NA CHLORIDE 0.9% 500 ML IVPB SCH (18:00)
[2024-08-12] MEDS: ATORVASTATIN 40 MG TAB PO SCH (20:35)
[2024-08-12] MEDS: VANCOMYCIN 1 GM/VIAL ONE (20:46)
[2024-08-12] MEDS: NA CHLORIDE 0.9% 500 ML ONE (20:47)
[2024-08-12] MEDS ORDERED: VANCOMYCIN 1.5 GM in NA CHLORIDE 0.9% 500 ML IVPB SCH (21:00)
[2024-08-13] MEDS: HYDROCODONE/APAP 7.5/325 MG TAB PO ONE (01:50)
[2024-08-13] MEDS: ZOLPIDEM TARTRATE 10 MG TABLET PO ONE (01:50)
[2024-08-13] MEDS: AMITRIPTYLINE 50 MG TAB PO SCH (01:51)
[2024-08-13 05:52] LABS: Absolute Lymphocytes (CBC) 0.5 K/uL (0.7-4.9); Absolute Monocytes 0.3 K/uL (0.1-1.3); Basophils % 0.4 % (0-1.3); Hematocrit 29.6 % (36.0-45.0); Lymphocytes % 4.8 % (15.3-44.8); MCH 32.5 pg (27.0-35.0); MCHC 33.8 g/dL (32.0-36.0); MCV 96.2 fL (80-100); Monocytes % 3.1 % (3.3-12.3); Neutrophils % 91.7 % (41.7-73.7); Nucleated Red Blood Cells % 0.1 % (0-0); Platelets 215 thou/uL (152-406); RBC Red Blood Cell Count 3.08 M/uL (3.86-4.86)
[2024-08-13] MEDS: LEVOTHYROXINE SOD 0.125 MG TAB PO SCH (06:02)
[2024-08-13 06:11] LABS: ALT/SGPT < 14 U/L (13-56); AST/SGOT 11 U/L (15-37); Albumin 2.9 g/dL (3.4-5.0); Albumin/Globulin Ratio 0.7 (1.1-1.8); Alkaline Phosphatase 57 U/L (45-117); Anion Gap 9.6 mEq/L (5.0-15.0); BUN Blood Urea Nitrogen 38 mg/dL (7-18); Bicarbonate 28 mEq/L (21-32); Bilirubin Total 0.4 mg/dL (0.2-1.0); Glomerular Filtration Rate 28 ml/min (=/>90); Glucose Level 225 mg/dL (74-106); Potassium 4.6 mEq/L (3.5-5.1); Protein, Total 6.9 g/dL (6.4-8.2); Sodium Level 133 mEq/L (136-145)
[2024-08-13 08:34] LABS: Blood Morphology Comment NOT SEEN (NOT SEEN); Platelet Estimate ADEQ; White Blood Cell Scan OK (OK)
--- NOTE | 2024-08-13 08:39 | P.PN ---
Subjective Date of Service: 08/13/24 Chief Complaint: SOB Subjective: No C/O voiced, Improving <Jenifer Osoriolen - Last Filed: 08/13/24 08:33> Date of Service: 08/13/24 <Mickey Hernandez C - Last Filed: 08/13/24 15:28> Review of Systems 10-point ROS is otherwise unremarkable General: Malaise Eyes: Unremarkable ENT: Unremarkable Respiratory: Other (Improved shortness of breath) Cardiovascular: Unremarkable Gastrointestinal: Unremarkable Genitourinary: Unremarkable Musculoskeletal: Unremarkable Neurological: Weakness Lymphatics: Unremarkable <Jenifer Osorio - Last Filed: 08/13/24 08:33> Physical Examination - Vital Signs Temperature: 98.3 F Blood Pressure: 125/76 Pulse: 83 Respirations: 16 Pulse Ox (%): 96 - Physical Exam General: Alert, In no apparent distress, Oriented x3, Obese HEENT: Atraumatic, Normocephalic Neck: Supple Respiratory: Expiratory wheezes (mild) Cardiovascular: Edema Capillary refill: <2 Seconds Gastrointestinal: Normal bowel sounds, Soft and benign Musculoskeletal: No clubbing Integumentary: No rashes Neurological: Normal speech, Normal tone Lymphatics: No axilla or inguinal lymphadenopathy External genitalia: Deferred Rectal: Deferred <Jenifer Osorio - Last Filed: 08/13/24 08:33> Assessment And Plan - Plan - Plan COPD exacerbation Monitor closely on telemetry Started on bronchodilators Oxygen supplementation Steroids added Chest x-ray findings noted 08/13/24 minimal exp wheeze neutrophils increased over yesterday Acute on chronic CHF possibly systolic/diastolic Monitor closely on telemetry Started on aggressive diuresis Oxygen supplementation Will try to wean down oxygen requirement Continue home medications Titrate as needed Will obtain an echocardiogram Cardiology consult 08/13/24 mild edema NSTEMI Will trend cardiac enzymes Will monitor telemetry Started on aspirin and statin Patient denies any chest pain Will get an echocardiogram 08/13/24 trop trended flat Hypertension Antihypertensives titrated Continue home medications and titrate as needed 08/13/24 125/76 Hyperlipidemia Continue statin Diabetes Insulin sliding scale Accu-Chek before every meal and at bedtime GI/DVT prophylaxis Advanced directive full code Discharge Plan: Home Plan to discharge in: 48 Hours - Advance Directives Does patient have a Living Will: No Does patient have a Durable POA for Healthcare: No - Code Status/Comfort Care Code Status: Full Code Plan to discharge in: 48 Hours - Code Status/Comfort Care Code Status Assessed: Yes (Full) <Jenifer Osorio - Last Filed: 08/13/24 08:33> - Plan Pt seen and examined. I agree with the note by the INDUSTRIAL HEALTH ENGINEER. Will continue steroid, prn oxygen and duoneb. Troponin trend is flat. Will f/u Echo. Continue home meds for other chronic medical problems. <Mickey Hernandez - Last Filed: 08/13/24 15:28>
--- NOTE | 2024-08-13 08:43 | P.PN ---
Date of Service: 08/12/24 Blood cultures called in that were positive; 4/4 bottles positive for Gram- positive cocci. Change antibiotics to vancomycin. Otherwise, patient clinically doing well with no new changes. H&P reviewed by Dr. Lorenzo from this morning. Continue with current plan of care. Patient anxious to go home will have to await culture results.
--- NOTE | 2024-08-13 10:00 | P.CNS ---
Date of Consult: 08/13/24 Chief Complaint: SOB History of Present Illness: Patient is morbidly obese with PMH of COPD on home oxygen, heart failure, presented with worsening SOB, bilateral lower extremities edema, denies chest pain, no palpitations, no syncope. Allergies phenobarbital Allergy (Intermediate, Verified 08/31/23 21:19) Itching Home medications list reviewed: Yes Home Medications: RX: Clopidogrel Bisulfate [Plavix*] 1 tab PO DAILY 09/23/19 RX: Furosemide [Lasix] 2 tab PO DAILY 09/23/19 RX: Levothyroxine Sodium 1 tab PO 30 09/23/19 RX: Nebivolol HCl [Bystolic*] 1 tab PO DAILY 09/23/19 RX: Pantoprazole [Protonix Tab*] [place] [address]/23/19 RX: lisinopriL [Lisinopril] 10 mg PO DAILY 09/23/19 RX: Albuterol Inhaler [Ventolin Inhaler*] 2 puff PO Q6HR PRN 11/04/21 RX: Citalopram [Celexa*] 20 mg PO BID 11/04/21 RX: Gabapentin 100 mg PO TID 11/04/21 Fluticasone/Umeclidin/Vilanter [Trelegy Ellipta 100-62.5-25] 1 puff IH DAILY 08/31/23 Amitriptyline [Elavil] 50 mg PO BEDTIME 08/12/24 Insulin Glargine,Hum.rec.anlog [Lantus] 40 unit SQ DAILY 08/12/24 Mirabegron [Myrbetriq] 50 mg PO DAILY 08/12/24 traMADol HCL [Ultram] 50 mg PO DAILYPRN PRN 08/12/24 - Past Medical/Surgical History Diabetic: Yes -: Diabetes mellitus type 2, insulin dependent -: HTN -: CHF -: COPD -: Hypothyroidism -: History of pulmonary ebolism -: Hyperlipidemia -: CAD with prior stents -: GOUT -: Depression -: Chronic back and knee pain -: HEART STENTS X 3 -: CHOLECYSTECTOMY -: COLON SX- POLYP REMOVED -: LEFT ANKLE SX -: HYSTERECTOMY -: APPY -: DISK REMOVAL -: HEMORROIDECTOMY Psychosocial/ Personal History: Patient is - Family History Mother Medical History: Diabetes Notes: with ID Father Medical History: Cancer Notes: Prostatic [place] - Social History Smoking Status: Former smoker Alcohol use: No CD- Drugs: No Caffeine use: No Place of Residence: Home Review of Systems 10-point ROS is otherwise unremarkable Physical Examination Temp Pulse Resp BP Pulse Ox 98.3 F 83 16 125/76 96 08/13/24 08:39 08/13/24 09:06 08/13/24 09:05 08/13/24 09:06 08/13/24 09:05 General: Alert, In no apparent distress HEENT: Atraumatic, PERRLA, Mucous membr. moist/pink, EOMI, Sclerae nonicteric Neck: Supple, 2+ carotid pulse no bruit, No LAD, Without JVD or thyroid abnormality Respiratory: Clear to auscultation bilaterally, Normal air movement Cardiovascular: Regular rate/rhythm, Normal S1 S2, Edema (+1 bilateral lower extremtiies) Gastrointestinal: Normal bowel sounds, No tenderness Musculoskeletal: No tenderness Integumentary: No rashes Neurological: Normal gait, Normal speech, Normal tone, Normal affect Lymphatics: No axilla or inguinal lymphadenopathy - Problems (1) Type 2 ID (myocardial infarction) Current Visit: Yes Status: Acute Plan: Troponin mild elevated at 87, with no delta, no chest pain, patient report history of CAD and PCI back in 2012 x 3 stents no plan for CAD work up a this time as patient is having AIRAM and heart failure excerbation and will need diuresis first continue ASA, plavix get updated echo outpatient stress test. (2) Acute on chronic diastolic heart failure Current Visit: No Status: Acute Plan: Increase Lasix to 40 mg IV TID. Continue to monitor input and output and electrolytes continue Nebivolol will add losartan after diuresis (3) COPD exacerbation Current Visit: No Status: Acute Plan: per primary team.
--- NOTE | 2024-08-13 12:34 | EKG ---
Test Date: 2024-08-12 Test Time: 01:06:08 Cotton Machine Operator: GABE MEASUREMENT RESULTS: Intervals: Rate: 82 IA: 80 QRSD: 158 QT: 494 QTc: 577 [place]: P: 99 IA: 80 QRS: -86 T: 108 INTERPRETIVE STATEMENTS: Sinus rhythm with short IA with frequent premature ventricular complexes and fusion complexes Left axis deviation Right bundle branch block Inferior infarct, age undetermined Anterolateral infarct, age undetermined Abnormal ECG Compared to ECG 11/04/2021 12:49:26 Fusion complex(es) now present Ventricular premature complex(es) now present Short IA interval now present Right bundle-branch block now present Myocardial infarct finding now present Left bundle-branch block no longer present Electronically Signed On 08-13-24 12:33:56 CDT by Alin White
[2024-08-13] MEDS: FUROSEMIDE 40 MG/4 ML VIAL IV SCH (13:53)
--- NOTE | 2024-08-13 14:56 | ECHO ---
HEIGHT: 5 ft 8 in WEIGHT: 272 lb 0 oz DATE OF STUDY: 08/13/[address]: Ronaldo Lorenzo DO 2-DIMENSIONAL: YES M.MODE: YES DOPPLER: YES COLOR FLOW: YES TDS: PORTABLE: YES DEFINITY: BUBBLE STUDY: DIAGNOSIS: CONGESTIVE HEART FAILURE CARDIAC HISTORY: CATHERIZATION: YES SURGERY: NO PROSTHETIC VALVE: NO PACEMAKER: NO MEASUREMENTS (cm) DIASTOLIC (NORMALS) SYSTOLIC (NORMALS) IVSd 1.3 (0.6-1.2) LA Diam 3.8 (1.9-4.0) LVEF 25-30% LVIDd 5.5 (3.5-5.7) LVIDs 4.2 (2.0-3.5) %FS LVPWd 1.4 (0.6-1.2) Ao Diam 2.9 (2.0-3.7) 2 DIMENSIONAL ASSESSMENT: RIGHT ATRIUM: NORMAL LEFT ATRIUM: NORMAL RIGHT VENTRICLE: NORMAL LEFT VENTRICLE: NORMAL TRICUSPID VALVE: MILD TRICUSPID REGURGITATION MITRAL VALVE: MILD MITRAL REGURGITATION PULMONIC VALVE: AORTIC VALVE: NORMAL PERICARDIAL EFFUSION: NONE AORTIC ROOT: NORMAL LEFT VENTRICULAR WALL MOTION: SEVERE GLOBAL HYPOKINESIS WITH ANTERIO BASAL AND APICAL AKINESIS DOPPLER/COLOR FLOW: GRADE III DIASTOLIC DYSFUNCTION COMMENTS: 1. SEVERELY REDUCED LEFT VENTRICULAR SYSTOLIC FUNCTION, EJECTION FRACTION 25-30%, SEVERE GLOBAL HYPOKINESIS WITH ANTERIOR, SHILOH BASAL AND APICAL NEELY AKINESIS 2. GRADE III DIASTOLIC DYSFUNCTION 3. SEVERE PULMONARY HYPERTENSION (RIGHT VENTRICULAR SYSTOLIC PRESSURE GREATER THAN 60 mmHg) 4. ELEVATED FILLING PRESSURE (RIGHT ATRIUM GREATER THAN 20 mmHg) TECHNOLOGIST: JOSE RAUL MIRANDA
[2024-08-14 07:33] LABS: Absolute Lymphocytes (CBC) 0.5 K/uL (0.7-4.9); Absolute Monocytes 0.3 K/uL (0.1-1.3); Absolute Neutrophil 9.2 K/uL (1.8-8.0); Basophils % 0.2 % (0-1.3); Hematocrit 31.1 % (36.0-45.0); Hemoglobin 10.3 g/dL (12.0-15.0); Lymphocytes % 4.9 % (15.3-44.8); MCH 31.8 pg (27.0-35.0); MCHC 33.2 g/dL (32.0-36.0); MCV 95.8 fL (80-100); MPV 7.6 fL (7.6-11.3); Neutrophils % 91.9 % (41.7-73.7); Nucleated Red Blood Cells % 0.1 % (0-0); Platelets 252 thou/uL (152-406); RBC Red Blood Cell Count 3.24 M/uL (3.86-4.86); Red Cell Distribution Width 15.1 % (12.1-15.2)
--- NOTE | 2024-08-14 10:04 | P.PN ---
Subjective Date of Service: 08/14/24 Chief Complaint: SOB Subjective: No new changes, No C/O voiced, Tolerating diet, Ambulating, Improving Review of Systems 10-point ROS is otherwise unremarkable Physical Examination - Vital Signs Temperature: 96.9 F Blood Pressure: 142/93 Pulse: 79 Respirations: 19 Pulse Ox (%): 100 - Physical Exam General: Alert, In no apparent distress HEENT: Atraumatic, PERRLA, EOMI Neck: Supple, JVD not distended Respiratory: Clear to auscultation bilaterally, Normal air movement Cardiovascular: Regular rate/rhythm, Normal S1 S2 Gastrointestinal: Normal bowel sounds, No tenderness Musculoskeletal: No tenderness Integumentary: No rashes Neurological: Normal speech, Normal tone, Normal affect Lymphatics: No axilla or inguinal lymphadenopathy - Studies Medications List Reviewed: Yes Assessment And Plan - Current Problems (Diagnosis) (1) Type 2 KS (myocardial infarction) Current Visit: Yes Status: Acute Plan: Troponin mild elevated at 87, with no delta, no chest pain, patient report history of CAD and PCI back in 2012 x 3 stents Patient Echo shows drop in EF with wall motions abnormalities. Plan is to get coronary angiogram once kidney function improve, tentatively continue ASA, plavix. (2) Acute on chronic diastolic heart failure Current Visit: No Status: Acute Plan: Continue Lasix 40 mg IV TID. Continue to monitor input and output and electrolytes continue Nebivolol will add losartan after diuresis (3) COPD exacerbation Current Visit: No Status: Acute Plan: per primary team.
--- NOTE | 2024-08-14 15:46 | P.PN ---
Subjective Date of Service: 08/14/24 Chief Complaint: SOB Subjective: No new changes, Improving (+ diuresis, sitting up, humidified O2 at 3L continues) <Jenifer Osorio - Last Filed: 08/14/24 17:39> Date of Service: 08/14/24 <Mickey Hernandez - Last Filed: 08/14/24 21:19> Review of Systems 10-point ROS is otherwise unremarkable General: Weakness Respiratory: SOB with Excertion (ambulated to nursing station and became short of breath) Integumentary: Bruising (to left face lateral to left eye s/p fall prior to admission) <Jenifer Osorio - Last Filed: 08/14/24 17:39> Physical Examination - Vital Signs Temperature: 96.9 F Blood Pressure: 142/93 Pulse: 79 Respirations: 19 Pulse Ox (%): 100 - Physical Exam General: Alert, In no apparent distress, Oriented x3 HEENT: Atraumatic, Normocephalic Neck: Supple Respiratory: Normal air movement, Crackles/rales Cardiovascular: Normal pulses, Normal S1 S2 Capillary refill: <2 Seconds Gastrointestinal: Normal bowel sounds, Soft and benign Musculoskeletal: No clubbing Integumentary: No rashes, Other (scattered ecchymosis) Neurological: Normal speech, Normal tone, Normal affect Lymphatics: No axilla or inguinal lymphadenopathy External genitalia: Deferred Rectal: Deferred - Studies Microbiology Data (last 24 hrs): 08/12/24 01:10 Blood - Blood Blood Culture Gram Stain - Final 08/12/24 01:10 Blood - Blood Gram Stain - Final Medications List Reviewed: Yes <Jenifer Osorio - Last Filed: 08/14/24 17:39> - Studies Microbiology Data (last 24 hrs): 08/12/24 01:10 Blood - Blood Blood Culture Gram Stain - Final 08/12/24 01:10 Blood - Blood Gram Stain - Final <Mickey Hernandez - Last Filed: 08/14/24 21:19> Assessment And Plan - Plan - Plan COPD exacerbation Monitor closely on telemetry Started on bronchodilators Oxygen supplementation Steroids added Chest x-ray findings noted 08/13/24 minimal exp wheeze neutrophils increased over yesterday Acute on chronic CHF possibly systolic/diastolic Monitor closely on telemetry Started on aggressive diuresis Oxygen supplementation Will try to wean down oxygen requirement Continue home medications Titrate as needed Will obtain an echocardiogram Cardiology consult 08/13/24 mild edema 924/24 diuresing well, will continue Lasix 40mg IV TID NSTEMI Will trend cardiac enzymes Will monitor telemetry Started on aspirin and statin Patient denies any chest pain Will get an echocardiogram - done 08/13/24 trop trended flat 08/14/24 plan to diurese more and monitor creatinine and cath potentially on 08/16/24 Hypertension Antihypertensives titrated Continue home medications and titrate as needed 08/13/24 125/76 Hyperlipidemia Continue statin Diabetes Insulin sliding scale Accu-Chek before every meal and at bedtime GI/DVT prophylaxis Advanced directive full code Discharge Plan: Home Plan to discharge in: > than 48 Hours - Advance Directives Does patient have a Living Will: No Does patient have a Durable POA for Healthcare: No - Code Status/Comfort Care Code Status: Full Code <Jenifer Osorio - Last Filed: 08/14/24 17:39> - Plan Pt seen and examined. I agree with the note by the ELECTRIC SOLDERER. Continue steroid, duoneb, oxygen, and lasix. Will continue home meds for other chronic medical problems. <Mickey Hernandez - Last Filed: 08/14/24 21:19>
[2024-08-14] MEDS: VANCOMYCIN 2 GM in NA CHLORIDE 0.9% 500 ML IVPB SCH (21:54)
[2024-08-15 06:29] LABS: Absolute Lymphocytes (CBC) 0.3 K/uL (0.7-4.9); Absolute Monocytes 0.4 K/uL (0.1-1.3); Absolute Neutrophil 6.8 K/uL (1.8-8.0); Basophils % 0.1 % (0-1.3); Hematocrit 30.5 % (36.0-45.0); Hemoglobin 10.2 g/dL (12.0-15.0); Lymphocytes % 3.4 % (15.3-44.8); MCHC 33.6 g/dL (32.0-36.0); MCV 95.4 fL (80-100); MPV 7.8 fL (7.6-11.3); Monocytes % 4.8 % (3.3-12.3); Neutrophils % 91.7 % (41.7-73.7); Nucleated Red Blood Cells % 0.1 % (0-0); Platelets 255 thou/uL (152-406); RBC Red Blood Cell Count 3.19 M/uL (3.86-4.86); Red Cell Distribution Width 15.4 % (12.1-15.2)
[2024-08-15 06:57] LABS: ALT/SGPT 17 U/L (13-56); Albumin 2.8 g/dL (3.4-5.0); Albumin/Globulin Ratio 0.7 (1.1-1.8); Alkaline Phosphatase 61 U/L (45-117); Anion Gap 8.3 mEq/L (5.0-15.0); BUN Blood Urea Nitrogen 48 mg/dL (7-18); Bicarbonate 29 mEq/L (21-32); Bilirubin Total 0.3 mg/dL (0.2-1.0); Globulin 3.8 g/dL (2.3-3.5); Glomerular Filtration Rate 28 ml/min (=/>90); Glucose Level 346 mg/dL (74-106); Potassium 3.3 mEq/L (3.5-5.1); Protein, Total 6.6 g/dL (6.4-8.2); Sodium Level 132 mEq/L (136-145)
[2024-08-15 06:58] LABS: AST/SGOT < 10 U/L (15-37)
[2024-08-15] MEDS: POTASSIUM CL SA 10 MEQ TAB PO ONE (08:53)
[2024-08-15] MEDS: FLUTICASONE IH SCH (08:53)
[2024-08-15] MEDS: UMECLIDIN IH SCH (08:53)
[2024-08-15] MEDS: VILANTER IH SCH (08:53)
[2024-08-15] MEDS: CEFAZOLIN SODIUM 2 GM in NA CHLORIDE 0.9% 100 ML IVPB SCH (08:54)
--- NOTE | 2024-08-15 12:24 | P.PN ---
Subjective Date of Service: 08/15/24 Chief Complaint: SOB Subjective: Improving <Jenifer Osorio Paul - Last Filed: 08/15/24 12:20> Date of Service: 08/15/24 <Mickey Hernandez - Last Filed: 08/15/24 13:17> Physical Examination - Vital Signs Temperature: 97.1 F Blood Pressure: 140/71 Pulse: 74 Respirations: 16 Pulse Ox (%): 94 - Studies Microbiology Data (last 24 hrs): 08/12/24 01:10 Blood - Blood Aerobic Blood Culture - Final Staphylococcus Hyicus Hyicus 08/12/24 01:10 Blood - Blood Blood Culture Gram Stain - Final 08/12/24 01:10 Blood - Blood Anaerobic Blood Culture - Final Staphylococcus Hyicus Hyicus 08/12/24 01:10 Blood - Blood Gram Stain - Final 08/12/24 01:16 Blood - Blood Aerobic Blood Culture - Final Staphylococcus Hyicus Hyicus Staph Aureus 08/12/24 01:16 Blood - Blood Blood Culture Gram Stain - Final 08/12/24 01:16 Blood - Blood Anaerobic Blood Culture - Final Staphylococcus Hyicus Hyicus 08/12/24 01:16 Blood - Blood Gram Stain - Final Medications List Reviewed: Yes <Jenifer Osorio Paul - Last Filed: 08/15/24 12:20> - Studies Microbiology Data (last 24 hrs): 08/12/24 01:10 Blood - Blood Aerobic Blood Culture - Final Staphylococcus Hyicus Hyicus 08/12/24 01:10 Blood - Blood Blood Culture Gram Stain - Final 08/12/24 01:10 Blood - Blood Anaerobic Blood Culture - Final Staphylococcus Hyicus Hyicus 08/12/24 01:10 Blood - Blood Gram Stain - Final 08/12/24 01:16 Blood - Blood Aerobic Blood Culture - Final Staphylococcus Hyicus Hyicus Staph Aureus 08/12/24 01:16 Blood - Blood Blood Culture Gram Stain - Final 08/12/24 01:16 Blood - Blood Anaerobic Blood Culture - Final Staphylococcus Hyicus Hyicus 08/12/24 01:16 Blood - Blood Gram Stain - Final <Mickey Hernandez - Last Filed: 08/15/24 13:17> Assessment And Plan - Plan - Plan COPD exacerbation Monitor closely on telemetry Started on bronchodilators Oxygen supplementation Steroids added Chest x-ray findings noted 08/13/24 minimal exp wheeze neutrophils increased over yesterday 08/15/24 on humidified O2 at 3L, baseline Acute on chronic CHF possibly systolic/diastolic Monitor closely on telemetry Started on aggressive diuresis Oxygen supplementation Will try to wean down oxygen requirement Continue home medications Titrate as needed Will obtain an echocardiogram Cardiology consult - Dr. White following 08/12/24 ECHO as below SEVERELY REDUCED LEFT VENTRICULAR SYSTOLIC FUNCTION, EJECTION FRACTION 25-30%, SEVERE GLOBAL HYPOKINESIS WITH ANTERIOR, SHILOH BASAL AND APICAL NEELY AKINESIS 2. GRADE III DIASTOLIC DYSFUNCTION 3. SEVERE PULMONARY HYPERTENSION (RIGHT VENTRICULAR SYSTOLIC PRESSURE GREATER THAN 60 mmHg) 4. ELEVATED FILLING PRESSURE (RIGHT ATRIUM GREATER THAN 20 mmHg 08/13/24 mild edema 08/14/24 diuresing well, will continue Lasix 40mg IV TID 08/15/24 not much change in renal function will make NPO post MN for [facility] tomorrow NSTEMI Will trend cardiac enzymes Will monitor telemetry Started on aspirin and statin Patient denies any chest pain Will get an echocardiogram - done as Above 08/13/24 trop trended flat 08/14/24 plan to diurese more and monitor creatinine and cath potentially on 08/16/24 08/15/24 NPO post MN Hypertension Antihypertensives titrated Continue home medications and titrate as needed 08/13/24 125/76 08/15/24 140/71 - permissive htn for diuresis Hyperlipidemia Continue statin Diabetes Insulin sliding scale Accu-Chek before every meal and at bedtime GI/DVT prophylaxis Advanced directive full code Discharge Plan: Home Plan to discharge in: > than 48 Hours - Advance Directives Does patient have a Living Will: No Does patient have a Durable POA for Healthcare: No - Code Status/Comfort Care Code Status: Full Code <Jenifer Osorio - Last Filed: 08/15/24 12:20> - Plan Pt seen and examined. I agree with the note by the HAND BRAILLE TRANSCRIBER. Continue steroid, duoneb, oxygen, and lasix. Cardiology will do cardiac cath tomorrow. Will continue Ancef for bacteremia. Blood cx is growing Will continue home meds for other chronic medical problems. <Mickey Hernandez - Last Filed: 08/15/24 13:17>
--- NOTE | 2024-08-15 12:41 | P.PN ---
Subjective Date of Service: 08/15/24 Chief Complaint: SOB Subjective: No new changes, No C/O voiced, Tolerating diet, Ambulating, Improving Review of Systems 10-point ROS is otherwise unremarkable Physical Examination - Vital Signs Temperature: 97.1 F Blood Pressure: 140/71 Pulse: 74 Respirations: 16 Pulse Ox (%): 94 - Physical Exam General: Alert, In no apparent distress HEENT: Atraumatic, PERRLA, EOMI Neck: Supple, JVD not distended Respiratory: Clear to auscultation bilaterally, Normal air movement Cardiovascular: Regular rate/rhythm, Normal S1 S2 Gastrointestinal: Normal bowel sounds, No tenderness Musculoskeletal: No tenderness Integumentary: No rashes Neurological: Normal speech, Normal tone, Normal affect Lymphatics: No axilla or inguinal lymphadenopathy - Studies Microbiology Data (last 24 hrs): 08/12/24 01:10 Blood - Blood Aerobic Blood Culture - Final Staphylococcus Hyicus Hyicus 08/12/24 01:10 Blood - Blood Blood Culture Gram Stain - Final 08/12/24 01:10 Blood - Blood Anaerobic Blood Culture - Final Staphylococcus Hyicus Hyicus 08/12/24 01:10 Blood - Blood Gram Stain - Final 08/12/24 01:16 Blood - Blood Aerobic Blood Culture - Final Staphylococcus Hyicus Hyicus Staph Aureus 08/12/24 01:16 Blood - Blood Blood Culture Gram Stain - Final 08/12/24 01:16 Blood - Blood Anaerobic Blood Culture - Final Staphylococcus Hyicus Hyicus 08/12/24 01:16 Blood - Blood Gram Stain - Final Medications List Reviewed: Yes Assessment And Plan - Current Problems (Diagnosis) (1) Type 2 SC (myocardial infarction) Current Visit: Yes Status: Acute Plan: Troponin mild elevated at 87, with no delta, no chest pain, patient report history of CAD and PCI back in 2013 x 3 stents Patient Echo shows drop in EF with wall motions abnormalities. Plan is to get coronary angiogram in am. continue ASA, plavix. (2) Acute on chronic diastolic heart failure Current Visit: No Status: Acute Plan: Continue Lasix 40 mg IV TID. Continue to monitor input and output and electrolytes continue Nebivolol will add losartan after diuresis (3) COPD exacerbation Current Visit: No Status: Acute Plan: per primary team.
[2024-08-15] MEDS: ZOLPIDEM TARTRATE 10 MG TABLET PO ONE (23:32)
[2024-08-16 07:36] LABS: Absolute Lymphocytes (CBC) 0.3 K/uL (0.7-4.9); Absolute Monocytes 0.5 K/uL (0.1-1.3); Absolute Neutrophil 6.5 K/uL (1.8-8.0); Basophils % 0.5 % (0-1.3); Hematocrit 32.3 % (36.0-45.0); Hemoglobin 10.7 g/dL (12.0-15.0); MCHC 33.3 g/dL (32.0-36.0); MCV 96.1 fL (80-100); MPV 7.8 fL (7.6-11.3); Monocytes % 6.3 % (3.3-12.3); Neutrophils % 89.2 % (41.7-73.7); Platelets 253 thou/uL (152-406); RBC Red Blood Cell Count 3.36 M/uL (3.86-4.86); Red Cell Distribution Width 15.5 % (12.1-15.2)
[2024-08-16 07:44] LABS: ALT/SGPT 17 U/L (13-56); Albumin 2.8 g/dL (3.4-5.0); Albumin/Globulin Ratio 0.8 (1.1-1.8); Alkaline Phosphatase 56 U/L (45-117); Anion Gap 6.5 mEq/L (5.0-15.0); BUN Blood Urea Nitrogen 50 mg/dL (7-18); Bicarbonate 34 mEq/L (21-32); Bilirubin Total 0.3 mg/dL (0.2-1.0); Globulin 3.7 g/dL (2.3-3.5); Glomerular Filtration Rate 31 ml/min (=/>90); Glucose Level 248 mg/dL (74-106); Potassium 3.5 mEq/L (3.5-5.1); Protein, Total 6.5 g/dL (6.4-8.2); Sodium Level 136 mEq/L (136-145)
[2024-08-16 07:45] LABS: AST/SGOT < 10 U/L (15-37)
[2024-08-16] MEDS ORDERED: NA CHLORIDE 0.9% 500 ML ONE (08:18)
[2024-08-16] MEDS ORDERED: HEPA 1000U/500MLS 2,000 UNIT/1,000 ML BAG IV ONE (09:09)
[2024-08-16] MEDS ORDERED: LIDOCAINE 1% 20 ML MDV ONE (09:09)
[2024-08-16] MEDS ORDERED: HEPARIN 10,000 UNIT/10 ML VIAL IV ONE (09:09)
[2024-08-16] MEDS ORDERED: MIDAZOLAM HCL 2 MG/2 ML INJ ONE (09:09)
[2024-08-16] MEDS ORDERED: ATROPINE SULF 1 MG/10 ML SYR IV ONE (09:09)
[2024-08-16] MEDS ORDERED: TICAGRELOR 90 MG TABLET PO ONE (09:10)
[2024-08-16] MEDS ORDERED: ASPIRIN 325 MG TAB ONE (09:10)
[2024-08-16] MEDS ORDERED: CLOPIDOGREL 75 MG TABLET ONE (09:10)
[2024-08-16] MEDS ORDERED: HEPARIN 5000 UNIT/ML 1 ML VIAL ONE (09:10)
[2024-08-16] MEDS ORDERED: FENTANYL CITR 100 MCG/2 ML ONE (09:10)
--- NOTE | 2024-08-16 10:58 | P.PN ---
Subjective Date of Service: 08/16/24 Chief Complaint: SOB Subjective: No new changes, No C/O voiced, Tolerating diet, Ambulating, Improving Review of Systems 10-point ROS is otherwise unremarkable Physical Examination - Vital Signs Temperature: 98.2 F Blood Pressure: 127/68 Pulse: 89 Respirations: 16 Pulse Ox (%): 100 - Physical Exam General: Alert, In no apparent distress HEENT: Atraumatic, PERRLA, EOMI Neck: Supple, JVD not distended Respiratory: Clear to auscultation bilaterally, Normal air movement Cardiovascular: Regular rate/rhythm, Normal S1 S2 Gastrointestinal: Normal bowel sounds, No tenderness Musculoskeletal: No tenderness Integumentary: No rashes Neurological: Normal speech, Normal tone, Normal affect Lymphatics: No axilla or inguinal lymphadenopathy - Studies Microbiology Data (last 24 hrs): 08/12/24 01:10 Blood - Blood Aerobic Blood Culture - Final Staphylococcus Hyicus Hyicus 08/12/24 01:10 Blood - Blood Blood Culture Gram Stain - Final 08/12/24 01:10 Blood - Blood Anaerobic Blood Culture - Final Staphylococcus Hyicus Hyicus 08/12/24 01:10 Blood - Blood Gram Stain - Final 08/12/24 01:16 Blood - Blood Aerobic Blood Culture - Final Staphylococcus Hyicus Hyicus Staph Aureus 08/12/24 01:16 Blood - Blood Blood Culture Gram Stain - Final 08/12/24 01:16 Blood - Blood Anaerobic Blood Culture - Final Staphylococcus Hyicus Hyicus 08/12/24 01:16 Blood - Blood Gram Stain - Final Medications List Reviewed: Yes Assessment And Plan - Current Problems (Diagnosis) (1) Type 2 IN (myocardial infarction) Current Visit: Yes Status: Acute Plan: Troponin mild elevated at 87, with no delta, no chest pain, patient report history of CAD and PCI back in 2012 x 3 stents Patient Echo shows drop in EF with wall motions abnormalities. 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 continue ASA, plavix. (2) Acute on chronic diastolic heart failure Current Visit: No Status: Acute Plan: Continue Lasix 40 mg IV TID. Continue to monitor input and output and electrolytes continue Nebivolol will add losartan after diuresis (3) COPD exacerbation Current Visit: No Status: Acute Plan: per primary team.
--- NOTE | 2024-08-16 11:57 | P.PN ---
Subjective Date of Service: 08/16/24 Chief Complaint: SOB Subjective: Improving (On neb treatment on my arrival to room, no distress, patient has been n.p.o. since midnight for left heart cath today) <Jody Osoriotonja Miller - Last Filed: 08/16/24 11:52> Date of Service: 08/16/24 <Mickey Hernandez Shiv - Last Filed: 08/16/24 12:42> Review of Systems 10-point ROS is otherwise unremarkable General: As per HPI Eyes: Unremarkable ENT: Unremarkable Respiratory: As per HPI (Improving with nebs and diuresis) Cardiovascular: Other (Denies chest pain) Gastrointestinal: Unremarkable Genitourinary: As per HPI (Pure wick positive diuresis) Musculoskeletal: Unremarkable Integumentary: Other (Scattered ecchymosis) Neurological: Unremarkable Lymphatics: Unremarkable <OsorioJenifer Miller - Last Filed: 08/16/24 11:52> Physical Examination - Vital Signs Temperature: 98.2 F Blood Pressure: 127/68 Pulse: 89 Respirations: 16 Pulse Ox (%): 100 - Physical Exam General: Alert, In no apparent distress, Oriented x3, Obese HEENT: Atraumatic, Normocephalic Neck: Supple Respiratory: Normal air movement, Expiratory wheezes Cardiovascular: Regular rate/rhythm, Normal S1 S2, Edema (1+ bilateral lower extremities) Capillary refill: <2 Seconds Gastrointestinal: Soft and benign, Non-distended Musculoskeletal: No clubbing Integumentary: No rashes, Other (Scattered ecchymosis) Neurological: Normal speech, Normal affect, Abnormal strength Lymphatics: No axilla or inguinal lymphadenopathy External genitalia: Deferred Rectal: Deferred - Studies Microbiology Data (last 24 hrs): 08/12/24 01:10 Blood - Blood Aerobic Blood Culture - Final Staphylococcus Hyicus Hyicus 08/12/24 01:10 Blood - Blood Blood Culture Gram Stain - Final 08/12/24 01:10 Blood - Blood Anaerobic Blood Culture - Final Staphylococcus Hyicus Hyicus 08/12/24 01:10 Blood - Blood Gram Stain - Final 08/12/24 01:16 Blood - Blood Aerobic Blood Culture - Final Staphylococcus Hyicus Hyicus Staph Aureus 08/12/24 01:16 Blood - Blood Blood Culture Gram Stain - Final 08/12/24 01:16 Blood - Blood Anaerobic Blood Culture - Final Staphylococcus Hyicus Hyicus 08/12/24 01:16 Blood - Blood Gram Stain - Final Medications List Reviewed: Yes <Jenifer Osoriolen - Last Filed: 08/16/24 11:52> Assessment And Plan - Plan - Plan COPD exacerbation Monitor closely on telemetry Started on bronchodilators Oxygen supplementation Steroids added Chest x-ray findings noted 08/13/24 minimal exp wheeze neutrophils increased over yesterday 08/15/24 on humidified O2 at 3L, baseline Acute on chronic CHF possibly systolic/diastolic Monitor closely on telemetry Started on aggressive diuresis Oxygen supplementation Will try to wean down oxygen requirement Continue home medications Titrate as needed Will obtain an echocardiogram Cardiology consult - Dr. White following 08/12/24 ECHO as below SEVERELY REDUCED LEFT VENTRICULAR SYSTOLIC FUNCTION, EJECTION FRACTION 25-30%, SEVERE GLOBAL HYPOKINESIS WITH ANTERIOR, SHILOH BASAL AND APICAL NEELY AKINESIS 2. GRADE III DIASTOLIC DYSFUNCTION 3. SEVERE PULMONARY HYPERTENSION (RIGHT VENTRICULAR SYSTOLIC PRESSURE GREATER THAN 60 mmHg) 4. ELEVATED FILLING PRESSURE (RIGHT ATRIUM GREATER THAN 20 mmHg 08/13/24 mild edema 08/14/24 diuresing well, will continue Lasix 40mg IV TID 08/15/24 not much change in renal function will make NPO post MN for [facility] 08/16/24 [facility] - medical management/LAD stent 100% occluded, ECHO as above NSTEMI Will trend cardiac enzymes Will monitor telemetry Started on aspirin and statin Patient denies any chest pain Will get an echocardiogram - done as Above 08/13/24 trop trended flat 08/14/24 plan to diurese more and monitor creatinine and cath potentially on Prabha rs 08/16/24 08/15/24 NPO post [place] 08/16/24 continue medical management, will start Losartan 25mg po daily tomorrow (creatinine trending down 1.62) Hypertension Antihypertensives titrated Continue home medications and titrate as needed 08/13/24 125/76 08/15/24 140/71 - permissive htn for diuresis 08/16/24 will start Losartan tomorrow Hyperlipidemia Continue statin Diabetes Insulin sliding scale Accu-Chek before every meal and at bedtime GI/DVT prophylaxis Advanced directive full code Discharge Plan: Home Plan to discharge in: > than 48 Hours - Advance Directives Does patient have a Living Will: No Does patient have a Durable POA for Healthcare: No - Code Status/Comfort Care Code Status: Full Code Plan to discharge in: 24 Hours <Jenifer Osorio - Last Filed: 08/16/24 11:52> - Plan Pt seen and examined. I agree with the note by the RHIT. Continue steroid, duoneb, oxygen, and lasix. Cardiology did cardiac cath today which showed 100% occluded LAD stent with significant diagonal, OM2 disease. 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 Will continue medical management with ASA, plavix. Will continue Ancef for bacteremia. Blood cx is growing Staphylococcus hyicus hyicus. Will continue home meds for other chronic medical problems. <Mickey Hernandez - Last Filed: 08/16/24 12:42>
--- NOTE | 2024-08-16 13:06 | OP ---
Date of Procedure: 08/16/2024 Surgeon: Alin White Procedures Performed: 1.Selective coronary angiogram. 2.Left heart catheterization. Indication For Procedures: Acute systolic heart failure with history of CAD. Complications: None. Estimated Blood Loss: Less than 50 cc. Access: Right radial, closed by TR band. Sedation Time: 20 minutes with 1 of Versed and 50 of fentanyl. Description Of Procedure: After risks, and benefits, and alternatives were explained to patient, pat ient agreed to proceed with the procedure and signed informed consent. The patient was brought back to the foundry laborer coreroom, prepped and draped in a sterile fashion. Time-out was performed. Sedation was admi nistered. Next, the right radial ultrasound access was obtained. [place] 4.0 catheter was advanced ov er a J-wire to the LV cavity. LVEDP was obtained. Pullback did not show any gradient. Same cathete r was used for selective angiogram of the left and right coronary artery systems. At the end of proc edure, catheter was removed. J-wire and sheath were removed. TR band was applied. Hemostasis was a chieved and patient was moved back to the recovery in stable condition. Findings: 1.Left main normal. 2.LAD; proximal mild luminal irregularities, and mid stent 100% occluded and it gives a diagonal bra nch prior to that with 90% proximal disease. Then, mild luminal irregularities. 3.Left circ; mild luminal irregularities. OM1 mild luminal irregularities, OM2 proximal 70% disease , and then circ itself got mid to distal 70% disease too. 4.RCA; proximal to mid stent patent with diffuse 20% to 30% ISR and gives a large RPDA that gives co llaterals to the LAD. Assessment And Plan: 1.Significant mid LAD 100% ISR occlusion with good [id number] collaterals. 2.Significant OM2/mid left circ disease. 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 So the re is no benefit of revascularizations of the LAD and also the OM2/circ revascularization is high ris k for this patient. So the plan is to continue medical management. TANYA/ELIDIA Voice ID: [id number] Report ID: [id number]
[2024-08-16] MEDS: POTASSIUM 25 MEQ EFFERV TAB PO ONE (14:37)
[2024-08-17 06:27] LABS: Absolute Lymphocytes (CBC) 0.3 K/uL (0.7-4.9); Absolute Monocytes 0.4 K/uL (0.1-1.3); Absolute Neutrophil 7.4 K/uL (1.8-8.0); Basophils % 0.1 % (0-1.3); Lymphocytes % 3.3 % (15.3-44.8); MCH 31.8 pg (27.0-35.0); MCHC 33.4 g/dL (32.0-36.0); MCV 95.3 fL (80-100); Monocytes % 5.3 % (3.3-12.3); Neutrophils % 91.3 % (41.7-73.7); Nucleated Red Blood Cells % 0.1 % (0-0); Platelets 240 thou/uL (152-406); RBC Red Blood Cell Count 3.47 M/uL (3.86-4.86); Red Cell Distribution Width 15.2 % (12.1-15.2)
[2024-08-17 06:51] LABS: AST/SGOT 11 U/L (15-37); Albumin 2.8 g/dL (3.4-5.0); Albumin/Globulin Ratio 0.8 (1.1-1.8); Alkaline Phosphatase 65 U/L (45-117); Anion Gap 9.7 mEq/L (5.0-15.0); BUN Blood Urea Nitrogen 54 mg/dL (7-18); Bicarbonate 35 mEq/L (21-32); Bilirubin Total 0.3 mg/dL (0.2-1.0); Globulin 3.3 g/dL (2.3-3.5); Glomerular Filtration Rate 34 ml/min (=/>90); Glucose Level 321 mg/dL (74-106); Potassium 3.7 mEq/L (3.5-5.1); Protein, Total 6.1 g/dL (6.4-8.2); Sodium Level 135 mEq/L (136-145)
[2024-08-17 06:52] LABS: ALT/SGPT < 14 U/L (13-56)
[2024-08-17] MEDS: LOSARTAN POTASSIUM 50 MG TABLET PO SCH (08:18)
[2024-08-17] MEDS: POTASSIUM 25 MEQ EFFERV TAB PO ONE (08:18)
[2024-08-17 08:28] LABS: Band Neutrophils 0 % (0-1); Blood Morphology Comment NOT SEEN (NOT SEEN); Differential Total Cells Count 100; Lymphocytes 4 % (15-42); Monocytes 5 % (0-10); Platelet Estimate ADEQ; Segmented Neutrophils 91 % (40-80); Toxic Granulation 1+
--- NOTE | 2024-08-17 08:39 | P.DS ---
Admission Date: 08/12/24 Discharge Date: 08/17/24 Reason for Admission: SOB Consultations: Dr. Wihte Procedures: Dr. White Brief History of Present Illness: 83 yrs old Female with past medical history of Chronic obstructive lung disease; Congestive heart failure; diabetes mellitus; Hypertension , Hypothyroidism; CAD status post stents, history of bowel resection and laminectomy brought to ER with shortness of breath. Patient is chronic hypoxic respiratory failure on 3 L nasal cannula. Shortness of breath worsened in the last 2 days and has been progressively worsening. Denies any chest pain. Short of breath is with m inimal activities associated with cough. Patient was assessed in the ER and is admitted for further management of COPD exacerbation Hospital Course: Ms. Beverly received neb treatments and pulmonary toilet, COPD exacerbation improving. 08/12/2024 blood cultures positive for Staphylococcus hyicus. Patient continued on vancomycin and and Levaquin. 08/14/2024 blood cultures were repeated. Ancef 2 g given on 08/15/2024. Blood cultures returned today with no growth. We will send home with a prescription for Omnicef 300mg po BID x 10 days. Patient has diuresed well with 40 of Lasix IV 3 times daily over the last 3 days. Echo performed 08/12/2024, cardiac cath performed 08/16/2024. Recommendations for continued medical management of coronary artery disease. Will add losartan 25 mg p.o. daily to regimen. Ms. Beverly should continue all her regular home medications. Echo: COMMENTS: 1. SEVERELY REDUCED LEFT VENTRICULAR SYSTOLIC FUNCTION, EJECTION FRACTION 25- 30%, SEVERE GLOBAL HYPOKINESIS WITH ANTERIOR, SHILOH BASAL AND APICAL NEELY AKINESIS 2. GRADE III DIASTOLIC DYSFUNCTION 3. SEVERE PULMONARY HYPERTENSION (RIGHT VENTRICULAR SYSTOLIC PRESSURE GREATER THAN 60 mmHg) 4. ELEVATED FILLING PRESSURE (RIGHT ATRIUM GREATER THAN 20 mmHg) Left heart cath: Findings: 1. Left main normal. 2. LAD; proximal mild luminal irregularities, and mid stent 100% occluded and it gives a diagonal branch prior to that with 90% proximal disease. Then, mild luminal irregularities. 3. Left circ; mild luminal irregularities. OM1 mild luminal irregularities, OM2 proximal 70% disease, and then circ itself got mid to distal 70% disease too. 4. RCA; proximal to mid stent patent with diffuse 20% to 30% ISR and gives a large RPDA that gives collaterals to the LAD. Assessment And Plan: 1. Significant mid LAD 100% ISR occlusion with good [id number] collaterals. 2. Significant OM2/mid left circ disease. 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 So there is no benefit of revascularizations of the LAD and also the OM2/circ revascularization is high risk for this patient. So the plan is to continue medical management. <Jenifer Osorio - Last Filed: 08/17/24 08:39> Admission Date: 08/12/24 Discharge Date: 08/17/24 Hospital Course: Pt seen and examined. I agree with the note by the [employer] [facility]. Pt is stable for discharge. Cardiac cath showed 100% occlusion of the LAD. Will continue medical management. Ok to discharge pt. <Mickey Hernandez - Last Filed: 08/17/24 11:11> Disposition: ROUTINE DISCHARGE Discharge Condition: GOOD Vital Signs/Physical Exam: Temp Pulse Resp BP Pulse Ox 98.1 F 85 14 135/90 98 08/17/24 08:00 08/17/24 08:18 08/17/24 08:19 08/17/24 08:18 08/17/24 08:19 General: Alert, In no apparent distress, Oriented x3, Obese HEENT: Atraumatic, Normocephalic Neck: Supple, 2+ carotid pulse no bruit Respiratory: Normal air movement, Other (Humidified O2 at 3 L) Cardiovascular: Regular rate/rhythm, Normal S1 S2 Capillary refill: <2 Seconds Gastrointestinal: Soft and benign Musculoskeletal: No clubbing Integumentary: Other (Scattered ecchymosis, right dorsal foot with small scab with no bleeding) Neurological: Normal speech, Normal affect, Abnormal tone Lymphatics: No axilla or inguinal lymphadenopathy External genitalia: Deferred Rectal: Deferred Laboratory Data at Discharge: WBC 8.10 thou/uL (4.3-10.9) 08/17/24 05:05 Hgb 11.0 g/dL (12.0-15.0) L 08/17/24 05:05 Hct 33.0 % (36.0-45.0) L 08/17/24 05:05 Plt Count 240 thou/uL (152-406) 08/17/24 05:05 PT 13.6 SECONDS (9.4-12.5) H 08/12/24 01:16 INR 1.22 08/12/24 01:16 Sodium 135 mEq/L (136-145) L 08/17/24 05:05 Potassium 3.7 mEq/L (3.5-5.1) 08/17/24 05:05 BUN 54 mg/dL (7-18) H 08/17/24 05:05 Creatinine 1.50 mg/dL (0.55-1.02) H 08/17/24 05:05 Glucose 321 mg/dL (74-106) H 08/17/24 05:05 Magnesium 1.9 mg/dL (1.6-2.4) 08/12/24 01:16 Total Bilirubin 0.3 mg/dL (0.2-1.0) 08/17/24 05:05 AST 11 U/L (15-37) L 08/17/24 05:05 ALT < 14 U/L (13-56) 08/17/24 05:05 Alkaline Phosphatase 65 U/L (45-117) 08/17/24 05:05 <Osorio,Jenifer Paul - Last Filed: 08/17/24 08:39> Vital Signs/Physical Exam: Temp Pulse Resp BP Pulse Ox 98.1 F 85 14 135/90 98 08/17/24 08:00 08/17/24 08:18 08/17/24 09:19 08/17/24 08:18 08/17/24 09:19 Laboratory Data at Discharge: WBC 8.10 thou/uL (4.3-10.9) 08/17/24 05:05 Hgb 11.0 g/dL (12.0-15.0) L 08/17/24 05:05 Hct 33.0 % (36.0-45.0) L 08/17/24 05:05 Plt Count 240 thou/uL (152-406) 08/17/24 05:05 PT 13.6 SECONDS (9.4-12.5) H 08/12/24 01:16 INR 1.22 08/12/24 01:16 Sodium 135 mEq/L (136-145) L 08/17/24 05:05 Potassium 3.7 mEq/L (3.5-5.1) 08/17/24 05:05 BUN 54 mg/dL (7-18) H 08/17/24 05:05 Creatinine 1.50 mg/dL (0.55-1.02) H 08/17/24 05:05 Glucose 321 mg/dL (74-106) H 08/17/24 05:05 Magnesium 1.9 mg/dL (1.6-2.4) 08/12/24 01:16 Total Bilirubin 0.3 mg/dL (0.2-1.0) 08/17/24 05:05 AST 11 U/L (15-37) L 08/17/24 05:05 ALT < 14 U/L (13-56) 08/17/24 05:05 Alkaline Phosphatase 65 U/L (45-117) 08/17/24 05:05 <Mickey Hernandez - Last Filed: 08/17/24 11:11> Diet: AHA Activity: Fall precautions <Osorio,Jenifer Paul - Last Filed: 08/17/24 08:39> <Mickey Hernandez - Last Filed: 08/17/24 11:11> Home Medications: Clopidogrel Bisulfate [Plavix*] 1 tab PO DAILY 09/23/19 Furosemide [Lasix] 2 tab PO DAILY 09/23/19 Levothyroxine Sodium 1 tab PO 30 09/23/19 Nebivolol HCl [Bystolic*] 1 tab PO DAILY 09/23/19 Pantoprazole [Protonix Tab*] 1 tab PO 30 09/23/19 lisinopriL [Lisinopril] 10 mg PO DAILY 09/23/19 Albuterol Inhaler [Ventolin Inhaler*] 2 puff PO Q6HR PRN 11/04/21 Citalopram [Celexa*] 20 mg PO BID 11/04/21 Gabapentin 100 mg PO TID 11/04/21 Fluticasone/Umeclidin/Vilanter [Trelegy Ellipta 100-62.5-25] 1 puff IH DAILY 08/31/23 Amitriptyline [Elavil] 50 mg PO BEDTIME 08/12/24 Insulin Glargine,Hum.rec.anlog [Lantus] 40 unit SQ DAILY 08/12/24 Mirabegron [Myrbetriq] 50 mg PO DAILY 08/12/24 traMADol HCL [Ultram] 50 mg PO DAILYPRN PRN 08/12/24 Cefdinir [Omnicef] 300 mg PO BID #20 cap 08/17/24 Losartan Potassium 25 mg PO DAILY #90 tab 08/17/24 New Medications: Losartan Potassium 25 mg PO DAILY #90 tab Cefdinir [Omnicef] 300 mg PO BID #20 cap Physician Discharge Instructions: Ms. Beverly received neb treatments and pulmonary toilet, COPD exacerbation improving. 08/12/2024 blood cultures positive for Staphylococcus hyicus. Patient continued on vancomycin and and Levaquin. 08/14/2024 blood cultures were repeated. Ancef 2 g given on 08/15/2024. Blood cultures returned today with no growth. We will send home with a prescription for Omnicef 300mg po BID x 10 days. Patient has diuresed well with 40 of Lasix IV 3 times daily over the last 3 days. Echo performed 08/12/2024, cardiac cath performed 08/16/2024. Recommendations for continued medical management of coronary artery disease. Will add losartan 25 mg p.o. daily to regimen. Ms. Beverly should continue all her regular home medications. Echo: COMMENTS: 1. SEVERELY REDUCED LEFT VENTRICULAR SYSTOLIC FUNCTION, EJECTION FRACTION 25- 30%, SEVERE GLOBAL HYPOKINESIS WITH ANTERIOR, SHILOH BASAL AND APICAL NEELY AKINESIS 2. GRADE III DIASTOLIC DYSFUNCTION 3. SEVERE PULMONARY HYPERTENSION (RIGHT VENTRICULAR SYSTOLIC PRESSURE GREATER THAN 60 mmHg) 4. ELEVATED FILLING PRESSURE (RIGHT ATRIUM GREATER THAN 20 mmHg) Left heart cath: Findings: 1. Left main normal. 2. LAD; proximal mild luminal irregularities, and mid stent 100% occluded and it gives a diagonal branch prior to that with 90% proximal disease. Then, mild luminal irregularities. 3. Left circ; mild luminal irregularities. OM1 mild luminal irregularities, OM2 proximal 70% disease, and then circ itself got mid to distal 70% disease too. 4. RCA; proximal to mid stent patent with diffuse 20% to 30% ISR and gives a large RPDA that gives collaterals to the LAD. Assessment And Plan: 1. Significant mid LAD 100% ISR occlusion with good [id number] collaterals. 2. Significant OM2/mid left circ disease. 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 So there is no benefit of revascularizations of the LAD and also the OM2/circ revascularization is high risk for this patient. So the plan is to continue medical management. Ms. Beverly should follow-up with Dr. Gil in [address] [facility]. RX: Omnicef 300mg po BID x 10days #20 Losartan 25mg po daily #90 Continue home medicines as previously prescribed GOAL: Clear understanding of disease process Diet: ADA, low sodium Activity: Fall precautions INSTRUCTIONS: Physician Discharge Instructions: Okay to DC IV and DC home Follow-up with primary care provider in 1 to 2 weeks Follow-up with cardiology in 1 to 2-weeks Please call the inpatient unit for any questions or concerns regarding hospital stay Return to the ER for worsening symptoms Followup: Alin White MD [ACTIVE - CAN ADMIT] - Avery Gil MD [Primary Care Provider] -
[2024-08-17 11:24] VITALS: O2SAT 98
[2024-08-17 13:53] VITALS: BP 120/67; TEMP 98
[2024-08-17] MEDS ORDERED: GABAPENTIN 100 MG CAP PO SCH (14:00)
== END 2024-08-17 13:54 | disposition home or self-care (01) | DRG 280 ==
LOC: ER 00:52 → 4TH 02:53
PROVIDERS: ADMIT Family Medicine; ATTEND Hospitalist
PROC: 4A033R1 Measurement of Arterial Saturation, Peripheral, Percutaneous Approach (ICD-10-PCS; principal; 2024-08-12)
PROC: 4A023N7 Measurement of Cardiac Sampling and Pressure, Left Heart, Percutaneous Approach (ICD-10-PCS; 2024-08-16)
PROC: B2111ZZ Fluoroscopy of Multiple Coronary Arteries using Low Osmolar Contrast (ICD-10-PCS; 2024-08-16)
DX: I13.0 Hypertensive heart and chronic kidney disease with heart failure and stage 1 through stage 4 chronic kidney disease, or unspecified chronic kidney disease (principal); I50.43 Acute on chronic combined systolic (congestive) and diastolic (congestive) heart failure; I21.A1 Myocardial infarction type 2; J44.1 Chronic obstructive pulmonary disease with (acute) exacerbation; J96.11 Chronic respiratory failure with hypoxia; Z68.41 Body mass index [BMI] 40.0-44.9, adult; E66.01 Morbid (severe) obesity due to excess calories; N18.9 Chronic kidney disease, unspecified; E11.22 Type 2 diabetes mellitus with diabetic chronic kidney disease; E78.5 Hyperlipidemia, unspecified; E03.9 Hypothyroidism, unspecified; M10.9 Gout, unspecified; I25.10 Atherosclerotic heart disease of native coronary artery without angina pectoris; B95.7 Other staphylococcus as the cause of diseases classified elsewhere; R79.89 Other specified abnormal findings of blood chemistry; Z79.4 Long term (current) use of insulin; Z95.5 Presence of coronary angioplasty implant and graft; Z11.52 Encounter for screening for COVID-19; Z99.81 Dependence on supplemental oxygen; Z79.02 Long term (current) use of antithrombotics/antiplatelets; Z90.49 Acquired absence of other specified parts of digestive tract; Z79.890 Hormone replacement therapy; Z79.899 Other long term (current) drug therapy; Z87.891 Personal history of nicotine dependence; Z90.710 Acquired absence of both cervix and uterus
CPT/HCPCS: 36415; 36600; 70450; 71045; 71250; 72125; 74176; 76937; 80048; 80053; 80076; 80202; 81001; 82805; 82947; 83735; 83880; 84484; 85025; 85610; 87040; 87077; 87186; 87205; 87804; 87811; 93005; 93306; 93458; 94640; 94760; 96365; 96372; 96375; 97116; 97161; 97530; 99152; 99153; 99285; C1893; J0461; J1644; J1650; J1940; J2001; J2250; J2919; J3010; J7030; J7040; J7613; J7614; J7644; Q9966

== ENCOUNTER 2024-08-29 09:49 | Inpatient (IN) | payer OTHER ==
--- OUTSIDE RECORDS SUMMARY | 2024-08-29 09:53 | XMS REPORT | Continuity of Care Document ---
Author Name Unknown Address [address] [facility] [place] [address] [facility] Address [address] [facility] [place] [address] Care Team Providers Care English Professor Name Role Phone HERBERT GIL Primary Care Physician Unavailab Herbert Prather Attending Clinician Unavailable [id number] Attending Clinician Unavailable SATISH KRAMER Attending Clinician Unavailab sumi English, [facility] Attending Clinician Unavailable Satish Kramer MD Attending Clinician Doctor Unassigned, [facility] Attending Clinician U Aileen Aguilar DO Attending Clinician Therapist, [facility] Attending Clinician U Tracy Perez MD Attending Clinician TRACY OLMOS Attending Clinician Unavailable TRACY OLMOS Attending Clinician Unavailable AILEEN NAZARIO Attending Clinician Unavailable AILEEN NAZARIO Attending Clinician Unavailable [id number] Admitting Clinician Unavailable Payers Payer Name Policy Type Policy Number Effective Date Expirati on Date Source AETNA MANAGED MEDICARE PPO-RIVKA [id number] 2020 00:00:00 AETNA MEDICARE PPO C1 [id number] [facility] AETNA MEDICARE PPO C1 [id number] [facility] AETNA MEDICARE PPO C1 [id number] [facility] AETNA MEDICARE PPO C1 [id number] [facility] Problems Condition Name Condition Details Condition Category Status Onset Date Resolution Date Last Treatment Date Treating Clinician Comments Source [id number] Pain, joint, hand, left Problem Active [facility] [id number] Arthritis of right knee Problem Active [facility] [id number] Pain, joint, shoulder, right Problem Active [facility] [id number] Mallet deformity of left ring finger Problem Active [facility] [id number] Other closed displaced fracture of proximal end of right humerus, initial encounter Problem Active [facility] [id number] Arthritis of left knee Problem Active [facility] [id number] Primary osteoarthr itis of right knee Problem Active [facility] [id number] Primary osteoarthr itis of left knee Problem Active [facility] [id number] Sciatica of left side Problem Active [facility] [id number] Piriformis syndrome of left side Problem Active [facility] No known active problems No known active problems Disease [facility] Allergies, Adverse Reactions, Alerts Allergy Name Allergy Type Status Severity Reaction(s) Onset Date Inactive Date Treating Clinician Comments Source NO KNOWN ALLERGIE S Drug Class Active [facility] Social History Social Habit Start Date Stop Date Quantity Comments Source History of Tobacco Use [facility] Sex Assigned At [facility] Gender identity [facility] Exposure to SARS-CoV-2 (event) Not sure [facility] Tobacco use and exposure 2021-09-10 00:00:00 2021-09-10 00:00:00 Smokeless tobacco non-user [facility] History of Social function 2021-09-10 00:00:00 2021-09-10 00:00:00 [facility] Smoking Status Start Date Stop Date Source Never Smoker [facility] Ex-smoker 2021-09-10 00:00:00 2021-09-10 00[facility]00[facility]00 [facility] Medic[facility] Ordered Medication Name Filled Medication Name Start Date Stop Date Current Medication? Ordering Clinician Indication Dosage Frequency Signature (SIG) Comments Components Source predniSONE 10 MG predniSONE 10 MG 2- 00:00: 00 01-25 00:00 :00 No 1{table [...] mcg/actuati on inhaler 2020-11 00:00: 00 Yes [id number] 2{puff} Inhale 2 Puffs every 6 (six) hours as needed for Wheezing or Shortness of Breath. [facility] ketorolac 10 mg tablet 2020-11 00:00: 00 Yes [facility] orphenadrin e 100 mg SR tablet 2020-11 0 00:00: 00 Yes [facility] Diclofenac Sodium 1 % gel 2020-11 0 00:00: 00 Yes [facility] LEVEMIR U-100 INSULIN 100 unit/mL solution -14 00:00: 00 Yes [facility] gabapentin 100 mg capsule 07-28 00:00: 00 Yes [facility] NOVOLIN R REGULAR U-100 INSULN 100 unit/mL solution 07-07 00:00: 00 Yes [facility] furosemide 40 mg tablet 2020-0 8-05 00:00: 00 Yes [facility] Orthovisc Orthovisc 2019-11 00:00: 00 No 15mg [facility] Kenalog (Triamcinol one) Kenalog (Triamcinol one) 2019-11 00:00: 00 No 40mg [facility] Bupivicaine Parowan Bupivicaine Parowan 2019-11 00:00: 00 No [facility] Orthovisc Orthovisc 2019-11 00:00: 00 No 15mg [facility] Kenalog (Triamcinol one) Kenalog (Triamcinol one) 2019-11 00:00: 00 No 40mg [facility] Bupivicaine Parowan Bupivicaine Parowan 2019-11 00:00: 00 No [facility] Orthovisc Orthovisc 2019-11 00:00: 00 No 15mg [facility] Kenalog (Triamcinol one) Kenalog (Triamcinol one) 2019-11 00:00: 00 No 40mg [facility] Bupivicaine Parowan Bupivicaine Parowan 2019-11 00:00: 00 No 2.5mg [facility] Orthovisc Orthovisc 2019-11 00:00: 00 No 15mg [facility] Orthovisc Orthovisc 2019-11 00:00: 00 No 15mg [facility] Orthovisc Orthovisc 2019-11 00:00: 00 No 15mg [facility] Orthovisc Orthovisc 2019-11 00:00: 00 No 15mg [facility] Bupivicaine Parowan Bupivicaine Parowan 2019-11 00:00: 00 No [facility] Kenalog (Triamcinol one) Kenalog (Triamcinol one) 2019-11 00:00: 00 No 40mg [facility] Orthovisc Orthovisc 2019-11 00:00: 00 No 15mg [facility] Bupivicaine Parowan Bupivicaine Parowan 2019-11 00:00: 00 No [facility] Kenalog (Triamcinol one) Kenalog (Triamcinol one) 2019-11 00:00: 00 No 40mg [facility] Orthovisc Orthovisc 2019-11 00:00: 00 No 15mg [facility] Bupivicaine Parowan Bupivicaine Parowan 2019-11 00:00: 00 No 2.5mg [facility] Kenalog (Triamcinol one) Kenalog (Triamcinol one) 2019-11 00:00: 00 No 40mg [facility] Bupivicaine Parowan Bupivicaine Parowan 12-18 00:00: 00 No 4mL [facility] Hyalgan 20 mg Hyalgan 20 mg 12-18 00:00: 00 No 2mL [facility] Kenalog (Triamcinol one) Kenalog (Triamcinol one) 12-18 00:00: 00 No 1mL [facility] Bupivicaine Parowan Bupivicaine Parowan 12-18 00:00: 00 No 4mL [facility] Hyalgan 20 mg Hyalgan 20 mg 12-18 00:00: 00 No 2mL [facility] Kenalog (Triamcinol one) Kenalog (Triamcinol one) 12-18 00:00: 00 No 1mL [facility] Bupivicaine Parowan Bupivicaine Parowan 12-18 00:00: 00 No 4mL [facility] Hyalgan 20 mg Hyalgan 20 mg 12-18 00:00: 00 No 2mL [facility] Kenalog (Triamcinol one) Kenalog (Triamcinol one) 0 1-28 00:00: 00 No 1mL [facility] Hyalgan 20 mg Hyalgan 20 mg 1-14 00:00: 00 No 2mL [facility] Hyalgan 20 mg Hyalgan 20 mg -14 00:00: 00 No 2mL [facility] Hyalgan 20 mg Hyalgan 20 mg -14 00:00: 00 No 2mL [facility] Kenalog (Triamcinol one) Kenalog (Triamcinol one) - 00:00: 00 No 1mL [facility] Hyalgan 20 mg Hyalgan 20 mg - 00:00: 00 No 2mL [facility] LIDOCAINE HCL 10MG/ML LIDOCAINE HCL 10MG/ML - 00:00: 00 No 4mL [facility] Kenalog (Triamcinol one) Kenalog (Triamcinol one) - 00:00: 00 No 1mL [facility] Hyalgan 20 mg Hyalgan 20 mg - 00:00: 00 No 2mL [facility] LIDOCAINE HCL 10MG/ML LIDOCAINE HCL 10MG/ML - 00:00: 00 No 4mL [facility] Kenalog (Triamcinol one) Kenalog (Triamcinol one) - 00:00: 00 No 1mL [facility] Hyalgan 20 mg Hyalgan 20 mg - 00:00: 00 No 2mL [facility] LIDOCAINE HCL 10MG/ML LIDOCAINE HCL 10MG/ML - 00:00: 00 No 4mL [facility] Hyalgan 20 mg Hyalgan 20 mg 0 5- 00:00: 00 No 20mg [facility] Hyalgan 20 mg Hyalgan 20 mg 03-21 00:00: 00 No 20mg [facility] Hyalgan 20 mg Hyalgan 20 mg 03-21 00:00: 00 No 20mg [facility] Hyalgan 20 mg Hyalgan 20 mg 24 00:00: 00 No 20mg [facility] Hyalgan 20 mg Hyalgan 20 mg 24 00:00: 00 No 20mg [facility] Hyalgan 20 mg Hyalgan 20 mg 24 00:00: 00 No 20mg [facility] LIDOCAINE HCL 10MG/ML LIDOCAINE HCL 10MG/ML 18 00:00: 00 No 10mg [facility] Kenalog (Triamcinol one) Kenalog (Triamcinol one) 18 00:00: 00 No 40mg [facility] Hyalgan 20 mg Hyalgan 20 mg 18 00:00: 00 No 20mg [facility] LIDOCAINE HCL 10MG/ML LIDOCAINE HCL 10MG/ML 18 00:00: 00 No 10mg [facility] Kenalog (Triamcinol one) Kenalog (Triamcinol one) 18 00:00: 00 No 40mg [facility] Hyalgan 20 mg Hyalgan 20 mg 18 00:00: 00 No 20mg [facility] LIDOCAINE HCL 10MG/ML LIDOCAINE HCL 10MG/ML 18 00:00: 00 No 10mg [facility] Kenalog (Triamcinol one) Kenalog (Triamcinol one) 18 00:00: 00 No 40mg [facility] Hyalgan 20 mg Hyalgan 20 mg 18 00:00: 00 No 20mg [facility] Spiriva HandiHaler 18 MCG Spiriva HandiHaler 18 MCG No Spiriva HandiHaler 18 MCG Atorvastati n Calcium 40 MG Atorvastati n Calcium 40 MG No Atorvastat in Calcium 40 MG Mcnabb 10-325 MG Mcnabb 10-325 MG No 1{table t_as_ne eded} Mcnabb 10-325 MG Citalopram Hydrobromid e 20 MG [...] Name Observation Time Observation Value Comments S rosasce height 2022-03-01 14:30:00 67.5 [in_i] Comm on [facility] weight 2022-03-01 14:30:00 260 [lb_av] Comm on [facility] temperature 2022-03-01 14:30:00 98.0 [degF] Com mon [facility] bmi 2022-03-01 14:30:00 40.12 kg/m2 Comm on [facility] blood pressure systolic 2022-03-01 14:30:00 136 mm[Hg] [facility] blood pressure diastolic 2022-03-01 14:30:00 84 mm[Hg] [facility] height 2022-01-25 13:00:00 67.5 [in_i] Comm on [facility] weight 2022-01-25 13:00:00 260 [lb_av] Comm on [facility] temperature 2022-01-25 13:00:00 97.9 [degF] Com [facility] bmi 2022-01-25 13:00:00 40.12 kg/m2 Comm on [facility] blood pressure systolic 2022-01-25 13:00:00 154 mm[Hg] [facility] blood pressure diastolic 2022-01-25 13:00:00 84 mm[Hg] Common [facility] height 2022-01-18 15:00:00 67.5 [in_i] Comm on [facility] weight 2022-01-18 15:00:00 260 [lb_av] Comm on [facility] temperature 2022-01-18 15:00:00 97.6 [degF] Com [facility] bmi 2022-01-18 15:00:00 40.12 kg/m2 Comm on [facility] blood pressure systolic 2022-01-18 15:00:00 144 mm[Hg] Common [facility] blood pressure diastolic 2022-01-18 15:00:00 92 mm[Hg] [facility] height 2022-01-11 14:30:00 67.5 [in_i] Comm on [facility] weight 2022-01-11 14:30:00 270 [lb_av] Comm on [facility] temperature 2022-01-11 14:30:00 97.6 [degF] Com [facility] bmi 2022-01-11 14:30:00 41.66 kg/m2 Comm on [facility] blood pressure systolic 2022-01-11 14:30:00 146 mm[Hg] [facility] blood pressure diastolic 2022-01-11 14:30:00 86 mm[Hg] [facility] height 2021-12-15 14:00:00 67.5 [in_i] Comm on [facility] weight 2021-12-15 14:00:00 274 [lb_av] Comm on [facility] temperature 2021-12-15 14:00:00 98.3 [degF] Com [facility] bmi 2021-12-15 14:00:00 42.28 kg/m2 Comm on [facility] blood pressure systolic 2021-12-15 14:00:00 154 mm[Hg] [facility] blood pressure diastolic 2021-12-15 14:00:00 94 mm[Hg] Common [facility] height 2021-11-25 13:00:00 67.5 [in_i] Comm on [facility] weight 2021-11-25 13:00:00 274 [lb_av] Comm on [facility] temperature 2021-11-25 13:00:00 97.4 [degF] Com [facility] bmi 2021-11-25 13:00:00 42.28 kg/m2 Comm on [facility] blood pressure systolic 2021-11-25 13:00:00 146 mm[Hg] [facility] blood pressure diastolic 2021-11-25 13:00:00 86 mm[Hg] [facility] height 2021-09-24 13:30:00 67.5 [in_i] Comm on [facility] weight 2021-09-24 13:30:00 274 [lb_av] Comm on [facility] temperature 2021-09-24 13:30:00 97.1 [degF] Com [facility] bmi 2021-09-24 13:30:00 42.28 kg/m2 Comm on [facility] blood pressure systolic 2021-09-24 13:30:00 154 mm[Hg] Common [facility] blood pressure diastolic 2021-09-24 13:30:00 92 mm[Hg] Common [facility] height 2021-07-14 13:30:00 67.5 [in_i] Comm on [facility] weight 2021-07-14 13:30:00 276 [lb_av] Comm on [facility] bmi 2021-07-14 13:30:00 42.59 kg/m2 Comm on [facility] blood pressure systolic 2021-07-14 13:30:00 179 mm[Hg] [facility] blood pressure diastolic 2021-07-14 13:30:00 75 mm[Hg] [facility] blood pressure systolic 2021-06-29 13:30:00 160 mm[Hg] Common [facility] blood pressure diastolic 2021-06-29 13:30:00 69 mm[Hg] [facility] height 2021-06-29 13:30:00 67.5 [in_i] Comm on [facility] weight 2021-06-29 13:30:00 276 [lb_av] Comm on [facility] bmi 2021-06-29 13:30:00 42.59 kg/m2 Comm on [facility] Procedures Procedure Date / Time Performed Performing Clinicia n Source ASSIGNMENT OF BENEFITS 2023-06-14 18:59:33 Docto r Unassigned, Reubens [facility] Encounters Start Date/Time End Date/Time Encounter Type Admission Type Attending Clinicians Care Facility Care Department Encounter ID Source 2023-03-15 15:33:[address] [facility] [id number] [facility] 2022-01-04 13:28[id number] 2021-12-17 13:47:04 Outpatient 3 [id number] [facility] [id number] [facility] 2021-12-17 13:45:14 Outpatient 3 [id number] [facility] REF [id number] [facility] 2021-12-17 13:40:13 Outpatient 3 [id number] [facility] REF [id number] [facility] 2021-12-16 13:36:[address] [facility] [id number] [facility] 2021-12-16 11:59:[address] [id number] [facility] 2021-12-16 11:52:[address] [facility] [id number] [facility] 2021-12-16 11:48:[address] [facility] [id number] [facility] 2023-09-07 00:00:00 2023-09-07 00:00:00 (TEL) KERI [facility] [id number] [facility] 2023-06-14 14:00:00 2023-06-14 14:39:06 Outpatient R SATISH KRAMER [facility] [id number] [facility] 2023-06-14 14:00:00 2023-06-14 14:15:00 Preschool Teacher Visit 2, Adc Lab Satish Kramer [facility] 1..114 [id number] [facility] 2023-06-14 00:00:00 2023-06-14 00:00:00 Orders Only Doctor Unassigned, Reubens [facility] [id number] [facility] 2022-03-01 00:00:00 2022-03-01 00:00:00 OFFICE VISIT ESTAB PT LEVEL 4 STLMLC STLMLC [id number] [facility] 2022-01-25 00:00:00 2022-01-25 00:00:00 OFFICE VISIT ESTAB PT LEVEL 4 STLMLC STLMLC [id number] [facility] 2022-01-18 00:00:00 2022-01-18 00:00:00 OFFICE VISIT ESTAB PT LEVEL 4 STLMLC STLMLC [id number] [facility] 2022-01-11 00:00:00 2022-01-11 00:00:00 OFFICE VISIT ESTAB PT LEVEL 4 STLMLC STLMLC [id number] [facility] 2021-12-29 00:00:00 2021-12-29 00:00:00 Telephone Aileen Nazario [facility] [id number] [facility] 2021-12-15 00:00:00 2021-12-15 00:00:00 OFFICE VISIT ESTAB PT LEVEL 4 STLMLC STLMLC [id number] [facility] 2021-12-07 00:00:00 2021-12-07 00:00:00 (TEL) STLMLC STLMLC [id number] [facility] 2021-12-06 00:00:00 2021-12-06 00:00:00 Telephone Aileen Nazario [facility] [id number] [facility] 2021-11-25 00:00:00 2021-11-25 00:00:00 (TEL) STLMLC STLMLC [id number] [facility] 2021-11-25 00:00:00 2021-11-25 00:00:00 OFFICE VISIT ESTAB PT LEVEL 4 STLMLC STLMLC [id number] [facility] 2021-11-24 00:00:00 2021-11-24 00:00:00 (TEL) STLMLC STLMLC [id number] [facility] 2021-11-20 14:00:00 2021-11-20 15:30:00 Preschool Teacher Visit Therapist, Mandy Respiratory Tracy Olmos [facility] 1..840.114 350.1.13.10 [id number] [id number] [facility] 2021-11-20 14:00:00 2021-11-20 14:00:00 Outpatient TRACY TORRES [facility] [id number] [facility] 2021-11-20 00:00:00 2021-11-20 00:00:00 Orders Only Doctor Unassigned, Reubens [facility] 1..840.114 350.1.13.10 4.2.7.2.686 [id number] [facility] 2021-09-24 00:00:00 2021-09-24 00:00:00 OFFICE VISIT ESTAB PT LEVEL 4 STLMLC STLMLC [id number] [facility] 2021-09-10 14:46:05 2021-09-10 15:27:44 Office Visit Aileen Nazario [facility] Professio [facility] 1..840.114 350.1.13.10 4.2.7.2.686 [id number] [facility] 2021-09-10 15:00:00 2021-09-10 15:00:00 Outpatient AILEEN RIOS [facility] [id number] [facility] 2021-09-10 00:00:00 2021-09-10 00:00:00 Orders Only Doctor Unassigned, Reubens [facility] [id number] [id number] [facility] 2021-08-26 00:00:00 2021-08-26 00:00:00 (TEL) STLMLC STLMLC [id number] [facility] 2021-07-14 00:00:00 2021-07-14 00:00:00 OFFICE VISIT ESTAB PT LEVEL 4 STLMLC STLMLC [id number] [facility] 2021-06-29 00:00:00 2021-06-29 00:00:00 OFFICE VISIT ESTAB PT LEVEL 4 STLMLC STLMLC [id number] [facility] 2020-10-14 00:00:00 2020-10-14 00:00:00 Outpatient STLMLC STLMLC [id number] [facility] 2020-10-06 00:00:00 2020-10-06 00:00:00 Outpatient STLMLC STLMLC [id number] [facility] 2020-09-23 00:00:00 2020-09-23 00:00:00 Outpatient STLMLC STLMLC [id number] [facility] 2020-08-29 00:00:00 2020-08-29 00:00:00 Outpatient STLMLC STLMLC [id number] [facility] 2020-08-26 00:00:00 2020-08-26 00:00:00 Outpatient STLMLC STLMLC [id number] [facility] Notes Date/Time Note Provider Source 2023-06-14 14:00:00 [...] processed according to instructions and sent to [facility] laboratories per lab order on 06/14/2023: LT BLUE SST RED LAV 1 PPT DK GREEN (LiHep) DK GREEN (SodH) JENKINS DK BLUE (K2) DK BLUE (S) ACD Blood Culture NIPT/NTD [facility]
[2024-08-29 10:11] LABS: Absolute Basophils 0.1 K/uL (0-0.5); Absolute Eosinophils 0.1 K/uL (0-0.5); Absolute Lymphocytes (CBC) 1.1 K/uL (0.7-4.9); Absolute Monocytes 0.5 K/uL (0.1-1.3); Absolute Neutrophil 7.3 K/uL (1.8-8.0); Basophils % 0.9 % (0-1.3); Eosinophils % 1.6 % (0-4.4); Hematocrit 33.4 % (36.0-45.0); Hemoglobin 10.7 g/dL (12.0-15.0); Lymphocytes % 11.5 % (15.3-44.8); MCH 31.4 pg (27.0-35.0); MCHC 32.1 g/dL (32.0-36.0); MCV 97.8 fL (80-100); MPV 7.9 fL (7.6-11.3); Platelets 217 thou/uL (152-406); RBC Red Blood Cell Count 3.42 M/uL (3.86-4.86); Red Cell Distribution Width 15.5 % (12.1-15.2)
[2024-08-29 10:37] LABS: PT Prothrombin Time 12.6 SECONDS (9.4-12.5); Protime INR 1.13
[2024-08-29 10:43] LABS: Anion Gap 8.3 mEq/L (5.0-15.0); Potassium 5.3 mEq/L (3.5-5.1); Troponin High Sensitivity 49.5 pg/mL (<58.9)
--- NOTE | 2024-08-29 10:51 | EDPHYS ---
Physician Documentation [facility] Name: Michelle Beverly Age: 83 yrs Sex: Female : 1940 Arrival Date: 08/29/2024 Time: 09:49 Bed 4 Private MD: ED Physician Isma Regan HPI: 08/29 09:53 This 83 yrs old Female presents to ER via Unassigned with complaints of ec2 dyspnea. 09:53 Patient arrives today for evaluation of increasing shortness of breath. Patient reports ec2 that she has been hearing can worsen shortness of breath for past several days. Reports that she is on baseline oxygen, has a history of CHF, history of COPD. Baseline on 3 L, has been present for up due to subjective shortness of breath to a rate of 5 L. Patient reports increased lower extremity edema, is on Lasix. Reports otherwise occasional cough.. Historical: - Allergies: 09:52 Phenobarbital; ll1 - PMHx: 09:52 Chronic obstructive lung disease; Congestive heart failure; diabetes mellitus; ll1 Hypertensive disorder; Hypothyroidism; - PSHx: 09:52 3 cardiac stents; bowel resection; cataract repair; Cholecystectomy; laminectomy; ll1 - Immunization history:: Adult Immunizations up to date. - Infectious Disease History:: Denies. - Social history:: Smoking status: Patient/guardian denies using tobacco, the patient reports quitting approximately 40 years ago. ROS: 09:53 Constitutional: as per hpi ec2 Exam: 09:53 Constitutional: GEN: NAD Head: atraumatic Eyes: EOMI Ears: External ears are ec2 normal. CV: regular rate, 2+ bilateral lower extremity edema up to the proximal tib-fib LUNGS: no respiratory distress ABD: non-distended SKIN: no evidence of rashes MSK: no evidence of trauma Vital Signs: 09:53 BP 152 / 79; Pulse 87; Resp 22; Temp 97.6; Pulse Ox 99% on 4 lpm NC; Weight 122.47 kg; ll1 Height 5 ft. 7 in. ; Pain 0/10; 10:30 BP 137 / 86; Pulse 88; Resp 24; Pulse Ox 100% on 4 lpm NC; ll1 11:26 BP 143 / 90; Pulse 92; Resp 22; Pulse Ox 100% on 4 lpm NC; ll1 09:53 Body Mass Index 42.29 (122.47 kg, 170.18 cm) ll1 09:53 Pain Scale: Adult ll1 MDM: 09:51 Patient medically screened. ec2 09:53 Data reviewed: vital signs. ED course: Patient arrives today for evaluation of ec2 progressive shortness of breath. Examination remarkable for lower extremity edema as noted above. Will obtain lab work, EKG, chest x-ray. Suspect volume overload. . 10:13 ED course: EKG independently reviewed and interpreted by me, shows bigeminy, sinus ec2 rhythm, rate of 93, intervals are nonactionable, no acute ST segment elevations, EKG and correctly interprets acute ID with no contiguous leads having ST elevation or corresponding reciprocal changes. . 10:24 ED course: CBC shows slight anemia, no leukocytosis appreciated. . ec2 10:50 ED course: Metabolic profile shows slight hyperkalemia with potassium of 5.3, renal ec2 dysfunction with creatinine 1.54, marked BNP elevation at 32,000, troponin within normal ranges at 49. Will admit for volume overload, will give the patient Lasix as well. Discussed case with the hospitalist, pending admission. . 10:54 ED course: Chest x-ray independently reviewed and interpreted by me, shows ec2 cardiomegaly, vascular congestion, questionable left-sided pleural effusion.. 10 09:52 Order name: Basic Metabolic Panel; Complete Time: 10:49 ec2 08/29 09:52 Order name: CBC with Diff; Complete Time: 10:23 ec2 08/29 09:52 Order name: NT PRO-BNP; Complete Time: 10:49 ec2 08/29 09:52 Order name: PT-INR; Complete Time: 10:39 ec2 08/29 09:52 Order name: Troponin HS; Complete Time: 10:49 ec2 08/29 12:09 Order name: Basic Metabolic Panel EDMS 08/29 12:09 Order name: Basic Metabolic Panel EDMS 08/29 12:09 Order name: CBC with Automated Diff EDMS 08/29 12:09 Order name: CBC with Automated Diff EDMS 08/29 12:09 Order name: Magnesium EDMS 08/29 12:09 Order name: Magnesium EDMS 08/29 12:09 Order name: Phosphorus EDMS 08/29 12:09 Order name: Phosphorus EDMS 08/29 09:52 Order name: XRAY Chest (1 view); Complete Time: 11:11 ec2 08/29 12:09 Order name: Physical Therapy Consult EDMS 08/29 09:52 Order name: Cardiac monitoring; Complete Time: 10:10 ec2 08/29 09:52 Order name: EKG - Nurse/Tech; Complete Time: 10:12 ec2 08/29 09:52 Order name: IV Saline Lock; Complete Time: 10:04 ec2 08/29 09:52 Order name: Labs collected and sent; Complete Time: 10:04 ec2 08/29 09:52 Order name: O2 Per Protocol; Complete Time: 09:55 ec2 08/29 09:52 Order name: O2 Sat Monitoring; Complete Time: 09:55 ec2 Administered Medications: 11:10 Drug: Furosemide IVP 80 mg IVP once; give over 2 minutes Route: IVP; Site: right ll1 antecubital; 11:25 Follow up: Response: No adverse reaction ko1 Disposition Summary: 08/29/24 10:51 Hospitalization Ordered Notes: Hospitalization Status: Inpatient Admission ec2 Provider: Jayme Juarez ec2 Location: Telemetry/[facility]Sur (Inpatient) ec2 Condition: Stable ec2 Problem: an acute exacerbation ec2 Symptoms: have improved ec2 Bed/Room Type: Standard ec2 Room Assignment: 214(08/29/24 12:09) bd Diagnosis - Heart failure, unspecified ec2 Forms: - Medication Reconciliation Form ec2 - SBAR form ec2 - Leadership Thank You Letter ec2 Signatures: Dispatcher [employer] EDJuliana Bartlett Toney Vincent RN RN ll1 Angeles Sellers RN RN ko1 Isma Regan MD MD ec2 Corrections: (The following items were deleted from the chart) 09:52 09:52 BASIC METABOLIC PANEL+C.LAB.BRZ ordered. EDMS EDMS 09:52 09:52 CBC+H.LAB.BRZ ordered. EDMS EDMS 09:52 09:52 PROBNP+C.LAB.BRZ ordered. EDMS EDMS 09:52 09:52 PROTIME (+INR)+COAG.LAB.BRZ ordered. EDMS EDMS 09:52 09:52 Troponin High Sensitivity+C.LAB.BRZ ordered. EDMS EDMS 09:53 09:53 Chest Single View+RAD.RAD.BRZ ordered. EDMS EDMS : 10:51 ec2 bd
--- NOTE | 2024-08-29 10:51 | ER ---
Nurse's Notes [facility] Name: Michelle Beverly Age: 83 yrs Sex: Female : 1940 Arrival Date: 08/29/2024 Time: 09:49 Bed 4 Private MD: Diagnosis: Heart failure, unspecified Presentation: 08/29 09:53 Chief complaint: Patient states: SOB for 2 days. Increased home O2 to 5 L. + swelling ll1 to BLE although she is taking her meds as prescribed. Coronavirus screen: Client denies travel out of the [place] in the last 14 days. difficulty breathing, fatigue, shortness of breath, Client presents with at least one sign or symptom that may indicate coronavirus-19. Standard/surgical mask placed on the client. Ebola Screen: Patient denies travel to an Ebola-affected area in the 21 days before illness onset. Initial Sepsis Screen: Does the patient meet any 2 criteria? No. Patient's initial sepsis screen is negative. Does the patient have a suspected source of infection? No. Patient's initial sepsis screen is negative. Risk Assessment: Do you want to hurt yourself or someone else? Patient reports no desire to harm self or others. Onset of symptoms was August 28, 2024. 09:53 Method Of Arrival: EMS: [facility] ll1 09:53 Acuity: PAM 3 ll1 Triage Assessment: 09:53 General: Appears distressed, uncomfortable, Behavior is calm, cooperative, appropriate ll1 for age. Pain: Denies pain. Neuro: Reports weakness. Cardiovascular: Reports chest pain, shortness of breath, swelling BLE. Respiratory: Reports shortness of breath on exertion cough that is. Musculoskeletal: Reports swelling BLE. Historical: - Allergies: 09:52 Phenobarbital; ll1 - PMHx: 09:52 Chronic obstructive lung disease; Congestive heart failure; diabetes mellitus; ll1 Hypertensive disorder; Hypothyroidism; - PSHx: 09:52 3 cardiac stents; bowel resection; cataract repair; Cholecystectomy; laminectomy; ll1 - Immunization history:: Adult Immunizations up to date. - Infectious Disease History:: Denies. - Social history:: Smoking status: Patient/guardian denies using tobacco, the patient reports quitting approximately 40 years ago. Screenin:16 [facility] ED Fall Risk Assessment (Adult) History of falling in the last 3 months, ll1 including since admission No falls in past 3 months (0 pts) Confusion or Disorientation No (0 pts) Intoxicated or Sedated No (0 pts) Impaired Gait Yes (1 pt) Mobility Assist Device Used Yes (1 pt) Altered Elimination Yes (1 pt) Score/Fall Risk Level 3 or more points = High Risk Maintained a safe environment, Hourly rounding (assess needs \T\ fall precautionary measures) done, Used ambulatory aids as needed (educated on \T\ assisted with). Abuse screen: Denies threats or abuse. Nutritional screening: No deficits noted. Tuberculosis screening: No symptoms or risk factors identified. Assessment: 10:00 Reassessment: No changes from previously documented assessment. Patient and/or family ll1 updated on plan of care and expected duration. Pain level reassessed. Patient is alert, oriented x 3, equal unlabored respirations, skin warm/dry/pink. 11:15 Reassessment: No changes from previously documented assessment. Patient and/or family ll1 updated on plan of care and expected duration. Pain level reassessed. Patient is alert, oriented x 3, equal unlabored respirations, skin warm/dry/pink. Vital Signs: 09:53 BP 152 / 79; Pulse 87; Resp 22; Temp 97.6; Pulse Ox 99% on 4 lpm NC; Weight 122.47 kg; ll1 Height 5 ft. 7 in. ; Pain 0/10; 10:30 BP 137 / 86; Pulse 88; Resp 24; Pulse Ox 100% on 4 lpm NC; ll1 11:26 BP 143 / 90; Pulse 92; Resp 22; Pulse Ox 100% on 4 lpm NC; ll1 09:53 Body Mass Index 42.29 (122.47 kg, 170.18 cm) ll1 09:53 Pain Scale: Adult ll1 ED Course: 09:51 Patient arrived in ED. ec2 09:51 Isma Regan MD is Attending Physician. ec2 09:52 Arm band placed on Patient placed in an exam room, on a stretcher. ll1 09:54 Triage completed. ll1 10:00 Inserted saline lock: 20 gauge in right antecubital area, using aseptic technique. ll1 ,using aseptic technique. labeled with date/time/initials Blood collected. Flushed with 10 mL NS. 10:04 Leanne Geronimo, RN is Primary Nurse. iw 10:04 Toney Vincent, RN is Primary Nurse. iw 10:17 Patient has correct armband on for positive identification. Bed in low position. ll1 Provided Education on: ER procedures and process. Client placed on continuous cardiac and pulse oximetry monitoring. NIBP monitoring applied. patient monitor on. 10:48 XRAY Chest (1 view) In Process Unspecified. EDMS 10:51 Jayme Juarez is Hospitalizing Provider. ec2 11:25 Pure wick to medium continuous suction after IV furosemide. ll1 12:44 No provider procedures requiring assistance completed. Patient admitted, IV remains in ko1 place. Administered Medications: 11:10 Drug: Furosemide IVP 80 mg IVP once; give over 2 minutes Route: IVP; Site: right ll1 antecubital; 11:25 Follow up: Response: No adverse reaction ko1 Medication: 12:44 VIS not applicable for this client. ko1 Outcome: 10:51 Decision to Hospitalize by Provider. ec2 12:44 Admitted to Med/surg via stretcher, with chart, ko1 12:44 Condition: stable 12:44 Instructed on the need for admit, 14:17 Patient left the ED. iw Signatures: Dispatcher [employer] EDLeanne Loomis RN RN iw Toney Vincent RN RN ll1 Angeles Sellers RN RN ko1 Isma Regan MD MD ec2 Corrections: (The following items were deleted from the chart) 10:16 09:53 BP 152 / 79; Pulse 87bpm; Resp 22bpm; Pulse Ox 99% 4 lpm Nasal Cannula; 122.47 ll1 kg; Height 5 ft. 7 in.; BMI: 42.2; Pain 0/10, Adult; ll1
[2024-08-29] MEDS ORDERED: FUROSEMIDE 100 MG/10 ML VIAL IV ONE (10:57)
--- NOTE | 2024-08-29 11:07 | RAD REPORT ---
EXAMINATION: ONE VIEW CHEST XR CLINICAL INDICATION: volume overload TECHNIQUE: Frontal chest projection is submitted. Examination is limited by patient positioning and t echnique. COMPARISON: 08/12/2024 FINDINGS: Moderate bilateral pulmonary opacities likely representing pulmonary edema. The heart is moderately e nlarged in size. Chronic moderately displaced proximal right humerus fracture. IMPRESSION: Moderate CHF versus volume overload pattern.
[2024-08-29] MEDS ORDERED: ONDANSETRON 4 MG/2 ML VIAL IV PRN (11:59)
[2024-08-29] MEDS ORDERED: ACETAMINOPHEN 500 MG TAB PO PRN (11:59)
--- NOTE | 2024-08-29 12:15 | P.HP ---
Certification for Inpatient Patient admitted to: Inpatient With expected LOS: >2 Midnights Practitioner: I am a practitioner with admitting privileges, knowledge of patient current condition, hospital course, and medical plan of care. Services: Services provided to patient in accordance with Admission requirements found in Title 42 Section 412.3 of the Code of Federal Regulations Patient History Date of Service: 08/29/24 Reason for admission: Shortness of breath History of Present Illness: 83-year-old woman with a history of systolic heart failure, coronary artery disease status post multiple stents, pulmonary hypertension, morbid obesity and COPD presented to the emergency department with a complaint of progressive shortness of breath of about 3 days duration. Patient was discharged from [facility] about 3 weeks ago after she was admitted for shortness of breath and treated for COPD exacerbation, CHF exacerbation. Patient underwent cardiac catheterization, patient noted to have multiple coronary artery occlusions, including 100% occlusion of the LAD with good collateral and medical management recommended. Patient was treated with IV Lasix diuresis. She returned to the emergency department for progressive shortness of breath. Workup in the emergency department revealed markedly elevated BNP. Chest x-ray demonstrated pulmonary edema, EKG shows bigeminys and delayed interventricular conduction. Initial troponin is negative. Patient has hyperkalemia. She is hospitalized for further management. Allergies phenobarbital Allergy (Intermediate, Verified 08/31/23 21:19) Itching Home Medications: Clopidogrel Bisulfate [Plavix*] 1 tab PO DAILY 09/23/19 Furosemide [Lasix] 2 tab PO DAILY 09/23/19 Levothyroxine Sodium 1 tab PO 0630 09/23/19 Nebivolol HCl [Bystolic*] 1 tab PO DAILY 09/23/19 Pantoprazole [Protonix Tab*] 1 tab PO 0630 09/23/19 lisinopriL [Lisinopril] 10 mg PO DAILY 09/23/19 Albuterol Inhaler [Ventolin Inhaler*] 2 puff PO Q6HR PRN 11/04/21 Citalopram [Celexa*] 20 mg PO BID 11/04/21 Gabapentin 100 mg PO TID 11/04/21 Fluticasone/Umeclidin/Vilanter [Trelegy Ellipta 100-62.5-25] 1 puff IH DAILY 08/31/23 Amitriptyline [Elavil] 50 mg PO BEDTIME 08/12/24 Insulin Glargine,Hum.rec.anlog [Lantus] 40 unit SQ DAILY 08/12/24 Mirabegron [Myrbetriq] 50 mg PO DAILY 08/12/24 traMADol HCL [Ultram] 50 mg PO DAILYPRN PRN 08/12/24 Cefdinir [Omnicef] 300 mg PO BID #20 cap 08/17/24 Guaifenesin [Mucinex] 600 mg PO BID 5 Days #10 tab 08/17/24 Hydrocodone 7.5/APAP 325 [[place] 7.5/325 mg*] 1 tab PO Q6H 3 Days #12 tab 08/17/24 Losartan Potassium 25 mg PO DAILY #90 tab 08/17/24 - Past Medical/Surgical History Diabetic: Yes -: Diabetes mellitus type 2, insulin dependent -: HTN -: CHF -: COPD -: Hypothyroidism -: History of pulmonary ebolism -: Hyperlipidemia -: CAD with prior stents -: GOUT -: Depression -: Chronic back and knee pain -: HEART STENTS X 3 -: CHOLECYSTECTOMY -: COLON SX- POLYP REMOVED -: LEFT ANKLE SX -: HYSTERECTOMY -: APPY -: DISK REMOVAL -: HEMORROIDECTOMY Psychosocial/ Personal History: Patient is - Family History Mother -: Diabetes Notes: with [place] Father -: Cancer Notes: Prostatic [place] - Social History Alcohol use: No CD- Drugs: No Caffeine use: No Review of Systems Other: Patient reported intermittent nonproductive cough. Family reports occasional wheezing. Patient denied any abdominal pain or diarrhea or vomiting. Patient denied any headache. Patient denied any fever She denies any chest pain. Except as documented, all other systems reviewed and negative. Physical Examination - Physical Exam General: Alert, In no apparent distress, Oriented x3, Obese HEENT: Mucous membr. moist/pink, Other (Oxygen by nasal cannula), EOMI, Sclerae nonicteric Neck: Supple, JVD not distended Respiratory: Diminished (Bilateral), Other (Mild bibasilar crackle, no rhonchi or wheezing.) Cardiovascular: Regular rate/rhythm, Normal S1 S2, No murmurs, Edema (Bilateral lower extremity) Capillary refill: <2 Seconds Gastrointestinal: Normal bowel sounds, Soft and benign, Non-distended, No tenderness, Other (Obese abdomen) Musculoskeletal: No swelling (Bilateral lower extremities), No erythema, No tenderness Integumentary: No rashes, No cyanosis Neurological: Normal speech, Normal strength at 5/5 x4 extr, Cranial nerves 3-12 intact Lymphatics: No axilla or inguinal lymphadenopathy - Studies Laboratory Data (last 24 hrs) 08/29/24 08/29/24 08/29/24 10:00 10:00 10:00 WBC 9.20 Hgb 10.7 L Hct 33.4 L Plt Count 217 PT 12.6 H INR 1.13 Sodium 136 Potassium 5.3 H BUN 31 H Creatinine 1.54 H Glucose 220 H Assessment and Plan - Problems (Diagnosis) (1) Acute on chronic systolic heart failure Current Visit: Yes Status: Acute (2) Cor pulmonale, chronic Current Visit: Yes Status: Acute (3) Coronary artery disease Current Visit: Yes Status: Acute (4) Essential hypertension Current Visit: Yes Status: Acute (5) Acute on chronic respiratory failure with hypoxemia Current Visit: No Status: Acute (6) COPD exacerbation Current Visit: No Status: Acute (7) History of pulmonary embolism Current Visit: No Status: Acute (8) Pulmonary hypertension Current Visit: No Status: Acute - Plan Acute on chronic systolic heart failure Acute on chronic cor pulmonale Acute on chronic respiratory failure with hypoxia. Pulmonary hypertension Admit patient to the medical floor Start aggressive diuresis with IV Lasix 40 mg every 8hrs Monitor renal function on IV Lasix Cardiology consult Nephrology consult Monitor and optimize electrolyte Monitor intake and output Blood pressure control. COPD exacerbation Scheduled bronchodilators Oral prednisone. No leukocytosis, no fever, no SIRS. No indication for antibiotics at this time. History of pulm embolism Patient is not on any anticoagulation. Chest x-ray report the cause of shortness of breath and hypoxemia as pulmonary edema. Essential hypertension Resume home medications. Morbid obesity Weight loss by diet and exercise advised PT consult to assess mobility. DVT prophylaxis: Heparin SQ. Advanced directive: Full code - Advance Directives Does patient have a Living Will: No Does patient have a Durable POA for Healthcare: No
[2024-08-29] MEDS: HYDROCODONE/APAP 7.5/325 MG TAB PO SCH (13:00)
[2024-08-29] MEDS ORDERED: ALBUTEROL 2.5 MG/3 ML NEB SOL ONE (13:23)
[2024-08-29] MEDS ORDERED: IPRATROPIUM BROM 0.5MG/2.5ML ONE (13:28)
[2024-08-29] MEDS: IPRATROPIUM BROM 0.5MG/2.5ML NEB SCH (13:30)
[2024-08-29] MEDS: ALBUTEROL 2.5 MG/3 ML NEB SOL NEB SCH (13:30)
[2024-08-29] MEDS: GABAPENTIN 100 MG CAP PO SCH (14:31)
[2024-08-29] MEDS ORDERED: IPRATROPIUM BROM 0.5MG/2.5ML NEB SCH (15:00)
[2024-08-29] MEDS: FLU (Fluarix Triv) TS24-25(6MOS UP)/PF 45 MCG/0.5 ML Syringe IM ONE (16:34)
[2024-08-29] MEDS: FUROSEMIDE 40 MG/4 ML VIAL IV SCH (16:35)
[2024-08-29] MEDS: HEPARIN 5000 UNIT/ML 1 ML VIAL SQ SCH (16:35)
[2024-08-29] MEDS: CITALOPRAM 10 MG TABLET PO SCH (20:34)
[2024-08-30 04:46] LABS: Absolute Basophils 0.1 K/uL (0-0.5); Absolute Eosinophils 0.3 K/uL (0-0.5); Absolute Monocytes 0.7 K/uL (0.1-1.3); Absolute Neutrophil 6.1 K/uL (1.8-8.0); Eosinophils % 3.7 % (0-4.4); Hematocrit 31.1 % (36.0-45.0); Hemoglobin 10.1 g/dL (12.0-15.0); Lymphocytes % 12.2 % (15.3-44.8); MCH 31.3 pg (27.0-35.0); MCHC 32.6 g/dL (32.0-36.0); MPV 7.9 fL (7.6-11.3); Monocytes % 8.9 % (3.3-12.3); Neutrophils % 74.2 % (41.7-73.7); Platelets 188 thou/uL (152-406); RBC Red Blood Cell Count 3.24 M/uL (3.86-4.86); Red Cell Distribution Width 15.3 % (12.1-15.2)
[2024-08-30 04:56] LABS: Anion Gap 7.3 mEq/L (5.0-15.0); Magnesium 2.1 mg/dL (1.6-2.4); Phosphorus 4.1 mg/dL (2.5-4.9); Potassium 4.3 mEq/L (3.5-5.1)
[2024-08-30] MEDS: PANTOPRAZOLE 40MG TABLET PO SCH (05:39)
[2024-08-30] MEDS: LEVOTHYROXINE SOD 0.125 MG TAB PO SCH (05:40)
[2024-08-30] MEDS: LOSARTAN POTASSIUM 50 MG TABLET PO SCH (08:04)
[2024-08-30] MEDS: CLOPIDOGREL 75 MG TABLET PO SCH (08:04)
[2024-08-30] MEDS: HOME MED 1 EA UNK (Fluticasone/Umeclidin/Vilanter [Trelegy Ellipta 100-62.5-25] Blst.W.Dev IH SCH (08:05)
[2024-08-30] MEDS: NEBIVOLOL HCL 5 MG TAB PO SCH (08:08)
--- NOTE | 2024-08-30 12:41 | P.CNS ---
Date of Consult: 08/30/24 Chief Complaint: Shortness of breath History of Present Illness: Patient with PMH of HTN, diastolic heart failure, presented with worsening SOB and bilateral lower extremities edema, she has been complaint with her medications, denies chest pain, no palpitations, no syncope. Allergies phenobarbital Allergy (Intermediate, Verified 08/31/23 21:19) Itching Home medications list reviewed: Yes Home Medications: Clopidogrel Bisulfate [Plavix*] 1 tab PO DAILY 09/23/19 Furosemide [Lasix] 2 tab PO DAILY 09/23/19 Levothyroxine Sodium 1 tab PO 0630 09/23/19 Nebivolol HCl [Bystolic*] 1 tab PO DAILY 09/23/19 Pantoprazole [Protonix Tab*] 1 tab PO 0630 09/23/19 lisinopriL [Lisinopril] 10 mg PO DAILY 09/23/19 Albuterol Inhaler [Ventolin Inhaler*] 2 puff PO Q6HR PRN 11/04/21 Citalopram [Celexa*] 20 mg PO BID 11/04/21 Gabapentin 200 mg PO TID 11/04/21 Fluticasone/Umeclidin/Vilanter [Trelegy Ellipta 100-62.5-25] 1 puff IH DAILY 08/31/23 Amitriptyline [Elavil] 50 mg PO BEDTIME 08/12/24 Insulin Glargine,Hum.rec.anlog [Lantus] 40 unit SQ DAILY 08/12/24 Mirabegron [Myrbetriq] 50 mg PO DAILY 08/12/24 traMADol HCL [Ultram] 50 mg PO DAILYPRN PRN 08/12/24 - Past Medical/Surgical History Diabetic: Yes -: Diabetes mellitus type 2, insulin dependent -: HTN -: CHF -: COPD -: Hypothyroidism -: History of pulmonary ebolism -: Hyperlipidemia -: CAD with prior stents -: GOUT -: Depression -: Chronic back and knee pain -: HEART STENTS X 3 -: CHOLECYSTECTOMY -: COLON SX- POLYP REMOVED -: LEFT ANKLE SX -: HYSTERECTOMY -: APPY -: DISK REMOVAL -: HEMORROIDECTOMY Psychosocial/ Personal History: Patient is - Family History Mother Medical History: Diabetes Notes: with [place] Father Medical History: Cancer Notes: Prostatic [place] - Social History Smoking Status: Former smoker Alcohol use: No CD- Drugs: No Caffeine use: No Place of Residence: Home Review of Systems 10-point ROS is otherwise unremarkable Physical Examination Temp Pulse Resp BP Pulse Ox 96.8 F 82 16 122/75 98 08/30/24 08:00 08/30/24 08:08 08/30/24 08:04 08/30/24 08:08 08/30/24 08:04 General: Alert, In no apparent distress HEENT: Atraumatic, PERRLA, Mucous membr. moist/pink, EOMI, Sclerae nonicteric Neck: Supple, 2+ carotid pulse no bruit, No LAD, Without JVD or thyroid abnormality Respiratory: Diminished, Crackles/rales Cardiovascular: Regular rate/rhythm, Normal S1 S2, Edema Gastrointestinal: Normal bowel sounds, No tenderness Musculoskeletal: No tenderness Integumentary: No rashes Neurological: Normal gait, Normal speech, Normal tone, Normal affect Lymphatics: No axilla or inguinal lymphadenopathy - Problems (1) Acute on chronic diastolic heart failure Current Visit: No Status: Acute Plan: continue Lasix 40 mg IV q 8 hours monitor input and output and electrolytes continue losartan, nebivolol
--- NOTE | 2024-08-30 14:24 | P.PN ---
Subjective Date of Service: 08/30/24 Chief Complaint: Shortness of breath Patient states she feels much better today. She reports significant improvement in her shortness of breath. Her lower extremity edema is also improved. No issues overnight. Patient denies any chest pain. Physical Examination - Vital Signs Temperature: 97.1 F Blood Pressure: 105/62 Pulse: 80 Respirations: 17 Pulse Ox (%): 94 - Physical Exam General: Alert, In no apparent distress, Oriented x3, Obese HEENT: Mucous membr. moist/pink, Sclerae nonicteric Neck: JVD not distended Respiratory: Diminished (Bilateral), Crackles/rales (Mild bibasilar Rales) Cardiovascular: Regular rate/rhythm, Normal S1 S2, Edema (Bilateral legs) Gastrointestinal: Normal bowel sounds, Soft and benign, Non-distended, Other (Obese abdomen) Musculoskeletal: No tenderness, Swelling (Bilateral legs) Integumentary: No rashes, No cyanosis Neurological: Normal speech, Normal strength at 5/5 x4 extr, Cranial nerves 3-12 intact Assessment And Plan - Current Problems (Diagnosis) (1) Acute on chronic systolic heart failure Current Visit: Yes Status: Acute (2) Cor pulmonale, chronic Current Visit: Yes Status: Acute (3) Coronary artery disease Current Visit: Yes Status: Acute (4) Essential hypertension Current Visit: Yes Status: Acute (5) Acute on chronic respiratory failure with hypoxemia Current Visit: No Status: Acute (6) COPD exacerbation Current Visit: No Status: Acute (7) Pulmonary hypertension Current Visit: No Status: Acute - Plan Acute on chronic systolic heart failure Acute on chronic cor pulmonale Acute on chronic respiratory failure with hypoxia. Pulmonary hypertension Cardiology input appreciated Continue IV Lasix 40 mg every 8hrs Monitor renal function on IV Lasix Nephrology consult Monitor and optimize electrolyte Monitor intake and output Blood pressure control. COPD exacerbation Scheduled bronchodilators Oral prednisone. No leukocytosis, no fever, no SIRS. No indication for antibiotics at this time. Essential hypertension Continue home medications. Morbid obesity Weight loss by diet and exercise advised PT consulted DVT prophylaxis: Heparin SQ. Advanced directive: Full code
[2024-08-30] MEDS: predniSONE 20 MG TAB PO SCH (16:37)
[2024-08-30] MEDS: AMITRIPTYLINE 50 MG TAB PO SCH (21:49)
[2024-08-31 06:32] LABS: Absolute Lymphocytes (CBC) 0.6 K/uL (0.7-4.9); Absolute Monocytes 0.4 K/uL (0.1-1.3); Absolute Neutrophil 6.6 K/uL (1.8-8.0); Basophils % 0.6 % (0-1.3); Eosinophils % 0.1 % (0-4.4); Hematocrit 33.1 % (36.0-45.0); Lymphocytes % 8.1 % (15.3-44.8); MCHC 33.3 g/dL (32.0-36.0); MPV 7.6 fL (7.6-11.3); Monocytes % 4.7 % (3.3-12.3); Neutrophils % 86.5 % (41.7-73.7); Platelets 212 thou/uL (152-406); RBC Red Blood Cell Count 3.45 M/uL (3.86-4.86); Red Cell Distribution Width 15.6 % (12.1-15.2)
[2024-08-31 06:49] LABS: Anion Gap 7.3 mEq/L (5.0-15.0); Potassium 4.3 mEq/L (3.5-5.1)
[2024-08-31 08:00] LABS: Blood Morphology Comment NOT SEEN (NOT SEEN); Platelet Estimate ADEQ; White Blood Cell Scan OK (OK)
[2024-08-31] MEDS: INSULIN GLARGINE 100 UNIT/ML SQ SCH (10:30)
[2024-08-31] MEDS: MICONAZOLE 2% TOPICAL 15 GM TOP SCH (11:19)
--- NOTE | 2024-08-31 12:22 | RAD REPORT ---
EXAMINATION: ONE VIEW CHEST XR CLINICAL INDICATION: CHF TECHNIQUE: Frontal chest projection is submitted. Examination is limited by patient positioning and t echnique. COMPARISON: 08/29/2024 FINDINGS: [id number] pulmonary edema. The heart is moderately enlarged in size. No displaced fractures id entified. IMPRESSION: Mild CHF versus volume overload pattern is suspected.
--- NOTE | 2024-08-31 13:57 | P.PN ---
Subjective Date of Service: 08/31/24 Chief Complaint: History of heart failure Subjective: Improving (Patient is improving doing well no new complaints candidal infection in the groin) Review of Systems General: Weakness Respiratory: Shortness of Breath Integumentary: Rash (Rash in the groin) Physical Examination - Vital Signs Temperature: 98 F Blood Pressure: 132/68 Pulse: 81 Respirations: 17 Pulse Ox (%): 98 - Physical Exam General: Alert, Oriented x3 Neck: Supple Respiratory: Clear to auscultation bilaterally Cardiovascular: No edema, Regular rate/rhythm Integumentary: Other (Has has intertrigo candidal rash in both groins) Assessment And Plan - Current Problems (Diagnosis) (1) Biventricular congestive heart failure Current Visit: Yes Status: Acute Plan: Patient admitted with by ventricular congestive heart failure is currently improving severe intertrigo I suspect is got candidal infection will ointment prescribed his underlying chronic renal failure signs all stable apparently has underlying obstructive airways disease and is on Trelegy plan to discharge tomorrow Discharge Plan: Home Plan to discharge in: 24 Hours
--- NOTE | 2024-08-31 13:59 | P.PN ---
Subjective Date of Service: 08/31/24 Chief Complaint: History of heart failure Subjective: No new changes, No C/O voiced, Tolerating diet, Ambulating, Improving Review of Systems 10-point ROS is otherwise unremarkable Physical Examination - Vital Signs Temperature: 98 F Blood Pressure: 132/68 Pulse: 81 Respirations: 17 Pulse Ox (%): 98 - Physical Exam General: Alert, In no apparent distress HEENT: Atraumatic, PERRLA, EOMI Neck: Supple, JVD not distended Respiratory: Clear to auscultation bilaterally, Normal air movement Cardiovascular: Regular rate/rhythm, Normal S1 S2 Gastrointestinal: Normal bowel sounds, No tenderness Musculoskeletal: No tenderness Integumentary: No rashes Neurological: Normal speech, Normal tone, Normal affect Lymphatics: No axilla or inguinal lymphadenopathy - Studies Medications List Reviewed: Yes Assessment And Plan - Current Problems (Diagnosis) (1) Acute on chronic diastolic heart failure Current Visit: No Status: Acute Plan: continue Lasix 80 mg daily add Aldactone 25 mg daily monitor input and output and electrolytes continue losartan, nebivolol
--- NOTE | 2024-08-31 14:10 | EKG ---
Test Date: 2024-08-29 Test Time: 10:09:33 Lap Cutter Truer Operator: DENNIS MEASUREMENT RESULTS: Intervals: Rate: 93 WA: 152 QRSD: 88 QT: 366 QTc: 455 [place]: P: 96 WA: 152 QRS: 138 T: 107 INTERPRETIVE STATEMENTS: Suspect arm lead reversal, interpretation assumes no reversal Sinus rhythm with frequent premature ventricular complexes Right atrial enlargement Right ventricular hypertrophy with repolarization abnormality Abnormal ECG Compared to ECG 08/12/2024 01:06:08 Atrial abnormality now present Right ventricular hypertrophy now present Early repolarization now present ST (T wave) deviation now present Fusion complex(es) no longer present Electronically Signed On 08-31-24 14:08:25 CDT by Alin White
[2024-08-31] MEDS: ALBUTEROL 2.5 MG/3 ML NEB SOL NEB PRN (21:03)
[2024-09-01] MEDS: INSULIN REGULAR (HUMAN) 100 UNIT/ML SQ SCH ×2 (01:13→19:54)
[2024-09-01 07:09] LABS: Anion Gap 4.4 mEq/L (5.0-15.0); Potassium 3.4 mEq/L (3.5-5.1)
--- NOTE | 2024-09-01 08:17 | RAD REPORT ---
EXAMINATION: ONE VIEW CHEST XR CLINICAL INDICATION: CHF TECHNIQUE: Frontal chest projection is submitted. Examination is limited by patient positioning and t echnique. COMPARISON: 08/31/2024 FINDINGS: Mild bilateral pulmonary edema is suspected. The heart is moderately enlarged in size. Chronically di splaced proximal right humerus fracture again seen. IMPRESSION: No significant change in mild CHF versus volume overload pattern since comparison study.
--- NOTE | 2024-09-01 09:10 | P.PN ---
Subjective Date of Service: 09/01/24 Chief Complaint: Congestive heart failure Subjective: Improving (Is improving shortness of breath is bit better feels very weak) Review of Systems General: Weakness Respiratory: Shortness of Breath Physical Examination - Vital Signs Temperature: 97.5 F Blood Pressure: 136/70 Pulse: 75 Respirations: 16 Pulse Ox (%): 99 - Physical Exam General: Oriented x3 Respiratory: Clear to auscultation bilaterally Cardiovascular: No edema, Regular rate/rhythm, Normal S1 S2 - Studies Medications List Reviewed: Yes Assessment And Plan - Current Problems (Diagnosis) (1) Biventricular congestive heart failure Current Visit: Yes Status: Acute Plan: Patient is currently improving add low-dose spironolactone we will therapy evaluate for SNF was reviewed renal function is improved signs oxygenation satisfactory
[2024-09-01] MEDS: FUROSEMIDE 40 MG TABLET PO SCH (09:43)
[2024-09-01] MEDS: SPIRONOLACTONE 25 MG TABLET PO SCH (09:44)
[2024-09-01] MEDS: POTASSIUM CL SA 10 MEQ TAB PO ONE (11:42)
[2024-09-02 05:43] LABS: Anion Gap 5.1 mEq/L (5.0-15.0); Potassium 4.1 mEq/L (3.5-5.1)
[2024-09-02 06:19] VITALS: BMI 41.8
--- NOTE | 2024-09-02 09:21 | P.PN ---
Subjective Date of Service: 09/02/24 Chief Complaint: Congestive heart failure Subjective: Improving (Patient is improving doing well no new complaints feeling very weak) Review of Systems General: Weakness Respiratory: Shortness of Breath Physical Examination - Vital Signs Temperature: 97.0 F Blood Pressure: 108/66 Pulse: 93 Respirations: 18 Pulse Ox (%): 97 - Physical Exam General: Alert, In no apparent distress, Oriented x3 Respiratory: Clear to auscultation bilaterally Cardiovascular: No edema, Normal pulses, Irregular heart rate/rhythm - Studies Medications List Reviewed: Yes Assessment And Plan - Current Problems (Diagnosis) (1) Biventricular congestive heart failure Current Visit: Yes Status: Acute Plan: Patient has biventricular congestive heart failure doing much better of breath has improved feels very weak needs physical therapy possible SNF evaluation renal function is slightly worse continue to monitor urination vital signs stable candidal rash has improved labs ordered
[2024-09-03 06:13] LABS: Anion Gap 5.9 mEq/L (5.0-15.0); Potassium 3.9 mEq/L (3.5-5.1)
--- NOTE | 2024-09-03 10:35 | P.DS ---
Admission Date: 08/29/24 Discharge Date: 09/07/24 Disposition: TRANSFER TO SNF - REHAB Discharge Condition: FAIR Reason for Admission: Congestive heart failure Brief History of Present Illness: 83-year-old woman with a history of systolic heart failure, coronary artery disease status post multiple stents, pulmonary hypertension, morbid obesity and COPD presented to the emergency department with a complaint of progressive shortness of breath of about 3 days duration. Patient was discharged from [facility] about 3 weeks ago after she was admitted for shortness of breath and treated for COPD exacerbation, CHF exacerbation. Patient underwent cardiac catheterization, patient noted to have multiple coronary artery occlusions, including 100% occlusion of the LAD with good collateral and medical management recommended. Patient was treated with IV Lasix diuresis. She returned to the emergency department for progressive shortness of breath. Workup in the emergency department revealed markedly elevated BNP. Chest x-ray demonstrated pulmonary edema, EKG shows bigeminys and delayed interventricular conduction. Initial troponin is negative. Patient has hyperkalemia. She is hospitalized for further management. - Physical Exam General: Alert, In no apparent distress, Oriented x3, Obese HEENT: Mucous membr. moist/pink, Other (Oxygen by nasal cannula), EOMI, Sclerae nonicteric Neck: Supple, JVD not distended Respiratory: Diminished, unlabored Cardiovascular: Regular rate/rhythm, Normal S1 S2, No murmurs, Edema (Bilateral lower extremity) Capillary refill: <2 Seconds Gastrointestinal: Normal bowel sounds, Soft and benign, Non-distended, No tenderness, Other (Obese abdomen) Musculoskeletal: No swelling (Bilateral lower extremities), No erythema, No tenderness Integumentary: No rashes, No cyanosis Neurological: Normal speech, Normal strength at 5/5 x4 extr, Cranial nerves 3-12 intact Lymphatics: No axilla or inguinal lymphadenopathy Hospital Course: 83-year-old woman with a history of systolic heart failure, coronary artery disease status post multiple stents, pulmonary hypertension, morbid obesity and COPD presented to the emergency department with a complaint of progressive shortness of breath of about 3 days duration. Patient was discharged from [facility] about 3 weeks ago after she was admitted for shortness of breath and treated for COPD exacerbation, CHF exacerbation. Patient underwent cardiac catheterization, patient noted to have multiple coronary artery occlusions, including 100% occlusion of the LAD . treated with IV Lasix diuresis. She returned to the emergency department for progressive shortness of breath. Workup in the emergency department revealed markedly elevated BNP. Chest x-ray demonstrated pulmonary edema, Reports generalized weakness, eval for physical therapy, plan to [facility] to [facility] for [facility], Discharge medicatons Spiraldactone 25 mg daily Cozaar 25 mg daily lasix 40 mg daily lipitor 20 daily Assessment plan Acute on chronic heart failure with reduced ejection fraction, treated with diuresis continue Lasix Lasix 80 daily, spironolactone 25 daily, I&O Generalized weakness, treated with physical therapy, plan to discharge to [facility] facility for [facility]. COPD, continue nebulizers, O2 as needed keep sats greater than 90% Acute on chronic cor pulmonale Acute on chronic respiratory failure with hypoxia. Pulmonary hypertension-O2 2 L keep sats greater than 92 08/17/24 previous admission Echo: COMMENTS: 1. SEVERELY REDUCED LEFT VENTRICULAR SYSTOLIC FUNCTION, EJECTION FRACTION 25- 30%, SEVERE GLOBAL HYPOKINESIS WITH ANTERIOR, SHILOH BASAL AND APICAL NEELY AKINESIS 2. GRADE III DIASTOLIC DYSFUNCTION 3. SEVERE PULMONARY HYPERTENSION (RIGHT VENTRICULAR SYSTOLIC PRESSURE GREATER THAN 60 mmHg) 4. ELEVATED FILLING PRESSURE (RIGHT ATRIUM GREATER THAN 20 mmHg) Left heart cath: Findings: 1. Left main normal. 2. LAD; proximal mild luminal irregularities, and mid stent 100% occluded and it gives a diagonal branch prior to that with 90% proximal disease. Then, mild luminal irregularities. 3. Left circ; mild luminal irregularities. OM1 mild luminal irregularities, OM2 proximal 70% disease, and then circ itself got mid to distal 70% disease too. 4. RCA; proximal to mid stent patent with diffuse 20% to 30% ISR and gives a large RPDA that gives collaterals to the LAD. Assessment And Plan: 1. Significant mid LAD 100% ISR occlusion with good [id number] collaterals. 2. Significant OM2/mid left circ disease. 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 So there is no benefit of revascularizations of the LAD and also the OM2/circ revascularization is high risk for this patient. So the plan is to continue medical management. CAD,resume home medications Continue home medicines as previously prescribed GOAL: Clear understanding of disease process INSTRUCTIONS: Physician Discharge Instructions: -Follow-up with PCP in 1 to 2 weeks -Please call Dr. Sánchez at [phone] if any questions regarding hospital stay -Please call nursing station at [phone] if any nursing or medication questions -Return to the emergency room if symptoms worsen Diet: ADA, low sodium Activity: Fall precautions Vital Signs/Physical Exam: Temp Pulse Resp BP Pulse Ox 97.7 F 68 20 103/61 90 L 09/03/24 08:10 09/03/24 08:13 09/03/24 09:11 09/03/24 08:13 09/03/24 09:11 Laboratory Data at Discharge: WBC 7.60 thou/uL (4.3-10.9) 08/31/24 06:11 Hgb 11.0 g/dL (12.0-15.0) L D 08/31/24 06:11 Hct 33.1 % (36.0-45.0) L 08/31/24 06:11 Plt Count 212 thou/uL (152-406) 08/31/24 06:11 PT 12.6 SECONDS (9.4-12.5) H 08/29/24 10:00 INR 1.13 08/29/24 10:00 Sodium 139 mEq/L (136-145) 09/03/24 05:44 Potassium 3.9 mEq/L (3.5-5.1) 09/03/24 05:44 BUN 34 mg/dL (7-18) H 09/03/24 05:44 Creatinine 1.40 mg/dL (0.55-1.02) H 09/03/24 05:44 Glucose 95 mg/dL (74-106) 09/03/24 05:44 Phosphorus 4.1 mg/dL (2.5-4.9) 08/30/24 04:30 Magnesium 2.1 mg/dL (1.6-2.4) 08/30/24 04:30 Home Medications: Clopidogrel Bisulfate [Plavix*] 1 tab PO DAILY 09/23/19 Levothyroxine Sodium [place] [address]/23/19 Nebivolol HCl [Bystolic*] 1 tab PO DAILY 09/23/19 Pantoprazole [Protonix Tab*] [place] [address]/23/19 lisinopriL [Lisinopril] 10 mg PO DAILY 09/23/19 Albuterol Inhaler [Ventolin Inhaler*] 2 puff PO Q6HR PRN 11/04/21 Citalopram [Celexa*] 20 mg PO BID 11/04/21 Gabapentin 200 mg PO TID 11/04/21 Fluticasone/Umeclidin/Vilanter [Trelegy Ellipta 100-62.5-25] 1 puff IH DAILY 08/31/23 Amitriptyline [Elavil*] 50 mg PO BEDTIME 08/12/24 Insulin Glargine,Hum.rec.anlog [Lantus] 40 unit SQ DAILY 08/12/24 Mirabegron [Myrbetriq] 50 mg PO DAILY 08/12/24 traMADol HCL [Ultram*] 50 mg PO DAILYPRN PRN 08/12/24 Atorvastatin Calcium [Lipitor] 20 mg PO BEDTIME #30 tab 09/07/24 Furosemide [Lasix*] 40 mg PO BIDAC #60 tab 09/07/24 Losartan Potassium [Cozaar*] 25 mg PO DAILY #14 09/07/24 Potassium Chloride 10 meq PO DAILY #30 09/07/24 Spironolactone [Aldactone*] 25 mg PO DAILY #30 tab 09/07/24 New Medications: Spironolactone [Aldactone*] 25 mg PO DAILY #30 tab Losartan Potassium [Cozaar*] 25 mg PO DAILY #14 Furosemide [Lasix*] 40 mg PO BIDAC #60 tab Atorvastatin Calcium [Lipitor] 20 mg PO BEDTIME #30 tab Potassium Chloride 10 meq PO DAILY #30 Physician Discharge Instructions: PROBLEM: CHF GOAL: Clear understanding of disease process INSTRUCTIONS: Diet: Low sodium Activity: Fall precautions DME DME: Date Ordered: Name of Company: [employer] Services Needed: Correction Name of Company: [employer] Date or Referral: 09/06/2024 -DC IV and DC home -Follow-up with PCP in 1 to 2 weeks -Follow-up with Cardiology in 1 to 2 weeks -Please call Dr. Sánchez at [phone] if any questions regarding hospital stay -Please call nursing station at [phone] if any nursing or medication questions -Return to the emergency room if symptoms worsen Followup: Avery Gil MD [Primary Care Provider] - Alin White MD [ACTIVE - CAN ADMIT] - Time spent managing pt's care (in minutes): 55
--- NOTE | 2024-09-03 21:08 | P.PN ---
Date of Service: 09/03/24 Subjective bipap overnight, [place] authorization [place] Physical Examination - Vital Signs reviewed - Physical Exam General: Alert, In no apparent distress, Oriented x3, Obese HEENT: Mucous membr. moist/pink, Sclerae nonicteric Neck: JVD not distended Respiratory: Diminished (Bilateral), Crackles/rales Cardiovascular: Regular rate/rhythm, Normal S1 S2, Edema Gastrointestinal: Normal bowel sounds, Soft and benign, Non-distended, Other (Obese abdomen) Musculoskeletal: No tenderness, Swelling generalized weakness Integumentary: No rashes, No cyanosis Neurological: Normal speech, Normal strength at 5/5 x4 extr, Cranial nerves 3-12 intact Assessment And Plan - Current Problems (Diagnosis) (1) Acute on chronic systolic heart failure Current Visit: Yes Status: Acute (2) Cor pulmonale, chronic Current Visit: Yes Status: Acute (3) Coronary artery disease Current Visit: Yes Status: Acute (4) Essential hypertension Current Visit: Yes Status: Acute (5) Acute on chronic respiratory failure with hypoxemia Current Visit: No Status: Acute (6) COPD exacerbation Current Visit: No Status: Acute (7) Pulmonary hypertension Current Visit: No Status: Acute - Plan Acute on chronic systolic heart failure Acute on chronic cor pulmonale Acute on chronic respiratory failure with hypoxia. Pulmonary hypertension Cardiology input appreciated lasix 80 daily Monitor renal function on IV Lasix Nephrology consult Monitor and optimize electrolyte Monitor intake and output Blood pressure control. CXR No significant change in mild CHF versus volume overload pattern since comparison study. AIRAM with CKD trend kidney fuction, avoid nephrotoxic med COPD exacerbation improving Scheduled bronchodilators Oral prednisone. No leukocytosis, no fever, no SIRS. No indication for antibiotics at this time. Essential hypertension Continue home medications. Morbid obesity Weight loss by diet and exercise advised PT consulted DVT prophylaxis: Heparin SQ. Advanced directive: Full code time with patient 25 min
[2024-09-04 06:11] LABS: Anion Gap 3.7 mEq/L (5.0-15.0); Potassium 3.7 mEq/L (3.5-5.1)
--- NOTE | 2024-09-04 15:25 | P.PN ---
Date of Service: 09/04/24 Subjective pending authorization chai Encourage out of bed to chair with assistance PT ambulating with pt Physical Examination - Vital Signs reviewed - Physical Exam General: Alert, In no apparent distress, Oriented x3, Obese HEENT: Mucous membr. moist/pink, Sclerae nonicteric Neck: JVD not distended Respiratory: Diminished (Crackles/rales, dyspnea with exertion Cardiovascular: Regular rate/rhythm, Normal S1 S2, Edema Gastrointestinal: Normal bowel sounds, Soft and benign, Other (Obese abdomen) Musculoskeletal: No tenderness, Swelling generalized weakness Integumentary: No rashes, No cyanosis Neurological: Normal speech, Normal strength at 5/5 x4 extr, Cranial nerves 3-12 intact Assessment And Plan - Current Problems (Diagnosis) (1) Acute on chronic systolic heart failure Current Visit: Yes Status: Acute (2) Cor pulmonale, chronic Current Visit: Yes Status: Acute (3) Coronary artery disease Current Visit: Yes Status: Acute (4) Essential hypertension Current Visit: Yes Status: Acute (5) Acute on chronic respiratory failure with hypoxemia Current Visit: No Status: Acute (6) COPD exacerbation Current Visit: No Status: Acute (7) Pulmonary hypertension Current Visit: No Status: Acute (8) morbid obesity - Plan Acute on chronic systolic heart failure Acute on chronic cor pulmonale Acute on chronic respiratory failure with hypoxia. Pulmonary hypertension Cardiology consulted lasix 80 daily, Aldactone 25 mg, losartan, nebivolol Monitor renal function on IV Lasix Nephrology consult Monitor and optimize electrolyte Monitor intake and output Blood pressure control. CXR No significant change in mild CHF versus volume overload pattern since comparison study. 08/12/24 Recent heart cath recommend mended medical manage, Significant mid LAD 100% ISR occlusion with good [id number] collaterals. 08/30/24 cardiology recommend Lasix 40 every 8, losartan,nebivol Bystolic 1 daily AIRAM with CKD trend kidney fuction, ongoing neck nephrotoxic medication COPD exacerbation improving Scheduled bronchodilators Oral prednisone. No leukocytosis, no fever, no SIRS. No indication for antibiotics at this time. Essential hypertension Continue home medications. Morbid obesity Weight loss by diet and exercise advised PT consulted DVT prophylaxis: Heparin SQ. Advanced directive: Full code time with patient 25 min
--- NOTE | 2024-09-06 08:31 | P.PN ---
Date of Service: 09/05/24 Subjective pending authorization [email or web address] Encourage out of bed to chair with assistance Physical Examination - Vital Signs reviewed - Physical Exam General: Alert, In no apparent distress, Oriented x3, Obese, afebrile HEENT: Mucous membr. moist/pink, Sclerae nonicteric Neck: JVD not distended Respiratory: Diminished (Crackles/rales, dyspnea with exertion) Cardiovascular: Regular rate/rhythm, Normal S1 S2, Edema Gastrointestinal: Normal bowel sounds, Soft and benign, Obese Musculoskeletal: No tenderness, Swelling generalized weakness Integumentary: No rashes, No cyanosis Neurological: Normal speech, Normal strength at 5/5 x4 extr, Cranial nerves 3-12 intact Assessment And Plan - Current Problems (Diagnosis) (1) Acute on chronic systolic heart failure Current Visit: Yes Status: Acute (2) Cor pulmonale, chronic Current Visit: Yes Status: Acute (3) Coronary artery disease Current Visit: Yes Status: Acute (4) Essential hypertension Current Visit: Yes Status: Acute (5) Acute on chronic respiratory failure with hypoxemia Current Visit: No Status: Acute (6) COPD exacerbation Current Visit: No Status: Acute (7) Pulmonary hypertension Current Visit: No Status: Acute (8) morbid obesity - Plan Acute on chronic systolic heart failure Acute on chronic cor pulmonale Acute on chronic respiratory failure with hypoxia. Pulmonary hypertension Cardiology consulted lasix 80 daily, Aldactone 25 mg, losartan, nebivolol Monitor renal function on IV Lasix Nephrology consult Monitor and optimize electrolyte Monitor intake and output Blood pressure control. CXR No significant change in mild CHF versus volume overload pattern since comparison study. 08/12/24 Recent heart cath recommend mended medical manage, Significant mid LAD 100% ISR occlusion with good bukvn-lo-ryzv collaterals. 08/30/24 cardiology recommend Lasix 40 every 8, losartan,nebivol Bystolic 1 daily AIRAM with CKD trend kidney fuction, ongoing neck nephrotoxic medication COPD exacerbation improving Scheduled bronchodilators Oral prednisone. No leukocytosis, no fever, no SIRS. No indication for antibiotics at this time. Essential hypertension Continue home medications. Morbid obesity Weight loss by diet and exercise advised PT consulted DVT prophylaxis: Heparin SQ. Advanced directive: Full code time with patient 25 min
[2024-09-06 23:48] VITALS: O2SAT 96
--- NOTE | 2024-09-07 09:35 | P.PN ---
Date of Service: 09/06/24 Subjective no verbalized compliants encourage OOB to chair Physical Examination - Vital Signs reviewed - Physical Exam General: Alert, In no apparent distress, Oriented x3, Obese HEENT: Mucous membr. moist/pink, Sclerae nonicteric Neck: JVD not distended Respiratory: Diminished, unlabored, O2 2 L per nasal cannula Cardiovascular: Regular rate/rhythm, Normal S1 S2, Edema Gastrointestinal: Normal bowel sounds, Soft and benign, Musculoskeletal: No tenderness, Swelling generalized weakness Integumentary: No rashes, No cyanosis Neurological: Normal speech, Normal strength at 5/5 x4 extr, Cranial nerves 3-12 intact Assessment And Plan - Current Problems (Diagnosis) (1) Acute on chronic systolic heart failure Current Visit: Yes Status: Acute (2) Cor pulmonale, chronic Current Visit: Yes Status: Acute (3) Coronary artery disease Current Visit: Yes Status: Acute (4) Essential hypertension Current Visit: Yes Status: Acute (5) Acute on chronic respiratory failure with hypoxemia Current Visit: No Status: Acute (6) COPD exacerbation Current Visit: No Status: Acute (7) Pulmonary hypertension Current Visit: No Status: Acute (8) morbid obesity - Plan Acute on chronic systolic heart failure improved Acute on chronic cor pulmonale improving Acute on chronic respiratory failure with hypoxia Pulmonary hypertension Cardiology consulted lasix 80 daily, Aldactone 25 mg, losartan, nebivolol Monitor renal function on IV Lasix Nephrology consult Monitor and optimize electrolyte Monitor intake and output Blood pressure control. CXR No significant change in mild CHF versus volume overload pattern since comparison study. 08/12/24 Recent heart cath recommend mended medical manage, Significant mid LAD 100% ISR occlusion with good [id number] collaterals. 08/30/24 cardiology recommend Lasix 40 every 8, losartan,nebivol Bystolic 1 daily AIRAM with CKD trend kidney fuction, ongoing neck nephrotoxic medication COPD exacerbation improving Scheduled bronchodilators Oral prednisone. No leukocytosis, no fever, no SIRS. No indication for antibiotics at this time. Essential hypertension Continue home medications. Morbid obesity Weight loss by diet and exercise advised PT consulted DVT prophylaxis: Heparin SQ. Advanced directive: Full code time with patient 25 min
[2024-09-07 12:14] LABS: Albumin 2.7 g/dL (3.4-5.0); Phosphorus 3.4 mg/dL (2.5-4.9)
[2024-09-07 12:39] VITALS: BP 116/57; TEMP 97.9
== END 2024-09-07 16:52 | DRG 291 ==
LOC: ER 09:49 → ERHOLD 11:58 → 2ND 13:33
PROVIDERS: ADMIT Internal Medicine; ATTEND Hospitalist
DX: I13.0 Hypertensive heart and chronic kidney disease with heart failure and stage 1 through stage 4 chronic kidney disease, or unspecified chronic kidney disease (principal); I50.23 Acute on chronic systolic (congestive) heart failure; J96.21 Acute and chronic respiratory failure with hypoxia; Z68.41 Body mass index [BMI] 40.0-44.9, adult; J44.1 Chronic obstructive pulmonary disease with (acute) exacerbation; N17.9 Acute kidney failure, unspecified; N18.9 Chronic kidney disease, unspecified; E11.22 Type 2 diabetes mellitus with diabetic chronic kidney disease; D63.1 Anemia in chronic kidney disease; E66.01 Morbid (severe) obesity due to excess calories; E03.9 Hypothyroidism, unspecified; I27.20 Pulmonary hypertension, unspecified; E87.5 Hyperkalemia; I27.81 Cor pulmonale (chronic); E87.70 Fluid overload, unspecified; J44.9 Chronic obstructive pulmonary disease, unspecified; I25.10 Atherosclerotic heart disease of native coronary artery without angina pectoris; B37.9 Candidiasis, unspecified; Z23 Encounter for immunization; Z79.4 Long term (current) use of insulin; Z95.5 Presence of coronary angioplasty implant and graft; Z90.49 Acquired absence of other specified parts of digestive tract; Z79.02 Long term (current) use of antithrombotics/antiplatelets; Z79.890 Hormone replacement therapy; Z79.899 Other long term (current) drug therapy; Z87.891 Personal history of nicotine dependence
CPT/HCPCS: 36415; 71045; 80048; 80069; 82947; 83735; 83880; 84100; 84484; 85025; 85610; 93005; 94640; 94760; 96374; 97110; 97116; 97161; 97530; 99285; J1644; J1940; J7512; J7613; J7644